=== PATIENT | male | born 1950 | race Caucasian/White ===

== ENCOUNTER 2019-09-05 00:16 | Inpatient (IN) | payer MEDICARE, SELFPAY ==
[2019-09-05] VITALS (53 sets, daily range): BP systolic 106–157; BP diastolic 54–101; PULSE 68–155; RESP 11–27; TEMP 36.3–36.8; O2SAT 91–100; BMI 35.8; BMI 25.7; BMI 25.8
--- NOTE | 2019-09-05 00:22 | ED.RN ---
NO OLD EKGS IN MUSE
--- NOTE | 2019-09-05 00:34 | RAD_ITS ---
HISTORY: PALPITATIONS EXAM: XR Chest 1 View: COMPARISON: None FINDINGS: # of images incl. paperwork: 1 Lungs are clear. Heart is not enlarged. No acute osseous pathology perceived. Pulmonary vascularity is distinct. No effusions. RAD/Chest 1 View (Portable) IMPRESSION: Normal. at 0105 Reported and signed by: Nile Mary MD Electronically Signed: Nile Mary MD at 1:04 EST Tel , Service support ,
--- NOTE | 2019-09-05 00:34 | EKG12_ITS ---
Test Reason : CP Blood Pressure : / mmHG Vent. Rate : 149 BPM Atrial Rate : 125 BPM P-R Int : 000 ms QRS Dur : 096 ms QT Int : 300 ms P-R-T Axes : 000 049 239 degrees QTc Int : 472 ms Atrial fibrillation with rapid ventricular response ST & T wave abnormality, consider inferolateral ischemia Abnormal ECG Confirmed by JUVENAL BAILEY, FARAZ ([id number]), purchasing expeditor JORJE CUNNINGHAM ([id number]) on 09/08/2019 11:45:58 AM Referred By: Maricarmen King Confirmed By:FARAZ SANFORD MD
--- NOTE | 2019-09-05 00:36 | ED.DCSUM_ITS ---
History of Present Illness Chief Complaint: Palpitations Narrative: Patient is a 69-year-old male who presents with palpitations. This woke him abruptly from sleep. He complains of a sensation of his heart racing or fluttering. No chest pain. No shortness of breath. No history of prior similar symptoms. No history of atrial fibrillation, any other dysrhythmia, coronary disease. He is treated for diabetes and hyperlipidemia. He denies any recent illness. Past Medical History - Allergies and Home Meds Allergies/Adverse Reactions: Allergies No Known Allergies Allergy (Verified 09/05/19 00:21) Primary Care Physician: Kesha Lopez [Primary Care Provider] - Past Medical History: - - Diabetes, hyperlipidemia, GERD Smoking Status: Never smoker Review of Systems All systems negative except as indicated General: Denies: Fever Eyes: Denies: Visual changes - bilaterally ENT: Denies: Bilateral ear pain Cardiovascular: Reports: Palpitations, Heart racing. Denies: Chest pain Respiratory: Denies: Dyspnea Gastrointestinal: Denies: Nausea, Vomiting Musculoskeletal: Denies: Myalgias, Arthralgias Skin: Denies: Rash Neurological: Denies: Headache Hematologic: Denies: Easy bruising Allergy: Denies: Uticaria Physical Exam Vital Signs/Narrative: Vital Signs Temp Pulse Resp BP Pulse Ox 09/05/19 00:17 97.4 F L 141 H 11 L 146/97 H 99 Inital Vital Signs reviewed: Yes General: Well nourished, Well developed Head: Normocephalic Eyes: EOMI ENT: Moist mucous membranes Neck: Supple Cardiovascular: - - Heart is irregularly irregular and tachycardic, no murmur Respiratory: No distress, CTA bilaterally Abdomen: Soft, Nontender Extremities: Nontender Skin: Normal color Neurological: Alert Psychological: Normal affect Diagnostic/Tx/Re-eval Impressions Chest X-Ray 09/05/19 00:34 IMPRESSION: Normal. at 0105 Reported and signed by: Nile Mary MD Electronically Signed: Nile Mary MD at 1:04 EST Tel , Service support , 09/05/19 00:34 Chest 1 View (Portable) [RAD] Stat Laboratory Results 09/05/19 09/05/19 09/05/19 00:25 00:25 00:25 WBC 6.1 RBC 5.37 Hgb 14.5 Hct 45.2 MCV 84.2 MCH 27.0 MCHC 32.1 RDW Std Deviation 43.4 RDW Coeff of Sagar 14.3 Plt Count 268 MPV 10.1 Immature Gran % (Auto) 0.300 Neut % (Auto) 51.1 Lymph % (Auto) 32.2 [place] % (Auto) 11.9 H Eos % (Auto) 3.3 Baso % (Auto) 1.2 H Absolute Neuts (auto) 3.1 Absolute Lymphs (auto) 1.95 Nucleated RBC % 0 PT 13.4 INR 1.0 Sodium 141 Potassium 3.6 Chloride 108 H Carbon Dioxide 27.0 Anion Gap 6 BUN 26 H Creatinine 1.13 Estim Creat Clear Calc 46.98 Est GFR (MDRD) Af Amer 82 Est GFR (MDRD) Non-Af 68 BUN/Creatinine Ratio 23.0 H Glucose 164 H Calcium 8.9 Troponin I < 0.015 TSH 3.79 H - Medical Decision Making EKG shows atrial fibrillation at a rate of 149. There are inferior and lateral T wave inversions with ST depression which is likely rate related. Patient was given a Cardizem bolus and started on an infusion. Laboratory studies and imaging as above essentially unremarkable. Patient's heart rate is improved on reevaluation and once starting Cardizem infusion is ranging 90s to 110. Repeat EKG shows A. fib at a rate of 113. He is still has inferior and lateral T wave inversions although ST segment depression is resolved. Patient still has no chest pain or shortness of breath. His chads 2 vascular score is 2 so he was given subcutaneous Lovenox. He was discussed with the hospitalist and admitted. ED Disposition - Plan for ED Patient: Disposition: Acute Care Hospital [facility] Diagnosis: Atrial fibrillation with RVR Referrals: Kesha Lopez [Primary Care Provider] -
[2019-09-05] MEDS: dilTIAZem 25 MG/5 ML Vial 20 MG IV BOLUS (00:45)
[2019-09-05 00:55] LABS: Absolute Lymphocyte Count 1.95 X10^3/uL (0.83-4.51); Absolute Neutrophil Count 3.1 X10^3/uL (2.0-7.7); Basophil# 0.07 X10^3/uL; Basophil% 1.2 % (0-1); Eosinophils% 3.3 % (0-5); Hematocrit 45.2 % (40-54); Hemoglobin 14.5 g/dL (13.0-16.5); Lymphocyte # 1.95 X10^3/ul (4.0); Lymphocyte % 32.2 % (19-41); Mean Corp Hgb Conc 32.1 g/dL (32-36); Mean Corpuscular Volume 84.2 fL (80-94); Mean Platelet Vol. 10.1 fl (6.2-12.0); Monocyte# 0.72 X10^3/uL; Monocyte% 11.9 % (0-10); NRBC Flagged by Analyzer 0 % (0-5); Neutrophil % 51.1 % (47-70); Platelet Count 268 K/mm3 (150-450); RBC Distribution Width CV 14.3 % (11.6-14.6); RBC Distribution Width SD 43.4 fl (35.1-43.9); Red Blood Count 5.37 M/mm3 (4.6-6.2); White Blood Count 6.1 K/mm3 (4.4-11.0)
[2019-09-05 00:59] LABS: Prothrombin Time (Protime)PT. 13.4 SECONDS (11.7-14.9)
[2019-09-05 01:13] LABS: Anion Gap 6 (5-15); BUN 26 mg/dL (7-18); Calcium,Total 8.9 mg/dL (8.5-10.1); Chloride 108 mmol/L (98-107); Creatinine, Serum 1.13 mg/dL (0.70-1.30); EST Glomerular Filtration Rate 68 mL/min (>60); Est Glom Filt Rate - Afr Amer 82 mL/min (>60); Estimated Creatinine Clearance 46.98 ml/min; Glucose 164 mg/dL (74-106); Potassium 3.6 mmol/L (3.5-5.1); Sodium Level 141 mmol/L (136-145); Thyroid Stim Hormone (TSH) 3.79 uIU/mL (0.358-3.74)
--- NOTE | 2019-09-05 01:28 | EKG12_ITS ---
Test Reason : REPEAT Blood Pressure : / mmHG Vent. Rate : 113 BPM Atrial Rate : 131 BPM P-R Int : 000 ms QRS Dur : 106 ms QT Int : 334 ms P-R-T Axes : 000 038 268 degrees QTc Int : 458 ms Atrial fibrillation with rapid ventricular response ST & T wave abnormality, consider inferolateral ischemia Abnormal ECG Confirmed by JUVENAL BAILEY, FARAZ ([id number]), film and video editor JORJE CUNNINGHAM ([id number]) on 09/08/2019 11:46:29 AM Referred By: Maricarmen King Confirmed By:FARAZ SANFORD MD
--- NOTE | 2019-09-05 01:50 | HP.PCM_ITS ---
Problem List (1) Diabetes Status: Chronic (2) Atrial fibrillation with RVR Status: Acute (3) HLD (hyperlipidemia) Status: Chronic History of Present Illness Date of Admission: 09/05/19 Chief Complaint: palpitations The patient is a 69 year old M with a significant history of diabetes mellitus; hyperlipidemia; GERD and vitamin D deficiency who presented to emergency de partment with palpitation that woke him up from the sleep. His symptoms started few hours before presentation. Also reports that his bilateral hands feel swollen. He denies any shortness of breath. At the emergency department his initial heart rate was in the 150s. He was given Cardizem bolus and was started on IV cardizem drip. Also he was given Lovenox. Past Medical History Past Medical History (Chronic Problems): Chronic Problems (Last Reviewed 09/05/19 @ 05:59 by Casey Mayorga MD) Diabetes (Chronic) HLD (hyperlipidemia) (Chronic) Medical History: Medical History (Last Reviewed 09/05/19 @ 05:59 by Casey Mayorga MD) Diabetes E11.9 Hyperlipidemia E78.5 Allergies No Known Allergies Allergy (Verified 09/05/19 00:21) Home Medications: Ambulatory Orders Medication Instructions Recorded Cholecalciferol (Vitamin D3) 1 tab PO QWEEK 09/05/19 [Vitamin D3] Glimepiride 1 tab PO DAILY 09/05/19 Metformin HCl 1 tab PO BID 09/05/19 Omeprazole 1 tab PO DAILY 09/05/19 Pravastatin Sodium 1 tab PO QHS 09/05/19 Surgical History: - - 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 Review of Systems Constitutional: Denies: Chills, Fever, Weight Change HEENT: Denies: Head Aches, Sinus Congestion, Sinus Drainage Cardiovascular: Reports: Palpitations, - - Patient feels like his bilateral hands are swollen.. Denies: Chest Pain Respiratory: Denies: Cough, Shortness of breath at rest, Sputum production Gastrointestinal: Denies: Abdominal Pain, Nausea, Vomiting Genitourinary: Denies: Dysuria Musculoskeletal: Denies: Joint Pain, Joint Tenderness Skin: Denies: Rash, Wounds Neurological: Denies: Numbness, Tingling, Focal weakness Psychiatric: Denies: Anxiety, Depression, Homicidal Ideations, Suicidal Ideations Hematologic/ Lymphatic: Denies: Easy Bruising, Easy Bleeding VTE Information - Inpt Only VTE Present on Admission: No VTE Mechan Device Prophylaxis: None VTE Pharm Prophylaxis ordered?: No Reason prophylaxis not ordered:: Treatment Not Indicated - Started on therapy dose of Lovenox for A. fib Patient Problems: Active and Suspected Problems (Last Reviewed 09/05/19 @ 05:59 by Casey Mayorga MD) Atrial fibrillation with RVR (Acute) - Physical Exam Vitals/I&O's: Vital Signs Temp Pulse Resp BP Pulse Ox 97.4 F L 129 H 17 136/101 H 98 09/05/19 00:17 09/05/19 01:31 09/05/19 01:31 09/05/19 01:31 09/05/19 01:31 Oxygen Delivery Method Room Air Weight: 88.904 kg Body Mass Index (BMI) 35.8 General: Alert, Oriented x3, Cooperative HEENT: Atraumatic, PERRLA, EOMI, Normocephalic Neck: Supple, No JVD, Negative Carotid Bruits Lungs: No rales, - - Coarse Cardiovascular: Normal S1, Normal S2, No murmurs, Irregular Rate, Tachycardic Abdomen: Bowel Sounds Present, Soft, Non Tender Extremities: No edema, Capillary Refill Less than 3 Seconds Skin: - - Gottron papules on knuckles Musculoskeletal: No Tenderness to Palpation of Joints or Extremities Neurological: Cranial nerves II-XII grossly intact Psych/Mental Status: Normal Affect, Appropriate Laboratory Results 09/05/19 00:25: WBC 6.1, RBC 5.37, Hgb 14.5, Hct 45.2, MCV 84.2, MCH 27.0, MCHC 32.1, RDW Std Deviation 43.4, RDW Coeff of Sagar 14.3, Plt Count 268, MPV 10.1, Immature Gran % (Auto) 0.300, Neut % (Auto) 51.1, Lymph % (Auto) 32.2, [place] % (Auto) 11.9 H, Eos % (Auto) 3.3, Baso % (Auto) 1.2 H, Absolute Neuts (auto) 3.1, Absolute Lymphs (auto) 1.95, Nucleated RBC % 0 09/05/19 00:25: PT 13.4, INR 1.0 09/05/19 00:25: Sodium 141, Potassium 3.6, Chloride 108 H, Carbon Dioxide 27.0, Anion Gap 6, BUN 26 H, Creatinine 1.13, Estim Creat Clear Calc 46.98, Est GFR (MDRD) Af Amer 82, Est GFR (MDRD) Non-Af 68, BUN/Creatinine Ratio 23.0 H, Glucose 164 H, Calcium 8.9, Troponin I < 0.015, TSH 3.79 H Current Medications Diltiazem HCl 125 mg/ Dextrose 125 mls @ 5 mls/hr IV .Q25H [facility]; Protocol Last Admin: 09/05/19 01:31 Dose: 5 mg/hr, 5 mls/hr Documented by: Assessment/Plan All Active Problems (Last Reviewed 09/05/19 @ 05:59 by Casey Mayorga MD) Atrial fibrillation with RVR (Acute) The patient is a 69 year old M with a significant history of diabetes mellitus; hyperlipidemia; GERD and vitamin D deficiency who presented to emergency department with palpitation that woke him up from the sleep; was found to be in A. fib with RVR A. fib with RVR Initial heart rate in the emergency department was 155. EKG showed A. fib with RVR with a ventricular rate of [address] depression that appeared mproved when his rates improved. [id number] score is 2 (age 65-74 :diabetes) Received Cardizem bolus at the emergency department. Was started on Cardizem drip; continued. Lovenox therapeutic dose x1 was given the emergency department. We will continue patient on Lovenox therapeutic dose twice daily. TSH was mildly elevated; check free T4. Potassium was 3.6; optimize by giving 40 mEq of p.o. potassium. Check magnesium. Trend BMP Echocardiogram ordered. Of note patient reported feeling of bilateral hand edema. Physical examination did not show edema bilateral hands. Check lipid levels Diabetes mellitus with hyperglycemia. On presentation his blood glucose was elevated. However it is within hospital goal. Hold home metformin. Continue home Amaryl. Accu-Chek QA CHS with correction scale insulin GERD PPI continued Vitamin D deficiency Vitamin D continued Hyperlipidemia Pravastatin continued DVT prophylaxis Not indicated since patient has been started on therapeutic dose of Lovenox for his A. fib. Code Visit Inpatient E&M: 75419 Init Hosp L3
[2019-09-05] MEDS: Enoxaparin 100 MG/ML Syringe 90 MG SC ×3 (02:12→21:23)
--- NOTE | 2019-09-05 02:38 | ECHOD_ITS ---
Reason For Study: AFIB/FLUTTER Procedure This was a 2D Doppler, Color Flow transthoracic echocardiogram. The study was technically difficult. Exam performed portable in patient room. Left Ventricle Normal LV size. Left ventricular systolic function is normal. The estimated ejection fraction is 55 %. Unable to assess diastolic dysfunction. No regional wall motion abnormalities noted. Right Ventricle Normal RV size. Normal systolic function. Atria The left atrium is mildly enlarged. Normal right atrium. No doppler evidence for ASD. Mitral Valve There is no mitral annular calcification. Normal mitral valve. Trivial mitral valve insufficiency. Tricuspid Valve Normal tricuspid valve. Trivial tricuspid valve insufficiency. Unable to estimate RV systolic pressure/pulmonary artery pressure due to technically difficult study. Aortic Valve Trisinus/trileaflet aortic valve. Normal aortic valve. Pulmonic Valve The pulmonic valve is not well visualized. Great Vessels Normal sized aortic root. Pericardium/Pleural No pericardial effusion. MMode/2D Measurements & Calculations LVIDd: 4.2 cm IVSd: 1.2 cm Ao root diam: 3.4 cm LVIDs: 3.0 cm LVPWd: 1.1 cm RVDd: 2.9 cm FS: 27.4 % LAV(MOD-bp): 72.4 ml LA A4 area: 21.5 cm2 RA A4 area: 14.6 cm2 LAV(MOD-bp) Indexed: 33.3 ml/m2 LAV(MOD-sp2): 67.1 ml LAV(MOD-sp4): 67.0 ml Time Measurements MV dec time: 0.17 sec Doppler Measurements & Calculations MV E max maximino: 82.6 cm/sec Ao V2 max: 137.0 cm/sec LV V1 max: 91.0 cm/sec Ao max P.5 mmHg LV V1 max P.3 mmHg PA V2 max: 96.1 cm/sec Interpretation Summary The study was technically difficult. Left ventricular systolic function is normal. The estimated ejection fraction is 55 %. The left atrium is mildly enlarged. Trivial mitral valve insufficiency. Trivial tricuspid valve insufficiency. Unable to estimate RV systolic pressure/pulmonary artery pressure due to technically difficult study. Unable to assess diastolic dysfunction. Ordering Physician: Casey Mayorga Referring Physician: Maricarmen King Performed By: Morena Whitt RDCS, RVT
[2019-09-05 02:57] LABS: Magnesium 1.8 mg/dL (1.6-2.6); T4 Free Direct 0.93 ng/dL (0.76-1.46)
[2019-09-05] MEDS: 0.9% Saline Lock 10 ML Syringe IV ×2 (04:05→21:22)
[2019-09-05 06:50] LABS: Bedside Glucose 173 mg/dL (70-110)
[2019-09-05] MEDS: Insulin Lispro 100 UNIT/ML INSULN.PEN SC ×4 (06:51→21:31)
[2019-09-05 07:38] LABS: Cholesterol 132 mg/dL (200); High Density Lipoprotein 39 mg/dL; Triglycerides 141 mg/dL; Very Low Density Lipoprotein 28 mg/dL (5-40)
[2019-09-05] MEDS: Glimepiride 1 MG Tablet PO (08:31)
[2019-09-05] MEDS: Pantoprazole Sodium 20 MG Tablet PO (08:31)
--- NOTE | 2019-09-05 11:10 | CASEMGMT ---
RN CM Assessment Presentation: Afib RVR, diabetes with hyperglycemia Intro role of CM and purpose of RN CM assessment to patient in room. Pt is [employer] [place] [employer] [place]. Demographics, PCP and Pharmacy verified. Pt states he lives independently in 3rd floor apartment. States he currently is not using any DME and is able to manage the 10+ stairs to get to his apartment. PCP: Kesha Roa- pt does not wish to establish with PCP, states he will continue with [facility] Specialists: Dr. Valverde, Podiatry; Dr. Troncoso, oncology; Radha Oglesby Preferred Pharmacy: [facility] Insurance: [employer] [facility] Prescription Benefit: yes LNOK: Sister, Ani Roper Living Arrangements: Pt states he is independent in all ADL's, no care needs identified. Transportation: Drives DME: has cane, does not use. Blood glucose monitoring equipment, pt states is in working order and he does check his BS @ home. HHC/SNF: none Patient DC goals: Home on dc. DC PLAN: Home Juanis CENTENO RN ACM
[2019-09-05 11:50] LABS: Bedside Glucose 232 mg/dL (70-110)
--- NOTE | 2019-09-05 12:56 | PN_ITS ---
<Sergey Ibarra - Last Filed: 09/05/19 12:56> Patient Problems: Active and Suspected Problems (Last Reviewed 09/05/19 @ 05:59 by Casey Mayorga MD) Atrial fibrillation with RVR (Acute) Reason for Visit: Palpitations Subjective: Patient presented to the ER for palpitations. He denies a history of atrial fibrillation, denies a history of heart disease. He reports that despite being retired he is still fairly active and does not have any shortness of breath or chest pain/tightness with exertion. Today no palpitations at all. Still in A. fib however rate much better controlled. No fevers or chills, no recent illness or infection, no nausea, vomiting, diarrhea. Vitals/I&O's: Vital Signs Temp Pulse Resp BP Pulse Ox 97.9 F 76 15 113/71 98 09/05/19 08:00 09/05/19 11:55 09/05/19 11:00 09/05/19 11:00 09/05/19 11:00 Oxygen Delivery Method Room Air Weight: 200 lb 9.93 oz Body Mass Index (BMI) 25.7 Intake and Output for Last 24 Hours 09/03/19 09/04/19 09/05/19 23:59 23:59 23:59 Intake Total 1035.50 / 1035.50 Output Total 325 / 325 Balance 710.50 / 710.50 General: Alert, Oriented x3, Cooperative HEENT: Atraumatic, PERRLA, EOMI, Normocephalic Neck: Supple, No JVD, Negative Carotid Bruits Lungs: Clear to auscultation, Normal air movement Cardiovascular: No murmurs, Irregular Rate Abdomen: Bowel Sounds Present, Soft, Non Tender Extremities: No edema, Capillary Refill Less than 3 Seconds Skin: No rashes, No breakdown Musculoskeletal: No Tenderness to Palpation of Joints or Extremities Neurological: Cranial nerves II-XII grossly intact Psych/Mental Status: Normal Affect, Appropriate, Alert and oriented to time, place, person, mood and affect Laboratory Results 09/05/19 00:24: Free T4 Cancelled 09/05/19 00:24: Magnesium 1.8, Free T4 0.93 09/05/19 00:25: WBC 6.1, RBC 5.37, Hgb 14.5, Hct 45.2, MCV 84.2, MCH 27.0, MCHC 32.1, RDW Std Deviation 43.4, RDW Coeff of Sagar 14.3, Plt Count 268, MPV 10.1, Immature Gran % (Auto) 0.300, Neut % (Auto) 51.1, Lymph % (Auto) 32.2, [place] % (Auto) 11.9 H, Eos % (Auto) 3.3, Baso % (Auto) 1.2 H, Absolute Neuts (auto) 3.1, Absolute Lymphs (auto) 1.95, Nucleated RBC % 0 09/05/19 00:25: PT 13.4, INR 1.0 09/05/19 00:25: Sodium 141, Potassium 3.6, Chloride 108 H, Carbon Dioxide 27.0, Anion Gap 6, BUN 26 H, Creatinine 1.13, Estim Creat Clear Calc 46.98, Est GFR (MDRD) Af Amer 82, Est GFR (MDRD) Non-Af 68, BUN/Creatinine Ratio 23.0 H, Glucose 164 H, Calcium 8.9, Troponin I < 0.015, TSH 3.79 H 09/05/19 03:20: Troponin I < 0.015 09/05/19 06:25: Triglycerides 141, Cholesterol 132, LDL Cholesterol 65, VLDL Cholesterol 28, HDL Cholesterol 39 L 09/05/19 06:25: Troponin I < 0.015 09/05/19 06:45: POC Glucose 173 H 09/05/19 11:11: POC Glucose 232 H Current Medications Acetaminophen (Tylenol) 650 mg PO Q6H PRN PRN PRN Reason: Pain Score 1-10/Temp > 100.7 F Enoxaparin Sodium (Lovenox) 90 mg 1 mg/kg (90 mg) SC Q12 [facility] Last Admin: 09/05/19 11:13 Dose: 90 mg Documented by: Ergocalciferol (Vitamin D) 50,000 unit PO QWEEK [facility] Glimepiride (Amaryl) 1 mg PO DAILYCM [facility] Last Admin: 09/05/19 08:31 Dose: 1 mg Documented by: Glucagon () 1 mg IM .X1 PRN PRN Reason: Hypoglycemia Diltiazem HCl 125 mg/ Dextrose 125 mls @ 5 mls/hr IV .Q25H [facility]; Protocol Last Titration: 09/05/19 11:00 Dose: 15 mg/hr, 15 mls/hr Documented by: Dextrose (Dextrose 10%-Water) 250 mls @ 999 mls/hr IV X1 PRN; Protocol PRN Reason: HYPOGLYCEMIA Sodium Chloride () 250 mls @ 15 mls/hr IV .[id number] PRN PRN Reason: Saline Flush Amiodarone HCl 360 mg/ (Dextrose) 200 mls @ 16.667 mls/hr CONT INF .Q12H [facility] Stop: 09/06/19 03:28 Last Admin: 09/05/19 11:06 Dose: 0.5 mg/min, 16.7 mls/hr Documented by: Insulin Human Lispro (Humalog Kwikpen (Bkc)) 0 unit SC ACHS [facility]; Protocol Last Admin: 09/05/19 11:12 Dose: 3 unit Documented by: Ondansetron HCl (Zofran) 4 mg IV Q8H PRN PRN PRN Reason: NAUSEA/VOMITING Pantoprazole Sodium (Protonix) 20 mg PO DAILY [facility] Last Admin: 09/05/19 08:31 Dose: 20 mg Documented by: Pravastatin Sodium (Pravachol) 10 mg PO QHS [facility] Sodium Chloride () 10 - 40 ml IV UD PRN PRN Reason: SALINE FLUSH Last Admin: 09/05/19 04:05 Dose: 10 ml Documented by: STROKE Vital Signs/Narrative: Vital Signs Pulse Resp BP Pulse Ox 09/05/19 11:55 76 09/05/19 11:00 74 15 113/71 98 09/05/19 10:00 78 13 126/82 H 97 09/05/19 09:00 79 17 123/82 H 100 Medical Necessity - Tobacco Use Smoking Status: Never smoker Tobacco Use: Non-smoker Assessment/Plan All Active Problems (Last Reviewed 09/05/19 @ 05:59 by Casey Mayorga MD) Atrial fibrillation with RVR (Acute) 1. A. fib with RVR-cardiology consulted. On amiodarone and Cardizem drip. Rate improved, still in A. fib. Was having palpitations, now resolved. Echocardiogram unremarkable. Troponin negative x3. TSH somewhat elevated however free T4 is normal. On therapeutic Lovenox 2. Type 2 diabetes-orals held-continue sliding scale insulin. 3. GERD-continue PPI 4. Hyperlipidemia-continue statin DVT prophylaxis: On therapeutic Lovenox. This patient was seen by Sergey Ibarra PA-C under the supervision of Doctor Flor. <Uriel Ray - Last Filed: 09/05/19 13:37> Vitals/I&O's: Vital Signs Temp Pulse Resp BP Pulse Ox 36.6 C 76 15 113/71 98 09/05/19 08:00 09/05/19 11:55 09/05/19 11:00 09/05/19 11:00 09/05/19 11:00 Oxygen Delivery Method Room Air Weight: 91 kg Body Mass Index (BMI) 25.7 Intake and Output for Last 24 Hours 09/03/19 09/04/19 09/05/19 23:59 23:59 23:59 Intake Total 1035.50 / 1035.50 Output Total 325 / 325 Balance 710.50 / 710.50 General: Alert, Cooperative HEENT: Atraumatic, Normocephalic Oral: Moist Mucosa, No Gingival or Mucosal Lesions/ Ulcerations Neck: No Nodes, Trachea Midline Lungs: Clear to auscultation, Normal air movement, No rhonchi, No wheeze, No rales Cardiovascular: Regular rate, Regular Rhythm, Normal S1, Normal S2 Abdomen: Bowel Sounds Present, Soft, Non Tender, Non-Distended Extremities: No edema, No Calf Tenderness Psych/Mental Status: Normal Affect, Appropriate Laboratory Results 09/05/19 00:24: Free T4 Cancelled 09/05/19 00:24: Magnesium 1.8, Free T4 0.93 09/05/19 00:25: WBC 6.1, RBC 5.37, Hgb 14.5, Hct 45.2, MCV 84.2, MCH 27.0, MCHC 32.1, RDW Std Deviation 43.4, RDW Coeff of Sagar 14.3, Plt Count 268, MPV 10.1, Immature Gran % (Auto) 0.300, Neut % (Auto) 51.1, Lymph % (Auto) 32.2, [place] % (Auto) 11.9 H, Eos % (Auto) 3.3, Baso % (Auto) 1.2 H, Absolute Neuts (auto) 3.1, Absolute Lymphs (auto) 1.95, Nucleated RBC % 0 09/05/19 00:25: PT 13.4, INR 1.0 09/05/19 00:25: Sodium 141, Potassium 3.6, Chloride 108 H, Carbon Dioxide 27.0, Anion Gap 6, BUN 26 H, Creatinine 1.13, Estim Creat Clear Calc 46.98, Est GFR (MDRD) Af Amer 82, Est GFR (MDRD) Non-Af 68, BUN/Creatinine Ratio 23.0 H, Glucose 164 H, Calcium 8.9, Troponin I < 0.015, TSH 3.79 H 09/05/19 03:20: Troponin I < 0.015 09/05/19 06:25: Triglycerides 141, Cholesterol 132, LDL Cholesterol 65, VLDL Cholesterol 28, HDL Cholesterol 39 L 09/05/19 06:25: Troponin I < 0.015 09/05/19 06:45: POC Glucose 173 H 09/05/19 11:11: POC Glucose 232 H Current Medications Acetaminophen (Tylenol) 650 mg PO Q6H PRN PRN PRN Reason: Pain Score 1-10/Temp > 100.7 F Enoxaparin Sodium (Lovenox) 90 mg 1 mg/kg (90 mg) SC Q12 [facility] Last Admin: 09/05/19 11:13 Dose: 90 mg Documented by: Ergocalciferol (Vitamin D) 50,000 unit PO QWEEK [facility] Glimepiride (Amaryl) 1 mg PO DAILYCM [facility] Last Admin: 09/05/19 08:31 Dose: 1 mg Documented by: Glucagon () 1 mg IM .X1 PRN PRN Reason: Hypoglycemia Diltiazem HCl 125 mg/ Dextrose 125 mls @ 5 mls/hr IV .Q25H [facility]; Protocol Last Titration: 09/05/19 11:00 Dose: 15 mg/hr, 15 mls/hr Documented by: Dextrose (Dextrose 10%-Water) 250 mls @ 999 mls/hr IV X1 PRN; Protocol PRN Reason: HYPOGLYCEMIA Sodium Chloride () 250 mls @ 15 mls/hr IV .[id number] PRN PRN Reason: Saline Flush Amiodarone HCl 360 mg/ (Dextrose) 200 mls @ 16.667 mls/hr CONT INF .Q12H [facility] Stop: 09/06/19 03:28 Last Admin: 09/05/19 11:06 Dose: 0.5 mg/min, 16.7 mls/hr Documented by: Insulin Human Lispro (Humalog Kwikpen (Bkc)) 0 unit SC ACHS [facility]; Protocol Last Admin: 09/05/19 11:12 Dose: 3 unit Documented by: Ondansetron HCl (Zofran) 4 mg IV Q8H PRN PRN PRN Reason: NAUSEA/VOMITING Pantoprazole Sodium (Protonix) 20 mg PO DAILY [facility] Last Admin: 09/05/19 08:31 Dose: 20 mg Documented by: Pravastatin Sodium (Pravachol) 10 mg PO QHS [facility] Sodium Chloride () 10 - 40 ml IV UD PRN PRN Reason: SALINE FLUSH Last Admin: 09/05/19 04:05 Dose: 10 ml Documented by: STROKE Vital Signs/Narrative: Vital Signs Pulse Resp BP Pulse Ox 09/05/19 11:55 76 09/05/19 11:00 74 15 113/71 98 09/05/19 10:00 78 13 126/82 H 97 Assessment/Plan Patient seen and examined independently. Data reviewed. I agree with the above note by the physician promotions assistant sales marketing. 1. Afib with RVR: * currently NSR * on amio and dilt gtt * weight-based enoxaparin * EF 55% * cardiology consult pending. Code Visit Inpatient E&M: 20708 Subs Hosp L2
--- NOTE | 2019-09-05 15:10 | EKG12_ITS ---
Test Reason : CONVERTED TO NSR Blood Pressure : / mmHG Vent. Rate : 069 BPM Atrial Rate : 069 BPM P-R Int : 168 ms QRS Dur : 098 ms QT Int : 404 ms P-R-T Axes : 050 024 090 degrees QTc Int : 432 ms Normal sinus rhythm Nonspecific T wave abnormality Abnormal ECG No previous ECGs available Confirmed by MARILIA BAILEY, HOA ([id number]), field map editor HARRISON PATRICK ([id number]) on 09/15/2019 1:03:03 PM Referred By: Maricarmen King Confirmed By:STEPHANIE CAPELLAN MD
[2019-09-05 16:35] LABS: Bedside Glucose 202 mg/dL (70-110)
--- NOTE | 2019-09-05 18:03 | PCM.CONS.C ---
Problem List (1) Atrial fibrillation with RVR Status: Acute (2) HLD (hyperlipidemia) Status: Chronic (3) Diabetes Status: Chronic Reason for Consult Date of Consultation: 09/05/19 History of Present Illness: The patient is a 69 year old white male who is referred for evaluation of atrial fibrillation superimposed on hyperlipidemia and diabetes mellitus. The patient states he awoke from sleep sensing palpitations and rapid heart rate. He does not recall having any associated chest discomfort, nausea, emesis, or diaphoresis. He denies any obvious shortness of breath or dyspnea. He felt his upper extremities were swollen. He presented to the [facility] emergency department. He was found to be in atrial fibrillation with rapid ventricular response. He was placed in the hospital for further evaluation and care. He has been treated with IV diltiazem and IV amiodarone. Over time he has been noted to have subsequent spontaneous conversion to sinus rhythm. At the present time he states he is feeling well. He denies symptoms of ongoing chest discomfort or difficulty breathing, orthopnea, PND, or worsening peripheral pitting edema. There has been no near syncope or syncope. He states he has not sensed any recurrent palpitations. His cardiac enzymes have been negative. His ECG demonstrated atrial fibrillation with rapid ventricular response with diffuse nonspecific ST and T wave abnormality. 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 Lives: Alone Smoking Status: Never smoker Tobacco Use: Non-smoker Alcohol: None Drugs: None Review of Systems - Review of Systems General: Denies: Fever, Night Sweats, Fatigue Cardiovascular: Reports: Palpitations. Denies: Chest Discomfort, Shortness of Breath, Orthopnea, PND, Peripheral Edema, Lightheadedness, Dizziness, Near Syncope, Syncope Respiratory: Denies: Cough, Sputum Production, Hemoptysis Gastrointestinal: Denies: Hematemesis, Hematochezia, Melena Genitourinary: Denies: Dysuria, Hematuria Skin: Denies: Rash Subjectve: This is a 69-year-old white male who appears to be resting reasonably comfortably at the moment in no acute distress. Objective: Vital Signs Temp Pulse Resp BP Pulse Ox 98.2 F 71 15 126/74 H 97 09/05/19 13:56 09/05/19 17:55 09/05/19 17:55 09/05/19 17:55 09/05/19 17:55 Oxygen Delivery Method Room Air Weight: 200 lb 9.93 oz Body Mass Index (BMI) 25.7 Intake and Output for Last 24 Hours 09/03/19 09/04/19 09/05/19 23:59 23:59 23:59 Intake Total 1211.62 / 1211.62 Output Total 325 / 325 Balance 886.62 / 886.62 General: Awake, Alert, Oriented x 3, Cooperative, No Acute Distress HEENT: Atraumatic, Normocephalic, PERRL, EOMI, Sclera Non Icteric Oral: Moist Mucosa Neck: Supple, Good ROM, No JVD Lungs: Clear to auscultation Cardiovascular: Regular Rhythm, Normal S1, Normal S2 Vascular: No Carotid Bruits Abdomen: Bowel Sounds Present, Soft, Non Tender Extremities: No edema Neurological: No Focal Motor or Sensory Deficit Psych/Mental Status: Appropriate 09/05/19 00:24: Magnesium 1.8 09/05/19 00:25: WBC 6.1, RBC 5.37, Hgb 14.5, Hct 45.2, MCV 84.2, MCH 27.0, MCHC 32.1, Plt Count 268, MPV 10.1, Immature Gran % (Auto) 0.300, Neut % (Auto) 51.1, Lymph % (Auto) 32.2, [place] % (Auto) 11.9 H, Eos % (Auto) 3.3, Baso % (Auto) 1.2 H, Absolute Neuts (auto) 3.1, Nucleated RBC % 0 09/05/19 00:25: PT 13.4, INR 1.0 09/05/19 00:25: Sodium 141, Potassium 3.6, Chloride 108 H, Carbon Dioxide 27.0, Anion Gap 6, BUN 26 H, Creatinine 1.13, Est GFR (MDRD) Af Amer 82, Est GFR (MDRD) Non-Af 68, BUN/Creatinine Ratio 23.0 H, Glucose 164 H, Calcium 8.9, Troponin I < 0.015 09/05/19 03:20: Troponin I < 0.015 09/05/19 06:25: Triglycerides 141, Cholesterol 132, LDL Cholesterol 65, VLDL Cholesterol 28, HDL Cholesterol 39 L 09/05/19 06:25: Troponin I < 0.015 Rhythm: Sinus rhythm EKG: As previously noted ECHO: Left ventricle: Normal LV systolic function: Estimated LVEF of 55% CXR: Per radiology: No acute cardiopulmonary disease process appreciated Assessment/Plan 1. Atrial fibrillation with rapid ventricular response At the present time the etiology is unclear. The patient will continue to be monitored. He will continue medical therapy with antiplatelet therapy/anticoagulant therapy as deemed appropriate along with rate control therapy and antiarrhythmic therapy. As part of his evaluation he will undergo evaluation with a pharmacologic stress nuclear imaging study to evaluate for any obvious evidence of myocardial ischemia that may be contributing to his findings that warrant further evaluation and care. 2. Hyperlipidemia He will continue risk factor modification and medical management. 3. Diabetes mellitus He will continue evaluation care per internal medicine. This note was generated using a voice recognition system and there may be incorrect words, spelling or punctuation that were not noted when reviewing the office note prior to saving.
[2019-09-05] MEDS: dilTIAZem CD 120 MG Capsule PO (18:36)
[2019-09-05] MEDS: Amiodarone 200 MG Tablet PO (21:22)
[2019-09-05] MEDS: Pravastatin 20 MG Tablet 10 MG PO (21:23)
[2019-09-05 22:20] LABS: Bedside Glucose 160 mg/dL (70-110)
[2019-09-06] VITALS (9 sets, daily range): BP systolic 112–137; BP diastolic 68–83; PULSE 68–86; RESP 11–16; TEMP 36.6–36.9; O2SAT 95–98
[2019-09-06] MEDS: 0.9% Saline Lock 10 ML Syringe IV (05:09)
--- NOTE | 2019-09-06 05:55 | EKG12_ITS ---
Test Reason : AM EKG Blood Pressure : / mmHG Vent. Rate : 073 BPM Atrial Rate : 073 BPM P-R Int : 180 ms QRS Dur : 104 ms QT Int : 404 ms P-R-T Axes : 041 019 025 degrees QTc Int : 445 ms Normal sinus rhythm Nonspecific T wave abnormality Abnormal ECG No previous ECGs available Confirmed by DEJAN BAILEY, BUZZ ([id number]), tape editor KD GUEVARA ([id number]) on 09/10/2019 11:42:03 AM Referred By: Maricarmen King Confirmed By:BUZZ WYLIE MD
[2019-09-06] MEDS: Amiodarone 200 MG Tablet PO ×2 (06:30→13:15)
[2019-09-06 06:45] LABS: Bedside Glucose 160 mg/dL (70-110)
[2019-09-06] MEDS: dilTIAZem CD 120 MG Capsule PO (09:39)
[2019-09-06] MEDS: Glimepiride 1 MG Tablet PO (09:39)
[2019-09-06] MEDS: Pantoprazole Sodium 20 MG Tablet PO (09:39)
--- NOTE | 2019-09-06 10:58 | STRESSREP_ITS ---
Stress Test Report Date: 09-06-19 Procedure: Pharmacologic stress nuclear imaging study Indications: Atrial fibrillation Consent: Per the patient Procedure: The patient underwent pharmacologic (Regadenoson) evaluation with a peak heart rate of 98 beats per minute (65 %predicted maximal heart rate) and a peak blood pressure of 158/62 mmHg. The baseline ECG demonstrated normal sinus rhythm; nonspecific T wave abnormality. The peak pharmacologic ECG demonstrated no obvious ECG changes. There were no cardiac dysrhythmias pretest, during pharmacologic infusion, or recovery. There was no complaint of chest discomfort during pharmacologic infusion or recovery. The examination was discontinued secondary to completion of protocol. Impression: 1. Pharmacologic (Regadenoson) evaluation 2. Peak pharmacologic ECG with no obvious ECG changes. 3. There were no cardiac dysrhythmias pretest, during pharmacologic infusion, or recovery. 4. Nuclear images pending Myocardial perfusion imaging study: Technique: The patient was injected with 11.8 millicuries of technetium 99m Cardiolite and subsequently rest SPECT Cardiolite nuclear imaging was obtained in the horizontal long, vertical long, and short axis views. The patient underwent pharmacologic (Regadenoson) evaluation with a peak heart rate of 98 beats per minute (65 % percent predicted maximal heart rate) and a peak blood pressure of 158/62 mmHg. The patient was injected with 35.0 millicuries of technetium 99m Cardiolite and subsequently stress SPECT Cardiolite nuclear imaging was obtained in the horizontal long, vertical long, and short axis views. A gated Cardiolite study at peak stress was obtained. Interpretation: Rest and stress SPECT Cardiolite nuclear imaging status post realignment, normalization, and attenuation correction demonstrate a small area of subtle diminished tracer uptake near the apical segments without significant change between rest and stress. There is end systolic thickening and brightening. The gated Cardiolite study demonstrates myocardial thickening and inward wall motion. The reported LVEF is 65 %. Impression: 1. Rest and stress SPECT Cardiolite nuclear imaging demonstrate myocardial perfusion changes appearing compatible with physiologic apical thinning with no myocardial perfusion changes considered diagnostic for associated stress-induced myocardial ischemia. 2. The gated Cardiolite study reports an LVEF of 65 %. This note was generated with [employer] software. It may contain incorrect words, spelling, and punctuation that were not noted in checking the note before signing.
[2019-09-06 11:00] LABS: Anion Gap 4 (5-15); BUN 23 mg/dL (7-18); BUN/Creat Ratio 20.7 RATIO (10-20); Calcium,Total 8.1 mg/dL (8.5-10.1); Chloride 104 mmol/L (98-107); Creatinine, Serum 1.11 mg/dL (0.70-1.30); EST Glomerular Filtration Rate 70 mL/min (>60); Est Glom Filt Rate - Afr Amer 84 mL/min (>60); Glucose 191 mg/dL (74-106); Potassium 3.7 mmol/L (3.5-5.1); Sodium Level 136 mmol/L (136-145)
[2019-09-06] MEDS: Insulin Lispro 100 UNIT/ML INSULN.PEN SC (11:01)
[2019-09-06 11:15] LABS: Bedside Glucose 178 mg/dL (70-110)
--- NOTE | 2019-09-06 12:21 | DCINST_ITS ---
- Discharge Diagnoses Current Active Problems: Current Active and Chronic Problems (Last Reviewed 09/05/19 @ 05:59 by Casey Mayorga MD) Atrial fibrillation with RVR (Acute) Diabetes (Chronic) HLD (hyperlipidemia) (Chronic) You will use the following diet at home:: Calorie/Carbohydrate Controlled (specify 1200, 1400, etc) - 1800 alanna / day, Cardiac Your food should be the consistency of: Regular Your liquids should be the consistency of: Regular/Thin Discharge Activity: Return to Normal Activity Allergies/Adverse Reactions: Allergies No Known Allergies Allergy (Verified 09/05/19 00:21) Medications to take at Discharge Cholecalciferol (Vitamin D3) [Vitamin D3] 1 tab PO QWEEK 09/05/19 Glimepiride 1 tab PO DAILY 09/05/19 Metformin HCl 1 tab PO BID 09/05/19 Omeprazole 1 tab PO DAILY 09/05/19 Pravastatin Sodium 1 tab PO QHS 09/05/19 Amiodarone HCl [Cordarone] 200 mg PO DAILY #106 tab 09/06/19 Apixaban [Eliquis] 5 mg PO BID #60 tab.ds.pk 09/06/19 Diltiazem CD [Cardizem CD] 120 mg PO DAILY #30 cap 09/06/19 The following prescriptions were given: Diltiazem CD [Cardizem CD] 120 mg PO DAILY #30 cap Transmission Status: Sent to [facility] Amiodarone HCl [Cordarone] 200 mg PO DAILY #106 tab Transmission Status: Sent to [facility] Apixaban [Eliquis] 5 mg PO BID #60 tab.ds.pk Transmission Status: Sent to [facility] Primary Care Physician: Kesha Lopez [Primary Care Provider] - Please follow up with your Primary Care Physician in: 1-2 weeks Test Results: Test results from this visit will be discussed in further detail at your follow- up appointment, if applicable. Please Follow Up With: Jay Estrada MD When: as directed Proposed Discharge Date: 09/06/19
--- NOTE | 2019-09-06 13:11 | CASEMGMT ---
Case Management Progress Note: 1250- Called patient pharmacy Sarah [facility]UM[facility] and s/w states Ti Tatumquis cost $3.80/month. Went to patient bedside and informed patient. Denies any issues, concerns or questions. Asking about how many refills-directed to discuss with primary nurse and pharmacist upon DC. Updated primary nurse Bethany. Juan Diego Billings RNCM
--- NOTE | 2019-09-06 13:12 | PCM.PN.CARD ---
Subjectve: The patient reports no ongoing palpitations or rapid rate sensations. He has had no other chest discomfort or difficulty breathing. Objective: Vital Signs Temp Pulse Resp BP Pulse Ox 97.9 F 71 16 126/81 H 96 09/06/19 11:00 09/06/19 11:00 09/06/19 11:00 09/06/19 11:00 09/06/19 11:15 Oxygen Delivery Method Room Air Weight: 200 lb 9.93 oz Body Mass Index (BMI) 25.7 Intake and Output for Last 24 Hours 09/04/19 09/05/19 09/06/19 23:59 23:59 23:59 Intake Total 2169.85 / 2185.44 340.00 / 340.00 Output Total 325 / 325 300 / 300 Balance 1844.85 / 1860.44 40.00 / 40.00 General: Awake, Alert, Oriented x 3, Cooperative, No Acute Distress HEENT: Atraumatic, Normocephalic, PERRL, EOMI, Sclera Non Icteric Oral: Moist Mucosa Neck: Supple, Good ROM, No JVD Lungs: Clear to auscultation Cardiovascular: Regular Rhythm, Normal S1, Normal S2 Abdomen: Bowel Sounds Present, Soft, Non Tender Extremities: No edema Neurological: No Focal Motor or Sensory Deficit Psych/Mental Status: Appropriate 09/06/19 09:58: Sodium 136, Potassium 3.7, Chloride 104, Carbon Dioxide 28.0, Anion Gap 4 L, BUN 23 H, Creatinine 1.11, Est GFR (MDRD) Af Amer 84, Est GFR (MDRD) Non-Af 70, BUN/Creatinine Ratio 20.7 H, Glucose 191 H, Calcium 8.1 L Rhythm: Sinus rhythm EKG: Sinus rhythm; nonspecific T wave Stress Test: Stress Test Report Date: 09-06-19 Procedure: Pharmacologic stress nuclear imaging study Indications: Atrial fibrillation Consent: Per the patient Procedure: The patient underwent pharmacologic (Regadenoson) evaluation with a peak heart rate of 98 beats per minute (65 %predicted maximal heart rate) and a peak blood pressure of 158/62 mmHg. The baseline ECG demonstrated normal sinus rhythm; nonspecific T wave abnormality. The peak pharmacologic ECG demonstrated no obvious ECG changes. There were no cardiac dysrhythmias pretest, during pharmacologic infusion, or recovery. There was no complaint of chest discomfort during pharmacologic infusion or recovery. The examination was discontinued secondary to completion of protocol. Impression: 1. Pharmacologic (Regadenoson) evaluation 2. Peak pharmacologic ECG with no obvious ECG changes. 3. There were no cardiac dysrhythmias pretest, during pharmacologic infusion, or recovery. 4. Nuclear images pending Myocardial perfusion imaging study: Technique: The patient was injected with 11.8 millicuries of technetium 99m Cardiolite and subsequently rest SPECT Cardiolite nuclear imaging was obtained in the horizontal long, vertical long, and short axis views. The patient underwent pharmacologic (Regadenoson) evaluation with a peak heart rate of 98 beats per minute (65 % percent predicted maximal heart rate) and a peak blood pressure of 158/62 mmHg. The patient was injected with 35.0 millicuries of technetium 99m Cardiolite and subsequently stress SPECT Cardiolite nuclear imaging was obtained in the horizontal long, vertical long, and short axis views. A gated Cardiolite study at peak stress was obtained. Interpretation: Rest and stress SPECT Cardiolite nuclear imaging status post realignment, normalization, and attenuation correction demonstrate a small area of subtle diminished tracer uptake near the apical segments without significant change between rest and stress. There is end systolic thickening and brightening. The gated Cardiolite study demonstrates myocardial thickening and inward wall motion. The reported LVEF is 65 %. Impression: 1. Rest and stress SPECT Cardiolite nuclear imaging demonstrate myocardial perfusion changes appearing compatible with physiologic apical thinning with no myocardial perfusion changes considered diagnostic for associated stress-induced myocardial ischemia. 2. The gated Cardiolite study reports an LVEF of 65 %. Medical Necessity - Tobacco Use Smoking Status: Never smoker Tobacco Use: Non-smoker Assessment/Plan 1. Atrial fibrillation with rapid ventricular response At the present time the etiology is unclear. His pharmacologic stress nuclear imaging study appears to be negative. At the present time the recommendation would be for continued medical management which will include rate control therapy with diltiazem, antiarrhythmic therapy with amiodarone, and anticoagulant therapy. The patient will also need continued outpatient cardiovascular follow-up. 2. Hyperlipidemia He will continue risk factor modification and medical management. 3. Diabetes mellitus He will continue evaluation care per internal medicine. Comment: The above was discussed and reviewed with the patient and Dr. Westbrook. This note was generated using a voice recognition system and there may be incorrect words, spelling or punctuation that were not noted when reviewing the office note prior to saving.
--- NOTE | 2019-09-06 13:54 | DS.PCM_ITS ---
<Sergey Ibarra - Last Filed: 09/06/19 13:54> Discharge Date and Diagnosis Date of Admission: 09/05/19 Date of Discharge: 09/06/19 - Primary Discharge Diagnosis New onset Afib with RVR T2DM GERD HLD - Secondary Discharge Diagnosis Chronic Problems (Last Reviewed 09/05/19 @ 05:59 by Casey Mayorga MD) Diabetes (Chronic) HLD (hyperlipidemia) (Chronic) Hospital Course and Treatment Imaging Results: 09/06/19 05:55 Nuclear Stress Test - Chemical [NM] AM (NON MEDS) Impression: 1. Rest and stress SPECT Cardiolite nuclear imaging demonstrate myocardial perfusion changes appearing compatible with physiologic apical thinning with no myocardial perfusion changes considered diagnostic for associated stress-induced myocardial ischemia. 2. The gated Cardiolite study reports an LVEF of 65 %. 2D Echo: Interpretation Summary The study was technically difficult. Left ventricular systolic function is normal. The estimated ejection fraction is 55 %. The left atrium is mildly enlarged. Trivial mitral valve insufficiency. Trivial tricuspid valve insufficiency. Unable to estimate RV systolic pressure/pulmonary artery pressure due to technically difficult study. Unable to assess diastolic dysfunction. RAD/Chest 1 View (Portable) IMPRESSION: Normal. [facility] None Procedures: 2-D Echocardiogram, Stress test Summary of Care Provided: Hospital Course: The patient is a 69 year old M with pmhx of Dmt2, HLD, GERD who presented to the ER with c/o palpitations. He was found to have Afib with RVR which he no prior hx of. He was treated with amiodarone and cardizem drips, and given therapeutic lovenox. His heart rate was successfully controlled with these and they were transitioned to PO. TSH was slightly elevated however T4 was normal. Trop was negative x3. 2D echo was obtained and was unremarkable as reported above. Cardiology was consulted and recommended a stress test. This was negative. The patient had good rate control, no further palpitations. He was transitioned to oral eliquis for anticoagulation. He was discharged home in stable condition. He will follow up with his PCP in 1-2 weeks and with cardiology as directed. This patient was seen by Sergey Ibarra PA-C under the supervision of Dr. Westbrook [] - Physical Exam Vitals/I&O's: Vital Signs Temp Pulse Resp BP Pulse Ox 97.9 F 71 16 126/81 H 96 09/06/19 11:00 09/06/19 11:00 09/06/19 11:00 09/06/19 11:00 09/06/19 11:15 Oxygen Delivery Method Room Air Weight: 200 lb 9.93 oz Body Mass Index (BMI) 25.7 Intake and Output for Last 24 Hours 09/04/19 09/05/19 09/06/19 23:59 23:59 23:59 Intake Total 2169.85 / 2185.44 340.00 / 340.00 Output Total 325 / 325 300 / 300 Balance 1844.85 / 1860.44 40.00 / 40.00 General: Alert, Oriented x3, Cooperative HEENT: Atraumatic, PERRLA, EOMI, Normocephalic Neck: Supple, No JVD, Negative Carotid Bruits Lungs: Clear to auscultation, Normal air movement Cardiovascular: Regular rate, No murmurs Abdomen: Bowel Sounds Present, Soft, Non Tender Extremities: No edema, Capillary Refill Less than 3 Seconds Skin: No rashes, No breakdown Musculoskeletal: No Tenderness to Palpation of Joints or Extremities Neurological: Cranial nerves II-XII grossly intact Psych/Mental Status: Normal Affect, Appropriate, Alert and oriented to time, place, person, mood and affect Laboratory Results 09/05/19 16:10: POC Glucose 202 H 09/05/19 21:30: POC Glucose 160 H 09/06/19 06:31: POC Glucose 160 H 09/06/19 09:58: Sodium 136, Potassium 3.7, Chloride 104, Carbon Dioxide 28.0, Anion Gap 4 L, BUN 23 H, Creatinine 1.11, Estim Creat Clear Calc 72.00, Est GFR (MDRD) Af Amer 84, Est GFR (MDRD) Non-Af 70, BUN/Creatinine Ratio 20.7 H, Glucose 191 H, Calcium 8.1 L 09/06/19 10:59: POC Glucose 178 H Discharge Diet: Low fat/ Low Cholesterol, 1800 Calorie Control Diet, 2000 mg Sodium Diet Discharge Activity: Return to Normal Activity Home Medications: Medications to take at Discharge Cholecalciferol (Vitamin D3) [Vitamin D3] 1 tab PO QWEEK 09/05/19 Glimepiride 1 tab PO DAILY 09/05/19 Metformin HCl 1 tab PO BID 09/05/19 Omeprazole 1 tab PO DAILY 09/05/19 Pravastatin Sodium 1 tab PO QHS 09/05/19 Amiodarone HCl [Cordarone] 200 mg PO DAILY #106 tab 09/06/19 Apixaban [Eliquis] 5 mg PO BID #60 tab.ds.pk 09/06/19 Diltiazem CD [Cardizem CD] 120 mg PO DAILY #30 cap 09/06/19 Following Prescrptions Were Given to Patient: Diltiazem CD [Cardizem CD] 120 mg PO DAILY #30 cap Transmission Status: Received by [facility] Amiodarone HCl [Cordarone] 200 mg PO DAILY #106 tab Transmission Status: Received by [facility] Apixaban [Eliquis] 5 mg PO BID #60 tab.ds.pk Transmission Status: Received by [facility] Primary Care Physician: Kesha Lopez [Primary Care Provider] - Please follow up with your Primary Care Physician in: 1-2 weeks Please Follow Up With: Jay Estrada MD When: as directed Disposition: Home Minutes spent on discharge:: 35 Patient Condition:: Stable Medical Necessity - Tobacco Use Smoking Status: Never smoker Tobacco Use: Non-smoker Meaningful Use Info Meaningful Use Diagnoses (Choose all that apply): None applicable <Sarah Westbrook - Last Filed: 09/06/19 15:17> Discharge Date and Diagnosis - Secondary Discharge Diagnosis Chronic Problems (Last Reviewed 09/05/19 @ 05:59 by Casey Mayorga MD) Diabetes (Chronic) HLD (hyperlipidemia) (Chronic) Hospital Course and Treatment Summary of Care Provided: Patient seen by Sergey Ibarra PA-C under my supervision The patient is a 69 year old M with a past medical history as listed was admitted through the ED with a complaint of palpitations. He was found to be in A. fib with RVR. He had no previous diagnosis of A. fib. He was put on amiodarone and Cardizem drip and started on therapeutic Lovenox. Heart rate control subsequently improved and converted to normal sinus rhythm and was switched to p.o. medication. TSH was only mildly elevated but T4 was within normal limits. Troponins x3 were negative and 2D echo showed EF of 55% with normal left ventricular size and systolic function with no regional wall motion abnormalities noted. Cardiology was consulted. He had a stress test on 09/06/2019 which was negative for any evidence of myocardial ischemia. Patient remained stable and was discharged home on p.o. Eliquis as well as p.o. amiodarone and p.o. Cardizem. He is follow-up with his primary care doctor and cardiology. Patient seen and examined prior to discharge. He had no complaints. Review of symptoms otherwise negative. Labs and vitals reviewed. Home medications reviewed and reconciled. O/E: Vital Signs Height 6 ft 2 in Weight: 200 lb 9.93 oz Weight in Pounds 200.6 lbs Pulse Ox 96 Temperature 97.9 F Pulse Rate 71 Respiratory Rate 16 Blood Pressure 126/81 Blood Pressure Position Semi-Fowlers General: Alert, Oriented x3, Cooperative HEENT: Atraumatic, PERRLA, EOMI, Normocephalic Neck: Supple, No JVD, Negative Carotid Bruits Lungs: Clear to auscultation, Normal air movement Cardiovascular: Regular rate and rhythm, No murmurs Abdomen: Bowel Sounds Present, Soft, Non Tender Extremities: No edema, Capillary Refill Less than 3 Seconds Skin: No rashes, No breakdown Musculoskeletal: No Tenderness to Palpation of Joints or Extremities Neurological: Cranial nerves II-XII grossly intact Psych/Mental Status: Normal Affect, Appropriate, Alert and oriented to time, place, person, mood and affect Plan as above. Rest as per Sergey Ibarra PA-C's notes which I have reviewed and endorsed. - Physical Exam Vitals/I&O's: Vital Signs Temp Pulse Resp BP Pulse Ox 97.9 F 71 16 126/81 H 96 09/06/19 11:00 09/06/19 11:00 09/06/19 11:00 09/06/19 11:00 09/06/19 11:15 Oxygen Delivery Method Room Air Weight: 200 lb 9.93 oz Body Mass Index (BMI) 25.7 Intake and Output for Last 24 Hours 09/04/19 09/05/19 09/06/19 23:59 23:59 23:59 Intake Total 2169.85 / 2185.44 340.00 / 340.00 Output Total 325 / 325 300 / 300 Balance 1844.85 / 1860.44 40.00 / 40.00 Laboratory Results 09/05/19 16:10: POC Glucose 202 H 09/05/19 21:30: POC Glucose 160 H 09/06/19 06:31: POC Glucose 160 H 09/06/19 09:58: Sodium 136, Potassium 3.7, Chloride 104, Carbon Dioxide 28.0, Anion Gap 4 L, BUN 23 H, Creatinine 1.11, Estim Creat Clear Calc 72.00, Est GFR (MDRD) Af Amer 84, Est GFR (MDRD) Non-Af 70, BUN/Creatinine Ratio 20.7 H, Glucose 191 H, Calcium 8.1 L 09/06/19 10:59: POC Glucose 178 H Code Visit Inpatient E&M: 27691 Disch Hosp
== END 2019-09-06 13:29 | disposition home or self-care (01) | DRG 310 ==
LOC: ED 01:56 → PCU 02:13
PROVIDERS: Admitting Provider Hospitalist; Emergency Provider Emergency Medicine; Referring Provider Nurse Practitioner Family; Visit Provider Student in an Organized Health Care Education/Training Program
DX: I48.91 Unspecified atrial fibrillation (principal); K21.9 Gastro-esophageal reflux disease without esophagitis; E78.5 Hyperlipidemia, unspecified; E55.9 Vitamin D deficiency, unspecified; Z79.84 Long term (current) use of oral hypoglycemic drugs; Z79.899 Other long term (current) drug therapy; E11.65 Type 2 diabetes mellitus with hyperglycemia; R94.6 Abnormal results of thyroid function studies
CPT/HCPCS: 36415; 71045; 78452; 80048; 80061; 82962; 83735; 84439; 84443; 84484; 85025; 85610; 93005; 93017; 93306; 97161; 97166; 99285; A9500; A4216; J2785

== ENCOUNTER → 2020-04-14 | Outpatient (CLI) | payer MEDICARE, MEDICAID, SELFPAY ==
[2019-09-26 10:08] VITALS: BMI 26.2
--- NOTE | 2020-04-14 14:54 | CT_ITS ---
STUDY: CT BRAIN WITH AND WITHOUT CONTRAST REASON FOR EXAM: Male, 70 years old. UNABLE TO TASTE FOR SEVERAL MONTHS RADIATION DOSAGE (If Supplied By Facility): CTDIvol = ( 44.99 ) mGy, DLP = ( 1614.72 ) mGycm TECHNIQUE: Transaxial CT imaging of the brain was performed pre and post contrast administration. The examination was performed with intravenous administration of IV 50mL Isovue-370. Individualized dose optimization techniques were used for this CT. COMPARISON: None. FINDINGS: Normal soft tissue structures. Normal calvarium. There is mild cerebral atrophy with widening of the extra-axial spaces and ventricular dilatation. Normal white matter tracts of the cerebral hemispheres. Normal basal ganglia and thalami. Normal brainstem. Normal cerebellum. There is no intracranial hemorrhage. There are no findings of an acute ischemic infarction. There are rounded opacities within the maxillary sinuses. CT/Brain/Head W/WO Contrast IMPRESSION: Chronic involutional changes of the brain. Rounded opacities within the maxillary sinuses, likely reflects mucous retention cysts and/or polyps. Electronically Signed: Natividad Borja MD at 15:26 EDT Tel , Service support ,
[2020-04-14 15:11] LABS: CREATININE FINGERSTICK 1.2 mg/dL (0.70-1.30); EGFR FINGERSTICK > 60.0000 mL/min (>60)
== END | disposition home or self-care (01) ==
LOC: CT 14:43
DX: R43.2 Parageusia (principal)
CPT/HCPCS: 70470; Q9967

== ENCOUNTER → 2020-09-11 07:01 | Outpatient (CLI) | payer MEDICARE, SELFPAY ==
[2020-04-15 13:30] VITALS: BMI 25.2
[2020-09-11 07:59] LABS: Absolute Lymphocyte Count 1.13 X10^3/uL (0.83-4.51); Absolute Neutrophil Count 2.3 X10^3/uL (2.0-7.7); Basophil# 0.06 X10^3/uL; Basophil% 1.4 % (0-1); Eosinophil# 0.09 X10^3/uL; Eosinophils% 2.2 % (0-5); Hematocrit 43.6 % (40-54); Hemoglobin 13.7 g/dL (13.0-16.5); Lymphocyte # 1.13 X10^3/ul (4.0); Lymphocyte % 27.2 % (19-41); Mean Corp Hgb Conc 31.4 g/dL (32-36); Mean Corpuscular Hgb 26.9 pg (27.0-32.0); Mean Corpuscular Volume 85.5 fL (80-94); Mean Platelet Vol. 10.3 fl (6.2-12.0); Monocyte# 0.56 X10^3/uL; Monocyte% 13.5 % (0-10); NRBC Flagged by Analyzer 0 % (0-5); Neutrophil # 2.31 X10^3/uL (2.7-7.7); Neutrophil % 55.5 % (47-70); Platelet Count 242 K/mm3 (150-450); RBC Distribution Width CV 14.5 % (11.6-14.6); RBC Distribution Width SD 45.2 fl (35.1-43.9); White Blood Count 4.2 K/mm3 (4.4-11.0)
[2020-09-11 08:04] LABS: ALB/GLOB Ratio 0.9 RATIO (0.9-2.4); AST(SGOT) 68 U/L (15-37); Alanine Aminotransfer ALT/SGPT 98 U/L (16-61); Albumin, Serum 3.6 g/dL (3.2-5.0); Alkaline Phosphatase 85 U/L (45-117); Anion Gap 4 (5-15); BUN 22 mg/dL (7-18); BUN/Creat Ratio 21.2 RATIO (10-20); Calcium,Total 8.8 mg/dL (8.5-10.1); Chloride 106 mmol/L (98-107); Cholesterol 148 mg/dL (200); Creatinine, Serum 1.04 mg/dL (0.70-1.30); EST Glomerular Filtration Rate 75 mL/min (>60); Est Glom Filt Rate - Afr Amer 90 mL/min (>60); Globulin 3.8 g/dL (2.2-4.2); Glucose 138 mg/dL (74-106); High Density Lipoprotein 52 mg/dL; Potassium 4.2 mmol/L (3.5-5.1); Protein, Total 7.4 g/dL (6.4-8.2); Sodium Level 138 mmol/L (136-145); Triglycerides 87 mg/dL; Very Low Density Lipoprotein 17 mg/dL (5-40)
[2020-09-11 09:09] LABS: Hemoglobin A1c 6.8 % (3.8-5.6)
== END ==
PROVIDERS: Referring Provider Family Medicine; Visit Provider Family Medicine
DX: E11.9 Type 2 diabetes mellitus without complications (principal); K22.70 Barrett's esophagus without dysplasia; I10 Essential (primary) hypertension; I48.20 Chronic atrial fibrillation, unspecified; E78.5 Hyperlipidemia, unspecified
CPT/HCPCS: 36415; 80053; 80061; 83036; 85025

== ENCOUNTER → 2020-12-08 08:30 | Outpatient (CLI) | payer MEDICARE, MEDICAID, SELFPAY ==
[2020-10-06 08:24] VITALS: BMI 25.9
[2020-12-08 11:45] LABS: AST(SGOT) 40 U/L (15-37); Alanine Aminotransfer ALT/SGPT 57 U/L (16-61); Albumin, Serum 3.6 g/dL (3.2-5.0); Alkaline Phosphatase 84 U/L (45-117); Anion Gap 7 (5-15); BUN 20 mg/dL (7-18); BUN/Creat Ratio 19.2 RATIO (10-20); Chloride 105 mmol/L (98-107); Cholesterol 144 mg/dL (200); Creatinine, Serum 1.04 mg/dL (0.70-1.30); EST Glomerular Filtration Rate 75 mL/min (>60); Est Glom Filt Rate - Afr Amer 90 mL/min (>60); Globulin 3.6 g/dL (2.2-4.2); Glucose 140 mg/dL (74-106); High Density Lipoprotein 51 mg/dL; Potassium 4.1 mmol/L (3.5-5.1); Protein, Total 7.2 g/dL (6.4-8.2); Sodium Level 139 mmol/L (136-145); Triglycerides 120 mg/dL; Very Low Density Lipoprotein 24 mg/dL (5-40)
[2020-12-08 11:57] LABS: Hemoglobin A1c 6.9 % (3.8-5.6)
== END ==
DX: I10 Essential (primary) hypertension (principal); E11.9 Type 2 diabetes mellitus without complications; E78.5 Hyperlipidemia, unspecified
CPT/HCPCS: 36415; 80053; 80061; 83036

== ENCOUNTER → 2020-12-13 | Outpatient (CLI) | payer MEDICARE, MEDICAID, SELFPAY ==
[2020-10-06 08:24] VITALS: BMI 25.9
== END | disposition home or self-care (01) ==
LOC: LABSPEC 11:45
PROVIDERS: Referring Provider Nurse Practitioner Adult Health; Visit Provider Nurse Practitioner Adult Health
DX: E11.9 Type 2 diabetes mellitus without complications (principal)
CPT/HCPCS: 87070; 87077; 87205

== ENCOUNTER → 2021-06-02 08:26 | Outpatient (CLI) | payer MEDICARE, MEDICAID, SELFPAY ==
[2021-06-02 09:40] LABS: Microalbumin,Random Urine 18.9 mg/L (NO RANGE EST.)
[2021-06-02 09:43] LABS: PSA,Total - Annual Screen 1.98 ng/mL (0.00-4.00)
== END ==
PROVIDERS: Referring Provider Nurse Practitioner Adult Health; Visit Provider Nurse Practitioner Adult Health
DX: E11.9 Type 2 diabetes mellitus without complications (principal); Z12.5 Encounter for screening for malignant neoplasm of prostate
CPT/HCPCS: 36415; 82043; 84153; G0103

== ENCOUNTER → 2021-06-17 09:21 | Outpatient (CLI) | payer MEDICARE, SELFPAY ==
--- NOTE | 2021-06-17 09:24 | RAD_ITS ---
STUDY: X-RAY - LUMBAR SPINE REASON FOR EXAM: Male, 71 years old. Lumbago with sciatica. TECHNIQUE: 2 view(s) of the lumbar spine were obtained. COMPARISON: None FINDINGS: Normal lumbar lordosis. There is no substantial scoliosis. There is a normal alignment of the vertebrae. Mild diffuse facet sclerosis. Normal vertebral bodies and endplates. Minimal intervertebral disc space narrowing at L1-2, L2-3 and L3-4 with small osteophytes most marked at L3-4. The soft tissue structures are unremarkable. RAD/Lumbar Spine 2 or 3 Views IMPRESSION: Mild lumbosacral spondylosis as described. No acute abnormality, evidence of erosive changes or fusion Electronically Signed: Roalndo Campo MD at 10:33 EDT , Service support ,
== END ==
PROVIDERS: Referring Provider Nurse Practitioner Adult Health; Visit Provider Nurse Practitioner Adult Health
DX: M54.40 Lumbago with sciatica, unspecified side (principal)
CPT/HCPCS: 72100

== ENCOUNTER 2022-03-05 09:51 | Emergency (ER) | payer MEDICARE, MEDICAID, SELFPAY ==
[2022-03-05 09:52] VITALS: BP 159/93; PULSE 94; RESP 17; TEMP 36.5; O2SAT 99; BMI 25.0
--- NOTE | 2022-03-05 10:00 | EX.ED.DYSGE1 ---
HPI <ERICK Barlow - Last Filed: 03/05/22 10:04> History of Present Illness Chief Complaint: Burn Narrative Narrative: 71-year-old male presents to the emergency department with burn to the left hand. Patient states he was using boiling water to make coffee this morning, he said he got careless and tripped falling water on his left hand. Patient states he put butter on it to ease to staying. Patient denies any other injury. Patient states there was some blistering. Denies any other injury. PFSH <ERICK Barlow - Last Filed: 03/05/22 10:04> [facility] Medical History (Updated 03/05/22 @ 10:04 by ERICK Barlow) Atrial fibrillation with RVR History of excision of malignant tumor HLD (hyperlipidemia) Hyperlipidemia Paroxysmal atrial fibrillation Type 2 diabetes mellitus without complication Home Medications metformin 1 tab PO BID 09/05/19 [History Last Taken 09/04/19 22:00] pravastatin 1 tab PO QHS 09/05/19 [History Last Taken 09/04/19] diltiazem HCl 120 mg capsule,extended release 24 hr 120 mg PO DAILY #90 cap 04/15/20 [Rx Last Taken Unknown] glipizide 2.5 mg tablet, extended release 24 hr 2.5 mg PO DAILY tab 10/06/20 [History Last Taken Unknown] omeprazole 10 mg capsule,delayed release 10 mg PO DAILY 01/05/21 [History Last Taken Unknown] apixaban 5 mg tablet 5 mg PO BID #60 tab 10/31/21 [Rx Last Taken Unknown] Allergy/AdvReac Type Severity Reaction Status Date / Time No Known Allergies Allergy Verified 03/05/22 09:51 Surgical History History of hip surgery Social History Smoking Status: Never smoker alcohol intake: never substance use type: does not use caffeine: Yes Type: coffee Number of servings: 2 ROS <ERICK Barlow - Last Filed: 03/05/22 10:04> ROS ED ROS Narrative Constitutional: Negative for fever, chills, weight loss, weakness Eyes: Negative for vision loss, vision change, double vision ENT: Negative for any sore throat, ear pain, congestion Cardiovascular: Negative for any chest pain, tightness, palpitations Respiratory: Negative for any cough, sputum production, hemoptysis, dyspnea, dyspnea on exertion, orthopnea Gastrointestinal: Negative for any abdominal pain, nausea, vomiting, diarrhea, constipation, blood in stool, blood in vomit : Negative for any urinary frequency, dysuria, retention, blood in urine Muscle skeletal: Negative for any muscle joint pain, stiffness, myalgias, arthralgias, neck pain, back pain Neurological: Negative for any headache, syncope, numbness or tingling, dizziness Skin: Negative for any rashes, lumps, itching, abrasions, lacerations. Positive for burn to the left hand Psychiatric: Negative for any depression, anxiety, stress, suicidal ideation, homicidal ideation Hematologic: Negative for any easy bruising, excessive bruising, easy bleeding Allergies: Negative for any eczema, hives, rash EXAM <ERICK Barlow - Last Filed: 03/05/22 10:04> Physical Exam Narrative Exam Narrative: Vital signs reviewed. Extremities: No peripheral edema, no signs of gross trauma or deformity. Active full range of motion of all extremities. Neuro: Cranial nerves II through XII intact, no focal neurological deficits. Skin: Clean dry and intact with no rash, purpura, petechiae, vesicles or pustules. Patient has a second-degree burn to the dorsal aspect of the left hand. This is around the medial side by the first digit. There seems to be some blistering that has happened. There is no increased redness. There is no soft tissue exposed. There is no signs or symptoms of infection Backs/flank: No CVA tenderness, no midline spinal tenderness, no deformity. Psych: Normal mood and affect. No SI, HI or acute psychosis. Const Vital Signs: 03/05/22 09:52 03/05/22 09:59 Temperature 97.7 F L Temperature Source Temporal Pulse Rate 94 Respiratory Rate 17 Respiratory Effort Normal Non-Labored Respiratory Depth Normal Respiratory Pattern Normal Blood Pressure 159/93 H Blood Pressure Mean 115 Pulse Ox 99 Oxygen Delivery Method Room Air Positive well nourished and well developed General Appearance ED: well developed <Dr. Antonella Luna DO - Last Filed: 03/05/22 10:08> Physical Exam Const Vital Signs: 03/05/22 09:52 03/05/22 09:59 Temperature 97.7 F L Temperature Source Temporal Pulse Rate 94 Respiratory Rate 17 Respiratory Effort Normal Non-Labored Respiratory Depth Normal Respiratory Pattern Normal Blood Pressure 159/93 H Blood Pressure Mean 115 Pulse Ox 99 Oxygen Delivery Method Room Air [facility] <Jay DegrootERICK campa - Last Filed: 03/05/22 10:04> [facility] Narrative Medical decision making narrative: Patient appears well, patient appears nontoxic, vital signs are stable. Patient presents to the emergency department with complaints of a burn to the left hand. Patient's burn is second-degree. Patient has no signs or symptoms of infection. This did happen 25 minutes prior to arrival. Patient will have this area clean, dressed with a bacitracin dressing. He is instructed to keep the area clean and dry. He will take Tylenol for any pain. Patient will follow-up, instructed to return for any worsening redness, fever chills nausea vomit <Dr. Antonella Luna DO - Last Filed: 03/05/22 10:08> [facility] Narrative Medical decision making narrative: I have personally performed a face to face assessment of the patient and have reviewed the SILVIA Note. I performed a substantive portion of the visit including all aspects of the following. My pickett findings include: History is [patient presents to the emergency department with a burn to his left hand that occurred today. Patient states that he was trying to make coffee and he spilled boiling water on his left hand. Patient is right-hand dominant. He is unsure of his last tetanus. Patient is a diabetic. Patient denies any other injuries.] Exam is [HEENT-PERRLA, EOMI. Cranial nerves II through XII grossly intact. TMs clear. Mucous membranes moist. No adenopathy. Cardiovascular-regular rate and rhythm without murmur or ectopy Lungs-clear to auscultation, chest wall stable without crepitus or subcu emphysema Abdomen-normoactive bowel sounds, soft, nontender, no rebound or rigidity, no peritoneal signs. Extremities-intact ?4, normal range of motion, normal pulses. Left hand-patient has first and second-degree burn to the dorsum of the left hand. Area measures approximately 5 cm x 3 cm across the dorsum of the first metacarpal and second metacarpal. Patient has normal range of motion. He is neurovascularly intact.] Medical Decison Making [patient will be given tetanus booster. He will have bacitracin ointment applied and a clean dressing. Patient advised to use ibuprofen or Tylenol for discomfort. Patient advised to return if increasing pain, redness, swelling, purulent drainage, or condition should worsen anyway. Patient to follow-up with primary care physician in 3 to 5 days for wound check. Patient seen in conjunction with physician radiology assistant. I independently evaluated the patient.] Other additions or changes: [None] Discharge Plan Triage Chief Complaint: Burn ED Midlevel Provider: Jay Morataya ED Provider: Antonella Luna Dx/Rx/DC Orders Clinical Impression: Burn, second degree Instructions: Burn Emergencies, ED BURN Wound Check [No Infection] Prescriptions: No Action diltiazem HCl 120 mg capsule,extended release 24hr 120 mg PO DAILY Qty: 90 RF: 3 glipizide 2.5 mg tablet extended release 24hr 2.5 mg PO DAILY RF: 0 omeprazole 10 mg capsule,delayed release(DR/EC) 10 mg PO DAILY RF: 0 pravastatin 10 MG tablet 1 tab PO QHS RF: 0 metformin 1,000 MG tablet 1 tab PO BID RF: 0 Eliquis 5 mg tablet 5 mg PO BID Qty: 60 RF: 11 Primary Care Provider: [facility] Kesha Garcia Referrals: [facility] Kesha Garcia [Primary Care Provider] - Activity Restrictions/Additional Instructions: Please keep the area clean and dry. You may use antibiotic ointment. Follow-up with your doctor. Return for any worsening redness or pain. Print Language: Hong Konger Disposition Disposition: Home, Self Care
[2022-03-05] MEDS: Diphth,Pertuss(Acell),Tet Vac 0.5 ML Vial IM (10:19)
== END 2022-03-05 10:22 | disposition home or self-care (01) ==
LOC: ED 10:11
PROVIDERS: Emergency Provider Emergency Medicine; Visit Provider Emergency Medicine
DX: T23.202A Burn of second degree of left hand, unspecified site, initial encounter (principal); X58.XXXA Exposure to other specified factors, initial encounter
CPT/HCPCS: 90715; 99282

== ENCOUNTER → 2022-04-19 | Outpatient (CLI) | payer MEDICARE, SELFPAY ==
[2022-04-19 09:06] LABS: Absolute Lymphocyte Count 1.56 X10^3/uL (0.83-4.51); Absolute Neutrophil Count 3.5 X10^3/uL (2.0-7.7); Basophil# 0.08 X10^3/uL; Basophil% 1.4 % (0-1); Eosinophil# 0.14 X10^3/uL; Eosinophils% 2.4 % (0-5); Hematocrit 40.6 % (40-54); Hemoglobin 13.1 g/dL (13.0-16.5); Lymphocyte # 1.56 X10^3/ul (0.83-4.51); Lymphocyte % 26.7 % (19-41); Mean Corp Hgb Conc 32.3 g/dL (32-36); Mean Corpuscular Hgb 26.6 pg (27.0-32.0); Mean Corpuscular Volume 82.5 fL (80-94); Mean Platelet Vol. 9.9 fl (6.2-12.0); Monocyte# 0.59 X10^3/uL; Monocyte% 10.1 % (0-10); NRBC Flagged by Analyzer 0 % (0-5); Neutrophil # 3.47 X10^3/uL (2.7-7.7); Neutrophil % 59.2 % (47-70); Platelet Count 230 K/mm3 (150-450); RBC Distribution Width CV 15.1 % (11.6-14.6); RBC Distribution Width SD 45.2 fl (35.1-43.9); Red Blood Count 4.92 M/mm3 (4.6-6.2); White Blood Count 5.9 K/mm3 (4.4-11.0)
[2022-04-19 09:49] LABS: ALB/GLOB Ratio 0.9 RATIO (0.9-2.4); AST(SGOT) 29 U/L (15-37); Alanine Aminotransfer ALT/SGPT 43 U/L (16-61); Albumin, Serum 3.4 g/dL (3.2-5.0); Alkaline Phosphatase 74 U/L (45-117); Anion Gap 4 (5-15); BUN 16 mg/dL (7-18); BUN/Creat Ratio 15.8 RATIO (10-20); Calcium,Total 8.9 mg/dL (8.5-10.1); Chloride 105 mmol/L (98-107); Cholesterol 140 mg/dL (200); Creatinine, Serum 1.01 mg/dL (0.70-1.30); EST Glomerular Filtration Rate 77 mL/min (>60); Est Glom Filt Rate - Afr Amer 93 mL/min (>60); Globulin 3.6 g/dL (2.2-4.2); Glucose 137 mg/dL (74-106); High Density Lipoprotein 44 mg/dL; Potassium 4.2 mmol/L (3.5-5.1); Sodium Level 139 mmol/L (136-145); Triglycerides 148 mg/dL; Very Low Density Lipoprotein 30 mg/dL (5-40)
== END | disposition home or self-care (01) ==
LOC: LAB 08:23
PROVIDERS: Referring Provider Nurse Practitioner Adult Health; Visit Provider Nurse Practitioner Adult Health
DX: E11.9 Type 2 diabetes mellitus without complications (principal)
CPT/HCPCS: 36415; 80053; 80061; 84443; 85025

== ENCOUNTER → 2022-10-31 | Outpatient (CLI) | payer MEDICARE, SELFPAY ==
[2022-10-31 09:23] LABS: Hematocrit 41.9 % (40-54); Hemoglobin 13.3 g/dL (13.0-16.5); Mean Corp Hgb Conc 31.7 g/dL (32-36); Mean Corpuscular Hgb 26.2 pg (27.0-32.0); Mean Corpuscular Volume 82.5 fL (80-94); Mean Platelet Vol. 9.6 fl (6.2-12.0); Platelet Count 275 K/mm3 (150-450); RBC Distribution Width CV 15.1 % (11.6-14.6); RBC Distribution Width SD 45.5 fl (35.1-43.9); Red Blood Count 5.08 M/mm3 (4.6-6.2); White Blood Count 5.1 K/mm3 (4.4-11.0)
[2022-10-31 09:50] LABS: Hemoglobin A1c 7.6 % (3.8-5.6)
[2022-10-31 10:21] LABS: AST(SGOT) 29 U/L (15-37); Alanine Aminotransfer ALT/SGPT 44 U/L (16-61); Albumin, Serum 3.8 g/dL (3.2-5.0); Alkaline Phosphatase 81 U/L (45-117); Anion Gap 6 (5-15); BUN 23 mg/dL (7-18); BUN/Creat Ratio 22.5 RATIO (10-20); Calcium,Total 9.1 mg/dL (8.5-10.1); Chloride 107 mmol/L (98-107); Creatinine, Serum 1.02 mg/dL (0.70-1.30); EST Glomerular Filtration Rate 76 mL/min (>60); Est Glom Filt Rate - Afr Amer 92 mL/min (>60); Globulin 3.7 g/dL (2.2-4.2); Glucose 138 mg/dL (74-106); Potassium 4.1 mmol/L (3.5-5.1); Protein, Total 7.5 g/dL (6.4-8.2); Sodium Level 140 mmol/L (136-145)
[2022-10-31 13:30] LABS: Microalbumin,Random Urine 21.5 mg/L (NO RANGE EST.); Microalbumin:Creatinine Ratio 9.4 mg/g CRE (<30 mg/g CRE)
== END | disposition home or self-care (01) ==
LOC: LAB 09:03
DX: I10 Essential (primary) hypertension (principal); E11.9 Type 2 diabetes mellitus without complications
CPT/HCPCS: 36415; 80053; 82043; 82570; 83036; 85027

== ENCOUNTER 2023-04-24 10:43 | Day surgery (SDC) | payer MEDICARE, MEDICAID, SELFPAY ==
--- NOTE | 2023-04-24 | IMM_PTH ---
PATIENT: TAHMINA DURBIN LOC: EN U#:[id number] AGE/SX: 73/M ROOM: RE04/24/[address]: Dr. Jcarlos Yeh DO : 1950 BED: DIS: 04/24/2023 SPEC #: [id number] RECD: 04/26/23 14:39 STATUS: AV RELeticia #: [id number] FLIP: 04/24/23 00:[address]: Jcarlos Yeh DEPT: IMMUNOHISTOCHEMISTRY RECD BY: Beba Bajwa ENTERED: 04/26/23 14:40 SP TYPE: IMMUNO OTHR DR: Kesha [facility] Tissues: A - Esophagus, NOS Procedures: P53 (initial) KI-67 (add) MOC-31 (add) PHYSICIAN & INSTITUTION [place] [id number] SPECIMEN INFORMATION: Tissue Source: A - Distal esophagus Clinical Info: GERD, Clark's esophagus Specimen Number: [id number] CPT code: 24507, 79629 x2 METHODOLOGY: Deparaffinized sections of prefer/formalin-fixed tissue or PAP/DQ stained slides are incubated with monoclonal/polyclonal antibodies/oligonucleotide probes. Localization is made via biotin free immunoperoxidase method. Appropriate controls are performed and reacted as expected. Results on target cell population are indicated in the following table: RESULTS: ANTIBODY / CLONE RESULT Block A P53 (DO-7) negative, wild type pattern Ki-67 (30-9) positive, low MOC-31 (4561) positive These tests were developed and their performance characteristics determined by [facility]. They may not have been cleared or approved by the U.S. Food and Drug Administration. The FDA has determined that such clearance or approval is not necessary. The above immunohistochemical/dualISH markers are ordered and reviewed by the Pathologist. INTERPRETATION: A. Distal esophagus, biopsy: No evidence of dysplasia. AM:roshni 04/27/2023
[2023-04-24 11:20] VITALS: BP 131/73; PULSE 78; RESP 18; TEMP 36.2; O2SAT 100; BMI 24.6
[2023-04-24] MEDS: Lactated Ringers 1,000 ML 15 ML IV (11:25)
--- NOTE | 2023-04-24 12:00 | EGD_PTH ---
PATIENT: TAHMINA DURBIN LOC: EN U#:[id number] AGE/SX: 73/M ROOM: RE04/24/[address]: Dr. Jcarlos Yeh DO : 1950 BED: DIS: 04/24/2023 SPEC #: [id number] RECD: 04/24/23 16:32 STATUS: AV RUDOLPH #: [id number] FLIP: 04/24/23 12:[address]: Jcarlos Yeh DEPT: SURGICAL PATHOLOGY RECD BY: Margarita Forrest ENTERED: 04/25/23 09:33 SP TYPE: EGD BIOPSY OT DR: Kesha [facility] Tissues: A - Esophagus, NOS B - Esophagus, NOS Procedures: Special Stain Group II Surgery Specimen Level IV Alcian Blue/PAS (control) HEADER OPERATION: EGD (MAC), biopsy PRE-OP DIAGNOSIS: GERD, Clark's esophagus TISSUE SUBMITTED: A - Distal esophagus biopsy, B - Distal esophagus nodule biopsy MICROSCOPIC DIAGNOSIS A. Distal esophagus, biopsy: Gastroesophageal junctional mucosa with chronic inflammation. 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 No evidence of dysplasia. See comment. B. Distal esophagus, nodule, biopsy: Polypoid fragment of benign gastric mucosa with mild chronic inflammation. No evidence of goblet cell metaplasia. AM:roshni 04/26/2023 COMMENT A. Alcian blue/PAS stain with matched control supports the above diagnosis. Immunohistochemistry ([id number]) for P53 and Ki-67 will be performed and results will be reported separately. B. Alcian blue/PAS stain with matched control supports the above diagnosis. MICROSCOPIC DESCRIPTION Slides are reviewed. GROSS DESCRIPTION A - Received in fixative is one container labeled with the patient's name and designated distal esophagus. The specimen consists of multiple irregular fragments of light hinton soft tissue that in aggregate measure 1.0 x 0.6 x 0.1 cm. The specimen is totally submitted in one cassette. B - Received in fixative is one container labeled with the patient's name and designated distal esophagus. The specimen consists of one irregular fragment of light hinton soft tissue that measures 0.5 x 0.3 x 0.1 cm. The specimen is totally submitted in one cassette. / AM:roshni 04/25/2023 TC:3 CPT: 32273 x2, 92174 x2
[2023-04-24 12:23] LABS: Bedside Glucose 121 mg/dL (74-106)
--- NOTE | 2023-04-24 12:40 | HP.PCM_ITS ---
History and Physical Date of Admission: 04/24/23 TAHMINA DURBIN, is a 72 M who presents to the office today to establish with local GI for GERD, Clark's esophagus. Previously followed at [facility]. Most recent EGD was by Dr Lantigua in 08/2021, +Clark's, neg dysplasia. He takes omeprazole which controls his heartburn. Denies dysphagia. No nausea, vomiting, early satiety. No abd pain. Bowels are typically normal, occas runny stool, can avoid that by avoiding dairy, would like rx for lactase. No melena or hematochezia. Weight is stable. Colonoscopy 11/2014 at [facility], negative ROS Const Constitutional: No fatigue, fever(s), headache(s), weight change, sleep problems, abnormal sleep pattern or change in appetite ENT ENT: No headache(s), difficulty swallowing, hoarseness or sore throat Resp Respiratory: No cough, hemoptysis or shortness of breath Cardio Cardiology: No chest pain at rest or generalized swelling Gastro GI: Positive for diarrhea; No abdominal pain, belching, bloating, change in bowel habits, change in stool character, coffee ground emesis, constipation, cramping, heartburn, difficulty swallowing, feeling full early, excessive flatus, incontinent of stools, Vomit ing blood/hematemesis, Blood in stool, loose stools, Black,tarry stools, nausea/dyspepsia, pain with swallowing or vomiting Musc Musculoskeletal: No joint pain, back pain, joint swelling, numbness or tingling Skin Skin: No itchy eyes or rash Neuro Neurology: No behavioral changes, confusion, headache(s), numbness or tingling Psych Psychiatric: No abnormal sleep pattern, No anxiety, No behavioral changes, No change in appetite, No confusion and No depression Endo Endocrine: No cold intolerance, fatigue, heat intolerance, increased thirst/drinking or weight change Aller/Imm Allergy/Immunologic: No food intolerance or itchy eyes [place]/Lymp Hematologic/Lymphatic: Positive for easy bruising; No easy bleeding or enlarged lymph nodes Exam Const General: cooperative and comfortable Nutritional Appearance: average body habitus Orientation: alert, awake and oriented x3 Eyes Sclera: sclerae normal Resp Effort & Inspection: normal respiratory effort GI Inspection: normal to inspection Quality Reporting Tobacco Screening ([facility] 138) Smoking Status: Never smoker Assessment and Plan Assessment and Plan (1) GERD (gastroesophageal reflux disease): Status: Chronic Plan: 72 yr old male with GERD and Clark's esophagus. Continue omeprazole. Schedule EGD to reeval Clark's. Rx for lactase in case his insurance will cover it. Due for screening colonoscopy in 11/2024. (2) Barretts esophagus: Status: Chronic Plan: as above Medications: New lactase take with dairy 9,000 units PO QAC PRN 60 tabs 2RF lactose intolerance I have examined the patient and the H&P has been reviewed. There are no clinical changes since date of exam.
[2023-04-24 12:56] VITALS: BP 131/73; BP 136/77; PULSE 84; RESP 16; TEMP 37.7; O2SAT 97
--- NOTE | 2023-04-24 12:59 | OP.CCLET_ITS ---
04/24/2023 Kesha Roa [facility] Re : Upper GI endoscopy procedure for Lius Maddox [facility] This procedure was performed on Monday, April 24, 2023. 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 Biopsied. - Medium-sized hiatal hernia. - Normal duodenal bulb. Recommendations : - Discharge patient to home. - Resume previous diet. - Continue present medications. - Await pathology results. - Repeat upper endoscopy in 1 year for surveillance. My findings are described in the full procedure note, which is enclosed. If I can be of further assistance, please feel free to contact me at . Sincerely, Jcarlos Yeh, 04/24/2023 12:58:33 PM This report has been signed electronically.
--- NOTE | 2023-04-24 12:59 | OP.EGD_ITS ---
Patient Name: Luis Yates Procedure Date: 04/24/2023 12:38 PM Date of : 1950 Age: 73 Procedure: Upper GI endoscopy Indications: Follow-up of Clark's esophagus Providers: Jcarlos Yeh DO Medicines: Monitored Anesthesia Care Patient Profile: This is a 73 year old male. Refer to note in patient chart for documentation of history and physical. Patient has symptoms of chronic heartburn. Complications: No immediate complications. Procedure: Pre-Anesthesia Assessment: - Prior to the procedure, a History and Physical was performed, and patient medications and allergies were reviewed. The patient is competent. The risks and benefits of the procedure and the sedation options and risks were discussed with the patient. All questions were answered and informed consent was obtained. Patient identification and proposed procedure were verified by the physician in the pre-procedure area. Mental Status Examination: alert and oriented. Airway Examination: normal oropharyngeal airway and neck mobility. Respiratory Examination: clear to auscultation. CV Examination: normal. Prophylactic Antibiotics: The patient does not require prophylactic antibiotics. Prior Anticoagulants: The patient has taken Eliquis (apixaban), last dose was 1 day prior to procedure. ASA Grade Assessment: III - A patient with severe systemic disease. After reviewing the risks and benefits, the patient was deemed in satisfactory condition to undergo the procedure. The anesthesia plan was to use monitored anesthesia care (MAC). Immediately prior to administration of medications, the patient was re-assessed for adequacy to receive sedatives. The heart rate, respiratory rate, oxygen saturations, blood pressure, adequacy of pulmonary ventilation, and response to care were monitored throughout the procedure. The physical status of the patient was re-assessed after the procedure. After obtaining informed consent, the endoscope was passed under direct vision. Throughout the procedure, the patient's blood pressure, pulse, and oxygen saturations were monitored continuously. The Endoscope was introduced through the mouth, and advanced to the second part of duodenum. The upper GI endoscopy was accomplished with ease. The patient tolerated the procedure well. Scope In: 12:47:52 PM Scope Out: 12:51:08 PM Total Procedure Duration Time 0 hours 3 minutes 16 seconds Findings: The esophagus and gastroesophageal junction were examined with white light and narrow band imaging (NBI) from a forward view and retroflexed position. There were esophageal mucosal changes secondary to established long-segment Clark's disease. These changes involved the mucosa at the upper extent of the gastric folds (36 cm from the incisors) extending to the Z-line (42 cm from the incisors). [place]-colored mucosa was present. The maximum longitudinal extent of these esophageal mucosal changes was 7 cm in length. Mucosa was biopsied with a cold forceps for histology in a targeted manner at intervals of 1 cm in the middle third of the esophagus and in the lower third of the esophagus. A total of 2 specimen bottles were sent to pathology. Verification of patient identification for the specimen was done. Estimated blood loss was minimal. A medium-sized hiatal hernia was present. No other significant abnormalities were identified in a careful examination of the stomach. The duodenal bulb was normal. Impression: - Esophageal mucosal changes secondary to established long-segment Clark's disease. Biopsied. - Medium-sized hiatal hernia. - Normal duodenal bulb. Recommendation: - Discharge patient to home. - Resume previous diet. - Continue present medications. - Await pathology results. - Repeat upper endoscopy in 1 year for surveillance. Procedure Code(s): --- Professional --- 94041, Esophagogastroduodenoscopy, flexible, transoral; with biopsy, single or multiple CPT copyright 2017 [employer]. All rights reserved. The codes documented in this report are preliminary and upon sheet mill supervisor review may be revised to meet current compliance requirements. Jcarlos Yeh DO 04/24/2023 12:58:33 PM This report has been signed electronically. Number of Addenda: 0 Note Initiated On: 04/24/2023 12:38 PM
[2023-04-24 13:00] VITALS: BP 131/73; BP 134/71; PULSE 79; RESP 18; O2SAT 97
[2023-04-24 13:05] VITALS: BP 128/73; BP 131/73; PULSE 75; RESP 18; O2SAT 98
[2023-04-24 13:10] VITALS: BP 126/74; BP 131/73; PULSE 76; RESP 18; TEMP 37.4; O2SAT 95
[2023-04-24 13:26] VITALS: BP 131/73
== END 2023-04-24 13:45 | disposition home or self-care (01) ==
LOC: EN 10:51 → AC 10:52
PROVIDERS: Visit Provider Internal Medicine Gastroenterology
PROC: 0DJ08ZZ Inspection of Upper Intestinal Tract, Via Natural or Artificial Opening Endoscopic (ICD-10-PCS; CPT 43235; principal; 2023-04-24 11:55)
DX: K44.9 Diaphragmatic hernia without obstruction or gangrene (principal); I48.0 Paroxysmal atrial fibrillation; E11.9 Type 2 diabetes mellitus without complications; K22.70 Barrett's esophagus without dysplasia; K21.9 Gastro-esophageal reflux disease without esophagitis; E78.5 Hyperlipidemia, unspecified; Z79.899 Other long term (current) drug therapy
CPT/HCPCS: 43239; 81002; 82962; 88305; 88313; 88341; 88342; J7120; J2405

== ENCOUNTER → 2023-06-05 | Outpatient (CLI) | payer MEDICARE, MEDICAID, SELFPAY ==
[2023-06-05 08:52] LABS: Hematocrit 41.3 % (40-54); Mean Corp Hgb Conc 31.5 g/dL (32-36); Mean Corpuscular Hgb 26.2 pg (27.0-32.0); Mean Corpuscular Volume 83.1 fL (80-94); Mean Platelet Vol. 10.5 fl (6.2-12.0); Platelet Count 286 K/mm3 (150-450); RBC Distribution Width CV 15.2 % (11.6-14.6); RBC Distribution Width SD 46.2 fl (35.1-43.9); Red Blood Count 4.97 M/mm3 (4.6-6.2); White Blood Count 5.5 K/mm3 (4.4-11.0)
[2023-06-05 09:22] LABS: ALB/GLOB Ratio 0.9 RATIO (0.9-2.4); AST(SGOT) 22 U/L (15-37); Alanine Aminotransfer ALT/SGPT 34 U/L (16-61); Albumin, Serum 3.6 g/dL (3.2-5.0); Alkaline Phosphatase 78 U/L (45-117); Anion Gap 4 (5-15); BUN 25 mg/dL (7-18); BUN/Creat Ratio 24.3 RATIO (10-20); Calcium,Total 8.8 mg/dL (8.5-10.1); Chloride 106 mmol/L (98-107); Cholesterol 123 mg/dL (200); Creatinine, Serum 1.03 mg/dL (0.70-1.30); EST Glomerular Filtration Rate 75 mL/min (>60); Est Glom Filt Rate - Afr Amer 91 mL/min (>60); Globulin 3.8 g/dL (2.2-4.2); Glucose 141 mg/dL (74-106); High Density Lipoprotein 44 mg/dL; Potassium 4.2 mmol/L (3.5-5.1); Protein, Total 7.4 g/dL (6.4-8.2); Sodium Level 137 mmol/L (136-145); Triglycerides 101 mg/dL; Very Low Density Lipoprotein 20 mg/dL (5-40)
[2023-06-05 09:38] LABS: Hemoglobin A1c 6.8 % (3.8-5.6)
[2023-06-05 11:47] LABS: Microalbumin,Random Urine 14.8 mg/L (NO RANGE EST.)
== END | disposition home or self-care (01) ==
DX: E11.9 Type 2 diabetes mellitus without complications (principal); E78.5 Hyperlipidemia, unspecified
CPT/HCPCS: 36415; 80053; 80061; 82043; 83036; 85027

== ENCOUNTER 2023-08-18 04:16 | Emergency (ER) | payer MEDICARE, SELFPAY ==
[2023-08-18 04:17] VITALS: BP 138/89; PULSE 77; RESP 15; TEMP 35.8; O2SAT 100; BMI 25.0
--- NOTE | 2023-08-18 04:40 | CT_ITS ---
EXAM: CT ABDOMEN AND PELVIS WITHOUT IV CONTRAST - CT Abdomen And Pelvis W/O Contrast Injection HISTORY: flank pain LT FLANK AND LLQ PAIN THIS AM TECHNIQUE: Routine protocol CT abdomen and pelvis. IV Contrast: None.. Oral contrast: None. RADIATION DOSAGE (If Supplied By Facility): CTDIvol = ( 10.20 ) mGy, DLP = ( 555.28 ) mGycm Individualized dose optimization techniques were used for this CT. COMPARISON: None. LIMITATIONS: None. FINDINGS: LOWER CHEST: Included lung bases are clear. LIVER: Grossly unremarkable. GALLBLADDER AND BILIARY TREE: Gallstones in the gallbladder. PANCREAS: Grossly unremarkable. SPLEEN: Grossly unremarkable. ADRENAL GLANDS: Grossly unremarkable. KIDNEYS AND URETERS: There is a 3 mm calculus in the upper to mid third left ureter. The proximal left ureter is dilated with moderate left hydronephrosis and perinephric stranding. No other calculi demonstrated. No hydronephrosis on the right. PERITONEUM: No free air. No free fluid. BOWEL: Diverticula scattered throughout the colon. No bowel obstruction. APPENDIX: Visualized and unremarkable. No evidence of acute appendicitis. VESSELS: Abdominal aorta is normal caliber. REPRODUCTIVE ORGANS: Grossly unremarkable URINARY BLADDER: Grossly unremarkable. ABDOMINAL WALL: Small bilateral inguinal hernias containing only fat, no bowel. BONES: No acute abnormalities. Surgical hardware in the left femur. CT/Abdomen/Pelvis without Cont IMPRESSION: Proximal left ureteral calculus with moderate left hydroureteronephrosis. Colonic diverticulosis without evidence of acute diverticulitis. Cholelithiasis. Electronically Signed: Shelbie Booth MD at 6:43 EST ,
[2023-08-18 04:54] LABS: Absolute Neutrophil Count 6.8 X10^3/uL (2.0-7.7); Basophil# 0.07 X10^3/uL; Basophil% 0.8 % (0-1); Eosinophil# 0.07 X10^3/uL; Eosinophils% 0.8 % (0-5); Hematocrit 39.9 % (40-54); Hemoglobin 12.4 g/dL (13.0-16.5); Lymphocyte % 11.6 % (19-41); Mean Corp Hgb Conc 31.1 g/dL (32-36); Mean Corpuscular Hgb 25.7 pg (27.0-32.0); Mean Corpuscular Volume 82.8 fL (80-94); Mean Platelet Vol. 10.1 fl (6.2-12.0); Monocyte# 0.65 X10^3/uL; Monocyte% 7.5 % (0-10); NRBC Flagged by Analyzer 0 % (0-5); Platelet Count 272 K/mm3 (150-450); RBC Distribution Width SD 45.9 fl (35.1-43.9); Red Blood Count 4.82 M/mm3 (4.6-6.2); White Blood Count 8.6 K/mm3 (4.4-11.0)
[2023-08-18] MEDS: Ondansetron 4 MG/2 ML Vial IV (05:03)
[2023-08-18] MEDS: Morphine 4 MG/ML Syringe IV (05:04)
[2023-08-18] MEDS: 0.9% Normal Saline (1000mL) 1,000 ML 999 ML IV (05:05)
[2023-08-18 05:08] LABS: Anion Gap 7 (5-15); BUN 23 mg/dL (7-18); BUN/Creat Ratio 19.2 RATIO (10-20); Calcium,Total 8.6 mg/dL (8.5-10.1); Chloride 104 mmol/L (98-107); EST Glomerular Filtration Rate 63 mL/min (>60); Est Glom Filt Rate - Afr Amer 76 mL/min (>60); Estimated Creatinine Clearance 62.79 ml/min; Glucose 206 mg/dL (74-106); Potassium 3.9 mmol/L (3.5-5.1); Sodium Level 139 mmol/L (136-145)
[2023-08-18 05:12] LABS: Mucous, Urine 0 SEEN /hpf (<or=2+); Squamous Epithelial Cells - UA 0 SEEN /hpf (0-5); White Blood Cells 0 SEEN /hpf (0-5)
[2023-08-18 05:13] LABS: Glucose, Dipstick 1000 mg/dl (Normal); Ketone-Dipstick 5 mg/dl (Negative); Leukocyte Esterase-Dipstick 25 /ul (Negative); Nitrite-Dipstick Negative (Negative); Occult Blood-Urine 250 /ul (Negative); Protein-Dipstick 30 mg/dl (Negative); Specific Gravity, Urine 1.025 (1.002-1.030); Urine Bilirubin Dipstick Negative (Negative); Urine Urobilinogen Normal (Normal)
[2023-08-18 05:14] LABS: Color, Urine Yellow (Yellow); Urine Clarity Clear (Clear)
[2023-08-18 05:22] LABS: Bacteria 1+ /hpf (None Seen); Red Blood Cells-Urine 10-25 SEEN /hpf (0-5)
[2023-08-18 06:16] VITALS: BP 127/76; PULSE 73; RESP 15; O2SAT 98
--- NOTE | 2023-08-18 06:57 | EX.ED.DYSGE1 ---
HPI History of Present Illness Chief Complaint: Abd Pain Informant: patient Narrative Narrative: Patient is a 73-year-old male with past medical history of type 2 diabetes paroxysmal atrial fibrillation currently on Eliquis as well as hypertension hyperlipidemia and Clark's esophagus. Patient reports he went to bed normally last night and then awoke roughly 1 to 2 hours prior to arrival with sharp left-sided abdominal pain. He states he is nauseated from the pain but denies any vomiting. He denies any recent trauma or excessive activity. He denies any dysuria or hematuria. He states he took [id number] medication with no symptom improvement and secondary to this presents to the hospital for evaluation [facility] Medical History (Updated 08/18/23 @ 07:[address] Karri Hough, DO) Atrial fibrillation with RVR Barretts esophagus Cancer Diabetes Dysphagia Easy bruising Gastric reflux History of atrial fibrillation History of CHF (congestive heart failure) History of echocardiogram History of excision of malignant tumor History of stress test HLD (hyperlipidemia) HTN (hypertension) Hyperlipidemia Non-smoker Paroxysmal atrial fibrillation Type 2 diabetes mellitus without complication Wears glasses Wears hearing aid Home Medications metformin 1,000 mg tablet 1 tab PO BID dm 09/05/19 [History Last Taken 09/04/19 22:00] pravastatin 10 mg tablet 1 tab PO QHS cholesterol 09/05/19 [History Last Taken 09/04/19] glipizide 10 mg tablet 10 mg PO DAILY 08/24/22 [History Last Taken Unknown] lisinopril 5 mg tablet 5 mg PO DAILY 08/24/22 [History Last Taken 04/23/23] apixaban 5 mg tablet (Eliquis) 5 mg PO BID #60 tabs 11/02/22 [Rx Last Taken 04/20/23] diltiazem HCl 120 mg capsule,extended release 24 hr 120 mg PO DAILY #90 caps 11/02/22 [Rx Last Taken 04/23/23] omeprazole 20 mg tablet,delayed release 20 mg PO QAM #90 tabs 01/04/23 [Rx Last Taken 04/24/23] cephalexin 500 mg capsule 500 mg PO TID 7 days #21 caps 08/18/23 [Rx Last Taken Unknown] ondansetron 4 mg disintegrating tablet 4 mg PO TID PRN nausea and vomiting #21 tabs 08/18/23 [Rx Last Taken Unknown] oxycodone-acetaminophen 5 mg-325 mg tablet (Percocet) 1 tab PO Q6H PRN pain 5 days #20 tabs 08/18/23 [Rx Last Taken Unknown] tamsulosin 0.4 mg capsule (Flomax) 0.4 mg PO DAILY 14 days #14 caps 08/18/23 [Rx Last Taken Unknown] Allergy/AdvReac Type Severity Reaction Status Date / Time No Known Allergies Allergy Verified 08/18/23 04:24 Family History Father CAD (coronary artery disease) Myocardial infarction Mother Emphysema lung Myocardial infarction CAD (coronary artery disease) Surgical History History of hip surgery History of tonsillectomy Social History Smoking Status: Never smoker alcohol intake: never substance use type: does not use caffeine: Yes Type: coffee Number of servings: 2 ROS ROS ED Constitutional Constitutional ED: Denies chills or fever(s) ENT ENT ED: Denies sore throat Cardiovascular Cardiovascular: Denies chest pain Respiratory/Chest Respiratory/Chest: Denies cough or dyspnea Gastrointestinal Gastrointestinal: Reports abdominal pain and nausea; Denies diarrhea or vomiting Genitourinary Genitourinary ED: Denies dysuria, hematuria or urinary frequency Musculoskeletal Musculoskeletal: Reports back pain; Denies myalgias Integumentary Denies rash Neurologic Neurologic: Denies headache(s) Hematologic/Lymphatic Hematologic/Lymphatic: Reports easy bleeding and easy bruising EXAM Physical Exam Const Vital Signs: 08/18/23 04:17 08/18/23 04:16 08/18/23 06:16 Temperature 96.5 F L Temperature Source Temporal Oral Pulse Rate 77 73 Respiratory Rate 15 15 Blood Pressure 138/89 H 127/76 H Blood Pressure Mean 105 93 Pulse Ox 100 98 Oxygen Delivery Method Room Air Room Air 08/18/23 07:12 Temperature Temperature Source Pulse Rate 74 Respiratory Rate 18 Blood Pressure 130/83 H Blood Pressure Mean 98 Pulse Ox 99 Oxygen Delivery Method Positive well nourished and well developed General Appearance ED: well developed HEENT HEENT Narrative: Normocephalic atraumatic Eyes PERRL and EOMs intact bilaterally General Eye ED: Negative for scleral icterus Neck supple Resp normal respiratory effort and clear to auscultation bilaterally Cardio regular rate and regular rhythm Rate: other Other Details: Heart is regular rate and rhythm without murmurs rubs or gallops Radial and carotid pulses are equal and symmetric GI non-distended GI Narrative: Abdomen is soft and nondistended with normal active bowel sounds. Patient has pain with palpation in the left upper quadrant without voluntary guarding or rigidity No pulsatile mass or fluid wave Auscultation: normoactive bowel sounds Palpation: soft Back/Spine Back/Spine Narrative: Positive left CVA pain noted Extremity normal to inspection Neuro oriented x3, CN's II-XII intact bilaterally and no sensory deficits noted Sensorium / Orientation: alert Motor Exam: strength 5/5 throughout Psych mental status grossly normal Skin no rashes or lesions noted Skin Narrative: No overlying soft tissue changes to suggest trauma or infection General Skin Exam: Negative for jaundice MDM MDM MDM Narrative Medical decision making narrative: Patient present to the ER hypertensive otherwise with stable vitals. He reported sudden onset sharp left-sided pain and therefore differential diagnosis is for kidney stone versus splenic injury versus colitis versus diverticulitis versus UTI/pyelonephritis. Patient blood work was obtained which revealed no clinically significant finding. Noncontrast CT did show a 3 mm stone in the proximal left ureter consistent with his sudden onset pain and location of pain. However at this time he does not have findings concerning for acute kidney injury or urosepsis. There is a small amount of bacteria in the urine without white blood cells and therefore I feel this is most likely normal jose or contamination but as he already has obstruction on CT scan the urine will be sent for culture. He was given IV morphine and IV hydration and reported resolution of pain. Therefore at this time he does not need placed in the hospital and can follow-up on an outpatient basis with urology. Based on the urine showing questionable infection but CT scan showing obstruction with hydronephrosis I will place him on a short round of antibiotics History & Record Review Discussion w/independent historian: Patient Lab Data Attestation: I reviewed the patient's lab results. Labs: Laboratory Results - last 24 hr 08/18/23 08/18/23 04:25 05:05 WBC 8.6 RBC 4.82 Hgb 12.4 L Hct 39.9 L MCV 82.8 MCH 25.7 L MCHC 31.1 L RDW Std Deviation 45.9 H RDW Coeff of [place] 15.0 H Plt Count 272 MPV 10.1 Immature Gran % (Auto) 0.300 Neut % (Auto) 79.0 H Lymph % (Auto) 11.6 L Brooks % (Auto) 7.5 Eos % (Auto) 0.8 Baso % (Auto) 0.8 Absolute Neuts (auto) 6.8 Absolute Lymphs (auto) 1.00 Nucleated RBC % 0 Sodium 139 Potassium 3.9 Chloride 104 Carbon Dioxide 28.0 Anion Gap 7 BUN 23 H Creatinine 1.20 Estim Creat Clear Calc 62.79 Est GFR (MDRD) Af Amer 76 Est GFR (MDRD) Non-Af 63 BUN/Creatinine Ratio 19.2 Glucose 206 H Calcium 8.6 Urine Color Yellow Urine Clarity Clear Urine pH 6.0 Ur Specific [place] 1.025 Urine Protein 30 H Urine Glucose (UA) 1000 H Urine Ketones 5 H Urine Occult Blood 250 H Urine Nitrite Negative Urine Bilirubin Negative Urine Urobilinogen Normal Ur Leukocyte Esterase 25 H Urine RBC 10-25 SEEN Urine WBC 0 SEEN Ur Squamous Epith Cells 0 SEEN Urine Bacteria 1+ Urine Mucus 0 SEEN Radiography Diagnostic Testing: Clinical Impression(s) from Imaging Studies Abdomen/Pelvis CT 08/18/23 04:40 IMPRESSION: Proximal left ureteral calculus with moderate left hydroureteronephrosis. Colonic diverticulosis without evidence of acute diverticulitis. Cholelithiasis. 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, Paroxysmal atrial fibrillation Instructions: ED Kidney Stone w/ Colic Prescriptions: New oxycodone-acetaminophen [Percocet] 5-325 mg tablet 1 tab PO Q6H PRN (Reason: pain) 5 Days Qty: 20 0RF ondansetron 4 mg tablet,disintegrating 4 mg PO TID PRN (Reason: nausea and vomiting) Qty: 21 0RF tamsulosin [Flomax] 0.4 mg capsule 0.4 mg PO DAILY 14 Days Qty: 14 0RF cephalexin 500 mg capsule 500 mg PO TID 7 Days Qty: 21 0RF No Action lisinopril 5 mg tablet 5 mg PO DAILY glipizide 10 mg tablet 10 mg PO DAILY pravastatin 10 MG tablet 1 tab PO QHS Patient Comments: TAKE 1 TABLET EVERY DAY AT BEDTIME metformin 1,000 MG tablet 1 tab PO BID Patient Comments: Take one tablet twice a day. Eliquis 5 mg tablet 5 mg PO BID Qty: 60 11RF diltiazem HCl 120 mg capsule,extended release 24hr 120 mg PO DAILY Qty: 90 3RF omeprazole 20 mg tablet,delayed release (DR/EC) 20 mg PO QAM Qty: 90 3RF Primary Care Provider: [facility],Kesha Roa Referrals: Vasu Hernandez MD [Med Staff - Active Staff] - [facility],Kesha Roa [Primary Care Provider] - Activity Restrictions/Additional Instructions: Your workup today showed a kidney stone in the left ureter take your medication as directed to help control pain and pass this. If you develop a fever over 100.4 or your pain is not controlled with the prescribed medication please return for repeat evaluation. Otherwise stay well-hydrated and follow-up with urology for repeat evaluation Disposition Disposition: Home, Self Care Discharge Date/Time: 08/18/23 07:21
[2023-08-18 07:12] VITALS: BP 130/83; PULSE 74; RESP 18; O2SAT 99
== END 2023-08-18 07:21 | disposition home or self-care (01) ==
PROVIDERS: Emergency Provider Emergency Medicine; Visit Provider Emergency Medicine
DX: N13.2 Hydronephrosis with renal and ureteral calculous obstruction (principal); I50.9 Heart failure, unspecified; I11.0 Hypertensive heart disease with heart failure; I48.0 Paroxysmal atrial fibrillation; E11.9 Type 2 diabetes mellitus without complications; N23 Unspecified renal colic; Z79.01 Long term (current) use of anticoagulants; E78.5 Hyperlipidemia, unspecified
CPT/HCPCS: 74176; 80048; 81001; 85025; 96361; 96374; 96375; 99283; J7030; A4216; J2405

== ENCOUNTER 2023-08-18 23:40 | Observation (INO) | payer MEDICARE, MEDICAID, SELFPAY ==
[2023-08-18 23:42] VITALS: BP 133/76; PULSE 91; RESP 17; TEMP 36.6; O2SAT 99; BMI 25.5
--- NOTE | 2023-08-19 00:01 | EDS_ITS ---
HPI HPI - GI History of Present Illness Chief Complaint: Flank Pain Informant: patient and EMS Narrative Narrative: Patient started having left flank pain suddenly this morning, was seen here in the emergency department diagnosed with a kidney stone and sent home with pain medication. States he was taking a pain medication but it is not controlling his pain and his pain is out of control. Has been vomiting. Pain is in the left side, no radiation or migration. He denies any new symptoms compared with the last time he was here and denies any hematuria he is anticoagulated on apixaban for history of atrial fibrillation. No history of kidney stones or surgeries to remove them in the past. [facility] Medical History Atrial fibrillation with RVR Barretts esophagus Cancer Diabetes Dysphagia Easy bruising Gastric reflux History of atrial fibrillation History of CHF (congestive heart failure) History of echocardiogram History of excision of malignant tumor History of stress test HLD (hyperlipidemia) HTN (hypertension) Hyperlipidemia Non-smoker Paroxysmal atrial fibrillation Type 2 diabetes mellitus without complication Wears glasses Wears hearing aid Home Medications metformin 1,000 mg tablet 1 tab PO BID dm 09/05/19 [History Last Taken 09/04/19 22:00] pravastatin 10 mg tablet 1 tab PO QHS cholesterol 09/05/19 [History Last Taken 09/04/19] glipizide 10 mg tablet 10 mg PO DAILY 08/24/22 [History Last Taken Unknown] lisinopril 5 mg tablet 5 mg PO DAILY 08/24/22 [History Last Taken 04/23/23] apixaban 5 mg tablet (Eliquis) 5 mg PO BID #60 tabs 11/02/22 [Rx Last Taken 04/20/23] diltiazem HCl 120 mg capsule,extended release 24 hr 120 mg PO DAILY #90 caps 11/02/22 [Rx Last Taken 04/23/23] omeprazole 20 mg tablet,delayed release 20 mg PO QAM #90 tabs 01/04/23 [Rx Last Taken 04/24/23] cephalexin 500 mg capsule 500 mg PO TID 7 days #21 caps 08/18/23 [Rx Last Taken Unknown] ondansetron 4 mg disintegrating tablet 4 mg PO TID PRN nausea and vomiting #21 tabs 08/18/23 [Rx Last Taken Unknown] oxycodone-acetaminophen 5 mg-325 mg tablet (Percocet) 1 tab PO Q6H PRN pain 5 days #20 tabs 08/18/23 [Rx Last Taken Unknown] tamsulosin 0.4 mg capsule (Flomax) 0.4 mg PO DAILY 14 days #14 caps 08/18/23 [Rx Last Taken Unknown] Allergy/AdvReac Type Severity Reaction Status Date / Time No Known Allergies Allergy Verified 08/18/23 23:41 Family History Father CAD (coronary artery disease) Myocardial infarction Mother Emphysema lung Myocardial infarction CAD (coronary artery disease) Surgical History History of hip surgery History of tonsillectomy Social History Smoking Status: Never smoker alcohol intake: never substance use type: does not use caffeine: Yes Type: coffee Number of servings: 2 ROS ROS ED Constitutional Constitutional ED: Denies chills or fever(s) Eyes Eyes: Denies change in vision or diplopia ENT ENT ED: Denies rhinorrhea or sore throat Cardiovascular Cardiovascular: Denies chest pain or palpitations Respiratory/Chest Respiratory/Chest: Denies cough or dyspnea Gastrointestinal Gastrointestinal: Reports abdominal pain, nausea and vomiting; Denies diarrhea Genitourinary Genitourinary ED: Reports flank pain; Denies dysuria or hematuria Musculoskeletal Musculoskeletal: Reports back pain; Denies neck pain Integumentary Denies abscess or rash Neurologic Neurologic: Denies headache(s), paresthesias or weakness Psychiatric Psychiatric: Denies anxiety or suicidal thoughts EXAM Physical Exam Const Vital Signs: 08/18/23 23:42 Temperature 97.9 F Temperature Source Temporal Pulse Rate 91 Respiratory Rate 17 Blood Pressure 133/76 H Blood Pressure Mean 95 Pulse Ox 99 Oxygen Delivery Method Room Air Positive well nourished and well developed General Appearance ED: well developed and NAD HEENT Reports moist mucous membranes normocephalic and atraumatic Eyes PERRL and EOMs intact bilaterally Neck full ROM and supple Resp normal respiratory effort and clear to auscultation bilaterally Cardio regular rate, regular rhythm and no murmurs GI non-distended GI Narrative: Mild tenderness throughout left side of abdomen no guarding or rebound Auscultation: normoactive bowel sounds Palpation: soft Back/Spine General Back: CVA tenderness left and other FROM Extremity normal to inspection General Extremety ED: Negative for edema, pulses abnormal or tenderness General Extremity: Negative for edema or pulses abnormal Neuro oriented x3, CN's II-XII intact bilaterally and no sensory deficits noted Sensorium / Orientation: awake and alert Motor Exam: strength 5/5 throughout Skin no rashes or lesions noted and no wounds MDM MDM MDM Narrative Medical decision making narrative: Patient was given morphine and prophylactic Zofran but still in a lot of pain and uncomfortable going home. I reviewed his prior ED visit and labs and urinalysis, no signs of infection or sepsis, and his vital signs are normal/stable now. His pain is the main issue. He was taking oxycodone at home that was not taking care of his pain. It is Sunday morning and we do not have urology this weekend, but will on Sunday. Discussed with hospitalist History & Record Review Additional record(s) reviewed:: Prior ED visit and Prior labs Management Discussion w/another healthcare provider: Hospitalist Discharge Plan Triage Chief Complaint: Flank Pain ED Provider: Jose J Hernandez Dx/Rx/DC Orders Clinical Impression: Intractable pain, Kidney stone on left side Prescriptions: No Action lisinopril 5 mg tablet 5 mg PO DAILY glipizide 10 mg tablet 10 mg PO DAILY pravastatin 10 MG tablet 1 tab PO QHS Patient Comments: TAKE 1 TABLET EVERY DAY AT BEDTIME metformin 1,000 MG tablet 1 tab PO BID Patient Comments: Take one tablet twice a day. oxycodone-acetaminophen [Percocet] 5-325 mg tablet 1 tab PO Q6H PRN (Reason: pain) 5 Days Qty: 20 0RF ondansetron 4 mg tablet,disintegrating 4 mg PO TID PRN (Reason: nausea and vomiting) Qty: 21 0RF tamsulosin [Flomax] 0.4 mg capsule 0.4 mg PO DAILY 14 Days Qty: 14 0RF cephalexin 500 mg capsule 500 mg PO TID 7 Days Qty: 21 0RF Eliquis 5 mg tablet 5 mg PO BID Qty: 60 11RF diltiazem HCl 120 mg capsule,extended release 24hr 120 mg PO DAILY Qty: 90 3RF omeprazole 20 mg tablet,delayed release (DR/EC) 20 mg PO QAM Qty: 90 3RF Primary Care Provider: [facility] Kesha Garcia Referrals: [facility],Kesha Roa [Primary Care Provider] - Disposition Disposition: Acute Care Hospital [facility]
[2023-08-19] MEDS: Ondansetron 4 MG/2 ML Vial IV (00:09)
[2023-08-19] MEDS: Morphine 4 MG/ML Syringe IV (00:10)
--- NOTE | 2023-08-19 01:08 | PCM.HP.STD ---
HPI - General General Date of Admission: 08/19/23 Date of Service: 08/19/23 Chief Complaint: Intractable Left Flank Pain. HPI Narrative TAHMINA DURBIN, is a 73 M who presents [facility] Medical History Atrial fibrillation with RVR Barretts esophagus Cancer Diabetes Dysphagia Easy bruising Gastric reflux History of atrial fibrillation History of CHF (congestive heart failure) History of echocardiogram History of excision of malignant tumor History of stress test HLD (hyperlipidemia) HTN (hypertension) Hyperlipidemia Non-smoker Paroxysmal atrial fibrillation Type 2 diabetes mellitus without complication Wears glasses Wears hearing aid Home Medications metformin 1,000 mg tablet 1 tab PO BID dm 09/05/19 [History Last Taken 09/04/19 22:00] pravastatin 10 mg tablet 1 tab PO QHS cholesterol 09/05/19 [History Last Taken 09/04/19] glipizide 10 mg tablet 10 mg PO DAILY 08/24/22 [History Last Taken Unknown] lisinopril 5 mg tablet 5 mg PO DAILY 08/24/22 [History Last Taken 04/23/23] apixaban 5 mg tablet (Eliquis) 5 mg PO BID #60 tabs 11/02/22 [Rx Last Taken 04/20/23] diltiazem HCl 120 mg capsule,extended release 24 hr 120 mg PO DAILY #90 caps 11/02/22 [Rx Last Taken 04/23/23] omeprazole 20 mg tablet,delayed release 20 mg PO QAM #90 tabs 01/04/23 [Rx Last Taken 04/24/23] cephalexin 500 mg capsule 500 mg PO TID 7 days #21 caps 08/18/23 [Rx Last Taken Unknown] ondansetron 4 mg disintegrating tablet 4 mg PO TID PRN nausea and vomiting #21 tabs 08/18/23 [Rx Last Taken Unknown] oxycodone-acetaminophen 5 mg-325 mg tablet (Percocet) 1 tab PO Q6H PRN pain 5 days #20 tabs 08/18/23 [Rx Last Taken Unknown] tamsulosin 0.4 mg capsule (Flomax) 0.4 mg PO DAILY 14 days #14 caps 08/18/23 [Rx Last Taken Unknown] Allergy/AdvReac Type Severity Reaction Status Date / Time No Known Allergies Allergy Verified 08/18/23 23:41 Family History Father CAD (coronary artery disease) Myocardial infarction Mother Emphysema lung Myocardial infarction CAD (coronary artery disease) Surgical History History of hip surgery History of tonsillectomy Social History Smoking Status: Never smoker alcohol intake: never substance use type: does not use caffeine: Yes Type: coffee Number of servings: 2 Vital Signs Vital Signs Vital Signs: 08/18/23 23:42 Temperature 97.9 F Temperature Source Temporal Pulse Rate 91 Respiratory Rate 17 Blood Pressure 133/76 H Blood Pressure Mean 95 Pulse Ox 99 Oxygen Delivery Method Room Air Weight Weight: 198 lb 12.8 oz Body Mass Index (BMI) 25.5
[2023-08-19] MEDS: Morphine 2 MG/ML Syringe IV ×4 (01:12→17:08)
--- NOTE | 2023-08-19 01:17 | HP.PCM.HOS_ITS ---
[facility] - General General Date of Admission: 08/19/23 Date of Service: 08/19/23 Chief Complaint: Intractable Left Flank Pain. HPI Narrative TAHMINA DURBIN, is a 73 M with a past medical history of essential hypertension, hyperlipidemia, diabetes mellitus type 2; of unknown control, paroxysmal atrial fibrillation; on diltiazem and apixaban, GERD; with history of Clark's esophagus, history of CHF and osteoarthritis; status post Left hip replacement who presents to [facility] ER complaining of intractable left flank pain. Mr. Durbin reports his symptoms began early in the morning of 08/18/2023 with the abrupt onset of severe left flank pain. He also admits to severe nausea and vomiting with pain staying in his left flank and not radiating. He denies associated fever, chills, diarrhea or constipation. He denies a history of renal calculi prior to today. He then came to the ER later in the day on 08/18/2023 and was sent home after he was found to have a 3 mm left kidney stone. Unfortunately, his symptoms have continued and spite of appropriate treatment in the ER is now seeking admission for intractable pain with nausea and vomiting secondary to left renal calculus and he was then admitted to the general medical floor under observation status for ongoing care for a stay that is expected to be less than 48 hours. [facility] Medical History Atrial fibrillation with RVR Barretts esophagus Cancer Diabetes Dysphagia Easy bruising Gastric reflux History of atrial fibrillation History of CHF (congestive heart failure) History of echocardiogram History of excision of malignant tumor History of stress test HLD (hyperlipidemia) HTN (hypertension) Hyperlipidemia Non-smoker Paroxysmal atrial fibrillation Type 2 diabetes mellitus without complication Wears glasses Wears hearing aid Home Medications metformin 1,000 mg tablet 1 tab PO BID dm 09/05/19 [History Last Taken 09/04/19 22:00] pravastatin 10 mg tablet 1 tab PO QHS cholesterol 09/05/19 [History Last Taken 09/04/19] glipizide 10 mg tablet 10 mg PO DAILY 08/24/22 [History Last Taken Unknown] lisinopril 5 mg tablet 5 mg PO DAILY 08/24/22 [History Last Taken 04/23/23] apixaban 5 mg tablet (Eliquis) 5 mg PO BID #60 tabs 11/02/22 [Rx Last Taken 04/20/23] diltiazem HCl 120 mg capsule,extended release 24 hr 120 mg PO DAILY #90 caps 11/02/22 [Rx Last Taken 04/23/23] omeprazole 20 mg tablet,delayed release 20 mg PO QAM #90 tabs 01/04/23 [Rx Last Taken 04/24/23] ondansetron 4 mg disintegrating tablet 4 mg PO TID PRN nausea and vomiting #21 tabs 08/18/23 [Rx Last Taken Unknown] oxycodone-acetaminophen 5 mg-325 mg tablet (Percocet) 1 tab PO Q6H PRN pain 5 days #20 tabs 08/18/23 [Rx Last Taken Unknown] tamsulosin 0.4 mg capsule (Flomax) 0.4 mg PO DAILY 14 days #14 caps 08/18/23 [Rx Last Taken Unknown] Allergy/AdvReac Type Severity Reaction Status Date / Time No Known Allergies Allergy Verified 08/18/23 23:41 Family History Father CAD (coronary artery disease) Myocardial infarction Mother Emphysema lung Myocardial infarction CAD (coronary artery disease) Surgical History History of hip surgery History of tonsillectomy Social History Smoking Status: Never smoker alcohol intake: never substance use type: does not use caffeine: Yes Type: coffee Number of servings: 2 ROS ROS Narrative Review of systems: Constitutional: Patient denies fever or chills. Eyes: Patient denies changes in vision. ENT: Patient denies runny nose or sore throat. Cardiovascular: Patient denies chest pain or palpitations. Respiratory: Patient denies shortness of breath or cough. Gastrointestinal: Patient admits to left flank pain and abdominal pain with nausea and vomiting but he denies diarrhea. Genitourinary: Patient admits to left flank pain but denies dysuria, hematuria or urinary frequency. Musculoskeletal: Patient admits to back pain but denies neck pain. Integumentary: Patient denies abscess or rash. Neurologic: Patient denies headache or focal neurologic deficits. Psychiatric: Patient denies anxiety or suicidal thoughts. Hematologic: Patient denies easy bleeding or easy bruisability. Allergic: Patient denies urticaria. 14 point review of systems otherwise negative except for positives noted above. Vital Signs Vital Signs Vital Signs: 08/18/23 23:42 Temperature 97.9 F Temperature Source Temporal Pulse Rate 91 Respiratory Rate 17 Blood Pressure 133/76 H Blood Pressure Mean 95 Pulse Ox 99 Oxygen Delivery Method Room Air Weight Weight: 198 lb 12.8 oz Body Mass Index (BMI) 25.5 Physical Exam Const alert, oriented x3 and average body habitus Constitutional Narrative: Patient is in moderate distress. General Appearance: cooperative HEENT normocephalic, head/scalp atraumatic, hearing grossly normal bilaterally, moist oral mucous membranes and oropharynx normal Eyes PERRL, EOMs intact bilaterally and conjunctivae normal Neck no lymphadenopathy, supple and no JVD Resp normal respiratory effort, no retractions, no use of accessory muscles and clear to auscultation bilaterally Cardio Cardio Narrative: Irregularly irregular GI normal to inspection, nondistended, normoactive bowel sounds and soft to palpation GI Narrative: Left costovertebral angle tenderness to palpation. Extremity normal to inspection, full ROM and no clubbing, cyanosis or edema Skin Skin Narrative: Patient has no evidence of rash at this time. Neuro oriented x3, CN's II-XII intact bilaterally, moves all extremities and no focal motor deficits Sensorium / Orientation: awake, alert, oriented to person, oriented to place and oriented to time Speech: speech normal Motor Exam: strength 5/5 throughout Psych Mood & Affect: anxious Results Medical Records Data Attestation: I reviewed the patient's medical records Lab / Micro Data Attestation: I reviewed the patient's lab results. Lab results narrative: [facility] Imaging Services [address] [place] [address] Abdomen/Pelvis without Cont MR#: [id number] Acct: [id number] Name: TAHMINA DURBIN Rep #: [id number] : 1950 M 73 From: Shelbie Booth MD PCP: [facility] Status: REG ER Study: Abdomen/Pelvis without Cont Date of Exam: 08/18/23 Exam# [id number] Ordering Dr: Karri Hough DO EXAM: CT ABDOMEN AND PELVIS WITHOUT IV CONTRAST - CT Abdomen And Pelvis W/O Contrast Injection HISTORY: flank pain LT FLANK AND LLQ PAIN THIS AM TECHNIQUE: Routine protocol CT abdomen and pelvis. IV Contrast: None.. Oral contrast: None. RADIATION DOSAGE (If Supplied By Facility): CTDIvol = ( 10.20 ) mGy, DLP = ( 555.28 ) mGycm Individualized dose optimization techniques were used for this CT. COMPARISON: None. LIMITATIONS: None. FINDINGS: LOWER CHEST: Included lung bases are clear. LIVER: Grossly unremarkable. GALLBLADDER AND BILIARY TREE: Gallstones in the gallbladder. PANCREAS: Grossly unremarkable. SPLEEN: Grossly unremarkable. ADRENAL GLANDS: Grossly unremarkable. KIDNEYS AND URETERS: There is a 3 mm calculus in the upper to mid third left ureter. The proximal left ureter is dilated with moderate left hydronephrosis and perinephric stranding. No other calculi demonstrated. No hydronephrosis on the right. PERITONEUM: No free air. No free fluid. BOWEL: Diverticula scattered throughout the colon. No bowel obstruction. APPENDIX: Visualized and unremarkable. No evidence of acute appendicitis. VESSELS: Abdominal aorta is normal caliber. REPRODUCTIVE ORGANS: Grossly unremarkable URINARY BLADDER: Grossly unremarkable. ABDOMINAL WALL: Small bilateral inguinal hernias containing only fat, no bowel. BONES: No acute abnormalities. Surgical hardware in the left femur. CT/Abdomen/Pelvis without Cont IMPRESSION: Proximal left ureteral calculus with moderate left hydroureteronephrosis. Colonic diverticulosis without evidence of acute diverticulitis. Cholelithiasis. Electronically Signed: Shelbie Booth MD at 6:43 EST , CC: aKrri Hough DO; [facility] ~ Electronic Maintenance Supervisor Signed 08/19/23 01:58 08/19/23 01:58 Assessment & Plan Assessment/Plan (1) Intractable pain: (2) Kidney stone on left side: (3) Renal colic: (4) Intractable nausea and vomiting: (5) Current use of watermelon inspector anticoagulation: PLAN: Plan 1. Intractable left flank pain due to 3 mm kidney stone that is poorly tolerated in spite of small size - Admit to general medical floor under observation status. Give Tylenol for mild to moderate level 1-5 out of 10 pain or fever. Give morphine sulfate IV as needed for severe level 6-10 out of 10 pain. Volume resuscitate with IV fluids. Check UA C&S to evaluate for central underlying infection and start empiric Rocephin. Finally, we will consult nephrology to see this patient on rounds in the a.m. with help appreciated in advance. 2. Acute kidney injury with elevated serum creatinine of 1.63 mg/dL present on admission (up from his baseline of 1.2 mg/dL during his last ER evaluation) with CT evidence of hydronephrosis due to #1 - Continue supportive care and volume resuscitate and then recheck BMP in the a.m. to ensure improvement. 3. Intractable nausea and vomiting attributable to #1 & #2 - Give Zofran IV as needed to control GI upset. Also placed on aspiration precautions until this issue resolves. 4. Paroxysmal atrial fibrillation; on diltiazem and apixaban - Hold apixaban in case patient requires procedure to stent the Left ureter and/or pulverize stone. Continue diltiazem as previous. 5. Essential hypertension - Give hydralazine as needed for systolic blood pressure greater than 160 mmHg. 6. Hyperlipidemia - Hold statin until patient can tolerate oral intake. Check lipid profile this admission. 7. Diabetes mellitus type 2; of unknown control - Keep n.p.o. for now and check fingerstick blood sugars every 6 hours plus sliding scale insulin. Check hemoglobin A1c to assess quality of diabetic control. 8. DVT prophylaxis - Start SCD's and give one full-dose of Lovenox at this time in case urologic procedure becomes necessary. Total time: Approximately 45 minutes. Charges/Coding Visit Charges OBSV E&M: 11702 Observ/hosp same date L1
[2023-08-19 01:25] VITALS: BP 147/72; PULSE 90; RESP 17; O2SAT 93
[2023-08-19 01:49] VITALS: BMI 25.0
[2023-08-19 02:06] LABS: Absolute Lymphocyte Count 0.64 X10^3/uL (0.83-4.51); Absolute Neutrophil Count 8.7 X10^3/uL (2.0-7.7); Basophil# 0.05 X10^3/uL; Basophil% 0.5 % (0-1); Eosinophil# 0.02 X10^3/uL; Eosinophils% 0.2 % (0-5); Hematocrit 35.6 % (40-54); Hemoglobin 11.3 g/dL (13.0-16.5); Lymphocyte # 0.64 X10^3/ul (0.83-4.51); Lymphocyte % 6.2 % (19-41); Mean Corp Hgb Conc 31.7 g/dL (32-36); Mean Corpuscular Hgb 25.9 pg (27.0-32.0); Mean Corpuscular Volume 81.7 fL (80-94); Mean Platelet Vol. 9.8 fl (6.2-12.0); Monocyte# 0.78 X10^3/uL; Monocyte% 7.6 % (0-10); NRBC Flagged by Analyzer 0 % (0-5); Neutrophil # 8.73 X10^3/uL (2.7-7.7); Neutrophil % 85.1 % (47-70); Platelet Count 216 K/mm3 (150-450); RBC Distribution Width CV 15.2 % (11.6-14.6); RBC Distribution Width SD 45.8 fl (35.1-43.9); Red Blood Count 4.36 M/mm3 (4.6-6.2); White Blood Count 10.3 K/mm3 (4.4-11.0)
[2023-08-19 02:09] VITALS: BP 148/76; PULSE 92; RESP 18; TEMP 36.1; O2SAT 96
[2023-08-19 02:25] LABS: ALB/GLOB Ratio 0.9 RATIO (0.9-2.4); AST(SGOT) 13 U/L (15-37); Alanine Aminotransfer ALT/SGPT 25 U/L (16-61); Albumin, Serum 3.2 g/dL (3.2-5.0); Alkaline Phosphatase 66 U/L (45-117); Anion Gap 5 (5-15); BUN 23 mg/dL (7-18); Calcium,Total 8.3 mg/dL (8.5-10.1); Chloride 106 mmol/L (98-107); Creatinine, Serum 1.64 mg/dL (0.70-1.30); EST Glomerular Filtration Rate 44 mL/min (>60); Est Glom Filt Rate - Afr Amer 53 mL/min (>60); Estimated Creatinine Clearance 45.95 ml/min; Globulin 3.5 g/dL (2.2-4.2); Glucose 252 mg/dL (74-106); Magnesium 1.7 mg/dL (1.6-2.6); Potassium 4.3 mmol/L (3.5-5.1); Protein, Total 6.7 g/dL (6.4-8.2); Sodium Level 137 mmol/L (136-145); Troponin-I HS 6 pg/mL (3.0-78.0)
[2023-08-19 02:27] LABS: Hemoglobin A1c 7.2 % (3.8-5.6)
[2023-08-19] MEDS: 0.9% Normal Saline (1000mL) 1,000 ML 125 ML IV ×3 (02:37→17:09)
[2023-08-19] MEDS: Ceftriaxone 1 GM/50 ML BAG IV ×2 (02:43→21:19)
[2023-08-19] MEDS: Enoxaparin 100 MG/ML Syringe 90 MG SC (02:44)
[2023-08-19 03:36] LABS: Bacteria 0 SEEN /hpf (None Seen); Mucous, Urine 0 SEEN /hpf (<or=2+); Squamous Epithelial Cells - UA 0 SEEN /hpf (0-5); White Blood Cells 0 SEEN /hpf (0-5)
[2023-08-19 03:40] LABS: Color, Urine Yellow (Yellow); Glucose, Dipstick 1000 mg/dl (Normal); Ketone-Dipstick 15 mg/dl (Negative); Leukocyte Esterase-Dipstick Negative /ul (Negative); Nitrite-Dipstick Negative (Negative); Occult Blood-Urine 10 /ul (Negative); Protein-Dipstick Negative (Negative); Specific Gravity, Urine 1.015 (1.002-1.030); Urine Bilirubin Dipstick Negative (Negative); Urine Clarity Clear (Clear); Urine Urobilinogen Normal (Normal)
[2023-08-19 03:46] LABS: Red Blood Cells-Urine 0-5 SEEN /hpf (0-5)
[2023-08-19 06:00] VITALS: BMI 25.0
[2023-08-19 06:46] LABS: Absolute Lymphocyte Count 0.51 X10^3/uL (0.83-4.51); Absolute Neutrophil Count 8.4 X10^3/uL (2.0-7.7); Basophil# 0.03 X10^3/uL; Basophil% 0.3 % (0-1); Hematocrit 36.2 % (40-54); Hemoglobin 11.2 g/dL (13.0-16.5); Lymphocyte # 0.51 X10^3/ul (0.83-4.51); Lymphocyte % 5.3 % (19-41); Mean Corp Hgb Conc 30.9 g/dL (32-36); Mean Corpuscular Hgb 25.7 pg (27.0-32.0); Mean Corpuscular Volume 83.2 fL (80-94); Mean Platelet Vol. 10.7 fl (6.2-12.0); Monocyte# 0.67 X10^3/uL; Monocyte% 6.9 % (0-10); NRBC Flagged by Analyzer 0 % (0-5); Neutrophil # 8.42 X10^3/uL (2.7-7.7); Neutrophil % 87.2 % (47-70); POSITIVE DIFFERENTIAL YES; Platelet Count 235 K/mm3 (150-450); RBC Distribution Width CV 15.2 % (11.6-14.6); RBC Distribution Width SD 46.5 fl (35.1-43.9); Red Blood Count 4.35 M/mm3 (4.6-6.2); White Blood Count 9.7 K/mm3 (4.4-11.0)
[2023-08-19 06:55] LABS: Differential Indicated SCAN CRITERIA MET
[2023-08-19 07:23] LABS: ALB/GLOB Ratio 0.9 RATIO (0.9-2.4); AST(SGOT) 15 U/L (15-37); Alanine Aminotransfer ALT/SGPT 24 U/L (16-61); Albumin, Serum 3.2 g/dL (3.2-5.0); Alkaline Phosphatase 67 U/L (45-117); Anion Gap 8 (5-15); BUN 23 mg/dL (7-18); BUN/Creat Ratio 14.3 RATIO (10-20); Calcium,Total 8.2 mg/dL (8.5-10.1); Chloride 104 mmol/L (98-107); Creatinine, Serum 1.61 mg/dL (0.70-1.30); EST Glomerular Filtration Rate 45 mL/min (>60); Est Glom Filt Rate - Afr Amer 54 mL/min (>60); Globulin 3.4 g/dL (2.2-4.2); Glucose 232 mg/dL (74-106); Phosphorus 3.1 mg/dL (2.5-4.9); Potassium 4.4 mmol/L (3.5-5.1); Protein, Total 6.6 g/dL (6.4-8.2); Sodium Level 137 mmol/L (136-145); Thyroid Stim Hormone (TSH) 0.85 uIU/mL (0.358-3.74)
[2023-08-19] MEDS: Insulin Lispro 100 UNIT/ML INSULN.PEN SC ×3 (08:04→17:11)
[2023-08-19 08:12] VITALS: BP 133/77; PULSE 92; RESP 16; TEMP 37; O2SAT 95
[2023-08-19 08:38] LABS: Bedside Glucose 204 mg/dL (74-106)
[2023-08-19 09:19] LABS: Differential Comment SCANNED
[2023-08-19] MEDS: Pantoprazole Sodium 20 MG Tablet PO (09:24)
[2023-08-19] MEDS: Tamsulosin HCl 0.4 MG Capsule PO (09:25)
[2023-08-19] MEDS: dilTIAZem CD 120 MG Capsule PO (09:25)
--- NOTE | 2023-08-19 10:34 | PCM.HOSP.N ---
Hospitalist Note Patient admitted with intractable left flank 2 to 3 mm kidney stone for pain control Patient has tenderness over left renal angle, left flank and around umbilical region. ELBA: Elevated serum creatinine 1.63, slight better 1.61, present on admission. Baseline 1.2 mg/dL during last ER visit. Moderate left Hydroureteronephrosis. Continue IV fluid. UA shows RBC 10-25 cells, WBC 0 bacteriuria 1+. Urine culture ordered. Patient empirically on IV ceftriaxone. Mild nausea and vomiting has improved. Reported gallstones in the gallbladder but no acute Cholecystitis features Paroxysmal A-fib on diltiazem and apixaban,Apixaban on hold patient might require procedure Ureteric stent CT abdomen and pelvis without IV contrast Proximal left ureteral calculus with moderate left hydroureteronephrosis. Colonic diverticulosis without evidence of acute diverticulitis. Cholelithiasis. Visit Charges Inpatient E&M: 90980 Disch Hosp >30min
[2023-08-19 10:50] VITALS: O2SAT 98
[2023-08-19 12:38] LABS: Bedside Glucose 188 mg/dL (74-106)
[2023-08-19 14:57] VITALS: BP 137/69; PULSE 94; RESP 18; TEMP 37.5; O2SAT 99
[2023-08-19 21:00] VITALS: BP 133/70; PULSE 90; RESP 16; TEMP 37.2; O2SAT 96
[2023-08-19 21:31] LABS: Bedside Glucose 181 mg/dL (74-106)
[2023-08-20] MEDS: 0.9% Normal Saline (1000mL) 1,000 ML 125 ML IV ×2 (00:48→09:16)
[2023-08-20] MEDS: Acetaminophen 325 MG Tablet 650 MG PO (02:14)
[2023-08-20] MEDS: Morphine 2 MG/ML Syringe IV (02:14)
[2023-08-20 02:24] VITALS: BP 124/71; PULSE 96; RESP 18; TEMP 37.8; O2SAT 94
[2023-08-20 05:45] LABS: Bedside Glucose 175 mg/dL (74-106)
[2023-08-20 06:00] VITALS: BMI 25.0
[2023-08-20 07:15] VITALS: O2SAT 95
[2023-08-20 09:00] VITALS: BP 146/77; PULSE 109; RESP 18; TEMP 37.3; O2SAT 91
[2023-08-20 09:04] VITALS: BP 146/77; PULSE 109; RESP 18; TEMP 37.3; O2SAT 91
[2023-08-20] MEDS: dilTIAZem CD 120 MG Capsule PO (09:17)
[2023-08-20] MEDS: Tamsulosin HCl 0.4 MG Capsule PO (09:17)
[2023-08-20] MEDS: Pantoprazole Sodium 20 MG Tablet PO (09:17)
--- NOTE | 2023-08-20 09:25 | CASEMGMT ---
[facility] Dual [facility] if [facility] is recommended is as follows:. [facility], [place], [facility], [facility], [facility], [facility] ([facility]), , [facility], [facility], and . Martina Kay, Discharge Planning Asst.
[2023-08-20 11:31] VITALS: BP 149/78; PULSE 114; RESP 18; TEMP 37.3; O2SAT 92
[2023-08-20] MEDS: Insulin Lispro 100 UNIT/ML INSULN.PEN SC (11:34)
[2023-08-20 11:39] LABS: Bedside Glucose 172 mg/dL (74-106)
--- NOTE | 2023-08-20 11:42 | PCM.DC.SUM ---
Providers Date of Admission: 08/19/23 Date of Discharge: 08/20/23 Primary Care Physician: [facility] Reason For Visit: INTRACTABLE LEFT FLANK PAIN D/T RENAL CALCULUS Diagnosis Discharge Diagnosis (1) Intractable pain: Status: Acute Code(s): R52 - Pain, unspecified (2) Kidney stone on left side: Status: Acute Code(s): N20.0 - Calculus of kidney (3) Renal colic: Status: Acute Code(s): N23 - Unspecified renal colic (4) Intractable nausea and vomiting: Status: Acute Code(s): R11.2 - Nausea with vomiting, unspecified (5) Current use of custodial anticoagulation: Status: Acute Code(s): Z79.01 - FDC (current) use of anticoagulants Plan Final diagnosis: #1 left ureteral stone with ureteral colic #2 left hydronephrosis secondary to #1 #3 type 2 diabetes #4 paroxysmal atrial fibrillation #5 hyperlipidemia Medications at Discharge Home Medications metformin 1,000 mg tablet 1 tab PO BID dm 09/05/19 pravastatin 10 mg tablet 1 tab PO QHS cholesterol 09/05/19 glipizide 10 mg tablet 10 mg PO DAILY 08/24/22 lisinopril 5 mg tablet 5 mg PO DAILY 08/24/22 apixaban 5 mg tablet (Eliquis) 5 mg PO BID #60 tabs 11/02/22 diltiazem HCl 120 mg capsule,extended release 24 hr 120 mg PO DAILY #90 caps 11/02/22 omeprazole 20 mg tablet,delayed release 20 mg PO QAM #90 tabs 01/04/23 ondansetron 4 mg disintegrating tablet 4 mg PO TID PRN nausea and vomiting #21 tabs 08/18/23 oxycodone-acetaminophen 5 mg-325 mg tablet (Percocet) 1 tab PO Q6H PRN pain 5 days #20 tabs 08/18/23 tamsulosin 0.4 mg capsule (Flomax) 0.4 mg PO DAILY 14 days #14 caps 08/18/23 Hospital Course Operations None Procedures None Summary of Care Provided Minutes Spent on Discharge: 31 Hospital Course: This 73-year-old white male was seen in the emergency room at [facility] with complaints of left flank pain with nausea and vomiting. He had been seen the day before in the emergency room with complaints of left flank pain and was found to have ureteral stone, he was discharged home on pain medications but he returned due to nausea and vomiting and persistent left flank pain. Repeat labs revealed no change in the patient's creatinine from the day before, imaging studies were not repeated-his previous CT of his abdomen and pelvis showed a proximal left ureteral calculus with moderate left hydronephrosis. Patient was admitted to [place] [address], placed on IV antibiotics and IV fluids, and given IV analgesics. Unfortunately there was not urological coverage at the hospital available and the patient had to be transferred to a tertiary facility for further care-[facility] in [facility] agreed to take the patient and he was transferred there on 08/20/2023. Patient was seen and examined on 08/20/2023: On examination he appeared in good health and spirits. Patient did have hearing loss but was able to communicate with this examiner and he was able to understand my speech. Vital signs as documented. Skin warm and dry and without overt rashes. Neck without JVD, neck was supple, trachea midline, thyroid was normal. Lungs clear bilaterally, normal air movement was noted. Heart exam notable for regular rhythm, normal sounds and absence of murmurs, rubs or gallops. Abdomen unremarkable and without evidence of organomegaly, masses, or abdominal aortic enlargement. Bowel sounds are present, abdomen is not distended. Extremities nonedematous, no cyanosis was noted, no clubbing was noted. Neuro: Cranial nerves II through XII are grossly intact, no focal motor deficits were noted, sensation to light touch and pinprick intact, motor exam 5/5 throughout. Psych: Patient is alert and oriented x3, he does not appear anxious or depressed, he does not appear agitated. Patient was discharged to [facility] on 08/20/2023 in stable condition Weight / BMI Weight Weight: 88.5 kg Body Mass Index (BMI) 25.0 ABG / Lab / Microbiology Data 08/19/23 05:10 08/19/23 05:10 Laboratory: Laboratory Results - last 24 hr 08/19/23 12:20: POC Glucose 188 H 08/19/23 17:11: POC Glucose 181 H 08/20/23 05:21: POC Glucose 175 H 08/20/23 11:21: POC Glucose 172 H Meaningful Use Info Meaningful Use Diagnoses (Choose all that apply): None applicable Discharge Plan Admission Admit Date/Time: 08/19/23 01:36 Attending Provider: Jey Vazquez [facility] Providers: Tico Dempsey; Jeremiah Hutchison Discharge Orders/Prescriptions Prescriptions: No Action lisinopril 5 mg tablet 5 mg PO DAILY glipizide 10 mg tablet 10 mg PO DAILY pravastatin 10 MG tablet 1 tab PO QHS Patient Comments: TAKE 1 TABLET EVERY DAY AT BEDTIME metformin 1,000 MG tablet 1 tab PO BID Patient Comments: Take one tablet twice a day. oxycodone-acetaminophen [Percocet] 5-325 mg tablet 1 tab PO Q6H PRN (Reason: pain) 5 Days Qty: 20 0RF ondansetron 4 mg tablet,disintegrating 4 mg PO TID PRN (Reason: nausea and vomiting) Qty: 21 0RF tamsulosin [Flomax] 0.4 mg capsule 0.4 mg PO DAILY 14 Days Qty: 14 0RF Eliquis 5 mg tablet 5 mg PO BID Qty: 60 11RF diltiazem HCl 120 mg capsule,extended release 24hr 120 mg PO DAILY Qty: 90 3RF omeprazole 20 mg tablet,delayed release (DR/EC) 20 mg PO QAM Qty: 90 3RF [facility] - Disposition Discharge Orders: Discharge Patient (Routine); Ordered 08/20/23 Ordered By: Dr. Jey Vazquez Charges/Coding Visit Charges Inpatient E&M: 17293 Disch Hosp >30min
--- NOTE | 2023-08-20 11:58 | CASEMGMT ---
Met with patient and his sister to complete NARAYANAN form. NARAYANAN form explained to patient who voiced understanding and signed form. Original form placed in pt?s chart and copy provided to?patient. Martina Kay, Discharge Planning Asst
--- NOTE | 2023-08-20 14:54 | NURSING ---
Bed assignment for Haritha, 2M291 Bed 1, report # [phone]
[2023-08-20 15:00] VITALS: BP 149/80; PULSE 112; RESP 18; TEMP 37.9; O2SAT 92
--- NOTE | 2023-08-20 16:02 | PCA ---
transportation arranged for [id number]
--- NOTE | 2023-08-20 16:40 | NURSING ---
Patient left with [facility] with insurance card and glass and clothing items sister brought in.
== END 2023-08-20 16:35 | disposition short-term general hospital (02) ==
LOC: ED 08-19 01:13 → MS3 08-19 01:43
PROVIDERS: Internal Medicine; Admitting Provider Internal Medicine; Emergency Provider Emergency Medicine; Visit Provider Internal Medicine
DX: N13.2 Hydronephrosis with renal and ureteral calculous obstruction (principal); I50.9 Heart failure, unspecified; I11.0 Hypertensive heart disease with heart failure; I48.0 Paroxysmal atrial fibrillation; E11.9 Type 2 diabetes mellitus without complications; H91.90 Unspecified hearing loss, unspecified ear; Z79.84 Long term (current) use of oral hypoglycemic drugs; Z79.01 Long term (current) use of anticoagulants; E78.5 Hyperlipidemia, unspecified; Z79.899 Other long term (current) drug therapy
CPT/HCPCS: 36415; 80053; 81001; 82962; 83036; 83735; 84100; 84443; 84484; 85025; 87086; 94668; 96361; 96365; 96366; 96372; 96375; 96376; 99221; 99252; 99283; J7030; A4216; G0378; G0463; J2405

== ENCOUNTER 2023-09-10 15:45 | Emergency (ER) | payer MEDICARE, MEDICAID, SELFPAY ==
[2023-09-10 15:46] VITALS: BP 149/91; PULSE 101; RESP 16; TEMP 36.8; O2SAT 98; BMI 24.1
--- NOTE | 2023-09-10 16:10 | EX.ED.DYSGE1 ---
HPI History of Present Illness Chief Complaint: Complaint Detail of Chief Complaint: Colored urine with dysuria Informant: patient Onset/Context/Timing Onset: Today Quality: Dark brown-colored urine Location: Current Severity: Moderate Maximum Severity: Moderate Worsened by: Patient has stent in place and on apixaban Relieved by: Nothing Associated Symptoms Associated Symptoms: No constitutional symptoms. Narrative Narrative: Patient is a 73-year-old male who is very hard of hearing. He is a poor informant. He does not know when he had his surgery. Accessed [employer] and it was determined that patient underwent surgery August 22. He had a stent placed on the left. Preoperative diagnosis was left hydronephrosis. Postoperative diagnosis was same and felt to be secondary to retroperitoneal bleed. Patient was admitted July at [facility]. He was found to have a left renal calculi and hematuria. Patient is on anticoagulant for chronic atrial fibrillation. Patient states he was told to hold the anticoagulant for 7 days after surgery. He is presently taking the apixaban. He denies fever, chills or night sweats. He denies orthostatic symptoms. He denies cardiac symptoms. He denies dyspnea or dyspnea on exertion. He does report mild suprapubic pain with deep palpation. He does endorse history of benign prostatic hypertrophy. Past history is remarkable for hypertension, atrial fibrillation on long-term anticoagulant and type 2 diabetes. He also has history of hypercholesterolemia based on medication list. Prior similar symptoms: Yes Recent Illness/Hospitalization: Yes [facility] Medical History Atrial fibrillation with RVR Barretts esophagus Cancer Diabetes Dysphagia Easy bruising Gastric reflux History of atrial fibrillation History of CHF (congestive heart failure) History of echocardiogram History of excision of malignant tumor History of stress test HLD (hyperlipidemia) HTN (hypertension) Hyperlipidemia Non-smoker Paroxysmal atrial fibrillation Type 2 diabetes mellitus without complication Wears glasses Wears hearing aid Home Medications metformin 1,000 mg tablet 1 tab PO BID dm 09/05/19 [History Last Taken 09/04/19 22:00] pravastatin 10 mg tablet 1 tab PO QHS cholesterol 09/05/19 [History Last Taken 09/04/19] glipizide 10 mg tablet 10 mg PO DAILY 08/24/22 [History Last Taken Unknown] lisinopril 5 mg tablet 5 mg PO DAILY 08/24/22 [History Last Taken 04/23/23] apixaban 5 mg tablet (Eliquis) 5 mg PO BID #60 tabs 11/02/22 [Rx Last Taken 04/20/23] diltiazem HCl 120 mg capsule,extended release 24 hr 120 mg PO DAILY #90 caps 11/02/22 [Rx Last Taken 04/23/23] omeprazole 20 mg tablet,delayed release 20 mg PO QAM #90 tabs 01/04/23 [Rx Last Taken 04/24/23] ondansetron 4 mg disintegrating tablet 4 mg PO TID PRN nausea and vomiting #21 tabs 08/18/23 [Rx Last Taken Unknown] oxycodone-acetaminophen 5 mg-325 mg tablet (Percocet) 1 tab PO Q6H PRN pain 5 days #20 tabs 08/18/23 [Rx Last Taken Unknown] tamsulosin 0.4 mg capsule (Flomax) 0.4 mg PO DAILY 14 days #14 caps 08/18/23 [Rx Last Taken Unknown] sulfamethoxazole 800 mg-trimethoprim 160 mg tablet 1 tab PO BID #14 TABLETS 09/10/23 [Rx Last Taken Unknown] Allergy/AdvReac Type Severity Reaction Status Date / Time No Known Allergies Allergy Verified 09/10/23 15:46 Family History Father CAD (coronary artery disease) Myocardial infarction Mother Emphysema lung Myocardial infarction CAD (coronary artery disease) Surgical History History of hip surgery History of tonsillectomy Social History Smoking Status: Never smoker alcohol intake: never substance use type: does not use caffeine: Yes Type: coffee Number of servings: 2 ROS ROS ED Constitutional Constitutional ED: Denies chills, fever(s), subjective, sweats or weight loss Eyes Eyes: Denies blurry vision, change in vision or diplopia Cardiovascular Cardiovascular: Denies chest pain or palpitations Respiratory/Chest Respiratory/Chest: Denies cough, dyspnea or dyspnea on exertion Gastrointestinal Gastrointestinal: Denies abdominal pain, nausea or vomiting Genitourinary Genitourinary ED: Reports dysuria and hematuria; Denies urinary frequency Musculoskeletal Musculoskeletal: Denies arthralgias, back pain or myalgias Integumentary Denies rash Neurologic Neurologic: Denies paresthesias or weakness Hematologic/Lymphatic Hematologic/Lymphatic: Reports systems reviewed and no addt'l complaints, except as documented and anemia; Denies easy bleeding or easy bruising EXAM Physical Exam Const Vital Signs: 09/10/23 15:46 Temperature 98.2 F Temperature Source Temporal Pulse Rate 101 H Respiratory Rate 16 Blood Pressure 149/91 H Blood Pressure Mean 110 Pulse Ox 98 Oxygen Delivery Method Room Air Positive well nourished and well developed General Appearance ED: well developed, NAD and pallor HEENT Reports moist mucous membranes HEENT Narrative: Head is atraumatic and normocephalic. Ears are normal. Patient is hard of hearing. Posterior pharynx is normal. Eyes PERRL and EOMs intact bilaterally General Eye ED: Negative for pale conjunctiva or scleral icterus Neck no lymphadenopathy, supple and no JVD Chest Wall inspection of chest normal Resp normal respiratory effort and clear to auscultation bilaterally Cardio regular rate and no murmurs Rhythm: abnormal rhythm irregularly irregular GI normal to inspection, nondistended, normoactive bowel sounds, non-distended and no masses; Negative for non-tender or hepatosplenomegaly Auscultation: hypoactive bowel sounds Palpation: soft and tender suprapubic; Negative for splenomegaly or mass Back/Spine no CVA tenderness Extremity normal to inspection Neuro oriented x3, CN's II-XII intact bilaterally and no sensory deficits noted Sensorium / Orientation: alert Motor Exam: strength 5/5 throughout Psych mental status grossly normal Skin no rashes or lesions noted and skin turgor normal General Skin Exam: pallor; Negative for elasticity normal or jaundice MDM MDM MDM Narrative Medical decision making narrative: Inpatient records from hospitalization end of July at [facility] were reviewed as well as discharge summary by Dr. Jey Mullen. Records from outside facility reviewed. Patient has chronic nonspecific anemia. Since patient is complaining of urologic symptoms will obtain UA to assess for infection. The bleeding may be due to the fact that he has a stent and is on apixaban. He is not hemodynamically unstable. CBC was obtained to assess H&H since he does have history anemia and does appear pale as well as white count differential. BMP was obtained to assess renal function. Renal function per prior labs were unremarkable. History & Record Review Additional record(s) reviewed:: Prior inpatient record, Prior outpatient record and Prior ED visit Lab Data Attestation: I reviewed the patient's lab results. Lab results narrative: CBC reveals mild anemia. Based sick metabolic panel reveals a glucose of 164 with a normal CO2 and anion gap. BUN is slightly elevated 20. BUN/creatinine ratio is 18:1. UA macro reveals protein, glucose, ketones and occult blood. Also positive for nitrites and leukoesterase. Microscopic reveals hematuria, 0-5 WBCs and 1+ bacteria. Will send culture. Will treat since patient has symptoms. Labs: Laboratory Results - last 24 hr 09/10/23 09/10/23 16:10 16:33 WBC 6.0 RBC 4.85 Hgb 12.4 L Hct 40.8 MCV 84.1 MCH 25.6 L MCHC 30.4 L RDW Std Deviation 44.7 H RDW Coeff of Sagar 14.7 H Plt Count 466 H MPV 9.5 Immature Gran % (Auto) 0.300 Neut % (Auto) 56.2 Lymph % (Auto) 31.2 Gray % (Auto) 8.8 Eos % (Auto) 1.8 Baso % (Auto) 1.7 H Absolute Neuts (auto) 3.4 Absolute Lymphs (auto) 1.88 Nucleated RBC % 0 Sodium 138 Potassium 3.9 Chloride 106 Carbon Dioxide 27.0 Anion Gap 5 BUN 20 H Creatinine 1.07 Estim Creat Clear Calc 70.42 Est GFR (MDRD) Af Amer 87 Est GFR (MDRD) Non-Af 72 BUN/Creatinine Ratio 18.7 Glucose 164 H Calcium 9.3 Urine Color Dori Urine Clarity Turbid Urine pH 6.5 Ur Specific Wise 1.025 Urine Protein 100 H Urine Glucose (UA) 100 H Urine Ketones 5 H Urine Occult Blood 250 H Urine Nitrite Positive H Urine Bilirubin 1 H Urine Urobilinogen 1 H Ur Leukocyte Esterase 100 H Urine RBC > 100 SEEN Urine WBC 0-5 SEEN Ur Squamous Epith Cells 0-5 SEEN Urine Bacteria 1+ Urine Mucus 0 SEEN Treatment and Re-Evaluation :: She was sent. Patient was started on Bactrim since she is symptomatic. Creatinine is normal compared to prior. Will have patient hold apixaban for the next 3 days. Discharge Plan Triage Chief Complaint: Complaint ED Provider: Candelaria,Marc Dx/Rx/DC Orders Clinical Impression: Acute hemorrhagic cystitis, Type 2 diabetes mellitus without complication, Kidney stone on left side, correction current use of amiodarone, Anticoagulant long-term use Instructions: ED Bladder Infection, Male (Adult) Prescriptions: New sulfamethoxazole-trimethoprim [sulfamethoxazole-trimethoprim] 800-160 mg tablet 1 tab PO BID Qty: 14 0RF No Action lisinopril 5 mg tablet 5 mg PO DAILY glipizide 10 mg tablet 10 mg PO DAILY pravastatin 10 MG tablet 1 tab PO QHS Patient Comments: TAKE 1 TABLET EVERY DAY AT BEDTIME metformin 1,000 MG tablet 1 tab PO BID Patient Comments: Take one tablet twice a day. oxycodone-acetaminophen [Percocet] 5-325 mg tablet 1 tab PO Q6H PRN (Reason: pain) 5 Days Qty: 20 0RF ondansetron 4 mg tablet,disintegrating 4 mg PO TID PRN (Reason: nausea and vomiting) Qty: 21 0RF tamsulosin [Flomax] 0.4 mg capsule 0.4 mg PO DAILY 14 Days Qty: 14 0RF Eliquis 5 mg tablet 5 mg PO BID Qty: 60 11RF diltiazem HCl 120 mg capsule,extended release 24hr 120 mg PO DAILY Qty: 90 3RF omeprazole 20 mg tablet,delayed release (DR/EC) 20 mg PO QAM Qty: 90 3RF Primary Care Provider: [facility] Garcia [facility] - 3-5 Days Activity Restrictions/Additional Instructions: Hold your next 6 doses of Eliquis, apixaban, Take antibiotic until gone If you pass large clots or unable to urinate return to the emergency department Keep appointment with urologist Disposition Disposition: Home, Self Care
[2023-09-10 16:29] LABS: Absolute Lymphocyte Count 1.88 X10^3/uL (0.83-4.51); Absolute Neutrophil Count 3.4 X10^3/uL (2.0-7.7); Basophil% 1.7 % (0-1); Eosinophil# 0.11 X10^3/uL; Eosinophils% 1.8 % (0-5); Hematocrit 40.8 % (40-54); Hemoglobin 12.4 g/dL (13.0-16.5); Lymphocyte # 1.88 X10^3/ul (0.83-4.51); Lymphocyte % 31.2 % (19-41); Mean Corp Hgb Conc 30.4 g/dL (32-36); Mean Corpuscular Hgb 25.6 pg (27.0-32.0); Mean Corpuscular Volume 84.1 fL (80-94); Mean Platelet Vol. 9.5 fl (6.2-12.0); Monocyte# 0.53 X10^3/uL; Monocyte% 8.8 % (0-10); NRBC Flagged by Analyzer 0 % (0-5); Neutrophil # 3.38 X10^3/uL (2.7-7.7); Neutrophil % 56.2 % (47-70); Platelet Count 466 K/mm3 (150-450); RBC Distribution Width CV 14.7 % (11.6-14.6); RBC Distribution Width SD 44.7 fl (35.1-43.9); Red Blood Count 4.85 M/mm3 (4.6-6.2)
[2023-09-10 16:43] LABS: Anion Gap 5 (5-15); BUN 20 mg/dL (7-18); BUN/Creat Ratio 18.7 RATIO (10-20); Calcium,Total 9.3 mg/dL (8.5-10.1); Chloride 106 mmol/L (98-107); Creatinine, Serum 1.07 mg/dL (0.70-1.30); EST Glomerular Filtration Rate 72 mL/min (>60); Est Glom Filt Rate - Afr Amer 87 mL/min (>60); Estimated Creatinine Clearance 70.42 ml/min; Glucose 164 mg/dL (74-106); Potassium 3.9 mmol/L (3.5-5.1); Sodium Level 138 mmol/L (136-145)
[2023-09-10 17:04] LABS: Mucous, Urine 0 SEEN /hpf (<or=2+)
[2023-09-10 17:07] LABS: Color, Urine Amber (Yellow); Glucose, Dipstick 100 mg/dl (Normal); Ketone-Dipstick 5 mg/dl (Negative); Leukocyte Esterase-Dipstick 100 /ul (Negative); Nitrite-Dipstick Positive (Negative); Occult Blood-Urine 250 /ul (Negative); Protein-Dipstick 100 mg/dl (Negative); Specific Gravity, Urine 1.025 (1.002-1.030); Urine Clarity Turbid (Clear); Urine Urobilinogen 1 mg/dl (Normal); Urine pH 6.5 (5.0 - 8.0)
[2023-09-10 17:31] LABS: Urine Bilirubin Dipstick 1 mg/dL (Negative)
[2023-09-10 17:33] LABS: Red Blood Cells-Urine > 100 SEEN /hpf (0-5); White Blood Cells 0-5 SEEN /hpf (0-5)
[2023-09-10 17:34] LABS: Bacteria 1+ /hpf (None Seen); Squamous Epithelial Cells - UA 0-5 SEEN /hpf (0-5)
[2023-09-10] MEDS: Smz/Tmp Ds Tablet 1 TABLET PO (18:13)
[2023-09-10 18:15] VITALS: RESP 16
== END 2023-09-10 18:16 | disposition home or self-care (01) ==
PROVIDERS: Emergency Provider Emergency Medicine; Visit Provider Emergency Medicine
DX: N30.91 Cystitis, unspecified with hematuria (principal); I50.9 Heart failure, unspecified; I13.0 Hypertensive heart and chronic kidney disease with heart failure and stage 1 through stage 4 chronic kidney disease, or unspecified chronic kidney disease; E11.22 Type 2 diabetes mellitus with diabetic chronic kidney disease; I48.20 Chronic atrial fibrillation, unspecified; E78.00 Pure hypercholesterolemia, unspecified; Z79.01 Long term (current) use of anticoagulants; N13.2 Hydronephrosis with renal and ureteral calculous obstruction; N18.9 Chronic kidney disease, unspecified; Z79.899 Other long term (current) drug therapy; Z79.84 Long term (current) use of oral hypoglycemic drugs; K21.9 Gastro-esophageal reflux disease without esophagitis
CPT/HCPCS: 80048; 81001; 85025; 87086; 87088; 99282; A4216

== ENCOUNTER 2023-11-26 16:35 | Emergency (ER) | payer MEDICARE, MEDICAID, SELFPAY ==
[2023-11-26 16:35] VITALS: BP 147/98; PULSE 104; RESP 18; TEMP 35.9; O2SAT 98; BMI 25.1
--- NOTE | 2023-11-26 18:31 | EX.ED.GUMALE ---
HPI History of Present Illness Chief Complaint: Complaint Informant: patient and spouse/S.O. Narrative Narrative: Blood in Alicia catheter after restarting his Eliquis this morning. Had a urological procedure [address] Batista at [facility]. He states had a large prostate. This was found when he was diagnosed with kidney stone in July with ureteral stent. He is on Eliquis for paroxysmal atrial fibrillation. Last dose was this morning. Denies abdominal pain. Denies retention. Alicia catheter is draining. Patient reports has appointment with his urologist tomorrow at 8 AM. Prior similar symptoms: No PFSH PFSH Medical History Atrial fibrillation with RVR Barretts esophagus Cancer Diabetes Dysphagia Easy bruising Gastric reflux History of atrial fibrillation History of CHF (congestive heart failure) History of echocardiogram History of excision of malignant tumor History of stress test HTN (hypertension) Hyperlipidemia Non-smoker Paroxysmal atrial fibrillation Type 2 diabetes mellitus without complication Wears glasses Wears hearing aid Home Medications metformin 1,000 mg tablet 1 tab PO BID dm 09/05/19 [History Last Taken 09/04/19 22:00] pravastatin 10 mg tablet 1 tab PO QHS cholesterol 09/05/19 [History Last Taken 09/04/19] glipizide 10 mg tablet 10 mg PO DAILY 08/24/22 [History Last Taken Unknown] lisinopril 5 mg tablet 5 mg PO DAILY 08/24/22 [History Last Taken 04/23/23] diltiazem HCl 120 mg capsule,extended release 24 hr 120 mg PO DAILY #90 caps 11/02/22 [Rx Last Taken 04/23/23] omeprazole 20 mg tablet,delayed release 20 mg PO QAM #90 tabs 01/04/23 [Rx Last Taken 04/24/23] apixaban 5 mg tablet (Eliquis) 5 mg PO BID #60 tabs 11/26/23 [Rx Last Taken Unknown] Allergy/AdvReac Type Severity Reaction Status Date / Time No Known Allergies Allergy Verified 11/15/23 09:30 Family History Father CAD (coronary artery disease) Myocardial infarction Mother Emphysema lung Myocardial infarction CAD (coronary artery disease) Surgical History History of hip surgery History of tonsillectomy Social History Smoking Status: Never smoker alcohol intake: never substance use type: does not use caffeine: Yes Type: coffee Number of servings: 2 ROS ROS ED Constitutional Constitutional ED: Denies chills, fever(s) or sweats Eyes Eyes: Denies change in vision ENT ENT ED: Denies dysphagia or sore throat Cardiovascular Cardiovascular: Denies chest pain, leg edema, palpitations or racing heartbeat Respiratory/Chest Respiratory/Chest: Denies cough, dyspnea or dyspnea on exertion Gastrointestinal Gastrointestinal: Denies abdominal pain, diarrhea, nausea or vomiting Genitourinary Genitourinary ED: Reports hematuria; Denies dysuria or urinary frequency Musculoskeletal Musculoskeletal: Denies back pain, extremity pain or neck pain Integumentary Denies rash or wounds Neurologic Neurologic: Denies headache(s), paresthesias or weakness EXAM Physical Exam Const Vital Signs: 11/26/23 16:35 11/26/23 19:59 Temperature 96.6 F L 96.9 F L Temperature Source Temporal Pulse Rate 104 H 86 Respiratory Rate 18 18 Blood Pressure 147/98 H 136/90 H Blood Pressure Mean 114 105 Pulse Ox 98 98 Oxygen Delivery Method Room Air Positive well nourished and well developed General Appearance ED: well developed and NAD HEENT Reports moist mucous membranes normocephalic and atraumatic Eyes PERRL, EOMs intact bilaterally and conjunctivae normal General Eye ED: Yes normal appearance of both eyes Neck no lymphadenopathy and supple General: Negative for tenderness Chest Wall Chest: Negative for tenderness Resp normal respiratory effort and normal air movement Effort and Inspection: symmetric chest movement; Negative for respiratory distress Cardio regular rate, regular rhythm and no murmurs Peripheral Pulses: pulses 2+ throughout GI normal to inspection, nondistended, normoactive bowel sounds and non-tender Palpation: Negative for guarding or rebound tenderness present Narrative: Alicai catheter to leg bag. 300 cc of urine dark in color in leg bag. No clots. Back/Spine no CVA tenderness and no thoracic nor lumbar tenderness Extremity normal to inspection General Extremety ED: Negative for edema or tenderness General Extremity: Negative for edema Neuro oriented x3 and no sensory deficits noted Sensorium / Orientation: awake and alert Skin no rashes or lesions noted and no wounds MDM MDM MDM Narrative Medical decision making narrative: Interventions / MDM: Differential diagnosis: Postop bleeding, hematuria Diagnosis considered but do not suspect: No clinical obstruction My EKG interpretation: N/A Imaging independently reviewed and interpreted by myself: N/A External documents reviewed: N/A Test considered but not ordered:N/A ED course: Patient hematuria after restarting his Eliquis. Heart is sinus rhythm. Does not appear obstructed. Will check basic labs urine with a urine culture. Will have nursing flush the Alicia. Alicia flushed with problems. Hemoglobin stable at 11.9. Creatinine 0.96. Patient will hold his Eliquis as he is having hematuria. He understands risk for strokes, he is currently in a regular rhythm. He has an appointment with his urologist Dr. Batista tomorrow a.m. He will keep this appointment. Re-evaluation: stable Disposition discussed with patient/family/significant other: Patient and significant other Case discussed with consulting clinician: N/A This note was generated with [employer] dictation software. It may contain incorrect words, spelling, and punctuation that were not noted in checking the note before signing. Lab Data Attestation: I reviewed the patient's lab results. Labs: Laboratory Results - last 24 hr 11/26/23 11/26/23 18:40 18:42 WBC 7.2 RBC 4.62 Hgb 11.9 L Hct 37.1 L MCV 80.3 MCH 25.8 L MCHC 32.1 RDW Std Deviation 43.0 RDW Coeff of Sagar 14.7 H Plt Count 259 MPV 9.4 Immature Gran % (Auto) 0.300 Neut % (Auto) 62.3 Lymph % (Auto) 25.1 [place] % (Auto) 10.5 H Eos % (Auto) 1.0 Baso % (Auto) 0.8 Absolute Neuts (auto) 4.5 Absolute Lymphs (auto) 1.80 Nucleated RBC % 0 Sodium 136 Potassium 3.9 Chloride 104 Carbon Dioxide 28.0 Anion Gap 4 L BUN 18 Creatinine 0.96 Estim Creat Clear Calc 78.49 Est GFR (MDRD) Af Amer 98 Est GFR (MDRD) Non-Af 81 BUN/Creatinine Ratio 18.8 Glucose 129 H Calcium 9.2 Urine Color Brown Urine Clarity Cloudy Urine pH 6.5 Ur Specific Mcgraws 1.025 Urine Protein 500 H Urine Glucose (UA) 250 H Urine Ketones 15 H Urine Occult Blood 250 H Urine Nitrite Negative Urine Bilirubin Negative Urine Urobilinogen Normal Ur Leukocyte Esterase 100 H Urine RBC > 100 SEEN Urine WBC 5-10 SEEN Ur Squamous Epith Cells 0 SEEN Urine Bacteria 0 SEEN Urine Mucus 0 SEEN Discharge Plan Triage Chief Complaint: Complaint ED Provider: Rodrick Dorado Dx/Rx/DC Orders Clinical Impression: Hematuria, Post-op bleeding Instructions: ED Hematuria Prescriptions: No Action lisinopril 5 mg tablet 5 mg PO DAILY glipizide 10 mg tablet 10 mg PO DAILY pravastatin 10 MG tablet 1 tab PO QHS Patient Comments: TAKE 1 TABLET EVERY DAY AT BEDTIME metformin 1,000 MG tablet 1 tab PO BID Patient Comments: Take one tablet twice a day. diltiazem HCl 120 mg capsule,extended release 24hr 120 mg PO DAILY Qty: 90 3RF omeprazole 20 mg tablet,delayed release (DR/EC) 20 mg PO QAM Qty: 90 3RF Eliquis 5 mg tablet 5 mg PO BID Qty: 60 11RF Primary Care [facility] - Activity Restrictions/Additional Instructions: Hemoglobin 11.9. Creatinine 0.96. Urine culture pending. Hold your Eliquis for right now. You are in a regular rhythm on exam. You are at risk for stroke while being off blood thinner. Keep your follow-up with Dr. Batista tomorrow for discussion when to restart the medication. Disposition Disposition: Home, Self Care Discharge Date/Time: 11/26/23 20:00
[2023-11-26 18:48] LABS: Absolute Neutrophil Count 4.5 X10^3/uL (2.0-7.7); Basophil# 0.06 X10^3/uL; Basophil% 0.8 % (0-1); Eosinophil# 0.07 X10^3/uL; Hematocrit 37.1 % (40-54); Hemoglobin 11.9 g/dL (13.0-16.5); Lymphocyte % 25.1 % (19-41); Mean Corp Hgb Conc 32.1 g/dL (32-36); Mean Corpuscular Hgb 25.8 pg (27.0-32.0); Mean Corpuscular Volume 80.3 fL (80-94); Mean Platelet Vol. 9.4 fl (6.2-12.0); Monocyte# 0.75 X10^3/uL; Monocyte% 10.5 % (0-10); NRBC Flagged by Analyzer 0 % (0-5); Neutrophil # 4.46 X10^3/uL (2.7-7.7); Neutrophil % 62.3 % (47-70); Platelet Count 259 K/mm3 (150-450); RBC Distribution Width CV 14.7 % (11.6-14.6); Red Blood Count 4.62 M/mm3 (4.6-6.2); White Blood Count 7.2 K/mm3 (4.4-11.0)
[2023-11-26 18:49] LABS: Bacteria 0 SEEN /hpf (None Seen); Color, Urine Brown (Yellow); Glucose, Dipstick 250 mg/dl (Normal); Ketone-Dipstick 15 mg/dl (Negative); Leukocyte Esterase-Dipstick 100 /ul (Negative); Mucous, Urine 0 SEEN /hpf (<or=2+); Nitrite-Dipstick Negative (Negative); Occult Blood-Urine 250 /ul (Negative); Protein-Dipstick 500 mg/dl (Negative); Specific Gravity, Urine 1.025 (1.002-1.030); Squamous Epithelial Cells - UA 0 SEEN /hpf (0-5); Urine Bilirubin Dipstick Negative (Negative); Urine Clarity Cloudy (Clear); Urine Urobilinogen Normal (Normal); Urine pH 6.5 (5.0 - 8.0)
[2023-11-26 19:02] LABS: Anion Gap 4 (5-15); BUN 18 mg/dL (7-18); BUN/Creat Ratio 18.8 RATIO (10-20); Calcium,Total 9.2 mg/dL (8.5-10.1); Chloride 104 mmol/L (98-107); Creatinine, Serum 0.96 mg/dL (0.70-1.30); EST Glomerular Filtration Rate 81 mL/min (>60); Est Glom Filt Rate - Afr Amer 98 mL/min (>60); Estimated Creatinine Clearance 78.49 ml/min; Glucose 129 mg/dL (74-106); Potassium 3.9 mmol/L (3.5-5.1); Sodium Level 136 mmol/L (136-145)
[2023-11-26 19:16] LABS: Red Blood Cells-Urine > 100 SEEN /hpf (0-5)
[2023-11-26 19:19] LABS: White Blood Cells 5-10 SEEN /hpf (0-5)
[2023-11-26 19:59] VITALS: BP 136/90; PULSE 86; RESP 18; TEMP 36.1; O2SAT 98
--- OUTSIDE RECORDS SUMMARY | 2023-11-26 20:22 | XMS RPT_ITS | CCD ---
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 Name Role Phone Maricarmen Savage Primary Care Provider Martina Blair CNP Unavailable JEIMY ABRAHAM Admitting Unavailable OSMIN MEDLEY Referring Unavaila ble JANETTE, MARICARMEN [facility] Unavailable YARITZA OLSON Attending Unavailable TABETMARTHA Consulting Unavailabl e TABETMARTHA Attending Unavailabl e SWITARIQT, MARICARMEN [facility] Unavailable TABMARTHA ALLISON Attending Unavailabl e SWIHART, MARICARMEN [facility] Unavailable MARICARMEN SAVAGE Primary Care Unavailable TABMARTHA ALLISON Referring Unavailabl e JANETTE, MARICARMEN [facility] Unavailable TESTEMMANUEL SUAREZ Referring Unavailable EMMANUEL DAWSON Attending Unavailable JANETTE, MARICARMEN [facility] Unavailable Maricarmen Savage Primary Care Provider [phone] Martina Blair CNP Unavailable [phone] Medications Completed/Discontinued Medications Medication Drug Class(es) Dates Sig (Normalized) Sig (Original) acetaminophen 325 mg / oxyCODONE hydrochloride 5 mg oral tablet (3 sources) Opioid Agonist Start: 08-18-2023 take 1 tablet by mouth every eight hours as needed oxyCODONE-acetami nophen (PERCOCET) 5-325 mg tablet Take 1 tablet by mouth every 8 hours as needed for pain. 0 08/18/2023 Active Problems Active Problems Problem Classification Problem Date Documented Date Episodic/Chronic Acquired foot deformities (2 sources) Tailor's bunion of left foot; Translations: [Bunionette of left foot] Episodic Cancer; other and unspecified primary (5 sources) History of soft tissue sarcoma; Translations: [Personal history of malignant neoplasm of soft tissue] 09-19-2021 Episodic Cardiac dysrhythmias (3 sources) Cardiac arrhythmia; Translations: [Cardiac arrhythmia, unspecified] Onset: 08-22-2023 08-22-2023 Chronic Diabetes mellitus with complications (3 sources) Type 2 diabetes mellitus; Translations: [Type 2 diabetes mellitus with other diabetic neurological complication] Onset: 09-27-2023 Chronic Diabetes mellitus without complication (8 sources) Diabetes mellitus; Translations: [Type 2 diabetes mellitus without complications] Onset: 08-22-2023 01-14-2014 Chronic Disorders of lipid metabolism (5 sources) Hyperlipidemia; Translations: [Hyperlipidemia, unspecified] 01-14-2014 Chronic Diverticulosis and diverticulitis (5 sources) Diverticular disease; Translations: [Diverticulosis of intestine, part unspecified, without perforation or abscess without bleeding] Onset: 12-21-2014 12-21-2014 Chronic Esophageal disorders (15 sources) Gastroesophageal reflux disease; Translations: [Gastro-esophageal reflux disease without esophagitis] Onset: 11-16-2014 11-16-2014 Chronic Genitourinary symptoms and ill-defined conditions (9 sources) Dysuria; Translations: [Poor urinary stream] Onset: 08-20-2023 10-11-2023 Episodic Hyperplasia of prostate (4 sources) Benign prostatic hyperplasia with lower urinary tract symptoms; Translations: [Weak urinary stream due to benign prostatic hypertrophy] Onset: 10-11-2023 10-11-2023 Chronic Mycoses (2 sources) Onychomycosis; Translations: [Tinea unguium] Episodic Other connective tissue disease (2 sources) Pain of toe of right foot; Translations: [Pain in right toe(s)] Episodic Other connective tissue disease (2 sources) Pain of toe of left foot; Translations: [Pain in left toe(s)] Episodic Other diseases of kidney and ureters (1 source) Unspecified hydronephrosis; Translations: [Hydronephrosis, unspecified hydronephrosis type] Onset: 10-11-2023 Episodic Other diseases of kidney and ureters (2 sources) Hydronephrosis; Translations: [Unspecified hydronephrosis] Onset: 10-11-2023 10-11-2023 Episodic Other screening for suspected conditions (not mental disorders or infectious disease) (10 sources) Patient encounter status; Translations: [Encounter for screening for malignant neoplasm of colon] Onset: 11-16-2014 11-16-2014 Episodic Other skin disorders (1 source) Ingrowing nail of toe of right foot; Translations: [Ingrowing nail] Episodic Past or Other Problems Problem Classification Problem Date Documented Date Episodic/Chronic Other and unspecified benign neoplasm (5 sources) Gastric polyp; Translations: [Polyp of stomach and duodenum] Onset: 12-21-2014 12-21-2014 Episodic Other hematologic conditions (3 sources) Disorder of hematopoietic structure; Translations: [Disease of blood and blood-forming organs, unspecified] Onset: 08-22-2023 08-22-2023 Episodic Other lower respiratory disease (5 sources) Cough; Translations: [Cough] Onset: 12-21-2014 12-21-2014 Episodic Results Test Name Value Interpretation Reference Range Facil ity Vital Signs Date Time Vital Sign Value Performing Clinician Faci lity 11-23-2023 10:15-0500 Diastolic blood pressure 79 mm[Hg] Martha Cintron MD Work Phone: [facility] 11-23-2023 10:15-0500 Heart rate 88 /min Martha Cintron MD Work Phone: [facility] 11-23-2023 10:15-0500 Respiratory rate 18 /min Martha Cintron MD Work Phone: [facility] 11-23-2023 10:15-0500 SaO2% (BldA) [Mass fraction] 98 % Martha Cintron MD Work Phone: [facility] 11-23-2023 10:15-0500 Systolic blood pressure 145 mm[Hg] Martha Cintron MD Work Phone: [facility] 11-23-2023 09:20-0500 Body height 185.4 cm Martha Cintron MD Work Phone: [facility] 11-23-2023 09:20-0500 Body weight 87.09 kg Martha Cintron MD Work Phone: [facility] Encounters Encounter Date Encounter Type Care Provider Facility Start: 11-23-2023 End: 11-23-2023 Patient encounter procedure Martha Cintron MD Work Phone: Urology Procedures Date Procedure Procedure Detail Performing Clinician Start: 11-23-2023 Urnls dip stick/tabl et rgnt auto w/o microscopy Martha Cintron MD Work Phone: Start: 01-27-2015 Adult depression scr eening assessment Emmanuel Dawson Work Phone: Start: 12-11-2014 Colonoscopy Emmanuel Gamboa Work Phone: Plan of Treatment Date Care Activity Detail Author Start: 03-05-2032 Urine microalbumin profile DTa P,Tdap,Td Vaccine (2 - Td or Tdap) [facility] Start: 12-11-2024 Colonoscopy COLONOSCOPY [facility] Start: 12-11-2024 COLORECTAL CANCER SCREENING COLORECTAL CANCER SCREENING [facility] Start: 12-11-2024 Screening for malign ant neoplasm of colon [facility] Start: 05-24-2024 3 comp foot exam completed DIABETIC FOOT EXAM [facility] Start: 05-24-2024 Diabetic foot examination Diabetic F oot Exam [facility] Start: 09-24-2023 Advance Directive Discussion Advance Directive Discussion [facility] Start: 09-24-2023 Depression Assessment Depression Ass essment [facility] Start: 05-25-2023 Covid-19 Vaccine ( season) Covid-19 Vaccine ( season) [facility] Start: 05-25-2023 Influenza vaccination C [facility] Start: 11-24-2022 COVID-19 VACCINE (4 - Moderna series) COVID-19 VACCINE (4 - Moderna series) [facility] Start: 09-24-2022 ADVANCE DIRECTIVE DISCUSSION ADVANCE DIRECTIVE DISCUSSION [facility] Start: 09-24-2022 DEPRESSION ASSESSMENT DEPRESSION ASS ESSMENT [facility] Start: 05-25-2022 Influenza vaccination INFLUENZA (Sea son Ended) [facility] Start: 09-24-2021 ADVANCE DIRECTIVE DISCUSSION ADVANCE DIRECTIVE DISCUSSION [facility] Start: 06-01-2021 COVID-19 VACCINE (3 - Booster for Moderna series) COVID-19 VACCINE (3 - Booster for Moderna series) [facility] Start: 11-08-2019 3 comp foot exam completed DIABETIC FOOT EXAM [facility] Start: 01-28-2016 Adult depression scr eening assessment DEPRESSION SCREENING [facility] Start: 2014 PNEUMOVAX AGE 65 AND OVER WITH 5YR LOOKBACK (#1) PNEUMOVAX AGE 65 AND OVER WITH 5YR LOOKBACK (#1) [facility] Start: 07-03-2013 Hemoglobin A1c measurement HbA1C [facility] Start: 07-03-2013 Hemoglobin A1c/Hemoglobin.total in Blood HBA1C [facility] Start: 05-21-2013 Hepatitis B surface antibody level LDL CHOLESTEROL [facility] Start: 2009 RSV Vaccine (1 - 1-d ose 60+ series) RSV Vaccine (1 - 1-dose 60+ series) [facility] Start: 1999 SHINGRIX VACCINE (1 of 2) SHINGRIX V ACCINE (1 of 2) [facility] Start: 1994 COLOGUARD (FIT-DNA) COLOGUARD (FIT-D NA) [facility] Start: [address] COLONOGRAPHY [facility] Start: 1994 FECAL OCCULT BLOOD FECAL OCCULT BLOO D [facility] Start: 1994 Screening for malign ant neoplasm of colon [facility] Start: 1994 SIGMOIDOSCOPY SIGMOIDOSCOPY [facility] Start: 1968 Urine microalbumin profile DTAP,TDAP ,TD (1 - Tdap) [facility] Start: 1967 ANNUAL PCP TEAM BEVERAGE HOST ANN DISEASE VISIT ANNUAL PCP TEAM CHRONIC DISEASE VISIT [facility] Start: 1967 HEPATITIS C SCREENING HEPATITIS C [facility] Start: 1967 Hepatitis C screening Hepatitis C [facility] Start: 1959 Glaucoma screening Dilated Retinal E xam [facility] Start: 1959 Hepatitis B screening URINE AL BUMIN:CREATININE RATIO [facility] Start: 1959 Hepatitis C antibody , confirmatory test DILATED RETINAL EXAM [facility] Start: 1955 Pneumococcal Vaccine : 65+ (1 - PCV) Pneumococcal Vaccine: 65+ (1 - PCV) [facility] Start: 1955 Pneumococcal Vaccine : 65+ (1 of 2 - PCV) Pneumococcal Vaccine: 65+ (1 of 2 - PCV) [facility] Start: 1955 PNEUMOCOCCAL: 65+ (1 - PCV) PNEUMOCOCCAL: 65+ (1 - PCV) [facility] Immunizations Immunization Date Immunization Notes Care Provider Gayle garnicaabi 07-27-2022 influenza virus vacc ine, unspecified formulation Martha Cintron MD Work Phone: [facility] 07-19-2012 influenza virus vacc ine, unspecified formulation Emmanuel Nicolle Work Phone: [facility] Payers Date Payer Category Payer Medicare [facility] MEDICARE [facility] DUAL COMPLETE HMO POS SNP [id number] 2023-Present [phone] [address] [place] [address] Medicare [id number] 2023 Unknown [id number] 2019 Medicaid [facility] MEDICAID [employer] [facility] MEDICAID [id number] 2019-Present [phone] [address] [place] [address] Medicaid [id number] 2019 Medicaid [facility] MEDICAID [employer] ARE [facility] MEDICAID [id number] 2019-Present [phone] [address] [place] [address] Medicaid [id number] 2019 Medicaid [id number] Social History Date Type Detail Facility Start: 11-23-2012 End: 04-10-2023 Tobacco smoking status NHIS Never smoked tobacco [facility] Start: 11-23-2012 End: 04-10-2023 Tobacco use and exposure Smokeless tobacco non-user [facility] Start: 01-24-2022 End: 11-23-2023 Alcohol intake Current non-drinker of alcohol (finding) [facility] Start: 10-05-2014 End: 07-18-2023 Tobacco Comment Parents smoked in childhood home. [facility] Start: 1950 Sex Assigned At Not on file [facility] Start: 01-14-2022 End: 01-24-2022 Exposure to SARS-CoV-2 (event) Not sure [facility] Start: 05-24-2023 End: 11-23-2023 History of Social function [facility] Start: 05-24-2023 End: 11-23-2023 Tobacco use panel [facility] National Score (1-10 0), lower number is lower risk 68 [facility] Medical Equipment Procedure Code Equipment Code Equipment Origin al Text Equipment Identifier Dates Mesh Srg Surgipr o 6x6in Rachel - [id number] Start: 01-06-2013 Clinical Notes 11-10-2021 to 11-23-2023 Martha Cintron MD - 11/23/2023 1:03 PM Catrina aDvila RN - 11/23/2023 10:27 AM Eloina Walters O[facility] - 11/23/2023 9:21 AM EST Note Date & Type Note Facility 11-23-2023 Procedure note Prostate nerve block and the Rezum procedure Luis Yates is a 73 year old male who presents with enlarged prostate and urinary retention for 6 Rezum procedure and prostate nerve block. PRE-OP/PRE-PROCEDURE DIAGNOSIS: Enlarged prostate and incomplete bladder emptying POST-OP/POST-PROCEDURE DIAGNOSIS: Same SURGERY/PROCEDURE(S): Prostate nerve block and Rezum procedure Pt ID verified with patient: Yes Procedure verified with patient: Yes Procedure confirmed with physician and computer support analyst: Yes UNIVERSAL PROTOCOL / SAFETY CHECKLIST Procedure to be Performed: Prostate nerve block and Rezum procedure Sign In: A Moment of CARE was completed. Personnel directly involved with the procedure wore the appropriate PPE (Personal Protective Equipment). Patient/Surrogate Stated/Verified: PATIENT VERIFIED(optional for EMERGENT procedures): Patient name, Date of , Relevant allergies, and The intended procedure Time Out Communication: Intended patient and procedure match the source documents. Consent documented and matches the intended procedure. Sign Out: SIGN OUT (optional for EMERGENT procedures): No specimen collected. Martha Cintron MD A urinalysis was performed revealing no evidence of infection. The benefits, risks, alternatives of the procedure and personnel were discussed with the patient. The verbal consent was obtained and the patient agrees to proceed. Transrectal ultrasound was done Ultrasound probe was placed in the rectum and the prostate volume was 27 mL with a width of 44 mm height of 38 mm and length of 30 mm Prostate nerve block was done at the base of the prostate injecting 10 cc on each side at the corner between the base of the prostate and the seminal vesicles Patient then went put in lithotomy position and prepped and draped and cystoscopy was done using the Rezum scope 5 areas were treated 1 at 6:00 near the bladder neck and 2 on each side of the lateral lobes of the prostate Then after finishing the procedure and #16 Panamanian coud catheter inserted per urethra and left indwelling patient tolerated procedure well Martha Cintron MD Electronically Signed: Martha Cintron MD November 23, 2023 1:03 PM This note was partially created using voice recognition software and is inherently subject to errors including those of syntax and sound-alike substitutions which may escape proofreading. In such instances, original meaning may be extrapolated by contextual derivation. documented in this encounter [facility] 11-23-2023 Nurse Note Patient feeling whoozy vitals taken and patient remained seated. Dr cintron notified and nurse manager quality systems Zamzam. Patient placed in wheelchair and taken to spouse in waiting room until feeling better. Catrina Sheth, RN Geothermal System Installer offered:Patient accepts, visit chaperoned by HERB Lopez documented in this encounter [facility] 11-21-2023 Miscellaneous Notes Formattin g of this note might be different from the original. LVM to call the office back. HERB Whitaker Pt called with questions regarding medication for Rezum. His paper work says to start medication 3 days prior, but on the prescription it states to start the evening of procedure. Please advise. HERB Whitaker documented in this encounter [facility] 10-11-2023 Note HNO ID: [id number] Author: MARTHA CINTRON MD Service: ? Author Type: Physician Type: Procedures Filed: 10/12/2023 08:14 Note Text: Procedure performed: Bilateral renal ultrasound Bladder ultrasound Indication for procedure: Presence of left hydronephrosis secondary to retroperitoneal bleed, status post left stent insertion and removal Description of procedure: Left kidney was scanned the kidney size was 10.5 x 4..5 centimeter No evidence of tumor stones or hydronephrosis Renal cortex is well-preserved No evidence of renal cyst Attention and focus over the right kidney Right kidney was measuring 10.9 x 6.5 cm No evidence of tumor stones or hydronephrosis No evidence of renal cyst Renal cortex is well-preserved Bladder also was scanned presence of postvoid residual urine of 98 mL With a length of 62 mm height 60 mm and width 62 mm -Impression: Resolved left hydronephrosis and presence of obstructive uropathy with enlarged prostate which is causing lower tract symptoms Flomax was discussed with the patient in the prefers to undergo a Rezum procedure which was explained to him as well [facility] 10-11-2023 Note HNO ID: [id number] Author: MARTHA CINTRON MD Service: ? Author Type: Physician Type: Progress Notes Filed: 10/12/2023 08:14 Note Text: [facility] ESTABLISHED PATIENT OFFICE VISIT HISTORY OF PRESENT ILLNESS Luis Yates is a 73 year old male who is here for follow up of left hydronephrosis secondary to retroperitoneal bleed Status post left stent removal Patient has been complaining of lower urinary tract symptoms including nocturia x 2 with weak urinary stream and has to strain to void Denies gross hematuria Renal ultrasound done today was negative for hydronephrosis Rectal exam revealed the presence of a prostate of 30 to 35 g smooth nonnodular . Review of Systems The remainder of the ROS was reviewed and is negative. LAB Creatinine Date Value Ref Range Status 08/23/2023 0.83 0.50 - 1.40 mg/dL Final Comment: Patients receiving either N-Acetylcysteine (NAC) or Metamizole prior to venipuncture, may have falsely depressed results. GLUCOSE UA (POCT) (mg/dL) Date Value 10/11/2023 250 (A) BILIRUBIN UA (POCT) (no units) Date Value 10/11/2023 Negative KETONE UA (POCT) (mg/dL) Date Value 10/11/2023 Negative SPECIFIC GRAVITY UA (POCT) (no units) Date Value 10/11/2023 1.020 HEMOGLOBIN/BLOOD UA (POCT) (no units) Date Value 10/11/2023 Negative PH UA (POCT) (no units) Date Value 10/11/2023 6.0 PROTEIN UA (POCT) (mg/dL) Date Value 10/11/2023 Negative UROBILINOGEN UA (POCT) (E.U./dL) Date Value 10/11/2023 0.2 NITRITE UA (POCT) (no units) Date Value 10/11/2023 Negative LEUKOCYTES UA (POCT) (no units) Date Value 10/11/2023 Negative COLOR UA (POCT) (no units) Date Value 10/11/2023 Yellow CLARITY UA (POCT) (no units) Date Value 10/11/2023 Clear ] MEDICATIONS lisinopril (ZESTRIL) 5 mg tabletTake 5 mg by mouth once daily.Disp: Rfl: ondansetron orally disintegrating (ZOFRAN ODT) 4 mg disintegrating tabletTake 4 mg by mouth every 8 hours as needed for nausea/vomiting.Disp: Rfl: tamsulosin (FLOMAX) 0.4 mgTake 0.4 mg by mouth once daily.Disp: Rfl: oxyCODONE-acetaminophen (PERCOCET) 5-325 mg tabletTake 1 tablet by mouth every 8 hours as needed for pain.Disp: Rfl: omeprazole (PRILOSEC) 20 mg capsuleTake 1 capsule by mouth once daily.Disp: 30 capsuleRfl: 11 glipiZIDE (GLUCOTROL) 10 mg tabletTake 10 mg by mouth once daily.Disp: Rfl: dilTIAZem CD (CARDIZEM CD, CARTIA XT) 120 mg 24 hr capsuleTake 120 mg by mouth once daily. Take 1/2 tablet by mouth once daily.Disp: Rfl: metFORMIN (GLUCOPHAGE) 1,000 mg tabletTake 1,000 mg by mouth twice daily.Disp: Rfl: pravastatin (PRAVACHOL) 10 mg tabletTake 10 mg by mouth once daily.Disp: Rfl: 0 HISTORIES PAST MEDICAL HISTORY Diagnosis Date Atrial fibrillation (HCC) Eliquis- Sees [place] Clark's esophagus DM (diabetes mellitus) (HCC) GERD with esophagitis Hard of hearing Hx of sarcoma of soft tissue Hyperlipidemia Renal disease 08/22/2023 Snoring PAST SURGICAL HISTORY Procedure Laterality Date CHEST WALL RESECTION OF TUMOR AND/OR RIBS 12/2012 cancer COLONOSCOPY 12/11/2014 R Cebul - negative ESOPHAGOGASTRODUODENOSCOPY TRANSORAL DIAGNOSTIC 07/09/2017 repeat 2 years ESOPHAGOGASTRODUODENOSCOPY TRANSORAL DIAGNOSTIC 07/21/2019 EGD ESOPHAGOGASTRODUODENOSCOPY TRANSORAL DIAGNOSTIC 09/13/2021 EYE SURGERY HX FRACTURE SURGERY HAND/FINGER SURGERY UNLISTED R 5th finger PAST SURGICAL HISTORY OF 1991 repair of broken left hip PAST SURGICAL HISTORY OF 1968 left eye surgery SKIN BIOPSY HX TONSILLECTOMY HX FAMILY HISTORY Problem Relation Age of Onset Alcohol/Drug Father Coronary Artery Disease Father CO Emphysema Mother Coronary Artery Disease Mother CO SOCIAL HISTORY Social History Tobacco Use Smoking status: Never Smokeless tobacco: Never Tobacco comments: Parents smoked in childhood home. Vaping Use Vaping Use: Never used Substance Use Topics Alcohol use: No Drug use: No Temp 36.4 ?C (97.6 ?F) Ht 187 cm (6' 1.62 ) Wt 87.1 kg (192 lb) BMI 24.91 kg/m? Physical Exam Alert cooperative in no acute distress Normocephalic Breathing unlabored Rectal exam revealed a prostate of 35 g smooth nonnodular nontender Anal tone is normal ASSESSMENT AND PLAN: No problem-specific Assessment AND Plan notes found for this encounter. ASSESSMENT/PLAN: 1. Dysuria [R30.0] - ICD9: 788.1, ICD10: R30.0 (primary diagnosis) - PSA/PROSTSPECAG SCRN 2. Screening for prostate cancer - ICD9: V76.44, ICD10: Z12.5 - PSA/PROSTSPECAG SCRN 3. Hydronephrosis, unspecified hydronephrosis type - ICD9: 591, ICD10: N13.30 Cleared 4. Benign prostatic hyperplasia with weak urinary stream - ICD9: 600.01, 788.62, ICD10: N40.1, R39.12 Patient elected to undergo Rezum procedure, Flomax was offered but he declined it - HYDROCODONE 5 MG-ACETAMINOPHEN 325 MG TABLET - DIAZEPAM 5 MG TABLET 5. Feeling of incomplete blad (more content not included)... [facility] 09-27-2023 Note HNO ID: [id number] Author: MARTHA CINTRON MD Service: ? Author Type: Physician Type: Procedures Filed: 09/27/2023 13:21 Note Text: CYSTOSCOPY/stent removal PROCEDURE NOTE: Cysto/stent remove-[id number] Dx;z46.6 Luis Yates is a 73 year old male who presents with a stent. for cystoscopy and stent removal Pt ID verified with patient: yes Procedure verified with patient: yes Procedure confirmed with physician and computer support analyst: yes Special equipment-cystoscope and grasping forceps UNIVERSAL PROTOCOL / SAFETY CHECKLIST Procedure to be Performed: Cystoscopy and stent removal Sign In: A Moment of CARE was completed. Personnel directly involved with the procedure wore the appropriate PPE (Personal Protective Equipment). Patient/Surrogate Stated/Verified: PATIENT VERIFIED(optional for EMERGENT procedures): Patient name, Date of , Relevant allergies, and The intended procedure Time Out Communication: Intended patient and procedure match the source documents. Consent documented and matches the intended procedure. Sign Out: SIGN OUT (optional for EMERGENT procedures): No specimen collected. Martha Cintron MD A urinalysis was obtained prior cystoscopy and was negative for infection The benefits, risks, alternatives of the cystoscopy procedure and personnel were discussed with the patient. The verbal consent was obtained and the patient agrees to proceed. Procedure: The patient was placed on the procedure table in the supine position and prepped and draped in the usual sterile fashion. 2% Lidocaine Jelly was placed per urethra as an anesthetic in the standard fashion. Once adequate local anesthesia was achieved, the tip of the flexible cystoscope was carefully placed into the urethra under direct visual guidance. ---URETHRA: The scope was negotiated through the pendulous urethra to the level of the bulbar urethra with no evidence of stricture. ---PROSTATE: prostatic urethra which showed evidence of a patent prostatic urethra. --- BLADDER: The posterior, superior and lateral stoddard and dome of the bladder were all well visualized and the scope was retroflexed upon itself. --The findings were consistent with no evidence of bladder mucosal pathology. The stent was removed from the left side At the conclusion of the procedure, the flexible cystoscope was removed atraumatically. The patient tolerated the procedure without complications. Patient was given standard post-procedure instructions, and was directed to complete the course of oral antibiotics and increase oral fluid intake as directed. ASSESSMENT/PLAN: 1. Screening for genitourinary condition - ICD9: V81.6, ICD10: Z13.89 - LIDOCAINE 2 % MUCOSAL JELLY IN APPLICATOR 2 Martha Cintron MD See progress note for plans Martha Cintron MD [facility] 09-03-2023 Miscellaneous Notes Formattin g of this note might be different from the original. Patient has been called and scheduled for 09/27/23 Patient stopped in Clinic asking why he has not been called back. I did let him know that staff would call him back to discuss plan of care. Verbalizes understanding. Cristy Mason LPN Is this too early to schedule patient Patient called in and wanted to schedule follow up from surgery. Does this need to be in the office or surgery for stent removal? documented in this encounter [facility] 08-22-2023 Note HNO ID: [id number] Author: Reva Stokes RN Service: Nursing Author Type: Registered Nurse Type: Nursing Progress Note Filed: 08/22/2023 7:05 PM Note Text: Pt return from or on ed alarm [facility] 08-22-2023 Note HNO ID: [id number] Author: Breana Mcclain MD Service: Anesthesiology Author Type: Anesthesiologist Type: Anesthesia Procedure Notes Filed: 08/22/2023 7:20 PM Note Text: ANESTHESIOLOGY PROCEDURE NOTE Airway General Information Procedure Start Time/Medication Administration: 08/22/2023 5:06 PM Patient location during procedure: OR Timeout Performed Pre-procedure: timeout performed Consent Obtained: Yes Patient identity confirmed: arm band Staffing Anesthesiologist: Breana Mcclain MD WHEEL MILL OPERATOR: Neli Smith APRN.WHEEL MILL OPERATOR Performed by: JUAN CARLOS Indications and Patient Condition Indications for airway management: anesthesia Preoxygenated: yes anesthesia circuit Method: sleep Difficult Mask: No Final Airway Details Final airway type: supraglottic airway Number of attempts at approach: 1 Final Supraglottic Airway: Size 5 Seal Adequate: yes Airway not difficult Comments Smooth induction easy mask ventilation easy LMA placement, no issues with anesthesia induction and airway procedure. SIGNATURE: Neli Smith APRN.WHEEL MILL OPERATOR PATIENT NAME: Luis Yates DATE: August 22, 2023 TIME: 5:19 PM CSN: [id number] [facility] 08-22-2023 Note HNO ID: [id number] Author: Reva Stokes RN Service: Nursing Author Type: Registered Nurse Type: Nursing Progress Note Filed: 08/22/2023 4:04 PM Note Text: Bs 77 pacu notified [facility] 08-22-2023 Note HNO ID: [id number] Author: Reva Stokes RN Service: Nursing Author Type: Registered Nurse Type: Nursing Progress Note Filed: 08/22/2023 3:58 PM Note Text: To or [facility] 08-22-2023 Note HNO ID: [id number] Author: Yaritza Goff DO Service: Hospital Medicine Author Type: Physician Type: Progress Notes Filed: 08/22/2023 3:15 PM Note Text: PROGRESS NOTE SERVICE DATE: 08/22/2023 SERVICE TIME: 3:05 PM PRIMARY SERVICE: Internal Medicine CHIEF COMPLAINT: Left-sided flank pain, nausea (resolved) INTERVAL HPI: Patient seen and examined, discussed with house staff and RN. No significant overnight issues. BP 135/68 Pulse 91 Temp (Src) 98.1 (Oral) Resp 18 Ht 6' 2 (1.88m) Wt 197 lb 6.4 oz (89.5kg) SpO2 97% BMI 25.33 kg/(m2). O2 Therapy: Room Air PHYSICAL EXAM: General: alert and oriented x3, resting comfortably Neck: supple, no hepatojugular reflux or jugular venous distention, no carotid bruits Lungs: clear to auscultation bilaterally, no wheezing, rales, or rhonchi Cardiac: regular rate and rhythm, normal S1 and S2, no murmurs, gallops, or rubs Abdomen: soft, nontender, nondistended, bowel sounds present Urogenital: mild tenderness to palpation over left flank Extremities: no edema, cyanosis, or clubbing Skin: no rashes or breakdown Lymphatic: no cervical or supraclavicular lymphadenopathy Neurologic: cranial nerves II-XII are grossly intact Psychiatry: normal affect, no hallucinations, no suicidal ideation Current Facility-Administered Medications Medication Dose Route Frequency NaCl 0.9% iv infusion 50 mL/hr INTRAVENOUS CONTINUOUS ondansetron 4 mg tab(s) (ZOFRAN) 4 mg ORAL q 6 H PRN Or ondansetron (PF) 4 mg injection (ZOFRAN) 4 mg INTRAVENOUS q 6 H PRN acetaminophen 650 mg tab(s) (TYLENOL) 650 mg ORAL q 6 H PRN oxyCODONE-acetaminophen 5-325 mg 1 tablet (PERCOCET) 1 tablet ORAL q 4 H PRN NaCl 0.9% iv flush bag 20 mL INTRAVENOUS PRN dextrose 40 % 15 g 15 g ORAL PRN Or glucagon 1 mg injection 1 mg INTRAMUSCULAR PRN Or dextrose 10% iv bolus 12.5 g INTRAVENOUS PRN insulin lispro injection (rapid acting) (ADMElog) SUBCUTANEOUS w MEALS metFORMIN 1,000 mg tab(s) (GLUCOPHAGE) 1,000 mg ORAL BID glipiZIDE 10 mg tab(s) (GLUCOTROL) 10 mg ORAL DAILY pravastatin 10 mg tab(s) (PRAVACHOL) 10 mg ORAL DAILY lisinopril 5 mg tab(s) (ZESTRIL) 5 mg ORAL DAILY tamsulosin 0.4 mg cap(s) (FLOMAX) 0.4 mg ORAL AT BEDTIME dilTIAZem CD 120 mg cap(s) (CARDIZEM CD, CARTIA XT) 120 mg ORAL DAILY pantoprazole DR 20 mg tab(s) (PROTONIX) 20 mg ORAL DAILY DATA: WBC (k/uL) Date Value 08/22/2023 8.54 RBC (m/uL) Date Value 08/22/2023 3.97 (L) Hemoglobin (g/dL) Date Value 08/22/2023 10.2 (L) Hematocrit (%) Date Value 08/22/2023 31.8 (L) MCV (fL) Date Value 08/22/2023 80.1 MCH (pg) Date Value 08/22/2023 25.7 (L) MCHC (g/dL) Date Value 08/22/2023 32.1 RDW-CV (%) Date Value 08/22/2023 15.3 (H) Platelet Count (k/uL) Date Value 08/22/2023 210 MPV (fL) Date Value 08/22/2023 9.8 Glucose (mg/dL) Date Value 08/22/2023 165 (H) BUN (mg/dL) Date Value 08/22/2023 35 (H) Creatinine (mg/dL) Date Value 08/22/2023 0.93 Sodium (mmol/L) Date Value 08/22/2023 138 Potassium (mmol/L) Date Value 08/22/2023 3.9 Chloride (mmol/L) Date Value 08/22/2023 106 CO2 (mmol/L) Date Value 08/22/2023 25 Protein, Total (g/dL) Date Value 08/22/2023 5.4 (L) Albumin (g/dL) Date Value 08/22/2023 2.4 (L) Calcium, Total (mg/dL) Date Value 08/22/2023 8.0 (L) Alkaline Phosphatase (U/L) Date Value 08/22/2023 82 Bilirubin, Total (mg/dL) Date Value 08/22/2023 0.9 AST (U/L) Date Value 08/22/2023 21 ALT (U/L) Date Value 08/22/2023 21 ASSESSMENT AND PLAN: 1. Left-sided ureteral stone 2. Left-sided retroperitoneal hemorrhage 3. Obstructive uropathy 4. Acute kidney injury, resolved 5. Type II diabetes mellitus 6. Atrial fibrillation 7. Hypertension 8. Hyperlipidemia 9. GERD - patient appears comfortable - today, he has no complaints - imaging obtained at the [facility] showed evidence of an obstructing ureteral stone on the left side - I spoke with Dr. Cintron earlier today, in light of the patient's improved symptoms and resolved ELBA he told me to obtain a repeat CT scan to look for passage of stone - repeat CT no longer showed evidence of an obstructing stone, but findings did show evidence of a moderate-sized retroperitoneal hemorrhage on the left, hemorrhage was causing obstruction of the left ureter with [id number] left-sided hydronephrosis - in light of those findings plan is for the patient to be taken to the operating room later today for stent placement - continue PO Percocet 1 tablet every 4 hours PRN for pain relief - continue IV fluids via normal saline at 75 cc/hour SIGNATURE: Yaritza Goff DO PATIENT NAME: Luis Yates DATE: August 22, 2023 TIME: 3:05 PM [facility] 08-22-2023 Note HNO ID: [id number] Author: Inez Arreola RN Service: Care Management Author Type: Registered Nurse Type: Care Mgt Progress Note Filed: 08/22/2023 2:45 PM Note Text: CARE MANAGEMENT PROGRESS NOTE SERVICE DATE: 08/22/2023 SERVICE TIME: 1442 LOS: 2 days Chart reviewed. Admitted with obstructive uropathy. CT done and shows moderate left retroperitoneal hemorrhage and secondary obstruction of left ureter with mild to moderate hydronephrosis. Urology following. Pt from home alone, normally independent with ADLs, drives and has a glucometer at home. D/C plan is home. No needs noted at this time. SIGNATURE: Inez Arreola RN PATIENT NAME: Luis Yates DATE: August 22, 2023 TIME: 2:42 PM PAGER/CONTACT #: [phone] [facility] documented as of this encounter (statuses as of 09/03/2023) [facility]11-29-2023 History of Past illness Narrative* Problem Noted Date Diagnosed Date Resolved Date Renal disease 08/22/2023 08/23/2023 Overview: ELBA Obstructive uropathy 08/20/2023 023 documented as of this encounter (statuses as of 11/21/2023) [facility]11-29-2023 History of Past illness Narrative* Problem Noted Date Diagnosed Date Resolved Date Renal disease 08/22/2023 08/23/2023 Overview: ELBA Obstructive uropathy 08/20/2023 023 documented as of this encounter (statuses as of 11/23/2023) [facility]11-28-2023 NoteHNO ID: [id number] Author: Yaritza Goff DO Service: Hospital Medicine Author Type: Physician Type: Progress Notes Filed: 08/21/2023 7:03 PM Note Text: PROGRESS NOTE SERVICE DATE: 08/21/2023 SERVICE TIME: 6:52 PM PRIMARY SERVICE: Internal Medicine CHIEF COMPLAINT: Left-sided flank pain, nausea (improving) INTERVAL HPI: Patient seen and examined, discussed with house staff and RN. No significant overnight issues. BP 133/70 Pulse 85 Temp (Src) 98.8 (Oral) Resp 17 Ht 6' 2 (1.88m) Wt 194 lb 8 oz (88.2kg) SpO2 94% BMI 24.96 kg/(m2). O2 Therapy: Room Air PHYSICAL EXAM: General: alert and oriented x3, resting comfortably Neck: supple, no hepatojugular reflux or jugular venous distention, no carotid bruits Lungs: clear to auscultation bilaterally, no wheezing, rales, or rhonchi Cardiac: regular rate and rhythm, normal S1 and S2, no murmurs, gallops, or rubs Abdomen: soft, nontender, nondistended, bowel sounds present Urogenital: tender to palpation over left flank Extremities: no edema, cyanosis, or clubbing Skin: no rashes or breakdown Lymphatic: no cervical or supraclavicular lymphadenopathy Neurologic: cranial nerves II-XII are grossly intact Psychiatry: normal affect, no hallucinations, no suicidal ideation Current Facility-Administered Medications Medication Dose Route Frequency NaCl 0.9% iv infusion 50 mL/hr INTRAVENOUS CONTINUOUS ondansetron 4 mg tab(s) (ZOFRAN) 4 mg ORAL q 6 H PRN Or ondansetron (PF) 4 mg injection (ZOFRAN) 4 mg INTRAVENOUS q 6 H PRN acetaminophen 650 mg tab(s) (TYLENOL) 650 mg ORAL q 6 H PRN oxyCODONE-acetaminophen 5-325 mg 1 tablet (PERCOCET) 1 tablet ORAL q 4 H PRN NaCl 0.9% iv flush bag 20 mL INTRAVENOUS PRN dextrose 40 % 15 g 15 g ORAL PRN Or glucagon 1 mg injection 1 mg INTRAMUSCULAR PRN Or dextrose 10% iv bolus 12.5 g INTRAVENOUS PRN insulin lispro injection (rapid acting) (ADMElog) SUBCUTANEOUS w MEALS metFORMIN 1,000 mg tab(s) (GLUCOPHAGE) 1,000 mg ORAL BID glipiZIDE 10 mg tab(s) (GLUCOTROL) 10 mg ORAL DAILY pravastatin 10 mg tab(s) (PRAVACHOL) 10 mg ORAL DAILY lisinopril 5 mg tab(s) (ZESTRIL) 5 mg ORAL DAILY tamsulosin 0.4 mg cap(s) (FLOMAX) 0.4 mg ORAL AT BEDTIME dilTIAZem CD 120 mg cap(s) (CARDIZEM CD, CARTIA XT) 120 mg ORAL DAILY pantoprazole DR 20 mg tab(s) (PROTONIX) 20 mg ORAL DAILY DATA: WBC (k/uL) Date Value 08/21/2023 10.73 RBC (m/uL) Date Value 08/21/2023 4.29 Hemoglobin (g/dL) Date Value 08/21/2023 11.3 (L) Hematocrit (%) Date Value 08/21/2023 34.7 (L) MCV (fL) Date Value 08/21/2023 80.9 MCH (pg) Date Value 08/21/2023 26.3 MCHC (g/dL) Date Value 08/21/2023 32.6 RDW-CV (%) Date Value 08/21/2023 15.4 (H) Platelet Count (k/uL) Date Value 08/21/2023 238 MPV (fL) Date Value 08/21/2023 10.1 Glucose (mg/dL) Date Value 08/21/2023 192 (H) BUN (mg/dL) Date Value 08/21/2023 32 (H) Creatinine (mg/dL) Date Value 08/21/2023 1.40 Sodium (mmol/L) Date Value 08/21/2023 137 Potassium (mmol/L) Date Value 08/21/2023 3.9 Chloride (mmol/L) Date Value 08/21/2023 105 CO2 (mmol/L) Date Value 08/21/2023 23 Protein, Total (g/dL) Date Value 04/13/2020 6.9 Albumin (g/dL) Date Value 04/13/2020 4.1 Calcium, Total (mg/dL) Date Value 08/21/2023 8.3 (L) Alkaline Phosphatase (U/L) Date Value 04/13/2020 81 Bilirubin, Total (mg/dL) Date Value 04/13/2020 0.6 AST (U/L) Date Value 04/13/2020 79 (H) ALT (U/L) Date Value 04/13/2020 93 (H) ASSESSMENT AND PLAN: 1. Left-sided ureteral stone 2. Obstructive uropathy 3. Acute kidney injury 4. Type II diabetes mellitus 5. Atrial fibrillation 6. Hypertension 7. Hyperlipidemia 8. GERD - patient appears comfortable - he still endorses some left-sided flank discomfort but overall much improved compared to yesterday, he is no longer nauseated - imaging obtained at the [facility] showed evidence of an obstructing ureteral stone on the left side - urology is on consult, at the time of this dictation they have not yet seen the patient - continue PO Percocet 1 tablet every 4 hours PRN for pain relief - continue IV fluids via normal saline at 75 cc/hour - will make the patient NPO at midnight in the event intervention (i.e. cystoscopy and/or stent placement) is performed tomorrow SIGNATURE: Yaritza Goff DO PATIENT NAME: Luis Yates DATE: August 21, 2023 [facility]: 6[facility] Note[facility]NO ID: [id number] Author: Radha Zhu RN Service: Nursing Author Type: Registered Nurse Type: Progress Notes Filed: 08/22/2023 7:59 AM Note Text: Dr. Cintron, Urology consult recalled at this time.[facility]11-28-2023 NoteHNO ID: [id number] Author: Inez Arreola RN Service: Care Management Author Type: Registered Nurse Type: Care Mgt Initial Assessment Filed: 08/21/2023 1:15 PM Note Text: CARE MANAGEMENT: ASSESSMENT AND DISCHARGE PLAN SERVICE DATE: August 21, 2023 SERVICE TIME: 1030 PCP: Maricarmen Savage CNP Primary Contact: Extended Emergency Contact Information Primary Emergency Contact: Ani Carrasco Mobile Relation: Sister Admission Status: Inpatient Insurance Provider: [facility] DUAL COMPLETE HMO POS SNP Discharge Planning requested by: Per Department Practice Potential Transition Plans Home Advance Directives Current Advance Directive: None District Court Justice Attempted to Assist with AD Completion: Yes Action: Patient Unwilling Current Living Arrangements and Support Lives with: Alone Type of Residence: Private Residence (Apartment or Condo) Does the patient have to climb stairs at home?: Yes;stairs outside the home Support: Family members How do you manage to accomplish the following: Independent: Ambulation;Bathe/Shower;Dress;Meals/Meal Prep;Going to the bathroom;Medication Management;Transportation to appointments/community Current Services/Equipment Current Post-Acute Service(s): DME Current DME Type: Glucometer device and supplies Discharge Planning Patient Goal(s): General wellness, Be able to go home, Less pain [place] of Choice Explained: [place] of Choice Given: No Reason Not Given: No placements necessary Are you interested in bedside delivery of your medications? No Discharge Planning Participant(s): Patient Patient/Family Comments: Caregiver Assessment: Caregiver is ready, willing and able to meet the patient's needs as recommended by the inter-professional team: No Caregiver needed Transport at Discharge: Transportation Arrangements: Car Needs Prior to Discharge: Needs Prior to Discharge: None Post-Acute Discharge Plan: Chart reviewed. Spoke with pt at bedside. Admitted with obstructive uropathy. Urology consulted. Pt from home alone, independent in ADLs, drives and has a glucometer at home. Pt is current with PCP, Dr. Savage. D/C plan is home. Denies any needs at this time. SIGNATURE: Inez Arreola RN PATIENT NAME: Luis Yates DATE: August 21, 2023 TIME: 1:14 PM CONTACT #: [id number] NoteHNO ID: [id number] Author: Emmanuel Dawson Service: ? Author Type: Physician Type: Progress Notes Filed: 05/24/2023 9:10 AM Note Text: Subjective: This 73 year old male presents to clinic for diabetic foot check. Patient has the following complaints: deformed toenail with pain, right great toe. Patient admits to being diabetic for 20 years now. Patient +B/T/N in feet at this time. Patient -pain in legs when walking. No other pedal complaints at this time. No change in medications or medical history since last visit. PAIN EVALUATION No data found in the last 1 encounters. Hemoglobin A1C (%) Date Value 01/01/2013 6.7 05/21/2012 6.8 HBA1C, Sarah (%) Date Value 02/02/2012 6.9 06/16/2011 7.3 03/17/2011 6.7 10/18/2010 6.9 07/19/2010 7.0 PCP: Maricarmen Savage CNP PAST MEDICAL HISTORY Diagnosis Date Atrial fibrillation (HCC) Eliquis- Sees [place] Clark's esophagus DM (diabetes mellitus) (HCC) GERD with esophagitis Hard of hearing Hx of sarcoma of soft tissue Hyperlipidemia Snoring Current Outpatient Medications Medication Sig omeprazole (PRILOSEC) 20 mg capsule Take 1 capsule by mouth once daily. glipiZIDE (GLUCOTROL XL) 2.5 mg 24 hr tablet Take 2.5 mg by mouth once daily. diltiazem (CARDIZEM) 120 mg tablet Take 1/2 tablet by mouth once daily. apixaban (ELIQUIS) 5 mg tab(s) Take by mouth twice daily. metFORMIN (GLUCOPHAGE) 1,000 mg tablet Take 1,000 mg by mouth twice daily. pravastatin (PRAVACHOL) 10 mg tablet Take 10 mg by mouth once daily. amiodarone (PACERONE) 200 mg tablet Take by mouth once daily. (Patient not taking: Reported on 05/24/2023) lactase (LACTAID) 3,000 unit tablet Take one with breakfast and evening meal. (Patient not taking: Reported on 05/24/2023) cholecalciferol, Vitamin D3, (VITAMIN D3) 50,000 unit cap capsule Take 50,000 Units by mouth once each week. (Patient not taking: Reported on 05/24/2023) No current facility-administered medications for this visit. 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 COLONOSCOPY 12/11/2014 R Cebul - negative ESOPHAGOGASTRODUODENOSCOPY TRANSORAL DIAGNOSTIC 07/09/2017 repeat 2 years ESOPHAGOGASTRODUODENOSCOPY TRANSORAL DIAGNOSTIC 07/21/2019 EGD ESOPHAGOGASTRODUODENOSCOPY TRANSORAL DIAGNOSTIC 09/13/2021 EYE SURGERY HX FRACTURE SURGERY HAND/FINGER SURGERY UNLISTED R 5th finger PAST SURGICAL HISTORY OF 1991 repair of broken left hip PAST SURGICAL HISTORY OF 1968 left eye surgery SKIN BIOPSY HX TONSILLECTOMY HX FAMILY HISTORY Problem Relation Age of Onset Alcohol/Drug Father Coronary Artery Disease Father CO Emphysema Mother Coronary Artery Disease Mother CO Social History Tobacco Use Smoking status: Never Smokeless tobacco: Never Tobacco comments: Parents smoked in childhood home. Vaping Use Vaping Use: Never used Substance Use Topics Alcohol use: No Drug use: No REVIEW OF SYSTEMS GENERAL: Negative for Malaise, significant weight loss, fever RESPIRATORY: Negative for cough, wheezing and shortness of breath CARDIOVASCULAR: Negative for chest pain, leg swelling and palpitations GI: Negative for abdominal discomfort, blood in stools or black stools and change in bowel habits : Negative for dysuria, frequency and incontinence MUSCULOSKELETAL: Negative for joint pain or swelling, back pain, and muscle pain. SKIN: Negative for lesions, rash, and itching. HEMATOLOGY/LYMPHOLOGY Negative for prolonged bleeding, bruising easily, and swollen nodes. ENDOCRINE: Negative for cold or heat intolerance, polyuria, polydipsia and goiter. NEURO: negative The remainder of the review of systems is noncontributory. Objective: Patient presents to clinic ambulating in diabetic shoes Constitutional: Pt is a well developed 73 year old male who is alert, oriented, cooperative and in no apparent distress. Eyes: Following during examination. No redness or drainage. Respiratory: RR normal and nonlabored. Even breathing. No evidence of distress. Psychology: Patient is engaged during conversation. Normal affect and mood. Does not appear depressed or anxious. Vasc: DP and PT pulses are palpable bilateral. CFT is less than 5 seconds bilateral. Skin temperature is warm to warm proximal to distal bilateral. There is no edema or varicosities noted. Hair growth present. Neuro: Protective sensation is intact to the foot and toes when tested with the 5.07 SWM bilateral. Vibratory sensation is decreased at the hallux bilateral. + Significant neurological defecits. Derm: Inspection and palpation performed. Nails 1-5 right and 2-5 left are painful, discolored-yellow, thick, crumbly, dystrophic and with subungal debris. Skin is of normal turgor and texture. Hyperkeratosis noted to not present. NO ulcerations, scars, verruca or other lesions noted. Ortho (more content not included)...[facility]08-31-2023 NoteHNO ID: [id number] Author: Cecille Saini RN Service: ? Author Type: Registered Nurse Type: Progress Notes Filed: 05/24/2023 9:10 AM Note Text: Patient presents with: Left Foot - Established Patient, Follow Up, Diabetic Foot Care Right Foot - Established Patient, Follow Up, Diabetic Foot Care Patient presents for diabetic foot check. States that his right big toenail is thick and discolored. States that last time he was seen over a year ago possible removal of the nail was discussed.[facility] 05-24-2023 Instructions* Patient Instructions* Emmanuel Dawson - 05/24/2023 8:53 AM EDT Diabetes Foot Care Instructions When you have diabetes, proper foot care is very important. Poor foot care may lead to amputation of a foot or leg. As a person with diabetes, you are more vulnerable to foot problems, because diabetes can damage your nerves and reduce blood flow to your feet. Here are some diabetes foot care tips to follow: Wash and Dry Your Feet Daily Use mild soaps Use warm water Pat your skin dry; do not rub. Thoroughly dry your feet. After washing, use lotion on your feet to prevent cracking. Do not put lotion between your toes. Examine Your Feet Each Day Check the tops and bottoms of your feet. Have someone else look at your feet if you cannot see them. Check for dry, cracked skin. Look for blisters, cuts, scratches, or other sores. Check for redness, increased warmth, or tenderness when touching any area of your feet. Check for ingrown toenails, corns, and calluses. If you get a blister or sore from your shoes, do not pop it. Apply a bandage and wear a differentpair of shoes. Take Care of Your Toenails Cut toenails after bathing, when they are soft. Cut toenails straight across and smooth with a nail file. Avoid cutting into the corners of toes. Do not cut cuticles. If you have neuropathy (or decreased sensation in your feet) a stone product fabricator should always cut your toenails. Be Careful When Exercising Walk and exercise in comfortable shoes. Do not exercise when you have open sores on your feet. Protect Your Feet With Shoes and Socks Never go barefoot. Always protect your feet by wearing shoes or hard-soled slippers or footwear. Avoid shoes with high heels and pointed toes. Avoid shoes that expose your toes or heels (such as open-toed shoes or sandals). These types of shoes increase your risk for injury and potential infections. Try on new footwear with the type of socks you usually wear. Do not wear new shoes for more than an hour at a time. Change your socks daily. Look and feel inside your shoes before putting them on to make sure there are no foreign objects orrough areas. Avoid tight socks. Wear natural-fiber socks (cotton, wool, or a cotton-wool blend). Wear special shoes if your health care provider recommends them. Wear shoes/boots that will protect your feet from various weather conditions (cold, moisture, etc.). Make sure your shoes fit properly. If you have neuropathy (nerve damage), you may not notice that your shoes are too tight. Perform the footwear test described below. Footwear Test Use this simple test to see if your shoes fit correctly: Stand on a piece of paper. (Make sure you are standing and not sitting, because your foot changes shape when you stand.) Trace the outline of your foot. Trace the outline of your shoe. Compare the tracings: Is the shoe too narrow? Is your foot crammed into the shoe? The shoe should be at least 1/2 inch longer than your longest toe and as wide as your foot. Proper Shoe Choices The following types of shoes are best for people with diabetes Closed toes and heels Leather uppers without a seam inside At least 1/2 inch extra space at the end of your longest toe Inside of shoe should be soft with no rough areas Outer sole should be made of stiff material Shoes should be at least as wide as your feet Tips for Foot Care in Diabetes Don't wait to treat a minor foot problem if you have diabetes. Follow your health care provider's guidelines and first aid guidelines. Report foot injuries and infections to your health care provider immediately. Check water temperature with your elbow, not your foot. Do not use a heating pad on your feet. Do not cross your legs. Do not self-treat your corns, calluses, or other foot problems. Go to your health care provider or stone product fabricator to treat these conditions. [facility] History of Present illness Narrative* Emmanuel Dawson - 05/24/2023 8:45 AM EDT Subjective: This 73 year old male presents to clinic for diabetic foot check. Patient has the following complaints: deformed toenail with pain, right great toe. Patient admits to being diabetic for 20 years now. Patient +B/T/N in feet at this time. Patient -pain in legs when walking. No other pedalcomplaints at this time. No change in medications or medical history since last visit. PAIN EVALUATION No data found in the last 1 encounters. Hemoglobin A1C (%) Date Value 01/01/2013 6.7 05/21/2012 6.8 HBA1C, Sarah (%) Date Value 02/02/2012 6.9 06/16/2011 7.3 03/17/2011 6.7 10/18/2010 6.9 07/19/2010 7.0 PCP: Maricarmen Savage CNP PAST MEDICAL HISTORY Diagnosis Date Atrial fibrillation (HCC) Eliquis- Sees [place] Clark's esophagus DM (diabetes mellitus) (HCC) GERD with esophagitis Hard of hearing Hx of sarcoma of soft tissue Hyperlipidemia Snoring Current Outpatient Medications Medication Sig omeprazole (PRILOSEC) 20 mg capsule Take 1 capsule by mouth once daily. glipiZIDE (GLUCOTROL XL) 2.5 mg 24 hr tablet Take 2.5 mg by mouth once daily. diltiazem (CARDIZEM) 120 mg tablet Take 1/2 tablet by mouth once daily. apixaban (ELIQUIS) 5 mg tab(s) Take by mouth twice daily. metFORMIN (GLUCOPHAGE) 1,000 mg tablet Take 1,000 mg by mouth twice daily. pravastatin (PRAVACHOL) 10 mg tablet Take 10 mg by mouth once daily. amiodarone (PACERONE) 200 mg tablet Take by mouth once daily. (Patient not taking: Reported on 05/24/2023) lactase (LACTAID) 3,000 unit tablet Take one with breakfast and evening meal. (Patient not taking: Reported on 05/24/2023) cholecalciferol, Vitamin D3, (VITAMIN D3) 50,000 unit cap capsule Take 50,000 Units by mouth once each week. (Patient not taking: Reported on 05/24/2023) No current facility-administered medications for this visit. 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 COLONOSCOPY 12/11/2014 R Cebul - negative ESOPHAGOGASTRODUODENOSCOPY TRANSORAL DIAGNOSTIC 07/09/2017 repeat 2 years ESOPHAGOGASTRODUODENOSCOPY TRANSORAL DIAGNOSTIC 07/21/2019 EGD ESOPHAGOGASTRODUODENOSCOPY TRANSORAL DIAGNOSTIC 09/13/2021 EYE SURGERY HX FRACTURE SURGERY HAND/FINGER SURGERY UNLISTED R 5th finger PAST SURGICAL HISTORY OF 1991 repair of broken left hip PAST SURGICAL HISTORY OF 1968 left eye surgery SKIN BIOPSY HX TONSILLECTOMY HX FAMILY HISTORY Problem Relation Age of Onset Alcohol/Drug Father Coronary Artery Disease Father CO Emphysema Mother Coronary Artery Disease Mother CO Social History Tobacco Use Smoking status: Never Smokeless tobacco: Never Tobacco comments: Parents smoked in childhood home. Vaping Use Vaping Use: Never used Substance Use Topics Alcohol use: No Drug use: No REVIEW OF SYSTEMS GENERAL: Negative for Malaise, significant weight loss, fever RESPIRATORY: Negative for cough, wheezing and shortness of breath CARDIOVASCULAR: Negative for chest pain, leg swelling and palpitations GI: Negative for abdominal discomfort, blood in stools or black stools and change in bowel habits : Negative for dysuria, frequency and incontinence MUSCULOSKELETAL: Negative for joint pain or swelling, back pain, and muscle pain. SKIN: Negative for lesions, rash, and itching. HEMATOLOGY/LYMPHOLOGY Negative for prolonged bleeding, bruising easily, and swollen nodes. ENDOCRINE: Negative for cold or heat intolerance, polyuria, polydipsia and goiter. NEURO: negative The remainder of the review of systems is noncontributory. Objective: Patient presents to clinic ambulating in diabetic shoes Constitutional: Pt is a well developed 73 year old male who is alert, oriented, cooperative and in no apparent distress. Eyes: Following during examination. No redness or drainage. Respiratory: RR normal and nonlabored. Even breathing. No evidence of distress. Psychology: Patient is engaged during conversation. Normal affect and mood. Does not appear depressed or anxious. Vasc: DP and PT pulses are palpable bilateral. CFT is less than 5 seconds bilateral. Skin temperature is warm to warm proximal to distal bilateral. There is no edema or varicosities noted. Hair growth present. Neuro: Protective sensation is intact to the foot and toes when tested with the 5.07 SWM bilateral.Vibratory sensation is decreased at the hallux bilateral. + Significant neurological defecits. Derm: Inspection and palpation performed. Nails 1-5 right and 2-5 left are painful, discolored-yellow, thick, crumbly, dystrophic and with subungal debris. Skin is of normal turgor and texture. Hyperkeratosis noted to not present. NO ulcerations, scars, verruca or other lesions noted. Ortho: Ankle joint DF is full with the knee extended and full with knee flexed. No pain or crepitusnoted. STJ, MTJ ROM are full and free of pain or crepitus. Muscle strength is 5/5 for dorsiflexors,plantarflexors, inverters, everters. Digital deformities include tailors bunion right. Assessment: (B35.1) Onychomycosis (primary encounter diagnosis) (M79.674) Pain in toe of right foot (M79.675) Pain in toe of left foot (E11.49) Well controlled type 2 diabetes mellitus with neurological manifestations ([facility]) (M21.622) Tailor's bunion of left foot Plan: 1. Patient was seen and evaluated. 2. Patient was instructed on the continued importance of diabetic foot care along with proper diet and keeping their blood sugar under control to prevent complications. Instructions given both oral and written. 3. Patient toenails 1-5 right and 2-5 left debrided in length and thickness. Discussed possible matrixectomy of right hallux. He may consider 4. Diabetic shoes ordered. Being diabetic with a deformity (tailors bunion), a well supportied, wider extra depth shoe will be of benefit. Emmanuel Dawson DPM * Cecille Saini RN - 05/24/2023 8:38 AM EDT Patient presents with: Left Foot - Established Patient, Follow Up, Diabetic Foot Care Right Foot - Established Patient, Follow Up, Diabetic Foot Care Patient presents for diabetic foot check. States that his right big toenail is thick and discolored. States that last time he was seen over a year ago possible removal of the nail was discussed. [facility] NoteHNO ID: [id number] Author: Isidoro Espino APRN.DAIRY SPECIALIST Service: ? Author Type: Nurse Practitioner Type: Progress Notes Filed: 04/10/2023 5:54 PM Note Text: Subjective HPI Nontoxic-appearing male presents urgent care chief complaint right back pain and shoulder pain. Duration of symptoms on and off for the past year and 1/2 to 1-year. [place] pain was little worse last night. Did take Tylenol. This did help. Denies any known injury. Pain is worse with sleeping improves throughout the day. Pain is reproducible. No incontinence or loss of bowel or bladder habit. No night sweats or fever. Denies any fever body aches chills productive cough chest pain shortness of breath pleuritic pain hemoptysis nausea vomiting abdominal pain change in bowel or bladder habits. Past medical history prescription medication use and allergies reviewed. .Patient presents with: right back and arm pain: X 1 year-thinks he slept wrong PAST MEDICAL HISTORY Diagnosis Date Atrial fibrillation (HCC) Eliquis- Sees [place] Clark's esophagus DM (diabetes mellitus) (HCC) GERD with esophagitis Hard of hearing Hx of sarcoma of soft tissue Hyperlipidemia Snoring PAST SURGICAL HISTORY Procedure Laterality Date CHEST WALL RESECTION OF TUMOR AND/OR RIBS 12/2012 cancer COLONOSCOPY 12/11/2014 R Cebul - negative ESOPHAGOGASTRODUODENOSCOPY TRANSORAL DIAGNOSTIC 07/09/2017 repeat 2 years ESOPHAGOGASTRODUODENOSCOPY TRANSORAL DIAGNOSTIC 07/21/2019 EGD ESOPHAGOGASTRODUODENOSCOPY TRANSORAL DIAGNOSTIC 09/13/2021 EYE SURGERY HX FRACTURE SURGERY HAND/FINGER SURGERY UNLISTED R 5th finger PAST SURGICAL HISTORY OF 1991 repair of broken left hip PAST SURGICAL HISTORY OF 1968 left eye surgery SKIN BIOPSY HX TONSILLECTOMY HX ALLERGIES Patient has no known allergies. MEDICATIONS omeprazole (PRILOSEC) 20 mg capsule Take 1 capsule by mouth once daily. glipiZIDE (GLUCOTROL XL) 2.5 mg 24 hr tablet Take 2.5 mg by mouth once daily. diltiazem (CARDIZEM) 120 mg tablet Take 1/2 tablet by mouth once daily. apixaban (ELIQUIS) 5 mg tab(s) Take by mouth twice daily. metFORMIN (GLUCOPHAGE) 1,000 mg tablet Take 1,000 mg by mouth twice daily. pravastatin (PRAVACHOL) 10 mg tablet Take 10 mg by mouth once daily. amiodarone (PACERONE) 200 mg tablet Take by mouth once daily. (Patient not taking: Reported on 10/18/2021 ) lactase (LACTAID) 3,000 unit tablet Take one with breakfast and evening meal. (Patient not taking: Reported on 10/18/2021 ) cholecalciferol, Vitamin D3, (VITAMIN D3) 50,000 unit cap capsule Take 50,000 Units by mouth once each week. (Patient not taking: Reported on 10/18/2021 ) FAMILY HISTORY Problem Relation Age of Onset Alcohol/Drug Father Coronary Artery Disease Father CO Emphysema Mother Coronary Artery Disease Mother CO Social History Tobacco Use Smoking status: Never Smokeless tobacco: Never Tobacco comments: Parents smoked in childhood home. Vaping Use Vaping Use: Never used Substance Use Topics Alcohol use: No Drug use: No BP 128/76 Pulse 87 Temp 37 ?C (98.6 ?F) (Tympanic) Resp 16 Wt 87.4 kg (192 lb 9.6 oz) SpO2 95% BMI 24.98 kg/m? Review of Systems Constitutional: Negative for chills, fever and malaise/fatigue. HENT: Negative for congestion, ear discharge, ear pain, sinus pain and sore throat. Eyes: Negative for blurred vision, pain, discharge and redness. Respiratory: Negative for cough, hemoptysis, sputum production, shortness of breath, wheezing and stridor. Cardiovascular: Negative for chest pain. Gastrointestinal: Negative for abdominal pain, diarrhea, nausea and vomiting. Musculoskeletal: Positive for back pain. Negative for myalgias and neck pain. Skin: Negative for itching and rash. Neurological: Negative for dizziness and headaches. Objective Physical Exam Constitutional: General: He is not in acute distress. Appearance: He is not toxic-appearing. HENT: Head: Normocephalic. Nose: Nose normal. Eyes: Pupils: Pupils are equal, round, and reactive to light. Cardiovascular: Rate and Rhythm: Normal rate. Pulmonary: Effort: Pulmonary effort is normal. No respiratory distress. Musculoskeletal: Right shoulder: No swelling or bony tenderness. Normal range of motion. Normal strength. Normal pulse. Right upper arm: Normal. Cervical back: Normal and normal range of motion. Thoracic back: Normal. Lumbar back: Normal. Skin: General: Skin is warm and dry. Neurological: General: No focal deficit present. Mental Status: He is alert. ASSESSMENT/PLAN: 1. Chronic right-sided low back pain without sciatica - ICD9: 724.2, 338.29, ICD10: M54.50, G89.29 Diagnosed with chronic lower back pain. Patient does have a follow-up with physical therapist tomorrow. Keep appointment as scheduled. Red flags for prompt reevaluation discussed. Patient was educated on supportive therapies. Patient will follo (more content not included)...[facility]05-03-2022 Instructions* Patient Instructions* Emmanuel Dawson - 01/24/2022 8:33 AM EDT Diabetes Foot Care Instructions When you have diabetes, proper foot care is very important. Poor foot care may lead to amputation of a foot or leg. As a person with diabetes, you are more vulnerable to foot problems, because diabetes can damage your nerves and reduce blood flow to your feet. Here are some diabetes foot care tips to follow: Wash and Dry Your Feet Daily Use mild soaps Use warm water Pat your skin dry; do not rub. Thoroughly dry your feet. After washing, use lotion on your feet to prevent cracking. Do not put lotion between your toes. Examine Your Feet Each Day Check the tops and bottoms of your feet. Have someone else look at your feet if you cannot see them. Check for dry, cracked skin. Look for blisters, cuts, scratches, or other sores. Check for redness, increased warmth, or tenderness when touching any area of your feet. Check for ingrown toenails, corns, and calluses. If you get a blister or sore from your shoes, do not pop it. Apply a bandage and wear a differentpair of shoes. Take Care of Your Toenails Cut toenails after bathing, when they are soft. Cut toenails straight across and smooth with a nail file. Avoid cutting into the corners of toes. Do not cut cuticles. If you have neuropathy (or decreased sensation in your feet) a stone product fabricator should always cut your toenails. Be Careful When Exercising Walk and exercise in comfortable shoes. Do not exercise when you have open sores on your feet. Protect Your Feet With Shoes and Socks Never go barefoot. Always protect your feet by wearing shoes or hard-soled slippers or footwear. Avoid shoes with high heels and pointed toes. Avoid shoes that expose your toes or heels (such as open-toed shoes or sandals). These types of shoes increase your risk for injury and potential infections. Try on new footwear with the type of socks you usually wear. Do not wear new shoes for more than an hour at a time. Change your socks daily. Look and feel inside your shoes before putting them on to make sure there are no foreign objects orrough areas. Avoid tight socks. Wear natural-fiber socks (cotton, wool, or a cotton-wool blend). Wear special shoes if your health care provider recommends them. Wear shoes/boots that will protect your feet from various weather conditions (cold, moisture, etc.). Make sure your shoes fit properly. If you have neuropathy (nerve damage), you may not notice that your shoes are too tight. Perform the footwear test described below. Footwear Test Use this simple test to see if your shoes fit correctly: Stand on a piece of paper. (Make sure you are standing and not sitting, because your foot changes shape when you stand.) Trace the outline of your foot. Trace the outline of your shoe. Compare the tracings: Is the shoe too narrow? Is your foot crammed into the shoe? The shoe should be at least 1/2 inch longer than your longest toe and as wide as your foot. Proper Shoe Choices The following types of shoes are best for people with diabetes Closed toes and heels Leather uppers without a seam inside At least 1/2 inch extra space at the end of your longest toe Inside of shoe should be soft with no rough areas Outer sole should be made of stiff material Shoes should be at least as wide as your feet Tips for Foot Care in Diabetes Don't wait to treat a minor foot problem if you have diabetes. Follow your health care provider's guidelines and first aid guidelines. Report foot injuries and infections to your health care provider immediately. Check water temperature with your elbow, not your foot. Do not use a heating pad on your feet. Do not cross your legs. Do not self-treat your corns, calluses, or other foot problems. Go to your health care provider or stone product fabricator to treat these conditions. [facility] History of Present illness Narrative* Emmanuel Dawson - 01/24/2022 8:17 AM EDT Last saw Maricarmen Savage: not reported Subjective: Patient presents to clinic c/o painful toenails. They state that the nails are especially painful with shoe gear and pressure. Patient states that nails right hallux are painful. Patient would like to discuss removing the toenail. Patient admits to being diabetic. He states his sugars are in the upper 130s. No other pedal complaints at this time. Patient states no change in medications or medical history since last visit. Objective: Patient presents to clinic ambulating in diabetic shoes Vasc: DP and PT pulses are palpable bilateral. CFT is less than 5 seconds bilateral. Skin temperature is warm to cool proximal to distal bilateral. There is no edema or varicosities noted. Neuro: Protective sensation is intact to the foot and toes when tested with the 5.07 SWM bilateral.Vibratory sensation is decreased at the hallux IPJ bilateral. The hallux is downgoing bilateral. Derm: Nails 1-5 right and 2-5 left are painful, discolored-yellow, thick, crumbly, dystrophic and with subungal debris. Severe thickening is noted to right hallux and left 2nd toneail. Skin is of normal turgor, texture and hair growth is present bilateral. There are no hyperkeratosis, ulcerations, scars, verruca or other lesions noted. Ortho: Muscle strength is 5/5 for all pedal groups tested. Ankle joint DF is full with the knee extended with no pain or crepitus noted. 1st MPJ ROM is full bilateral. Tailors bunion is present to left foot Assessment: Onychomycosis with pain Diabetes Plan: Patient was seen and evaluated. Nails 1-5 right and 2-5 left were debrided in length and thickness. I discussed removal of right hallux and left 2nd toneail but he elected to monitor. Patient was instructed on the continued importance of diabetic foot care along with proper diet andkeeping their blood sugar under control to prevent complications. Diabetic shoes ordered Patient is to RTC in 3-4 months. Emmanuel Dawson DPM * Mitzi Palm RN - 01/24/2022 8:04 AM EDT AMB ROOMING INTAKE FLOWSHEET DATA Risk Screening Do you have concerns about personal safety or safety in the home?: No Patient presents with: Right Great Toe - Established Patient, Nail Fungus Patient wants to discuss having toenail removed. [facility]22 NoteHNO ID: [id number] Author: Ute Major CCC-3D SPECIALIST Service: ? Author Type: Speech Language Pathologist Type: Progress Notes Filed: 11/10/2021 1:47 PM Note Text: Start of Care Date: 11/10/21 Onset Date: 09/24/21 Patient Identified by Name and Date of : Yes [facility] MODIFIED BARIUM SWALLOW PLAN OF CARE: Impression: Evidence of: Oropharyngeal dysphagia An elevated risk for aspiration: Yes- Intermittent scant aspiration is noted with thin liquids Swallow Efficiency: Impaired - due to pharyngeal residue following the swallow RECOMMENDATION: Diet Recommendations: Regular Consistency;Thin Liquids IDDSI Level 0 -as tolerated by the patient through self-monitoring Swallowing Precautions Recommendations: -Controlled Volume with each drink presentation; -Throat clear, reswallow; -Double swallows; -Effortful swallow; -Small Bite/Sip;Self-monitoring Results and Recommendations Discussed With: Patient FCM Swallowing Level: 5 Assessment per VARSHA Functional Communication Measure and treatment recommendations: Swallowing Level: LEVEL 5: Swallowing is safe with minimal diet restriction and/or occasionally requires minimal cueing to use compensatory strategies. The individual may occasionally self-cue. All nutrition and hydration needs are met by mouth at mealtime. SUBJECTIVE: Luis Yates is a 71 year old male seen today for a Modified Barium Swallow (MBS) Study. dysphagia -pt is reporting that he has 'acid reflux'; Pills sticking in the throat Patient Goals: determine current swallowing skills Prior Functional Level: Within Functional Limits Prior Swallowing Function/Diet Textures: Regular Consistency;Thin Liquids IDDSI Level 0 OBJECTIVE: MEASURES WITH LEVEL OF FUNCTION: Swallow Position Of Patient During Assessment: Standing Consistencies Presented: Thin Liquids IDDSI Level 0;Pureed IDDSI Level 4;Soft and Bite-Sized IDDSI Level 6;Solid Response to Consistencies Presented: able to follow verbal directives for the completion of today's fluoroscopic assessment; increased vocal intensity and intermittent speech reading was necessary to support success due to WIYOT Compensatory Strategies Utilized During Assessment: Double swallows;Effortful swallow Instrumental Swallow Assessment Type: Modified Barium Swallow Study Modified Barium Swallow Views: Lateral position MBS Consistencies Tested: Thin Barium Liquids;Pureed with Barium Paste;Soft and Bite-Sized with Barium Paste;Solid with Barium Paste Oral Phase: Lip Closure: No labial escape/anterior loss of bolus Tongue Control During Bolus Hold: Cohesive bolus between tongue to palatal seal Bolus Preparation/Mastication: Slow prolonged mastication with complete re-collection necessary Bolus Transport/Lingual Motion: Brisk tongue motion for A-P movement of the bolus Oral Residue: Residue collection on oral structure Initiation Of Pharyngeal Swallow: Bolus head at vallecular pit Pharyngeal Phase: Soft Palate Elevation: No bolus between soft palate/pharyngeal wall Laryngeal Elevation: Complete superior movement of thyroid cartilage with contact of arytenoids to epiglottic petiole Anterior Hyoid Excursion: Partial anterior movement Epiglottic Movement: Partial inversion Laryngeal Vestibular Closure/Height of the Swallow: Incomplete - narrow column of air/contrast in laryngeal vestibule Pharyngeal Stripping Wave: Complete Pharyngoesophageal Segment Opening: Partial distension/partial duration with partial obstruction of flow of bolus Tongue Base Retraction: Wide column of contrast or air between tongue base and pharyngeal wall Pharyngeal Residue: Collection of residue within or on the pharyngeal structures;Residue within the valleculae following the swallow;Residue within the pyriform sinuses following the swallow Esophageal Clearance In An Upright Position: Complete clearance Penetration: During the swallow Penetration With: Thin Liquids IDDSI Level 0 Aspiration: During the swallow Aspiration With: Thin Liquids IDDSI Level 0 Penetration-Aspiration Scale for MBSS Level 6-Material enters the airway, passes below the vocal folds, and is ejected into the larynx or out of the airway : Thin Liquids IDDSI Level 0 Education: Education Learning Preferences: Explanation;Demonstration Barriers: Hearing Deficit Learning/Educational Needs: MBSs results Education Provided: Yes, see treatment interventions for education provided Education Provided To: Patient Education Mode/Type: Explanation/Discussion;Video;Teach Back Response to Education/Teach Back: States/Identifies TREATMENT: Performed Modified Barium Swallowing Study (89454). -Education regarding findings from today's Modified Barium Swallowing study (fluoroscopic study) and suggested initial strategies to support increased success with PO Intake were provided to the patient through v (more content not included)...[id number] NoteHNO ID: [id number] Author: SAUL Giron Service: Radiology Author Type: Technologist Type: Progress Notes Filed: 11/10/2021 1:39 PM Note Text: Radiology Service Progress Note PATIENT NAME: Luis Yates DATE OF SERVICE: November 10, 2021 TIME: 1:38 PM PATIENT IDENTITY VERIFICATION COMPLETED USING TWO (2) IDENTIFIERS: Name and Date of confirmed by patient verbally. FALL SCREENING: Has the patient had 2 falls in the last year or 1 fall with injury or currently using an Ambulatory Assistive Device (Walker, Cane, Wheelchair, Crutches, etc.)? No PATIENT GENDER DATA: Male PATIENT RELEVANT IMPLANT DATA REVIEWED: Not Applicable RADIOLOGY DEPARTMENT: General X-ray: Exam(s) Completed: Chest X-Ray GI/ Procedure(s): Modified barium swallow with barium contrast PERIPHERAL IV DATA: Not applicable SIGNED BY: SAUL Giron November 10, 2021 1:38 [facility]* Diagnosis Onychomycosis- Primary Dermatophytosis of nail Pain in toe of right foot Pain in limb Pain in toe of left foot Pain in limb Well controlled type 2 diabetes mellitus with neurological manifestations (HCC) Type II or unspecified type diabetes mellitus with neurological manifestations, not stated as uncontrolled Ingrowing toenail of right foot Ingrowing nail Tailor's bunion of left foot [facility] Diagnosis Onychomycosis- Primary Dermatophytosis of nail Pain in toe of right foot Pain in limb Pain in toe of left foot Pain in limb Well controlled type 2 diabetes mellitus with neurological manifestations (HCC) Type II or unspecified type diabetes mellitus with neurological manifestations, not stated as uncontrolled Tailor's bunion of left foot [facility] Diagnosis Benign prostatic hyperplasia with weak urinary stream- Primary [facility] Family History No Family History Records FoundNo Family History Records FoundNo Family History Records FoundNo Family History Records Found Advance Directives Documents on File Type Date Recorded Patient Application Development Liaison Expl anation Advance Directive(s) 09/13/2021 11:06 AM Advance Directive(s) 07/21/2019 8:05 AM Advance Directive(s) 07/09/2017 7:05 AM Latest Code Status on File Code Status Date Activated Date Inactivated Comments Full Code 08/20/2023 6:33 PM 08/23/2023 8:58 PM Question Answer Comments Full Code Order Discussed With: Patient Latest Code Status on File Code Status Date Activated Date Inactivated Comments Full Code 08/20/2023 6:33 PM 08/23/2023 8:58 PM Question Answer Comments Full Code Order Discussed With: Patient Additional Source Comments (unrecognized sect ion and content) No Status Records FoundNo Status Records FoundNo Status Records FoundNo Status Records Found INFORMATION SOURCE (unrecogn ized section and content) DATE CREATED AUTHOR AUTHOR'S ORGANIZ ATION 11/11/2021 DATE CREATED AUTHOR AUTHOR'S ORGANIZ ATION 10/12/2023 [facility] DATE CREATED AUTHOR AUTHOR'S ORGANIZ ATION 10/13/2023 [facility] Source Comments (unrecognize d section and content) In the event this informatio n is protected by the Federal Confidentiality of Alcohol and Drug Abuse Patient Records regulations: The Federal rules restrict any use of the information to criminally investigate or prosecute any alcohol or drug abuse patient.[facility] the event this information is protected by the Federal Confidentiality of Alcohol and Drug Abuse Patient Records regulations: The Federal rules restrict any use of the information to criminally investigate or prosecute any alcohol or drug abuse patient.[facility] the event this information is protected by the Federal Confidentiality of Alcohol and Drug Abuse Patient Records regulations: The Federal rules restrict any use of the information to criminally investigate or prosecute any alcohol or drug abuse patient.[facility] the event this information is protected by the Federal Confidentiality of Alcohol and Drug Abuse Patient Records regulations: The Federal rules restrict any use of the information to criminally investigate or prosecute any alcohol or drug abuse patient.[facility] the event this information is protected by the Federal Confidentiality of Alcohol and Drug Abuse Patient Records regulations: The Federal rules restrict any use of the information to criminally investigate or prosecute any alcohol or drug abuse patient.[facility] Reason for Visit (unrecogniz ed section and content) Reason Comments Established Patient Follow Up Diabetic Foot Care Reason Comments post op appointment Reason Comments Patient Question Reason Comments Rezum Pt states he stopped blood thinner Eliquis 1 week ago. Pt started taking antibiotic this morning. 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 Start Date End Date Maricarmen Savage [address] [place] [address] PCP - General Family Medicine 05/02/18 Martina Blair DAIRY SPECIALIST [address] [place] [address] Referring Internal Medicine 01/19/22 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 Start Date End Date Maricarmen Savage [address] [place] [address] PCP - General Family Medicine 05/02/18 Martina Blair CNP [address] [place] [address] Referring Internal Medicine 01/19/22 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 This clinical summary was aggregated from multiple sources. Caution should be exercised in using it in the provision of clinical care. This summary normalizes information from multiple sources, and as a consequence, information in this document may materially change the coding, format and clinical context of patient data. In addition, data may be omitted in some cases. CLINICAL DECISIONS SHOULD BE BASED ON THE PRIMARY CLINICAL RECORDS. [employer] provides no warranty or guarantee of the accuracy or completeness of information in this document.
== END 2023-11-26 20:00 | disposition home or self-care (01) ==
PROVIDERS: Emergency Provider Emergency Medicine; Visit Provider Emergency Medicine
DX: N99.820 Postprocedural hemorrhage of a genitourinary system organ or structure following a genitourinary system procedure (principal); I50.9 Heart failure, unspecified; I48.0 Paroxysmal atrial fibrillation; E11.9 Type 2 diabetes mellitus without complications; R31.9 Hematuria, unspecified; N50.9 Disorder of male genital organs, unspecified; Z79.01 Long term (current) use of anticoagulants; K21.9 Gastro-esophageal reflux disease without esophagitis; E78.5 Hyperlipidemia, unspecified; Z79.899 Other long term (current) drug therapy; Z98.890 Other specified postprocedural states
CPT/HCPCS: 80048; 81001; 85025; 87086; 99283; A4216

== ENCOUNTER 2023-12-21 18:13 | Emergency (ER) | payer MEDICARE, MEDICAID, SELFPAY ==
[2023-12-21 18:14] VITALS: BP 133/91; PULSE 88; RESP 18; TEMP 36.4; O2SAT 97; BMI 25.2
[2023-12-21 18:16] VITALS: BP 133/91; PULSE 88; RESP 16; TEMP 36.4; O2SAT 99
--- NOTE | 2023-12-21 18:39 | EDS_ITS ---
HPI History of Present Illness Chief Complaint: Complaint Informant: patient Narrative Narrative: 73-year-old male presenting to the emergency room with a chief complaint of difficulty urinating. Patient states that on Sunday evening after getting back home from playing cards he had some blood clots in his urine. The next time he went he had only a small amount of blood has not experienced any blood since. He states however he did is having to strain to urinate and the stream seems very weak. 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 He did not however contact his urologist to discuss his symptoms and because his symptoms continue today and is now after hours he came to the emergency department. He denies any fevers. He states he sees urology at [facility] in [facility]-Dr. Batista. The patient states that at the beginning of the month, 22 November, he underwent a procedure for an enlarged prostate where he states that he probe was used to work on the prostate through his rectum. He states that he had a catheter until 26 November when it was removed. [facility] Medical History Atrial fibrillation with RVR Barretts esophagus Cancer Diabetes Dysphagia Easy bruising Gastric reflux History of atrial fibrillation History of CHF (congestive heart failure) History of echocardiogram History of excision of malignant tumor History of stress test HTN (hypertension) Hyperlipidemia Non-smoker Paroxysmal atrial fibrillation Type 2 diabetes mellitus without complication Wears glasses Wears hearing aid Home Medications metformin 1,000 mg tablet 1 tab PO BID dm 09/05/19 [History Last Taken 09/04/19 22:00] pravastatin 10 mg tablet 1 tab PO QHS cholesterol 09/05/19 [History Last Taken 09/04/19] glipizide 10 mg tablet 10 mg PO DAILY 08/24/22 [History Last Taken Unknown] lisinopril 5 mg tablet 5 mg PO DAILY 08/24/22 [History Last Taken 04/23/23] diltiazem HCl 120 mg capsule,extended release 24 hr 120 mg PO DAILY #90 caps 11/02/22 [Rx Last Taken 04/23/23] apixaban 5 mg tablet (Eliquis) 5 mg PO BID #60 tabs 11/26/23 [Rx Last Taken Unknown] dulaglutide 0.75 mg/0.5 mL subcutaneous pen injector (Trulicity) 0.75 mg subcut QWEEK 12/21/23 [History Last Taken Unknown] glipizide 5 mg tablet 5 mg PO DAILY 12/21/23 [History Last Taken Unknown] lisinopril 10 mg tablet 10 mg PO DAILY 12/21/23 [History Last Taken Unknown] omeprazole 20 mg capsule,delayed release 20 mg PO DAILY 12/21/23 [History Last Taken Unknown] sulfamethoxazole 800 mg-trimethoprim 160 mg tablet 1 tab PO BID #14 TABLETS 12/21/23 [Rx Last Taken Unknown] Allergy/AdvReac Type Severity Reaction Status Date / Time No Known Allergies Allergy Verified 12/21/23 18:25 Family History Father CAD (coronary artery disease) Myocardial infarction Mother Emphysema lung Myocardial infarction CAD (coronary artery disease) Surgical History History of hip surgery History of tonsillectomy Social History Smoking Status: Never smoker alcohol intake: never substance use type: does not use caffeine: Yes Type: coffee Number of servings: 2 ROS ROS ED Constitutional Constitutional ED: Denies chills or weight loss Eyes Eyes: Denies change in vision or diplopia ENT ENT ED: Denies ear pain, rhinorrhea or sore throat Cardiovascular Cardiovascular: Denies chest pain, orthopnea, palpitations or racing heartbeat Respiratory/Chest Respiratory/Chest: Denies cough, dyspnea or orthopnea Gastrointestinal Gastrointestinal: Denies abdominal pain, diarrhea, nausea or vomiting Genitourinary Genitourinary ED: Reports hematuria and other Details: Decreased ability to urinate ; Denies dysuria or urinary frequency Musculoskeletal Musculoskeletal: Denies arthralgias or myalgias Integumentary Denies abscess or rash Neurologic Neurologic: Denies headache(s) or weakness Psychiatric Psychiatric: Denies anxiety, depression, suicidal ideation or suicidal thoughts Endocrine Endocrinology: Denies polydipsia, polyphagia or polyuria Allergic/Immunologic Allergic/Immunologic ED: Denies mouth swelling, tongue swelling or urticaria EXAM Physical Exam Const Vital Signs: 12/21/23 18:14 12/21/23 18:16 Temperature 97.6 F L 97.6 F L Temperature Source Temporal Temporal Pulse Rate 88 88 Respiratory Rate 18 16 Blood Pressure 133/91 H 133/91 H Blood Pressure Mean 105 105 Pulse Ox 97 99 Oxygen Delivery Method Room Air Room Air Positive well nourished and well developed General Appearance ED: well developed HEENT Reports normocephalic, head/scalp atraumatic and moist mucous membranes Eyes PERRL and EOMs intact bilaterally Neck no lymphadenopathy, supple and no JVD Resp normal respiratory effort and clear to auscultation bilaterally Cardio no murmurs Rhythm: abnormal rhythm irregularly irregular GI normal to inspection, nondistended, normoactive bowel sounds and non-tender Palpation: soft Back/Spine no CVA tenderness and normal ROM Extremity normal to inspection General Extremety ED: Negative for edema General Extremity: Negative for edema Neuro oriented x3 and CN's II-XII intact bilaterally Sensorium / Orientation: alert Motor Exam: strength 5/5 throughout Psych mental status grossly normal Mood & Affect: Negative for depressed or tearful Skin no rashes or lesions noted and no wounds MDM MDM MDM Narrative Medical decision making narrative: Patient was able to give us a urine specimen. Greater than 100 white cells to count red cells 2+ bacteria this will be sent for culture. Patient is unsure of the antibiotic he was on at the beginning of the month. He has tolerated Bactrim well in the past I will place him on this until we see the culture. I do recommend continued oral hydration. He will need to be on the look out for urinary retention and hematuria fever nausea vomiting or worsening symptoms. Would recommend follow-up with urology. History & Record Review Discussion w/independent historian: Patient Additional record(s) reviewed:: Prior ED visit and Prior labs Lab Data Attestation: I reviewed the patient's lab results. Labs: Laboratory Results - last 24 hr 12/21/23 18:40 Urine Color Yellow Urine Clarity Cloudy Urine pH 5.0 Ur Specific Julian 1.025 Urine Protein 100 H Urine Glucose (UA) 50 H Urine Ketones 5 H Urine Occult Blood 250 H Urine Nitrite Negative Urine Bilirubin Negative Urine Urobilinogen Normal Ur Leukocyte Esterase 500 H Urine RBC 50-100 SEEN Urine WBC >100 SEEN Ur Squamous Epith Cells 0-5 SEEN Urine Bacteria 2+ Urine Mucus 0 SEEN Discharge Plan Triage Chief Complaint: Complaint ED Provider: Regulo Hall Dx/Rx/DC Orders Clinical Impression: Acute cystitis, Chronic anticoagulation, Paroxysmal atrial fibrillation Instructions: ED Bladder Infection, Male (Adult) Prescriptions: New sulfamethoxazole-trimethoprim [sulfamethoxazole-trimethoprim] 800-160 mg tablet 1 tab PO BID Qty: 14 0RF No Action lisinopril 5 mg tablet 5 mg PO DAILY glipizide 10 mg tablet 10 mg PO DAILY pravastatin 10 MG tablet 1 tab PO QHS Patient Comments: TAKE 1 TABLET EVERY DAY AT BEDTIME metformin 1,000 MG tablet 1 tab PO BID Patient Comments: Take one tablet twice a day. glipizide 5 mg tablet 5 mg PO DAILY Trulicity 0.75 mg/0.5 mL pen injector 0.75 mg subcut QWEEK lisinopril 10 mg tablet 10 mg PO DAILY omeprazole 20 mg capsule,delayed release(DR/EC) 20 mg PO DAILY diltiazem HCl 120 mg capsule,extended release 24hr 120 mg PO DAILY Qty: 90 3RF Eliquis 5 mg tablet 5 mg PO BID Qty: 60 11RF Primary Care Provider: [facility] Kesha Garcia Referrals: [facility] Kesha Garcia [Primary Care Provider] - Activity Restrictions/Additional Instructions: I would recommend contacting your urologist for follow-up. In the interim if you are unable to urinate or have concerns you will need to return to the emergency department. Disposition Disposition: Home, Self Care
[2023-12-21 18:53] LABS: Mucous, Urine 0 SEEN /hpf (<or=2+)
[2023-12-21 18:54] LABS: Color, Urine Yellow (Yellow); Glucose, Dipstick 50 mg/dl (Normal); Ketone-Dipstick 5 mg/dl (Negative); Leukocyte Esterase-Dipstick 500 /ul (Negative); Nitrite-Dipstick Negative (Negative); Occult Blood-Urine 250 /ul (Negative); Protein-Dipstick 100 mg/dl (Negative); Specific Gravity, Urine 1.025 (1.002-1.030); Urine Bilirubin Dipstick Negative (Negative); Urine Clarity Cloudy (Clear); Urine Urobilinogen Normal (Normal)
[2023-12-21 19:04] LABS: White Blood Cells >100 SEEN /hpf (0-5)
[2023-12-21 19:05] LABS: Red Blood Cells-Urine 50-100 SEEN /hpf (0-5); Squamous Epithelial Cells - UA 0-5 SEEN /hpf (0-5)
[2023-12-21 19:06] LABS: Bacteria 2+ /hpf (None Seen)
[2023-12-21 19:55] VITALS: BP 142/77; PULSE 81; RESP 16; TEMP 36.2; O2SAT 98
== END 2023-12-21 19:56 | disposition home or self-care (01) ==
PROVIDERS: Emergency Provider Emergency Medicine; Visit Provider Emergency Medicine
DX: N30.00 Acute cystitis without hematuria (principal); I50.9 Heart failure, unspecified; I11.0 Hypertensive heart disease with heart failure; I48.0 Paroxysmal atrial fibrillation; E11.9 Type 2 diabetes mellitus without complications; Z79.01 Long term (current) use of anticoagulants; Z98.890 Other specified postprocedural states; K21.9 Gastro-esophageal reflux disease without esophagitis; E78.5 Hyperlipidemia, unspecified; Z79.85 Long-term (current) use of injectable non-insulin antidiabetic drugs; Z79.84 Long term (current) use of oral hypoglycemic drugs; Z79.899 Other long term (current) drug therapy; R31.9 Hematuria, unspecified; R33.9 Retention of urine, unspecified
CPT/HCPCS: 81001; 99282

== ENCOUNTER 2024-02-16 07:09 | Emergency (ER) | payer MEDICARE, MEDICAID, SELFPAY ==
[2024-02-16 07:09] VITALS: BP 150/86; PULSE 87; RESP 16; TEMP 35.8; O2SAT 98; BMI 24.3
--- NOTE | 2024-02-16 07:20 | ED.VIS.GI ---
HPI HPI - GI History of Present Illness Chief Complaint: Diarrhea Informant: patient Nausea/Vomiting/Emesis GI Symptom: Negative for Nausea or Vomiting Diarrhea/Melena/Hematochezia GI Symptom: Positive for Diarrhea; Negative for Melena or Hematochezia Onset: Days Stool Quality: Positive for Loose Severity: Mild Associated Symptoms Associated Symptoms: Negative for Dysuria, Frequency, Hematuria or Urgency Narrative Narrative: 73-year-old male history of diabetes and A-fib on Eliquis. Complaining of loose stools since Sunday night. Denies any significant abdominal pain. No fever. No vomiting. States he does not feel dehydrated. Denies any black or bloody stools. No recent hospitalization nor surgery nor recent antibiotic use. Was unable to get into see his primary care physician. Prior similar symptoms: Yes Recent Illness/Hospitalization: No PFSH PFS Medical History Wears hearing aid Wears glasses Cancer Diabetes Easy bruising Gastric reflux Non-smoker History of echocardiogram History of stress test History of CHF (congestive heart failure) History of atrial fibrillation HTN (hypertension) Barretts esophagus Dysphagia Type 2 diabetes mellitus without complication History of excision of malignant tumor Paroxysmal atrial fibrillation Hyperlipidemia Atrial fibrillation with RVR Home Medications ?Medication ?Instructions ?Recorded ?Last Taken ?Type metformin 1,000 mg tablet 1 tab PO BID dm 09/05/19 09/04/19 22:00 History pravastatin 10 mg tablet 1 tab PO QHS cholesterol 09/05/19 09/04/19 History glipizide 10 mg tablet 10 mg PO DAILY 08/24/22 Unknown History lisinopril 5 mg tablet 5 mg PO DAILY 08/24/22 04/23/23 History apixaban 5 mg tablet (Eliquis) 5 mg PO BID #60 tabs 11/26/23 Unknown Rx dulaglutide 0.75 mg/0.5 mL 0.75 mg subcut QWEEK 12/21/23 Unknown History subcutaneous pen injector (Trulicity) glipizide 5 mg tablet 5 mg PO DAILY 12/21/23 Unknown History lisinopril 10 mg tablet 10 mg PO DAILY 12/21/23 Unknown History omeprazole 20 mg capsule,delayed 20 mg PO DAILY 12/21/23 Unknown History release diltiazem HCl 120 mg 120 mg PO DAILY #90 caps 01/15/24 Unknown Rx capsule,extended release 24 hr Allergy/AdvReac Type Severity Reaction Status Date / Time No Known Allergies Allergy Verified 02/16/24 07:11 Family History Father CAD (coronary artery disease) Myocardial infarction Mother Emphysema lung Myocardial infarction CAD (coronary artery disease) Surgical History History of tonsillectomy History of hip surgery Social History Smoking Status: Never smoker alcohol intake: never substance use type: does not use caffeine: Yes Type: coffee Number of servings: 2 ROS ROS ED ROS Narrative Loose stools. Review of Systems ROS Unobtainable: Denies due to encephalopathy Constitutional Constitutional ED: Denies chills or fever(s) ENT ENT ED: Denies ear pain Cardiovascular Cardiovascular: Denies chest pain Respiratory/Chest Respiratory/Chest: Denies cough or dyspnea Gastrointestinal Gastrointestinal: Reports diarrhea; Denies abdominal pain, constipation, melena, nausea or vomiting Genitourinary Genitourinary ED: Denies dysuria or hematuria Musculoskeletal Musculoskeletal: Denies arthralgias Integumentary Denies abscess Neurologic Neurologic: Denies headache(s) Psychiatric Psychiatric: Denies anxiety Endocrine Endocrinology: Denies polydipsia or polyphagia Hematologic/Lymphatic Hematologic/Lymphatic: Denies easy bleeding or easy bruising Allergic/Immunologic Allergic/Immunologic ED: Denies mouth swelling, tongue swelling or urticaria EXAM Physical Exam Narrative Exam Narrative: Well-appearing 73-year-old male. Vital signs are stable and afebrile. H EENT exam unremarkable. Mytrex membranes. Neck nontender no lymphadenopathy. Lungs clear to auscultation bilaterally. Heart regular rate about 85. Abdomen soft, nontender, nondistended, normal bowel sounds without peritoneal signs. No hernia or mass. No distention. Moving all 4 extremities. Nontender no edema. Normal strength. Back nontender. Neurologically is awake and alert with no focal motor deficits. Patient is a very benign exam. Does not look dehydrated. Const Vital Signs: 02/16/24 07:09 02/16/24 09:09 Temperature 96.5 F L Temperature Source Temporal Pulse Rate 87 77 Respiratory Rate 16 18 Blood Pressure 150/86 H 133/83 H Blood Pressure Mean 107 99 Pulse Ox 98 Oxygen Delivery Method Room Air Room Air Positive well nourished and well developed; Negative for obese, cachectic, contractures or unkempt General Appearance ED: well developed and NAD; Negative for unkempt, cachectic, contractures or pallor Nutritional Appearance: Negative for cachectic or obese HEENT Reports moist mucous membranes; Denies dry mucous membranes normocephalic and atraumatic; Negative for trauma or tenderness Mouth ED: No dry mucous membranes Mouth: No dry mucous membranes Eyes PERRL and EOMs intact bilaterally Neck no lymphadenopathy, supple and no JVD General: Negative for tenderness Lymph Lymphatic: Negative for other Resp normal respiratory effort and clear to auscultation bilaterally Effort and Inspection: Negative for respiratory distress Auscultation: Negative for rales, rhonchi or wheezes Cardio regular rate, S1 normal heart sound, S2 normal heart sound and no murmurs Rate: Negative for bradycardia or tachycardic GI non-tender, non-distended and no masses Inspection: Negative for abdominal distention Auscultation: normoactive bowel sounds Palpation: soft; Negative for tender, guarding or rebound tenderness present Back/Spine no CVA tenderness General Back: Negative for CVA tenderness Cervical Spine: Negative for cervical spine tenderness Thoracic Spine / Upper Back: Negative for thoracic spinal tenderness Lumbar Spine / Lower Back: Negative for lumbar spinal tenderness Coccyx: Negative for other Extremity full ROM General Extremety ED: Negative for edema, tenderness or other findings General Extremity: Negative for edema or other findings Neuro CN's II-XII intact bilaterally, moves all extremities and no sensory deficits noted Sensorium / Orientation: alert, oriented to person, oriented to place and oriented to time; Negative for orientation impaired, confused or lethargic Motor Exam: strength 5/5 throughout; Negative for general weakness or strength abnormal Psych mental status grossly normal and thought process normal Appearance: Negative for unkempt Attitude: No agitated Mood & Affect: Negative for depressed, anxious or tearful Skin no wounds General Skin Exam: Negative for jaundice or pallor Lesions: no lesions Rashes: no rashes Trauma: Negative for abrasion Nails: Negative for discolored MDM MDM MDM Narrative Medical decision making narrative: 73-year-old male with loose stools since Sunday night. Is been intermittent. He thought it was getting better and then he had it again today. Does not sound like C. difficile. He is not having copious diarrhea. He is having less than 5 episodes a day. He said no recent hospitalization nor is he been on antibiotics. He is not having any abdominal pain his abdominal exam is benign. Screening labs to be obtained. Will send C. difficile if he has a bowel movement but clinically I do not think this is C. difficile. I do not think he needs any imaging because he is completely nontender abdominal exam and is not complaining of any pain. Currently does not need any IV fluids. I do not suspect he will need admission unless there is a surprise on his labs. Repeat exam at 10:36 AM patient doing well. We went over his test results. He had no bowel movement here so we have not had a sample to send for culture. Patient be discharged home. Plenty of fluids. Imodium. Follow-up if not improving. Return if worse. Lab Data Attestation: I reviewed the patient's lab results. Lab results narrative: CBC shows a white count of 5.9. H&H 12.7 and 40 and at patient's baseline anemia. Platelets 282. Electrolytes show a gap of 8. BUN 25 creatinine 1.2 consistent with mild dehydration with diarrhea. Glucose 238. C. difficile was ordered the patient has not had a bowel movement since has been here. Clinically I do not think it is C. difficile. There is no stool currently sent to the lab. Labs: Laboratory Results - last 24 hr 02/16/24 07:40 WBC 5.9 RBC 4.97 Hgb 12.7 L Hct 40.9 MCV 82.3 MCH 25.6 L MCHC 31.1 L RDW Std Deviation 45.3 H RDW Coeff of [place] 15.2 H Plt Count 282 MPV 10.1 Immature Gran % (Auto) 0.200 Neut % (Auto) 65.2 Lymph % (Auto) 22.2 [place] % (Auto) 8.0 Eos % (Auto) 3.4 Baso % (Auto) 1.0 Absolute Neuts (auto) 3.8 Absolute Lymphs (auto) 1.31 Nucleated RBC % 0 Sodium 136 Potassium 4.1 Chloride 107 Carbon Dioxide 21.0 Anion Gap 8 BUN 25 H Creatinine 1.27 Estim Creat Clear Calc 59.33 Est GFR (MDRD) Af Amer 71 Est GFR (MDRD) Non-Af 59 L BUN/Creatinine Ratio 19.7 Glucose 238 H Calcium 9.2 Discharge Plan Triage Chief Complaint: Diarrhea ED Provider: Randolph Young Dx/Rx/DC Orders Clinical Impression: Diarrhea, Acute dehydration, History of atrial fibrillation, Chronic anticoagulation, History of diabetes mellitus Instructions: ED Dehydration (Adult), ED Diarrhea, Viral (Adult) Prescriptions: No Action lisinopril 5 mg tablet 5 mg PO DAILY glipizide 10 mg tablet 10 mg PO DAILY pravastatin 10 MG tablet 1 tab PO QHS Patient Comments: TAKE 1 TABLET EVERY DAY AT BEDTIME metformin 1,000 MG tablet 1 tab PO BID Patient Comments: Take one tablet twice a day. glipizide 5 mg tablet 5 mg PO DAILY Trulicity 0.75 mg/0.5 mL pen injector 0.75 mg subcut QWEEK lisinopril 10 mg tablet 10 mg PO DAILY omeprazole 20 mg capsule,delayed release(DR/EC) 20 mg PO DAILY Eliquis 5 mg tablet 5 mg PO BID Qty: 60 11RF diltiazem HCl 120 mg capsule,extended release 24hr 120 mg PO DAILY Qty: 90 3RF Primary Care Provider: [facility]esha [facility] Referrals: [place] [Primary Care Provider] - 3-5 Days if not improving Activity Restrictions/Additional Instructions: Plenty of fluids and rest you are mildly dehydrated. If you continue to have diarrhea you can use Imodium. Use 1 pill after every diarrhea bowel movement. Follow-up with your doctor if not improving or return Emergency Department if you are feeling worse. Print Language: Portuguese Disposition Disposition: Home, Self Care
[2024-02-16] MEDS: Loperamide 2 MG Capsule 4 MG PO (07:44)
[2024-02-16 07:59] LABS: Absolute Lymphocyte Count 1.31 X10^3/uL (0.83-4.51); Absolute Neutrophil Count 3.8 X10^3/uL (2.0-7.7); Basophil# 0.06 X10^3/uL; Eosinophils% 3.4 % (0-5); Hematocrit 40.9 % (40-54); Hemoglobin 12.7 g/dL (13.0-16.5); Lymphocyte # 1.31 X10^3/ul (0.83-4.51); Lymphocyte % 22.2 % (19-41); Mean Corp Hgb Conc 31.1 g/dL (32-36); Mean Corpuscular Hgb 25.6 pg (27.0-32.0); Mean Corpuscular Volume 82.3 fL (80-94); Mean Platelet Vol. 10.1 fl (6.2-12.0); Monocyte# 0.47 X10^3/uL; NRBC Flagged by Analyzer 0 % (0-5); Neutrophil # 3.84 X10^3/uL (2.7-7.7); Neutrophil % 65.2 % (47-70); Platelet Count 282 K/mm3 (150-450); RBC Distribution Width CV 15.2 % (11.6-14.6); RBC Distribution Width SD 45.3 fl (35.1-43.9); Red Blood Count 4.97 M/mm3 (4.6-6.2); White Blood Count 5.9 K/mm3 (4.4-11.0)
[2024-02-16 08:05] LABS: Anion Gap 8 (5-15); BUN 25 mg/dL (7-18); BUN/Creat Ratio 19.7 RATIO (10-20); Calcium,Total 9.2 mg/dL (8.5-10.1); Chloride 107 mmol/L (98-107); Creatinine, Serum 1.27 mg/dL (0.70-1.30); EST Glomerular Filtration Rate 59 mL/min (>60); Est Glom Filt Rate - Afr Amer 71 mL/min (>60); Estimated Creatinine Clearance 59.33 ml/min; Glucose 238 mg/dL (74-106); Potassium 4.1 mmol/L (3.5-5.1); Sodium Level 136 mmol/L (136-145)
[2024-02-16 09:09] VITALS: BP 133/83; PULSE 77; RESP 18
[2024-02-16 10:45] VITALS: BP 133/83; PULSE 72; RESP 18; TEMP 36.8; O2SAT 100
== END 2024-02-16 10:45 | disposition home or self-care (01) ==
PROVIDERS: Emergency Provider Emergency Medicine; Visit Provider Emergency Medicine
DX: R19.7 Diarrhea, unspecified (principal); I48.91 Unspecified atrial fibrillation; E11.9 Type 2 diabetes mellitus without complications; E86.0 Dehydration; Z79.01 Long term (current) use of anticoagulants
CPT/HCPCS: 80048; 85025; 99283; A4216

== ENCOUNTER → 2024-03-11 | Outpatient (CLI) | payer MEDICARE, MEDICAID, SELFPAY ==
[2024-03-11 12:21] LABS: Basophil# 0.06 X10^3/uL; Basophil% 1.3 % (0-1); Eosinophil# 0.13 X10^3/uL; Eosinophils% 2.7 % (0-5); Hematocrit 41.3 % (40-54); Hemoglobin 12.8 g/dL (13.0-16.5); Lymphocyte % 23.1 % (19-41); Mean Corpuscular Hgb 25.5 pg (27.0-32.0); Mean Corpuscular Volume 82.4 fL (80-94); Mean Platelet Vol. 10.6 fl (6.2-12.0); Monocyte# 0.46 X10^3/uL; Monocyte% 9.6 % (0-10); NRBC Flagged by Analyzer 0 % (0-5); Neutrophil # 3.02 X10^3/uL (2.7-7.7); Neutrophil % 63.3 % (47-70); Platelet Count 287 K/mm3 (150-450); RBC Distribution Width CV 15.4 % (11.6-14.6); RBC Distribution Width SD 46.5 fl (35.1-43.9); Red Blood Count 5.01 M/mm3 (4.6-6.2); White Blood Count 4.8 K/mm3 (4.4-11.0)
[2024-03-11 12:32] LABS: ALB/GLOB Ratio 0.9 RATIO (0.9-2.4); AST(SGOT) 20 U/L (15-37); Alanine Aminotransfer ALT/SGPT 25 U/L (16-61); Albumin, Serum 3.6 g/dL (3.2-5.0); Alkaline Phosphatase 73 U/L (45-117); Anion Gap 8 (5-15); BUN 15 mg/dL (7-18); BUN/Creat Ratio 13.3 RATIO (10-20); Calcium,Total 9.5 mg/dL (8.5-10.1); Chloride 105 mmol/L (98-107); Creatinine, Serum 1.13 mg/dL (0.70-1.30); EST Glomerular Filtration Rate 67 mL/min (>60); Est Glom Filt Rate - Afr Amer 81 mL/min (>60); Globulin 3.8 g/dL (2.2-4.2); Glucose 120 mg/dL (74-106); Potassium 4.1 mmol/L (3.5-5.1); Protein, Total 7.4 g/dL (6.4-8.2); Sodium Level 139 mmol/L (136-145)
[2024-03-11 12:42] LABS: Microalbumin,Random Urine 5.4 mg/L (NO RANGE EST.)
[2024-03-11 13:13] LABS: Hemoglobin A1c 6.3 % (3.8-5.6)
== END | disposition home or self-care (01) ==
LOC: LABSPEC 08:12
PROVIDERS: Visit Provider Nurse Practitioner Family
DX: E11.9 Type 2 diabetes mellitus without complications (principal)
CPT/HCPCS: 36415; 80053; 82043; 83036; 85025

== ENCOUNTER → 2024-04-10 | Outpatient (CLI) | payer MEDICARE, MEDICAID, SELFPAY ==
--- NOTE | 2024-04-10 09:19 | RAD_ITS ---
STUDY: X-RAY - ABDOMEN/PELVIS REASON FOR EXAM: Male, 74 years old. ABD PAIN TECHNIQUE: Single AP view of the abdomen / pelvis. COMPARISON: None. FINDINGS: Normal visualized lung bases. There is an unremarkable bowel gas pattern. Multiple calcific opacities overlying the right kidney consistent with right renal stones. No definite ureteral stone. Normal soft tissue structures. Left femoral neck compression screw. RAD/[employer] Decub and/or Erect IMPRESSION: Multiple right renal stones. Electronically Signed: Jamil Calzada MD at 17:06 EDT ,
== END | disposition home or self-care (01) ==
LOC: RAD 09:13
PROVIDERS: Referring Provider Family Medicine; Visit Provider Family Medicine
DX: R10.9 Unspecified abdominal pain (principal)
CPT/HCPCS: 74019

== ENCOUNTER 2024-04-29 05:29 | Day surgery (SDC) | payer MEDICARE, MEDICAID, SELFPAY ==
[2024-04-29] VITALS (7 sets, daily range): BP systolic 120–127; BP diastolic 69–76; PULSE 64–85; RESP 16; TEMP 36.2–36.6; O2SAT 97–100; BMI 23.6
--- NOTE | 2024-04-29 | IMM_PTH ---
PATIENT: TAHMINA DURBIN LOC: EN U#:[id number] AGE/SX: 74/M ROOM: RE04/29/[address]: Dr. Jcarlos Yeh DO : 1950 BED: DIS: 04/29/2024 SPEC #: [id number] RECD: 04/30/24 12:11 STATUS: AV RELeticia #: [id number] FLIP: 04/29/24 00:[address]: Jcarlos Yeh DEPT: IMMUNOHISTOCHEMISTRY RECD BY: Usman Luke ENTERED: 04/30/24 12:12 SP TYPE: IMMUNO OTHR DR: Dipika Wheeler, [facility], CUSTOMER DEVELOPMENT MANAGER-C Tissues: Esophagus, NOS Procedures: P53 (initial) KI-67 (add) PHYSICIAN & INSTITUTION [place] [id number] SPECIMEN INFORMATION: Tissue Source: Distal esophagus Clinical Info: GERD, Clark's esophagus Specimen Number: [id number] CPT code: 35595,28843 METHODOLOGY: Deparaffinized sections of prefer/formalin-fixed tissue or PAP/DQ stained slides are incubated with monoclonal/polyclonal antibodies/oligonucleotide probes. Localization is made via biotin free immunoperoxidase method. Appropriate controls are performed and reacted as expected. Results on target cell population are indicated in the following table: RESULTS: ANTIBODY / CLONE RESULT P53 (DO-7) negative (null pattern) Ki-67 (30-9) positive, low These tests were developed and their performance characteristics determined by [facility]. They may not have been cleared or approved by the U.S. Food and Drug Administration. The FDA has determined that such clearance or approval is not necessary. The above immunohistochemical/dualISH markers are ordered and reviewed by the Pathologist. INTERPRETATION: Distal esophagus, biopsy: Negative for dysplasia. GHISLAINE/ 05/01/2024
[2024-04-29] MEDS: Lactated Ringers 1,000 ML 15 ML IV (06:05)
--- NOTE | 2024-04-29 06:30 | EGD_PTH ---
PATIENT: TAHMINA DURBIN LOC: [place] U#:[id number] AGE/SX: 74/M ROOM: RE04/29/[address]: Dr. Jcarlos Yeh DO : 1950 BED: DIS: 04/29/2024 SPEC #: [id number] RECD: 04/29/24 09:23 STATUS: AV RUDOLPH #: [id number] FLIP: 04/29/24 06:[address]: Jcarlos Yeh DEPT: SURGICAL PATHOLOGY RECD BY: Willem Rich ENTERED: 04/29/24 10:59 SP TYPE: EGD BIOPSY OTHR DR: Dipika Wheeler, [facility], MODELING INSTRUCTOR-C Tissues: Esophagus, NOS Procedures: Special Stain Group I Surgery Specimen Level IV Alcian Blue/PAS (control) HEADER OPERATION: EGD with biopsy PRE-OP DIAGNOSIS: GERD, art's esophagus TISSUE SUBMITTED: Distal esophagus MICROSCOPIC DIAGNOSIS Distal esophagus, biopsy: Fragments of gastroesophageal mucosa with focal intestinal metaplasia (goblet cell metaplasia), consistent with Art's esophagus. Chronic inflammation. Negative for dysplasia. See comment. GHISLAINEEduardo 04/30/2024 COMMENT Immunohistochemistry ([id number]) for P53 and Ki-67 will be performed and results will be reported separately. Alcian blue/PAS stain with matched control is used in the evaluation of the specimen. MICROSCOPIC DESCRIPTION Slides are reviewed. GROSS DESCRIPTION Received in fixative is one container labeled with the patient's name and designated Distal esophagus. The specimen consists of multiple irregular fragments of light hinton soft tissue that in aggregate measure 2.0 x 0.5 x 0.1 cm. The specimen is totally submitted in one cassette. 04/29/2024 TC:5 CPT:71694,24196
--- NOTE | 2024-04-29 06:39 | PCM.PRE.AN2 ---
ASA Classification* ASA Classification ASA Classification: 3 Assessment & Plan Anesthesia* Anesthesia Assessment Anesthesia Assessment: Discussed sedation and/or anesthesia options, risks, benefits, and alternatives with patient/parents/legal guardian/POA. Questions invited. The patient/parents/legal guardian/POA seems to understand and agrees to proceed with anesthesia plan. Reviewed the physical assessment, medical history, allergy history and patient home medications list prior to surgery/procedure/anesthetic and documented any changes. Performed airway and anesthesia risk assessments. Anesthesia Type Anesthesia Type: MAC History Source History Obtained from:: Patient and Chart Anesthesia Focused Assessment* Temperature: 97.2 F Pulse Rate: 64 Blood Pressure: 127/71 Respiratory Rate: 16 Pulse Ox: 100 Oxygen Delivery Method: Room Air Airway Assessment Mouth opens: >3 cm Mallampati Score: II Focused Labs Anesthesia Preop lab: CBC WBC 4.8 K/mm3 (4.4-11.0) 03/11/24 08:13 RBC 5.01 M/mm3 (4.6-6.2) 03/11/24 08:13 Hgb 12.8 g/dL (13.0-16.5) L 03/11/24 08:13 Hct 41.3 % (40-54) 03/11/24 08:13 Plt Count 287 K/mm3 (150-450) 03/11/24 08:13 CHEMISTRY Potassium 4.1 mmol/L (3.5-5.1) 03/11/24 08:13 Sodium 139 mmol/L (136-145) 03/11/24 08:13 Magnesium 1.7 mg/dL (1.6-2.6) 08/19/23 01:58 Phosphorus 3.1 mg/dL (2.5-4.9) 08/19/23 05:10 BUN 15 mg/dL (7-18) 03/11/24 08:13 Creatinine 1.13 mg/dL (0.70-1.30) 03/11/24 08:13 Glucose 120 mg/dL (74-106) H 03/11/24 08:13 POC Glucose 172 mg/dL (74-106) H 08/20/23 11:21 TSH 0.85 uIU/mL (0.358-3.74) 08/19/23 05:10 COAG PT 13.4 SECONDS (11.7-14.9) 09/05/19 00:25 Pre-Assessment Diagnosis/Proposed Procedure Planned Operative Procedure(s): EGD Anesthesia History 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 When Was Last Pacemaker Check QUESTION #4 FULL TEXT: You/Your Family Experience fever (hyperthermia) with Anesthesia Last Oral Intake Last Oral intake: Last Oral Intake NPO since 00:00 04/29/24 06:06 Meds taken in AM with sips of No 04/29/24 06:06 water? 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 Female No 04/24/24 11:50 HX of Motion Sickness No 04/24/24 11:50 HX of N/V After Surgery No 04/24/24 11:50 Non-Smoker Yes 04/24/24 11:50 Duration of Surgery greater No 04/24/24 11:50 than 60 minutes Number of Risk Factors 1 04/24/24 11:50 PONV Score Low Risk 04/24/24 11:50 Height & Weight Height & Weight: Anesthesia: Height & Weight Height 6 ft 2 in 04/29/24 06:06 Weight: 83.3 kg 04/29/24 06:06 Body Mass Index (BMI) 23.6 04/29/24 06:06 Respiratory Assessment Respiratory Assessment - professor of art history: Respiratory Tract Infection Hx - professor of art history Hx Respiratory Tract Infection No 04/24/24 11:50 STOP Sleep Apnea STOP Sleep Apnea - professor of art history: STOP Sleep Apnea - professor of art history Hx Hypertension Yes: CONTROLLED WITH MEDS 04/24/24 11:50 Hx Sleep Apnea No 04/24/24 11:50 CPAP BIPAP Do you snore loudly (louder No 04/24/24 11:50 than talking or can be heard Do you often feel tired/ No 04/24/24 11:50 fatigued/ sleepy during daytime? Has anyone observed you stop No 04/24/24 11:50 breathing during sleep? STOP Results Negative 04/24/24 11:50 QUESTION #5 FULL TEXT : Do you snore loudly (louder than talking or can be heard through closed doors)? 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 Specify any problems Hx of Preganancy in last 3 N/A 04/24/24 11:50 Months Nurse Filling Out Transfusion [email or web address] 04/24/24 11:50 & Questions: Date: 04/24/24 04/24/24 11:50 Time: 11:54 04/24/24 11:50 Patient unable to answer at this time (ie. 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: /Reproductive Hx- professor of art history Hx Now Gestational Age (in weeks): EDC: Hx Hx Para Hx Section SAB No 04/24/24 11:50 Active Medications Active Medications: Current Medications Generic Name Dose Route Start Last Admin Trade Name Freq PRN Reason Stop Dose Admin Lactated Ringer's 1,000 mls @ 15 mls/hr 04/29/24 05:45 04/29/24 06:05 IV 15 mls/hr .Q48H MONICA Administration PFSH Medical History Hard of hearing Cardiology follow-up encounter Wears glasses Cancer Diabetes Easy bruising Gastric reflux Non-smoker History of echocardiogram History of stress test History of CHF (congestive heart failure) History of atrial fibrillation HTN (hypertension) Barretts esophagus Dysphagia Type 2 diabetes mellitus without complication History of excision of malignant tumor Paroxysmal atrial fibrillation Hyperlipidemia Atrial fibrillation with RVR Home Medications ?Medication ?Instructions ?Recorded ?Last Taken ?Type metformin 1,000 mg tablet 1 tab PO BID dm 09/05/19 04/28/24 History pravastatin 10 mg tablet 1 tab PO QHS cholesterol 09/05/19 04/28/24 History apixaban 5 mg tablet (Eliquis) 5 mg PO BID #60 tabs 11/26/23 04/25/24 Rx dulaglutide 0.75 mg/0.5 mL 0.75 mg subcut QWEEK 12/21/23 04/21/24 History subcutaneous pen injector (Trulicity) glipizide 5 mg tablet 5 mg PO DAILY 12/21/23 04/28/24 History lisinopril 10 mg tablet 10 mg PO QHS 12/21/23 04/28/24 History omeprazole 20 mg capsule,delayed 20 mg PO DAILY #90 caps 04/07/24 04/28/24 Rx release diltiazem HCl 120 mg 120 mg PO QHS 04/24/24 04/28/24 History capsule,extended release 24 hr Allergy/AdvReac Type Severity Reaction Status Date / Time No Known Allergies Allergy Verified 04/24/24 11:44 Family History Father CAD (coronary artery disease) Myocardial infarction Mother Emphysema lung Myocardial infarction CAD (coronary artery disease) Surgical History History of tonsillectomy History of hip surgery Social History Smoking Status: Never smoker alcohol intake: never substance use type: does not use caffeine: Yes Type: coffee Number of servings: 2 Review of Systems (Anesthesia) ROS Narrative System reviewed and no additional complaints, except as documented.
--- NOTE | 2024-04-29 06:40 | PCM.HP.BLA ---
History and Physical Date of Admission: 04/29/24 73 M who presents to the office today for *BGI established 12.15.22 with history of GERD, Clark?s esophagus +. Most recently seen by Dr. Lantigua through [facility] with EGD . BM pattern typically normal but can have loose stools that he feels are dairy triggered. Start/continue omeprazole. ? EGD 04.24.23 long-segment Clark?s esophagus; esophageal polypoid; medium hiatal hernia. OV 08.02.23 reports he is doing well without reflux difficulty with use of omeprazole. BM vary between normal and loose stools; previously told he was lactose intolerant and is not following a lactose free diet, previously used lactaid which he found helpful and feels he should probably restart this as he has milk products every day. ROS Const Constitutional: No fatigue, fever(s), headache(s), weight change, sleep problems, abnormal sleep pattern or change in appetite ENT ENT: No headache(s), difficulty swallowing, hoarseness or sore throat Resp Respiratory: No cough, hemoptysis or shortness of breath Cardio Cardiology: No chest pain at rest or generalized swelling Gastro GI: Positive for diarrhea; No abdominal pain, belching, bloating, change in bowel habits, change in stool character, coffee ground emesis, constipation, cramping, heartburn, difficulty swallowing, feeling full early, excessive flatus, incontinent of stools, Vomiting blood/hematemesis, Blood in stool, loose stools, Black,tarry stools, nausea/dyspepsia, pain with swallowing or vomiting Musc Musculoskeletal: No joint pain, back pain, joint swelling, numbness or tingling Skin Skin: No itchy eyes or rash Neuro Neurology: No behavioral changes, confusion, headache(s), numbness or tingling Psych Psychiatric: No abnormal sleep pattern, No anxiety, No behavioral changes, No change in appetite, No confusion and No depression Endo Endocrine: No cold intolerance, fatigue, heat intolerance, increased thirst/drinking or weight change Aller/Imm Allergy/Immunologic: No food intolerance or itchy eyes Roosevelt/Lymp Hematologic/Lymphatic: Positive for easy bruising; No easy bleeding or enlarged lymph nodes Exam Const General: cooperative and comfortable Nutritional Appearance: average body habitus Orientation: alert, awake and oriented x3 Eyes Sclera: sclerae normal Resp Effort & Inspection: normal respiratory effort GI Inspection: normal to inspection Quality Reporting Tobacco Screening ([facility] 138) Smoking Status: Never smoker Assessment and Plan Assessment and Plan (1) GERD (gastroesophageal reflux disease): Status: Chronic Qualifiers: Esophagitis presence: without esophagitis Qualified Code(s): K21.9 - Gastro-esophageal reflux disease without esophagitis Plan: 72 yr old male with GERD and Clark's esophagus. Continue omeprazole. Schedule EGD to reeval Clark's. Rx for lactase in case his insurance will cover it. Due for screening colonoscopy in 11/2024. (2) Barretts esophagus: Status: Chronic Qualifiers: Clark's esophagus type: without dysplasia Qualified Code(s): K22.70 - Clark's esophagus without dysplasia I have examined the patient and the H&P has been reviewed. There are no clinical changes since date of exam.
--- NOTE | 2024-04-29 06:41 | PCM.PRE.AN2 ---
ASA Classification* ASA Classification ASA Classification: 3 Assessment & Plan Anesthesia* Anesthesia Assessment Anesthesia Assessment: Discussed sedation and/or anesthesia options, risks, benefits, and alternatives with patient/parents/legal guardian/POA. Questions invited. The patient/parents/legal guardian/POA seems to understand and agrees to proceed with anesthesia plan. Reviewed the physical assessment, medical history, allergy history and patient home medications list prior to surgery/procedure/anesthetic and documented any changes. Performed airway and anesthesia risk assessments. Anesthesia Type Anesthesia Type: MAC History Source History Obtained from:: Patient and Chart Anesthesia Focused Assessment* Temperature: 97.2 F Pulse Rate: 64 Blood Pressure: 127/71 Respiratory Rate: 16 Pulse Ox: 100 Airway Assessment Mouth opens: >3 cm Mallampati Score: II Focused Labs Anesthesia Preop lab: CBC WBC 4.8 K/mm3 (4.4-11.0) 03/11/24 08:13 RBC 5.01 M/mm3 (4.6-6.2) 03/11/24 08:13 Hgb 12.8 g/dL (13.0-16.5) L 03/11/24 08:13 Hct 41.3 % (40-54) 03/11/24 08:13 Plt Count 287 K/mm3 (150-450) 03/11/24 08:13 CHEMISTRY Potassium 4.1 mmol/L (3.5-5.1) 03/11/24 08:13 Sodium 139 mmol/L (136-145) 03/11/24 08:13 Magnesium 1.7 mg/dL (1.6-2.6) 08/19/23 01:58 Phosphorus 3.1 mg/dL (2.5-4.9) 08/19/23 05:10 BUN 15 mg/dL (7-18) 03/11/24 08:13 Creatinine 1.13 mg/dL (0.70-1.30) 03/11/24 08:13 Glucose 120 mg/dL (74-106) H 03/11/24 08:13 POC Glucose 172 mg/dL (74-106) H 08/20/23 11:21 TSH 0.85 uIU/mL (0.358-3.74) 08/19/23 05:10 COAG PT 13.4 SECONDS (11.7-14.9) 09/05/19 00:25 Pre-Assessment Diagnosis/Proposed Procedure Planned Operative Procedure(s): EGD Anesthesia History Anesthesia History - track layer: Anesthesia History - track layer Hx Hospitalization No 04/24/24 11:50 Any Problems With Anesthesia No 04/24/24 11:50 Cholinesterase deficiency No 04/24/24 11:50 You/Your Family Experience No 04/24/24 11:50 fever (hyperthermia) with Relationship Recent Exposure to Contagious No 04/24/23 11:20 Disease Does patient have nerve No 04/24/24 11:50 stimulator Patient instructed to have device shut off --Does patient have Pacemaker No 04/29/24 06:06 or ICD? When Was Last Pacemaker Check QUESTION #4 FULL TEXT: You/Your Family Experience fever (hyperthermia) with Anesthesia Last Oral Intake Last Oral intake: Last Oral Intake NPO since 00:00 04/29/24 06:06 Meds taken in AM with sips of No 04/29/24 06:06 water? Meds patient instructed to take am of surgery PONV PONV - track layer: PONV - track layer Female No 04/24/24 11:50 HX of Motion Sickness No 04/24/24 11:50 HX of N/V After Surgery No 04/24/24 11:50 Non-Smoker Yes 04/24/24 11:50 Duration of Surgery greater No 04/24/24 11:50 than 60 minutes Number of Risk Factors 1 04/24/24 11:50 PONV Score Low Risk 04/24/24 11:50 Height & Weight Height & Weight: Anesthesia: Height & Weight Height 6 ft 2 in 04/29/24 06:06 Weight: 83.3 kg 04/29/24 06:06 Body Mass Index (BMI) 23.6 04/29/24 06:06 Respiratory Assessment Respiratory Assessment - track layer: Respiratory Tract Infection Hx - track layer Hx Respiratory Tract Infection No 04/24/24 11:50 STOP Sleep Apnea STOP Sleep Apnea - track layer: STOP Sleep Apnea - track layer Hx Hypertension Yes: CONTROLLED WITH MEDS 04/24/24 11:50 Hx Sleep Apnea No 04/24/24 11:50 CPAP BIPAP Do you snore loudly (louder No 04/24/24 11:50 than talking or can be heard Do you often feel tired/ No 04/24/24 11:50 fatigued/ sleepy during daytime? Has anyone observed you stop No 04/24/24 11:50 breathing during sleep? STOP Results Negative 04/24/24 11:50 QUESTION #5 FULL TEXT : Do you snore loudly (louder than talking or can be heard through closed doors)? 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 Specify any problems Hx of Preganancy in last 3 N/A 04/24/24 11:50 Months Nurse Filling Out Transfusion [email or web address] 04/24/24 11:50 & Questions: Date: 04/24/24 04/24/24 11:50 Time: 11:54 04/24/24 11:50 Patient unable to answer at this time (ie. confused, unrespo /Reproduction History /Reproductive History - track layer: /Reproductive Hx- track layer Hx Now Gestational Age (in weeks): EDC: Hx Hx Para Hx Section SAB No 04/24/24 11:50 Active Medications Active Medications: Current Medications Generic Name Dose Route Start Last Admin Trade Name Freq PRN Reason Stop Dose Admin Lactated Ringer's 1,000 mls @ 15 mls/hr 04/29/24 05:45 04/29/24 06:05 IV 15 mls/hr .Q48H MONICA Administration PFSH Medical History Hard of hearing Cardiology follow-up encounter Wears glasses Cancer Diabetes Easy bruising Gastric reflux Non-smoker History of echocardiogram History of stress test History of CHF (congestive heart failure) History of atrial fibrillation HTN (hypertension) Barretts esophagus Dysphagia Type 2 diabetes mellitus without complication History of excision of malignant tumor Paroxysmal atrial fibrillation Hyperlipidemia Atrial fibrillation with RVR Home Medications ?Medication ?Instructions ?Recorded ?Last Taken ?Type metformin 1,000 mg tablet 1 tab PO BID dm 09/05/19 04/28/24 History pravastatin 10 mg tablet 1 tab PO QHS cholesterol 09/05/19 04/28/24 History apixaban 5 mg tablet (Eliquis) 5 mg PO BID #60 tabs 11/26/23 04/25/24 Rx dulaglutide 0.75 mg/0.5 mL 0.75 mg subcut QWEEK 12/21/23 04/21/24 History subcutaneous pen injector (Trulicity) glipizide 5 mg tablet 5 mg PO DAILY 12/21/23 04/28/24 History lisinopril 10 mg tablet 10 mg PO QHS 12/21/23 04/28/24 History omeprazole 20 mg capsule,delayed 20 mg PO DAILY #90 caps 04/07/24 04/28/24 Rx release diltiazem HCl 120 mg 120 mg PO QHS 04/24/24 04/28/24 History capsule,extended release 24 hr Allergy/AdvReac Type Severity Reaction Status Date / Time No Known Allergies Allergy Verified 04/24/24 11:44 Family History Father CAD (coronary artery disease) Myocardial infarction Mother Emphysema lung Myocardial infarction CAD (coronary artery disease) Surgical History History of tonsillectomy History of hip surgery Social History Smoking Status: Never smoker alcohol intake: never substance use type: does not use caffeine: Yes Type: coffee Number of servings: 2 Review of Systems (Anesthesia) ROS Narrative System reviewed and no additional complaints, except as documented.
--- NOTE | 2024-04-29 07:01 | OP.EGD_ITS ---
Patient Name: Luis Yates Procedure Date: 04/29/2024 6:14 AM Date of : 1950 Age: 74 Procedure: Upper GI endoscopy Indications: Clark's esophagus Providers: Jcarlos Yeh DO Medicines: Monitored Anesthesia Care Patient Profile: This is a 74 year old male. Refer to note in patient chart for documentation of history and physical. Patient has symptoms of chronic heartburn. His most recent EGD for Clark's biopsy was within the past three years. Complications: No immediate complications. Procedure: Pre-Anesthesia Assessment: - Prior to the procedure, a History and Physical was performed, and patient medications and allergies were reviewed. The patient is competent. The risks and benefits of the procedure and the sedation options and risks were discussed with the patient. All questions were answered and informed consent was obtained. Patient identification and proposed procedure were verified by the physician in the pre-procedure area. Mental Status Examination: alert and oriented. Airway Examination: normal oropharyngeal airway and neck mobility. Respiratory Examination: clear to auscultation. CV Examination: normal. Prophylactic Antibiotics: The patient does not require prophylactic antibiotics. Prior Anticoagulants: The patient has taken no anticoagulant or antiplatelet agents. ASA Grade Assessment: II - A patient with mild systemic disease. After reviewing the risks and benefits, the patient was deemed in satisfactory condition to undergo the procedure. The anesthesia plan was to use monitored anesthesia care (MAC). Immediately prior to administration of medications, the patient was re-assessed for adequacy to receive sedatives. The heart rate, respiratory rate, oxygen saturations, blood pressure, adequacy of pulmonary ventilation, and response to care were monitored throughout the procedure. The physical status of the patient was re-assessed after the procedure. After obtaining informed consent, the endoscope was passed under direct vision. Throughout the procedure, the patient's blood pressure, pulse, and oxygen saturations were monitored continuously. The gastroscope was introduced through the mouth, and advanced to the second part of duodenum. The upper GI endoscopy was accomplished without difficulty. The patient tolerated the procedure well. Scope In: 6:48:38 AM Scope Out: 6:53:18 AM Total Procedure Duration Time 0 hours 4 minutes 40 seconds Findings: There were esophageal mucosal changes secondary to established long-segment Clark's disease present in the middle third of the esophagus and in the lower third of the esophagus. The maximum longitudinal extent of these mucosal changes was 7 cm in length. Mucosa was biopsied with a cold forceps for histology in a targeted manner at intervals of 1 cm in the middle third of the esophagus and in the lower third of the esophagus. One specimen bottle was sent to pathology. Verification of patient identification for the specimen was done. Estimated blood loss was minimal. A hiatal hernia was present. No other significant abnormalities were identified in a careful examination of the stomach. No gross lesions were noted in the first portion of the duodenum. Impression: - Esophageal mucosal changes secondary to established long-segment Clark's disease. Biopsied. - Hiatal hernia. - No gross lesions in the first portion of the duodenum. Recommendation: - Discharge patient to home. - Resume previous diet. - Continue present medications. - Await pathology results. - Repeat upper endoscopy in 1 year for surveillance. Procedure Code(s): --- Professional --- 55215, Esophagogastroduodenoscopy, flexible, transoral; with biopsy, single or multiple CPT copyright 2021 [employer]. All rights reserved. The codes documented in this report are preliminary and upon solar sales advisor review may be revised to meet current compliance requirements. Jcarlos Yeh DO 04/29/2024 7:00:09 AM This report has been signed electronically. Number of Addenda: 0 Note Initiated On: 04/29/2024 6:14 AM
--- NOTE | 2024-04-29 07:04 | PCM.POST.ANE ---
Anesthesia: Postop Eval I Current Vital Signs Temperature: 97.9 F Pulse Rate: 85 Blood Pressure: 124/71 Respiratory Rate: 16 Pulse Ox: 98 Oxygen Delivery Method: Room Air Assessment Airway patent: Yes Spontaneous unlabored respirations: Yes Mental status: Asleep nausea: No Vomiting: No Anesthesia Complication: No Fluid Hydration Crystalloid volume administer (ml): 400 Total IV fluid infused: 400 Progress Note Anesthesia document: Postop Eval 1 completed: Yes
--- NOTE | 2024-04-29 07:51 | PCM.POSTANE2 ---
Anesthesia Postop Eval I Sum Postop Eval Completion status Anesthesia document: Postop Eval 1 completed: Yes Anesthesia Postop Eval I Summary Anesthesia Postop Eval I Summary: Anesthesia Postop Eval I: Assessment Summary Airway patent Yes 04/29/24 07:05 [email or web address] Spontaneous unlabored Yes 04/29/24 07:05 [email or web address] respirations Mental status Asleep 04/29/24 07:05 [email or web address] nausea No 04/29/24 07:05 [email or web address] Vomiting No 04/29/24 07:05 [email or web address] Anesthesia Postop Eval I: Fluid Summary Crystalloid volume administer 400 04/29/24 07:05 [email or web address] (ml) Colloids volume administered ( ml) Blood Product volume administered (ml) Total IV fluid infused 400 04/29/24 07:05 [email or web address] Anesthesia Postop Eval I: Summary Notes Anesthesia Complication No 04/29/24 07:05 [email or web address] Anesthesia Complication Comment: Post-operative progress note Anesthesia: Postop Eval II Evaluation Mental status: Awake Pain Level: 0 nausea: No Vomiting: No
[2024-04-29 07:58] LABS: Bedside Glucose 125 mg/dL (74-106)
== END 2024-04-29 07:51 | disposition home or self-care (01) ==
LOC: EN 05:31 → AC 05:34
PROVIDERS: PCP Nurse Practitioner Family; Referring Provider Nurse Practitioner Family; Visit Provider Internal Medicine Gastroenterology
PROC: 0DJ08ZZ Inspection of Upper Intestinal Tract, Via Natural or Artificial Opening Endoscopic (ICD-10-PCS; CPT 43235; principal; 2024-04-29 06:25)
DX: K22.70 Barrett's esophagus without dysplasia (principal); I48.0 Paroxysmal atrial fibrillation; E11.9 Type 2 diabetes mellitus without complications; K44.9 Diaphragmatic hernia without obstruction or gangrene; K21.00 Gastro-esophageal reflux disease with esophagitis, without bleeding; I10 Essential (primary) hypertension; E78.5 Hyperlipidemia, unspecified; H91.90 Unspecified hearing loss, unspecified ear; Z79.899 Other long term (current) drug therapy; Z79.84 Long term (current) use of oral hypoglycemic drugs; Z79.01 Long term (current) use of anticoagulants
CPT/HCPCS: 43239; 82962; 88305; 88312; 88341; 88342; J7120; J2405

== ENCOUNTER → 2024-05-15 | Outpatient (CLI) | payer MEDICARE, MEDICAID, SELFPAY ==
--- NOTE | 2024-05-15 09:15 | US_ITS ---
STUDY: ABDOMINAL ULTRASOUND - RIGHT UPPER QUADRANT REASON FOR VISIT: Male, 74 years old GALL STONES TECHNIQUE: Ultrasound evaluation of the right upper quadrant was performed with real-time and static scruggs-scale imaging. TECHNICAL QUALITY: Adequate. COMPARISON: None. FINDINGS: Liver: The liver measures 16.9 cm. There is increased echogenicity consistent with fatty infiltration. The bile ducts are within normal limits. There is hepatic color flow. The direction of portal flow is hepatopetal. There is no demonstrated mass lesion. Gallbladder: Normal distended gallbladder. The gallbladder wall measures 2 mm. There is a negative sonographic Ayala''s sign. There is no pericholecystic fluid. There are multiple echogenic structures within the gallbladder, consistent with multiple gallstones. Common Bile Duct (C.B.D.): The common bile duct measures 5 mm. Pancreas: Normal size of the head, body and tail of the pancreas. There is normal echogenicity of the pancreas. There is no demonstrated pancreatic mass or cyst. Right Kidney: Normal size of the right kidney. The right kidney measures 11.9 cm. Normal renal cortex. The right cortex measures 1.8 cm. There is no demonstrated renal mass or cyst. There is no right hydronephrosis. US/Abdomen Limited IMPRESSION: Cholelithiasis. Fatty infiltration liver. Electronically Signed: Jamil Calzada MD at 14:13 EDT ,
== END | disposition home or self-care (01) ==
LOC: US 09:11
PROVIDERS: PCP Nurse Practitioner Family; Referring Provider Nurse Practitioner Family; Visit Provider Nurse Practitioner Family
DX: K80.20 Calculus of gallbladder without cholecystitis without obstruction (principal)
CPT/HCPCS: 76705

== ENCOUNTER → 2024-06-20 | Outpatient (CLI) | payer MEDICARE, MEDICAID, SELFPAY ==
[2024-06-20 08:28] LABS: Absolute Lymphocyte Count 1.28 X10^3/uL (0.83-4.51); Absolute Neutrophil Count 3.7 X10^3/uL (2.0-7.7); Basophil# 0.07 X10^3/uL; Basophil% 1.2 % (0-1); Eosinophil# 0.11 X10^3/uL; Eosinophils% 1.9 % (0-5); Hematocrit 38.9 % (40-54); Hemoglobin 12.2 g/dL (13.0-16.5); Lymphocyte # 1.28 X10^3/ul (0.83-4.51); Mean Corp Hgb Conc 31.4 g/dL (32-36); Mean Corpuscular Hgb 26.1 pg (27.0-32.0); Mean Corpuscular Volume 83.1 fL (80-94); Mean Platelet Vol. 10.1 fl (6.2-12.0); Monocyte# 0.63 X10^3/uL; Monocyte% 10.8 % (0-10); NRBC Flagged by Analyzer 0 % (0-5); Neutrophil # 3.73 X10^3/uL (2.7-7.7); Neutrophil % 63.9 % (47-70); Platelet Count 264 K/mm3 (150-450); RBC Distribution Width CV 14.6 % (11.6-14.6); RBC Distribution Width SD 44.7 fl (35.1-43.9); Red Blood Count 4.68 M/mm3 (4.6-6.2); White Blood Count 5.8 K/mm3 (4.4-11.0)
[2024-06-20 09:05] LABS: AST(SGOT) 16 U/L (15-37); Alanine Aminotransfer ALT/SGPT 23 U/L (16-61); Albumin, Serum 3.4 g/dL (3.2-5.0); Alkaline Phosphatase 69 U/L (45-117); Anion Gap 5 (5-15); BUN 21 mg/dL (7-18); BUN/Creat Ratio 16.8 RATIO (10-20); Calcium,Total 9.2 mg/dL (8.5-10.1); Chloride 104 mmol/L (98-107); Creatinine, Serum 1.25 mg/dL (0.70-1.30); EST Glomerular Filtration Rate 60 mL/min (>60); Est Glom Filt Rate - Afr Amer 72 mL/min (>60); Globulin 3.5 g/dL (2.2-4.2); Glucose 114 mg/dL (74-106); Potassium 4.2 mmol/L (3.5-5.1); Protein, Total 6.9 g/dL (6.4-8.2); Sodium Level 136 mmol/L (136-145)
[2024-06-20 11:21] LABS: Color, Urine Yellow (Yellow); Glucose, Dipstick 50 mg/dl (Normal); Ketone-Dipstick Negative (Negative); Leukocyte Esterase-Dipstick 25 /ul (Negative); Nitrite-Dipstick Negative (Negative); Occult Blood-Urine Negative /ul (Negative); Protein-Dipstick 15 mg/dl (Negative); Urine Bilirubin Dipstick Negative (Negative); Urine Clarity Clear (Clear); Urine Urobilinogen Normal (Normal)
== END | disposition home or self-care (01) ==
PROVIDERS: PCP Nurse Practitioner Family; Referring Provider Nurse Practitioner Family; Visit Provider Nurse Practitioner Family
DX: K80.20 Calculus of gallbladder without cholecystitis without obstruction (principal)
CPT/HCPCS: 36415; 80053; 81002; 85025

== ENCOUNTER 2024-06-25 10:30 | Emergency (ER) | payer MEDICARE, MEDICAID, SELFPAY ==
[2024-06-25 10:31] VITALS: BP 145/78; PULSE 81; RESP 16; TEMP 36.6; O2SAT 100; BMI 23.5
--- NOTE | 2024-06-25 10:55 | ED.VIS.GI ---
HPI HPI - GI History of Present Illness Chief Complaint: Abd Pain Informant: patient Narrative Narrative: Patient is a 74 year old male with history of obstructive kidney stone as well as cholelithiasis (is scheduled for cholecystectomy on 07/[address] Villegas) as well as atrial fibrillation (on Eliquis). He is presenting for sudden onset of right flank pain. Denies any radiation. States it started about an hour and a half ago. Did take Tylenol for the pain. He notes the pain suddenly has gotten better. He has never had pain like this before. Denies any recent urinary symptoms. Did have some nausea but attributed to the pain. Notes that he woke up and had breakfast of cereal, toast and coffee around 6 AM. The pain and started around 9 or 930. He states that he ate supreme pizza for dinner last night. No other complaints or concerns reported at this time. [facility] Medical History Chondrosarcoma of rib Hard of hearing Cardiology follow-up encounter Wears glasses Cancer Diabetes Easy bruising Gastric reflux Non-smoker History of echocardiogram History of stress test History of CHF (congestive heart failure) History of atrial fibrillation HTN (hypertension) Barretts esophagus Dysphagia Type 2 diabetes mellitus without complication History of excision of malignant tumor Paroxysmal atrial fibrillation Hyperlipidemia Atrial fibrillation with RVR Home Medications ?Medication ?Instructions ?Recorded ?Last Taken ?Type metformin 1,000 mg tablet 1 tab PO BID dm 09/05/19 04/28/24 History pravastatin 10 mg tablet 1 tab PO QHS cholesterol 09/05/19 04/28/24 History apixaban 5 mg tablet (Eliquis) 5 mg PO BID #60 tabs 11/26/23 04/25/24 Rx dulaglutide 0.75 mg/0.5 mL 0.75 mg subcut QWEEK 12/21/23 04/21/24 [facility] glipizide 5 mg tablet 5 mg PO DAILY 12/21/23 04/28/24 History lisinopril 10 mg tablet 10 mg PO QHS 12/21/23 04/28/24 History omeprazole 20 mg capsule,delayed 20 mg PO DAILY #90 caps 04/07/24 04/28/24 Rx release diltiazem HCl 120 mg 120 mg PO QHS 04/24/24 04/28/24 History capsule,extended release 24 hr ondansetron 4 mg disintegrating 4 mg PO Q8H PRN PRN Nausea #10 tabs 06/25/24 Unknown Rx tablet oxycodone 5 mg tablet 5 mg PO Q8H PRN pain 3 days #12 06/25/24 Unknown Rx tabs tamsulosin 0.4 mg capsule (Flomax) 0.4 mg PO DAILY #7 caps 06/25/24 Unknown Rx Allergy/AdvReac Type Severity Reaction Status Date / Time No Known Allergies Allergy Verified 06/25/24 10:31 Family History Father CAD (coronary artery disease) Myocardial infarction Mother Emphysema lung Myocardial infarction CAD (coronary artery disease) Brother Heart disease Myocardial infarction Surgical History Status post surgery History of tonsillectomy History of hip surgery Social History Smoking Status: Never smoker alcohol intake: never substance use type: does not use caffeine: Yes Type: coffee Number of servings: 2 ROS ROS ED Constitutional Constitutional ED: Denies chills or fever(s) Cardiovascular Cardiovascular: Denies chest pain Respiratory/Chest Respiratory/Chest: Denies cough Gastrointestinal Gastrointestinal: Reports abdominal pain and nausea; Denies constipation, diarrhea or vomiting Genitourinary Genitourinary ED: Denies dysuria or hematuria Musculoskeletal Musculoskeletal: Reports back pain; Denies myalgias Integumentary Denies rash Neurologic Neurologic: Denies weakness Psychiatric Psychiatric: Denies anxiety Hematologic/Lymphatic Hematologic/Lymphatic: Reports easy bleeding, easy bruising and other Details: On Eliquis EXAM Physical Exam Const Vital Signs: 06/25/24 10:31 06/25/24 12:30 06/25/24 13:53 Temperature 97.8 F 97.9 F Temperature Source Oral Pulse Rate 81 71 73 Respiratory Rate 16 18 18 Blood Pressure 145/78 H 120/71 117/67 Blood Pressure Mean 100 87 83 Pulse Ox 100 92 93 Oxygen Delivery Method Room Air Room Air Positive well nourished and well developed General Appearance ED: well developed and NAD; Negative for pallor HEENT Reports moist mucous membranes Neck supple Resp normal respiratory effort and clear to auscultation bilaterally Cardio regular rate and regular rhythm GI non-tender and non-distended GI Narrative: Negative Ayala sign Palpation: soft; Negative for tender, guarding or rigid Back/Spine no CVA tenderness Back/Spine Narrative: Mild tenderness palpation of the right flank but not specifically in the CVA region Extremity full ROM General Extremety ED: Negative for edema General Extremity: Negative for edema Neuro Sensorium / Orientation: alert Motor Exam: Negative for general weakness Psych mental status grossly normal and thought process normal Skin General Skin Exam: Negative for jaundice or pallor MDM MDM MDM Narrative Medical decision making narrative: Patient is evaluated for sudden onset of this right flank pain. The pain is currently subsiding. He appears nontoxic no acute distress. As his pain subsided will defer any pain medication at this time. Differential includes biliary colic, cholecystitis, renal colic, hydronephrosis, urinary tract infection. Will obtain lab work as well as urinalysis and then determine best modality of imaging to start with (ultrasound versus CT). Lab work largely normal including normal lipase and liver enzymes. Will obtain CT flank study. Urinalysis does not really look like infection or kidney stone. CT does show bilateral perinephric stranding right greater than left with mild right hydronephrosis and right hydroureter due to a punctate calculus in the midportion of the right ureter as well as a recently passed tiny calculus which lies at the base of the bladder on the right side. He also has multiple gallstones which is known. Given that his kidney function is near his baseline, his pain has resolved and notes like he is passing the stone I feel the patient can successfully be discharged home. He does not have signs of infection so I do not think he requires IV antibiotics or admission from a urologic standpoint. Will have the patient follow-up with urology. Patient is established with a urologist in [place] and will follow-up there. Patient is given return precautions. Given that there is a small speck of stone that still needs to be passed is given a prescription for Flomax as well as pain control with Percocet. Patient and verbalized agreement understand this time. Patient discharged home in stable and improved condition. Patient has no further pain while in the emergency room. Lab Data Attestation: I reviewed the patient's lab results. Labs: Laboratory Results - last 24 hr 10/02/24 10/02/24 10:50 11:20 WBC 10.2 RBC 4.67 Hgb 12.1 L Hct 38.7 L MCV 82.9 MCH 25.9 L MCHC 31.3 L RDW Std Deviation 43.8 RDW Coeff of [place] 14.6 Plt Count 253 MPV 10.1 Immature Gran % (Auto) 0.400 Neut % (Auto) 85.5 H Lymph % (Auto) 6.6 L [place] % (Auto) 6.6 Eos % (Auto) 0.3 Baso % (Auto) 0.6 Absolute Neuts (auto) 8.7 H Absolute Lymphs (auto) 0.67 L Nucleated RBC % 0 Sodium 135 L Potassium 4.0 Chloride 104 Carbon Dioxide 25.0 Anion Gap 6 BUN 20 H Creatinine 1.38 H Estim Creat Clear Calc 53.77 Est GFR (MDRD) Af Amer 65 Est GFR (MDRD) Non-Af 53 L BUN/Creatinine Ratio 14.5 Glucose 193 H Calcium 9.3 Total Bilirubin 0.70 Direct Bilirubin 0.20 AST 20 ALT 26 Alkaline Phosphatase 74 Total Protein 7.2 Albumin 3.4 Globulin 3.8 Lipase 44 Urine Color Yellow Urine Clarity Clear Urine pH 5.0 Ur Specific [place] 1.030 Urine Protein 15 H Urine Glucose (UA) 250 H Urine Ketones 5 H Urine Occult Blood 10 H Urine Nitrite Negative Urine Bilirubin Negative Urine Urobilinogen Normal Ur Leukocyte Esterase 25 H Urine RBC 0-5 SEEN Urine WBC 0-5 SEEN Ur Squamous Epith Cells 0-5 SEEN Urine Bacteria 0 SEEN Urine Mucus 1+ Radiography Diagnostic Testing: Clinical Impression(s) from Imaging Studies Abdomen/Pelvis CT 06/25/24 11:30 IMPRESSION: Bilateral perinephric stranding right greater than left with mild right hydronephrosis and right hydroureter due to a punctate calculus in the midportion of the right ureter as well as a recently passed tiny calculus which lies at the base of the bladder on the right side. Multiple gallstones. Sigmoid diverticulosis. Electronically Signed: Richmond Vazquez MD at 12:39 EDT , Discharge Plan Triage Chief Complaint: Abd Pain ED Provider: Ligia Otto Dx/Rx/DC Orders Clinical Impression: Acute abdominal pain in right flank, Calculus of right kidney Instructions: ED Kidney Stone, Passed Prescriptions: New tamsulosin [Flomax] 0.4 mg capsule 0.4 mg PO DAILY Qty: 7 0RF oxycodone 5 mg tablet 5 mg PO Q8H PRN (Reason: pain) 3 Days Qty: 12 0RF ondansetron 4 mg tablet,disintegrating 4 mg PO Q8H PRN PRN (Reason: Nausea) Qty: 10 0RF No Action pravastatin 10 MG tablet 1 tab PO QHS Patient Comments: TAKE 1 TABLET EVERY DAY AT BEDTIME metformin 1,000 MG tablet 1 tab PO BID Patient Comments: Take one tablet twice a day. glipizide 5 mg tablet 5 mg PO DAILY Trulicity 0.75 mg/0.5 mL pen injector 0.75 mg subcut QWEEK lisinopril 10 mg tablet 10 mg PO QHS diltiazem HCl 120 mg capsule,extended release 24hr 120 mg PO QHS Eliquis 5 mg tablet 5 mg PO BID Qty: 60 11RF Patient Comments: 04/26/24 HOLD FOR EGD omeprazole 20 mg capsule,delayed release(DR/EC) 20 mg PO DAILY Qty: 90 0RF Primary Care Provider: Dipika Wheeler Referrals: Dipika Wheeler, [employer] [Primary Care Provider] - Activity Restrictions/Additional Instructions: It looks like you are passing a kidney stone on the right side which cause your pain today. There is still a very small fragment of the stone on the right-hand side as well as a stone entirely passed into your bladder. Please follow-up with your urologist in [place] as we discussed. Drink plenty of fluids. Return here progression worsening your symptoms. You have been prescribed further pain medicine to help with your symptoms, nausea medicine and a medication (Flomax/tamsulosin) to help the kidney stone pass. Print Language: Martiniquais Disposition Disposition: Home, Self Care Discharge Date/Time: 06/25/24 14:02
[2024-06-25 11:05] LABS: Absolute Lymphocyte Count 0.67 X10^3/uL (0.83-4.51); Absolute Neutrophil Count 8.7 X10^3/uL (2.0-7.7); Basophil# 0.06 X10^3/uL; Basophil% 0.6 % (0-1); Eosinophil# 0.03 X10^3/uL; Eosinophils% 0.3 % (0-5); Hematocrit 38.7 % (40-54); Hemoglobin 12.1 g/dL (13.0-16.5); Lymphocyte # 0.67 X10^3/ul (0.83-4.51); Lymphocyte % 6.6 % (19-41); Mean Corp Hgb Conc 31.3 g/dL (32-36); Mean Corpuscular Hgb 25.9 pg (27.0-32.0); Mean Corpuscular Volume 82.9 fL (80-94); Mean Platelet Vol. 10.1 fl (6.2-12.0); Monocyte# 0.67 X10^3/uL; Monocyte% 6.6 % (0-10); NRBC Flagged by Analyzer 0 % (0-5); Neutrophil % 85.5 % (47-70); Platelet Count 253 K/mm3 (150-450); RBC Distribution Width CV 14.6 % (11.6-14.6); RBC Distribution Width SD 43.8 fl (35.1-43.9); Red Blood Count 4.67 M/mm3 (4.6-6.2); White Blood Count 10.2 K/mm3 (4.4-11.0)
[2024-06-25 11:25] LABS: AST(SGOT) 20 U/L (15-37); Alanine Aminotransfer ALT/SGPT 26 U/L (16-61); Albumin, Serum 3.4 g/dL (3.2-5.0); Alkaline Phosphatase 74 U/L (45-117); Anion Gap 6 (5-15); BUN 20 mg/dL (7-18); BUN/Creat Ratio 14.5 RATIO (10-20); Calcium,Total 9.3 mg/dL (8.5-10.1); Chloride 104 mmol/L (98-107); Creatinine, Serum 1.38 mg/dL (0.70-1.30); EST Glomerular Filtration Rate 53 mL/min (>60); Est Glom Filt Rate - Afr Amer 65 mL/min (>60); Estimated Creatinine Clearance 53.77 ml/min; Globulin 3.8 g/dL (2.2-4.2); Glucose 193 mg/dL (74-106); Lipase 44 U/L (13-75); Protein, Total 7.2 g/dL (6.4-8.2); Sodium Level 135 mmol/L (136-145)
[2024-06-25 11:27] LABS: Bacteria 0 SEEN /hpf (None Seen)
--- NOTE | 2024-06-25 11:30 | CT_ITS ---
STUDY: CT ABDOMEN AND PELVIS WITHOUT CONTRAST REASON FOR EXAM: Male, 74 years old. Right flank pain RADIATION DOSAGE (If Supplied By Facility): CTDIvol = ( 8.28 ) mGy, DLP = ( 438.39 ) mGycm TECHNIQUE: Transaxial images were obtained from the dome of the diaphragm to the symphysis pubis without oral contrast, and without intravenous contrast. Sagittal and coronal images were reconstructed. Individualized dose optimization techniques were used for this CT. COMPARISON: Comparison is made with prior study dated August 18, 2023. FINDINGS: Minimal bronchiectasis and scarring along the posterior medial segment of the left lower lobe. Coronary artery calcification. Normal liver. There are multiple gallstones. Normal spleen. Normal pancreas. Normal bilateral adrenal glands. There is evidence of right perinephric stranding. Mild degree of right hydronephrosis and right hydroureter due to a punctate calcification in the right mid ureter as well as a recently passed calculus which lies at the right side of the bladder. Nonspecific left perinephric stranding. There is a small hiatal hernia. Normal small intestine. There are multiple colonic diverticula consistent with diverticulosis. The appendix is visualized and appears normal. There is scattered atherosclerotic calcification of the abdominal aorta, without a demonstrated aneurysm. Normal inferior vena cava. Normal retroperitoneum. Normal urinary bladder. Small bilateral inguinal hernias containing fat left greater than right. There are mild degenerative changes of the visualized lumbar spine. CT/Abdomen/Pelvis without Cont IMPRESSION: Bilateral perinephric stranding right greater than left with mild right hydronephrosis and right hydroureter due to a punctate calculus in the midportion of the right ureter as well as a recently passed tiny calculus which lies at the base of the bladder on the right side. Multiple gallstones. Sigmoid diverticulosis. Electronically Signed: Richmond Vazquez MD at 12:39 EDT ,
[2024-06-25 11:41] LABS: Color, Urine Yellow (Yellow); Glucose, Dipstick 250 mg/dl (Normal); Ketone-Dipstick 5 mg/dl (Negative); Leukocyte Esterase-Dipstick 25 /ul (Negative); Nitrite-Dipstick Negative (Negative); Occult Blood-Urine 10 /ul (Negative); Protein-Dipstick 15 mg/dl (Negative); Urine Bilirubin Dipstick Negative (Negative); Urine Clarity Clear (Clear); Urine Urobilinogen Normal (Normal)
[2024-06-25 11:55] LABS: Mucous, Urine 1+ /hpf (<or=2+); Red Blood Cells-Urine 0-5 SEEN /hpf (0-5); Squamous Epithelial Cells - UA 0-5 SEEN /hpf (0-5); White Blood Cells 0-5 SEEN /hpf (0-5)
[2024-06-25 12:30] VITALS: BP 120/71; PULSE 71; RESP 18; O2SAT 92
[2024-06-25 13:53] VITALS: BP 117/67; PULSE 73; RESP 18; TEMP 36.6; O2SAT 93
== END 2024-06-25 14:02 | disposition home or self-care (01) ==
PROVIDERS: Emergency Provider Emergency Medicine; PCP Nurse Practitioner Family; Visit Provider Emergency Medicine
DX: R10.9 Unspecified abdominal pain (principal); I50.9 Heart failure, unspecified; I11.0 Hypertensive heart disease with heart failure; I48.91 Unspecified atrial fibrillation; E11.9 Type 2 diabetes mellitus without complications; N13.2 Hydronephrosis with renal and ureteral calculous obstruction; E78.5 Hyperlipidemia, unspecified; N13.4 Hydroureter; Z87.442 Personal history of urinary calculi; Z90.49 Acquired absence of other specified parts of digestive tract; Z79.01 Long term (current) use of anticoagulants; K21.9 Gastro-esophageal reflux disease without esophagitis
CPT/HCPCS: 74176; 80048; 80076; 81001; 83690; 85025; 99283; A4216

== ENCOUNTER 2024-07-17 05:51 | Day surgery (SDC) | payer MEDICARE, MEDICAID, SELFPAY ==
[2024-07-17] VITALS (12 sets, daily range): BP systolic 119–141; BP diastolic 64–79; PULSE 67–97; RESP 16; TEMP 36.2–36.3; O2SAT 93–99; BMI 23.5
--- OUTSIDE RECORDS SUMMARY | 2024-07-17 05:54 | XMS RPT_ITS | CCD ---
Author Organization [facility] Care Team Providers Care Bean Dumper Name Role Phone Nadir Savage Primary Care Provider [phone] [place] Martina BURRIS Unavailable [phone] JEIMY ZIMMER Admitting Unavailable OSMIN MEDLEY Referring Unavaila ble SWITARIQT, NADIR L Primary Care Unavailable YARITZA WALTON Attending Unavailable TABET, DEBRA MICHAUD Consulting Unavailabl e TABET, DEBRA MICHAUD Attending Unavailabl e SWIHART, NADIR L Primary Care Unavailable TABET, DEBRA MICHAUD Attending Unavailabl e SWIHART, NADIR L Primary Care Unavailable TABET, DEBRA MICHAUD Attending Unavailabl e TABET, DEBRA MICHAUD Referring Unavailabl e SWIHART, NADIR L Primary Care Unavailable SWITARIQT, NADIR L Primary Care Unavailable SWIHART, NADIR L Primary Care Unavailable TABET, DEBRA MICHAUD Attending Unavailabl e SWIHART, NADIR L Primary Care Unavailable TABET, DEBRA MICHAUD Attending Unavailabl e SWIHART, NADIR L Primary Care Unavailable TABET, DEBRA MICHAUD Attending Unavailabl e SWIHART, NADIR L Primary Care Unavailable TABET, DEBRA MICHAUD Referring Unavailabl e SWIHART, NADIR L Primary Care Unavailable TABET, DEBRA MICHAUD Referring Unavailabl e SWIHART, NADIR L Primary Care Unavailable Swihart, Nadir L Primary Care Provider [phone] Blair CNP, Martina K Unavailable [phone] LESTER, DEBRA MICHAUD Attending Unavailabl e SWIHART, NADIR L Primary Care Unavailable SWIHART, NADIR L Primary Care Unavailable TESTRAEMMANUEL ROMAN Referring Unavailable TESTERICK, EMMANUEL Attending Unavailable SWITARIQT, NADIR L Primary Care Unavailable TABET, DEBRA MICHAUD Referring Unavailabl e Medications Current Medications Medication Drug Class(es) Dates Sig (Normalized) Sig (Original) acetaminophen 325 mg / oxyCODONE hydrochloride 5 mg oral tablet (12 sources) Opioid Agonist Start: 08-18-2023 take 1 tablet by mouth every eight hours as needed oxyCODONE-acetami nophen (PERCOCET) 5-325 mg tablet Take 1 tablet by mouth every 8 hours as needed for pain. 08/18/2023 Active Comment on above: Take 1 tablet by semaj every 8 hours as needed for pain. apixaban 5 mg oral tablet (6 sources) Factor Xa Inhibitor Start: 04-03-2024 take 1 tablet by mouth every twelve hours ELIQUIS 5 mg tab(s) Take 1 tablet by mouth every 12 hours. 04/03/2024 Active apixaban (ELIQUI S) 5 mg tab(s) Take by mouth twice daily. 0 Active Comment on above: Take by mouth twice daily. cefdinir 300 mg oral capsule (11 sources) Cephalosporin Antibacterial Start: 4 take 1 capsule by mouth twice daily cefdinir (OMNICEF) 300 mg capsule Take 1 capsule by mouth two times a day. First dose evening of the procedure 14 capsule 10/11/2023 Active Comment on above: Take 1 capsule by mo [facility] two times a day. First dose evening of the procedure 24 hr dilTIAZem hydrochloride 120 mg extended release oral capsule (14 sources) Calcium Channel Tanvir take 0.5 tablet by mouth once daily dilTIAZem CD (CARDIZEM CD, CARTIA XT) 120 mg 24 hr capsule Take 120 mg by mouth once daily. Take 1/2 tablet by mouth once daily. Active take 0.5 tablet by mouth once da misti diltiazem (CARDIZEM) 120 mg tablet Take 1/2 tablet by mouth once daily. 0 Active Comment on above: Take 1/2 tablet by m outh once daily. Take 120 mg by mouth once daily. Take 1/2 tablet by mouth once daily. 0.5 ml dulaglutide 3 mg/ml auto-injector (4 sources) GLP-1 Receptor Agonist Start: 4 TRULICITY 1.5 mg/0.5 mL pen injector INJECT THE CONTENTS OF 1 PEN UNDER THE SKIN ONCE WEEKLY 04/20/2024 Active glipiZIDE 10 mg oral tablet (14 sources) Sulfonylurea Start: 0 take 1 tablet by mouth once daily glipiZIDE (GLUCOTROL) 10 mg tablet Take 10 mg by mouth once daily. 07/15/2020 Active Start: 07-15-2020 take 1 tablet by semaj once daily glipiZIDE (GLUCOTROL XL) 2.5 mg 24 hr tablet Take 2.5 mg by mouth once daily. 0 07/15/2020 Active Comment on above: Take 2.5 mg by mouth once daily. Take 10 mg by mouth once daily. lisinopril 5 mg oral tablet (12 sources) Angiotensin Converting Enzyme Inhibitor take 1 tablet by mouth once daily lisinopril (ZESTRIL) 5 mg tablet Take 5 mg by mouth once daily. Active Comment on above: Take 5 mg by mouth o nce daily. metFORMIN hydrochloride 1000 mg oral tablet (14 sources) Biguanide take 1 tablet by mouth twice daily metFORMIN (GLUCOPHAGE) 1,000 mg tablet Take 1,000 mg by mouth twice daily. Active Comment on above: Take 1,000 mg by semaj twice daily. 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 30 capsule 11 07/22/2021 Active Comment on above: Take 1 capsule by mo [facility] once daily. ondansetron 4 mg disintegrating oral tablet (12 sources) Serotonin-3 Receptor Antagonist Start: 08-18-20 take 1 tablet by mouth every eight hours as needed ondansetron orally disintegrating (ZOFRAN ODT) 4 mg disintegrating tablet Take 4 mg by mouth every 8 hours as needed for nausea/vomiting. 08/18/2023 Active Comment on above: Take 4 mg by mouth e very 8 hours as needed for nausea/vomiting. pravastatin sodium 10 mg oral tablet (14 sources) HMG-CoA Reductase Inhibitor take 1 tablet by mouth once daily pravastatin (PRAVACHOL) 10 mg tablet Take 10 mg by mouth once daily. Active Comment on above: Take 10 mg by mouth once daily. tamsulosin hydrochloride 0.4 mg oral capsule (18 sources) alpha-Adrenergic Tanvir Start: 08-18-20 End: 09-29-20 24 take 1 capsule by mouth once daily tamsulosin (FLOMAX) 0.4 mg Take 1 capsule by mouth once daily. 90 capsule 1 12/25/2023 06/22/2024 Active Comment on above: Take 0.4 mg by mouth once daily. Take 1 capsule by [facility] once daily. Completed/Discontinued Medications Medication Drug Class(es) Dates Sig (Normalized) Sig (Original) amiodarone hydrochloride 200 mg oral tablet (2 sources) Antiarrhythmic amiodarone (PACERONE) 200 mg tablet Take by mouth once daily. 0 Active Comment on above: Take by mouth once d aily. cholecalciferol 1.25 mg oral capsule (2 sources) Vitamin D Start: 04-27-2018 take 1 capsule by mouth every week cholecalciferol , Vitamin D3, (VITAMIN D3) 50,000 unit cap capsule Take 50,000 Units by mouth once each week. 0 04/27/2018 Active Comment on above: Take 50,000 Units by mouth once each week. lactase 3000 unt oral tablet (2 sources) Start: 09-03-2018 lactase (LACTAID) 3,000 unit tablet Take one with breakfast and evening meal. 60 tablet 5 09/03/2018 Active Comment on above: Take one with breakf ast and evening meal. Lidocaine (2 sources) Antiarrhythmic, Amide Local Anesthetic Start: 11-23-2023 End: 11-23-2023 lidocaine urojet 2 % 11 mL topical gel (GLYDO) Start: 11-23-2023 End: 11-23-2023 lidocaine 10 mg/mL (1 %) 200 mg injection (XYLOCAINE) Problems Active Problems Problem Classification Problem Date Documented Date Episodic/Chronic Acquired foot deformities (1 source) Hallux valgus (acquired), left foot; Translations: [Hallux valgus (acquired)] 05-27-2024 Chronic Acquired foot deformities (1 source) Hallux valgus (acquired), right foot; Translations: [Hallux valgus (acquired)] 05-27-2024 Chronic Acquired foot deformities (3 sources) Tailor's bunion of left foot; Translations: [Bunionette of left foot] Episodic Biliary tract disease (3 sources) Biliary calculus; Translations: [Other cholelithiasis without obstruction] Onset: 05-02-2024 05-02-2024 Episodic Calculus of urinary tract (7 sources) Kidney stone; Translations: [Calculus of kidney] Onset: 04-22-2024 04-22-2024 Episodic Cancer; other and unspecified primary (14 sources) History of soft tissue sarcoma; Translations: [Personal history of malignant neoplasm of soft tissue] 09-19-2021 Episodic Cardiac dysrhythmias (12 sources) Cardiac arrhythmia; Translations: [Cardiac arrhythmia, unspecified] Onset: 08-22-2023 08-22-2023 Chronic Diabetes mellitus with complications (4 sources) Type 2 diabetes mellitus; Translations: [Type 2 diabetes mellitus with other diabetic neurological complication] Onset: 09-27-2023 Chronic Diabetes mellitus without complication (20 sources) Diabetes mellitus; Translations: [Type 2 diabetes mellitus without complications] Onset: 08-22-2023 01-14-2014 Chronic Disorders of lipid metabolism (14 sources) Hyperlipidemia; Translations: [Hyperlipidemia, unspecified] 01-14-2014 Chronic Diverticulosis and diverticulitis (14 sources) Diverticular disease; Translations: [Diverticulosis of intestine, part unspecified, without perforation or abscess without bleeding] Onset: 12-21-2014 12-21-2014 Chronic Esophageal disorders (20 sources) Gastroesophageal reflux disease; Translations: [Gastro-esophageal reflux disease without esophagitis] Onset: 11-16-2014 11-16-2014 Chronic Hyperplasia of prostate (20 sources) Weak urinary stream due to benign prostatic hypertrophy; Translations: [Benign prostatic hyperplasia with lower urinary tract symptoms] Onset: 10-11-2023 10-11-2023 Chronic Mycoses (3 sources) Onychomycosis; Translations: [Tinea unguium] Episodic Other connective tissue disease (3 sources) Pain of toe of right foot; Translations: [Pain in right toe(s)] Episodic Other connective tissue disease (3 sources) Pain of toe of left foot; Translations: [Pain in left toe(s)] Episodic Other skin disorders (1 source) Ingrowing nail of toe of right foot; Translations: [Ingrowing nail] Episodic Residual codes; unclassified (4 sources) Past history of procedure; Translations: [Personal history of other medical treatment] Onset: 04-22-2024 04-22-2024 Episodic Residual codes; unclassified (1 source) Personal history of other medical treatment; Translations: [History of KUB] Onset: 04-22-2024 Episodic Past or Other Problems Problem Classification Problem Date Documented Date Episodic/Chronic Genitourinary symptoms and ill-defined conditions (20 sources) Dysuria; Translations: [Dysuria] Onset: 08-20-2023 Resolved: 08-23-2023 10-11-2023 Episodic Other and unspecified benign neoplasm (14 sources) Gastric polyp; Translations: [Polyp of stomach and duodenum] Onset: 12-21-2014 12-21-2014 Episodic Other diseases of kidney and ureters (12 sources) Hydronephrosis; Translations: [Unspecified hydronephrosis] Onset: 10-11-2023 10-11-2023 Episodic Other diseases of kidney and ureters (5 sources) Kidney disease; Translations: [Disorder of kidney and ureter, unspecified] Onset: 08-22-2023 Resolved: 08-23-2023 08-23-2023 Episodic Other diseases of kidney and ureters (1 source) Other obstructive and reflux uropathy; Translations: [BPH with obstruction/lower urinary tract symptoms] Onset: 01-15-2024 Episodic Other diseases of kidney and ureters (1 source) Unspecified hydronephrosis; Translations: [Hydronephrosis, unspecified hydronephrosis type] Onset: 10-11-2023 Episodic Other hematologic conditions (12 sources) Disorder of hematopoietic structure; Translations: [Disease of blood and blood-forming organs, unspecified] Onset: 08-22-2023 08-22-2023 Episodic Other lower respiratory disease (14 sources) Cough; Translations: [Cough] Onset: 12-21-2014 12-21-2014 Episodic Other screening for suspected conditions (not mental disorders or infectious disease) (20 sources) Patient encounter status; Translations: [Encounter for screening for malignant neoplasm of colon] Onset: 11-16-2014 11-16-2014 Episodic Results Test Name Value Interpretation Reference Range [facility]PODIWS ) GIFTYLUIS JONES ([id number]) 1950 M Date Time Provider Department 05/27/24 10:00 AM EMMANUEL VALVERDE During your visit today, we recorded the following information about you: Cecille Saini, RN 05/27/2024 1:02 PM Signed Patient presents with: Left Foot - Established Patient, Follow Up, Diabetic Foot Check Right Foot - Established Patient, Follow Up, Diabetic Foot Check Patient presents for 1 year follow up diabetic foot exam. Also states that he needs his nails trimmed due to some being too thick. Would like a new order for diabetic shoes. PHILLIPAdelina 05/24/23 Emmanuel Valverde 05/27/2024 1:02 PM Signed Last saw pcp: not in chart Subjective: This 74 year old male presents to clinic for diabetic foot check. Patient has the following complaints: dystrophic/painful toenails. Patient admits to being diabetic for multiple years now. Patient +B/T/N in feet at this time. Patient -pain in legs when walking. No other pedal complaints at this time. No change in medications or medical history since last visit. PAIN EVALUATION No data found in the last 1 encounters. 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 lisinopril (ZESTRIL) 5 mg tablet Take 5 mg by mouth once daily. omeprazole (PRILOSEC) 20 mg capsule Take 1 capsule by mouth once daily. glipiZIDE (GLUCOTROL) 10 mg tablet Take 10 mg by mouth once daily. dilTIAZem CD (CARDIZEM CD, CARTIA XT) 120 mg 24 hr capsule Take 120 mg by mouth once daily. Take 1/2 tablet by mouth once daily. metFORMIN (GLUCOPHAGE) 1,000 mg tablet Take 1,000 mg by mouth twice daily. pravastatin (PRAVACHOL) 10 mg tablet Take 10 mg by mouth once daily. tamsulosin (FLOMAX) 0.4 mg Take 1 capsule by mouth once daily. (Patient not taking: Reported on 05/27/2024) cefdinir (OMNICEF) 300 mg capsule Take 1 capsule by mouth two times a day. First dose evening of the procedure (Patient not taking: Reported on 05/02/2024) ondansetron orally disintegrating (ZOFRAN ODT) 4 mg disintegrating tablet Take 4 mg by mouth every 8 hours as needed for nausea/vomiting. (Patient not taking: Reported on 05/27/2024) tamsulosin (FLOMAX) 0.4 mg Take 0.4 mg by mouth once daily. (Patient not taking: Reported on 05/27/2024) oxyCODONE-acetaminophen (PERCOCET) 5-325 mg tablet Take 1 tablet by mouth every 8 hours as needed for pain. (Patient not taking: Reported on 05/27/2024) No current facility-administered medications for this visit. ALLERGIES No Known Allergies PAST SURGICAL HISTORY 12/2012: CHEST WALL RESECTION OF TUMOR AND/OR RIBS Comment: cancer 12/11/2014: COLONOSCOPY Comment: Sofia Cebul - negative 07/09/2017: ESOPHAGOGASTRODUODENOSCOPY TRANSORAL DIAGNOSTIC Comment: repeat 2 years 07/21/2019: ESOPHAGOGASTRODUODENOSCOPY TRANSORAL DIAGNOSTIC Comment: EGD 09/13/2021: ESOPHAGOGASTRODUODENOSCOPY TRANSORAL DIAGNOSTIC No date: EYE SURGERY HX No date: FRACTURE SURGERY No date: HAND/FINGER SURGERY UNLISTED Comment: R 5th finger 1991: PAST SURGICAL HISTORY OF Comment: repair of broken left hip 1968: PAST SURGICAL HISTORY OF Comment: left eye surgery No date: SKIN BIOPSY HX No date: TONSILLECTOMY HX FAMILY HISTORY Problem Relation Age of Onset Alcohol/Drug Father Coronary Artery Disease Father OR Emphysema Mother Coronary Artery Disease Mother OR Social History Tobacco Use Smoking status: Never Smokeless tobacco: Never Tobacco comments: Parents smoked in childhood home. Vaping Use Vaping status: Never Used Substance Use Topics Alcohol use: No Drug [...] bruising easily, and swollen nodes. ENDOCRINE: Negative (more content not included)... Normal [facility] CNOVon 05-02-2024 CNOV Office Visit (UROLAG ) LUIS DURBIN ([id number]) 1950 M Date Time Provider Department 05/02/24 2:00 PM DEBRA CINTRON UROLAG During your visit today, we recorded the following information about you: Pulse 70/minute Debra Cintron MD 05/02/2024 12:07 PM Signed [facility] ESTABLISHED PATIENT OFFICE VISIT HISTORY OF PRESENT ILLNESS Luis Durbin is a 74 year old male who is here for follow up of kidney stone disease Patient also history of elevated PSA following Rezum procedure repeat PSA 3 days ago was normal at 1.1 So most likely his PSA was elevated due to previous prostate procedure KUB obtained also few days ago was negative for kidney stone disease but there was also some gallstones and that was explained to patient Patient would need to be referred to a general surgeon and he said he will find a surgeon on his own in [place] Denies any lower urinary tract symptoms following Rezum therapy . Review of Systems The remainder of the ROS was reviewed and is negative. LAB Creatinine Date Value Ref Range Status 08/23/2023 0.83 0.50 - 1.40 mg/dL Final Comment: Patients receiving either N-Acetylcysteine (NAC) or Metamizole prior to venipuncture, may have falsely depressed results. GLUCOSE UA (POCT) (mg/dL) Date Value 05/02/2024 Negative BILIRUBIN UA (POCT) (no units) Date Value 05/02/2024 Small (A) KETONE UA (POCT) (mg/dL) Date Value 05/02/2024 Trace SPECIFIC GRAVITY UA (POCT) (no units) Date Value 05/02/2024 >=1.030 HEMOGLOBIN/BLOOD UA (POCT) (no units) Date Value 05/02/2024 Negative PH UA (POCT) (no units) Date Value 05/02/2024 5.5 PROTEIN UA (POCT) (mg/dL) Date Value 05/02/2024 Negative UROBILINOGEN UA (POCT) (E.U./dL) Date Value 05/02/2024 0.2 NITRITE UA (POCT) (no units) Date Value 05/02/2024 Negative LEUKOCYTES UA (POCT) (no units) Date Value 05/02/2024 Negative COLOR UA (POCT) (no units) Date Value 05/02/2024 Yellow CLARITY UA (POCT) (no units) Date Value 05/02/2024 Clear ] MEDICATIONS TRULICITY 1.5 mg/0.5 mL pen injector INJECT THE CONTENTS OF 1 PEN UNDER THE SKIN ONCE WEEKLY ELIQUIS 5 mg tab(s) Take 1 tablet by mouth every 12 hours. tamsulosin (FLOMAX) 0.4 mg Take 1 capsule by mouth once daily. lisinopril (ZESTRIL) 5 mg tablet Take 5 mg by mouth once daily. ondansetron orally disintegrating (ZOFRAN ODT) 4 mg disintegrating tablet Take 4 mg by mouth every 8 hours as needed for nausea/vomiting. tamsulosin (FLOMAX) 0.4 mg Take 0.4 mg by mouth once daily. oxyCODONE-acetaminophen (PERCOCET) 5-325 mg tablet Take 1 tablet by mouth every 8 hours as needed for pain. omeprazole (PRILOSEC) 20 mg capsule Take 1 capsule by mouth once daily. glipiZIDE (GLUCOTROL) 10 mg tablet Take 10 mg by mouth once daily. dilTIAZem CD (CARDIZEM CD, CARTIA XT) 120 mg 24 hr capsule Take 120 mg by mouth once daily. Take 1/2 tablet by mouth once daily. metFORMIN (GLUCOPHAGE) 1,000 mg tablet Take 1,000 mg by mouth twice daily. pravastatin (PRAVACHOL) 10 mg tablet Take 10 mg by mouth once daily. cefdinir (OMNICEF) 300 mg capsule Take 1 capsule by mouth two times a day. 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 No date: Hyperlipidemia 08/22/2023: Renal disease No date: Snoring PAST SURGICAL HISTORY 12/2012: CHEST WALL RESECTION OF TUMOR AND/OR RIBS Comment: cancer 12/11/2014: COLONOSCOPY Comment: Sofia Cebul - negative 07/09/2017: ESOPHAGOGASTRODUODENOSCOPY TRANSORAL DIAGNOSTIC Comment: repeat 2 years 07/21/2019: ESOPHAGOGASTRODUODENOSCOPY TRANSORAL DIAGNOSTIC Comment: EGD 09/13/2021: ESOPHAGOGASTRODUODENOSCOPY TRANSORAL DIAGNOSTIC No date: EYE SURGERY HX No date: FRACTURE SURGERY No date: HAND/FINGER SURGERY UNLISTED Comment: R 5th finger 1991: PAST SURGICAL HISTORY OF Comment: repair of broken left hip 1968: PAST SURGICAL HISTORY OF Comment: left eye surgery No date: SKIN BIOPSY HX No date: TONSILLECTOMY HX FAMILY HISTORY Problem Relation Age of Onset Alcohol/Drug Father Coronary Artery Disease Father OR Emphysema Mother Coronary Artery Disease Mother OR SOCIAL HISTORY Social History Tobacco Use Smoking status: Never Smokeless tobacco: Never Tobacco comments: Parents smoked in childhood home. Vaping Use Vaping Use: Never used Substance Use Topics Alcohol use: No Drug use: No Pulse 70 SpO2 98% Physical Exam Constitutional: Appearance: Normal appearance. HENT: Head: Normocephalic. Nose: Nose normal. Pulmonary: Effort: Pulmonary e (more content not included)... Normal [facility] UA DIP, URINE (POC)on 2023 BILIRUBIN UA (POCT) Small Abnormal Negative [facility] CLARITY UA (POCT) Clear [facility] COLOR [facility]A (POCT) Yellow [facility] GLUCOSE UA (POCT) Negative Negative mg/dL [facility] Hemoglobin Ql (U) Negative Negative [facility] Interpretation and review of laboratory results Abnormal [facility] KETONE UA (POCT) Trace Negative mg/dL [facility] LEUKOCYTES UA (POCT) Negative Negative [facility] NITRITE UA (POCT) Negative Negative [facility] PH UA (POCT) 5.5 4.5 - 8.0 [facility] Protein Ql (U) Negative Negative mg/dL [facility] SPECIFIC GRAVITY UA (POCT) >=1.030 1.005 - 1.030 [facility] UROBILINOGEN UA (POCT) 0.2 Normal E.U./dL [facility] Location:[facility], [facility] [address] [place] [address], [address] [place] [address] POINT OF CARE [facility] BLADDER SCANon 04-22-2024 PVR 1 ml [facility] CNOVon 04-22-2024 CNOV Office Visit (URMASS ) LUIS DURBIN ([id number]) 1950 M Date Time Provider Department 04/22/24 1:00 PM DEBRA CINTRON During your visit today, we recorded the following information about you: Debra Cintron MD 04/22/2024 1:35 PM Signed [facility] ESTABLISHED PATIENT OFFICE VISIT HISTORY OF PRESENT ILLNESS Luis Durbin is a 74 year old male who is here for follow up of enlarged prostate and lower urinary tract symptoms Patient is status post Rezum therapy and he is doing well with urinary stream and postvoid residual urine is 0 Denies any hematuria Patient has some investigation performed last week for abdominal pain and was told he had kidney stones ,KUB ordered History of high PSA, PSA reordered this could be secondary to previous infection due to enlarged prostate . Review of Systems The remainder of the ROS was reviewed and is negative. LAB Creatinine Date Value Ref Range Status 08/23/2023 0.83 0.50 - 1.40 mg/dL Final Comment: Patients receiving either N-Acetylcysteine (NAC) or Metamizole prior to venipuncture, may have falsely depressed results. GLUCOSE UA (POCT) (mg/dL) Date Value 04/22/2024 Negative BILIRUBIN UA (POCT) (no units) Date Value 04/22/2024 Negative KETONE UA (POCT) (mg/dL) Date Value 04/22/2024 Negative SPECIFIC GRAVITY UA (POCT) (no units) Date Value 04/22/2024 >=1.030 HEMOGLOBIN/BLOOD UA (POCT) (no units) Date Value 04/22/2024 Negative PH UA (POCT) (no units) Date Value 04/22/2024 5.5 PROTEIN UA (POCT) (mg/dL) Date Value 04/22/2024 Negative UROBILINOGEN UA (POCT) (E.U./dL) Date Value 04/22/2024 0.2 NITRITE UA (POCT) (no units) Date Value 04/22/2024 Negative LEUKOCYTES UA (POCT) (no units) Date Value 04/22/2024 Negative COLOR UA (POCT) (no units) Date Value 04/22/2024 Yellow CLARITY UA (POCT) (no units) Date Value 04/22/2024 Clear ] MEDICATIONS TRULICITY 1.5 mg/0.5 mL pen injector INJECT THE CONTENTS OF 1 PEN UNDER THE SKIN ONCE WEEKLY ELIQUIS 5 mg tab(s) Take 1 tablet by mouth every 12 hours. cefdinir (OMNICEF) 300 mg capsule Take 1 capsule by mouth two times a day. First dose evening of the procedure lisinopril (ZESTRIL) 5 mg tablet Take 5 mg by mouth once daily. omeprazole (PRILOSEC) 20 mg capsule Take 1 capsule by mouth once daily. glipiZIDE (GLUCOTROL) 10 mg tablet Take 10 mg by mouth once daily. dilTIAZem CD (CARDIZEM CD, CARTIA XT) 120 mg 24 hr capsule Take 120 mg by mouth once daily. Take 1/2 tablet by mouth once daily. metFORMIN (GLUCOPHAGE) 1,000 mg tablet Take 1,000 mg by mouth twice daily. tamsulosin (FLOMAX) 0.4 mg Take 1 capsule by mouth once daily. (Patient not taking: Reported on 01/15/2024) ondansetron orally disintegrating (ZOFRAN ODT) 4 mg disintegrating tablet Take 4 mg by mouth every 8 hours as needed for nausea/vomiting. (Patient not taking: Reported on 11/23/2023) tamsulosin (FLOMAX) 0.4 mg Take 0.4 mg by mouth once daily. (Patient not taking: Reported on 11/23/2023) oxyCODONE-acetaminophen (PERCOCET) 5-325 mg tablet Take 1 tablet by mouth every 8 hours as needed for pain. (Patient not taking: Reported on 11/23/2023) pravastatin (PRAVACHOL) 10 mg tablet Take 10 mg by mouth once daily. (Patient not taking: Reported on 12/25/2023) 0 HISTORIES PAST MEDICAL HISTORY Diagnosis Date Atrial fibrillation (HCC) Elibrielleis- Sees Moodispaw Clark's esophagus DM (diabetes mellitus) [...] Onset Alcohol/Drug Father Coronary Artery Disease Father OR Emphysema Mother Coronary Artery Disease Mother OR SOCIAL HISTORY Social History Tobacco Use Smoking status: Never Smokeless tobacco: Never Tobacco comments: Parents smoked in childhood home. Vaping Use Vaping Use: Never used Substance Use Topics Alcohol use: No Drug use: No There were no vitals taken for this visit. Physical Exam Constitutional: Appearance: Normal appearance. HENT: Head: Normocephalic. Pulmonary: Effort: Pulmonary effort is normal. Abdominal: General: Abdomen is flat. Neurological: Mental Status: (more content not included)... Normal [facility] PSA SerPl-mCncon 04-22-2024 Prostate specific Ag [Mass/Vol] 1.07 ng/mL Normal <2.60 [facility] Comment on above: Order Comment: Speci men Type: BLOOD SPECIMEN Ordering Facility: [facility] Address: [place] [address] Result Comment: This is a new methodology for this marker. Tumor markers obtained from different assay methods cannot be used interchangeably. Expect results of this assay to run lower than the previous assay. It is recommended to re-baseline patients when changing to a new methodology. Performed By: #### 2 4321-2 #### [facility] CLIA [id number] [id number] [place] UA DIP, URINE (POC)on 2023 BILIRUBIN UA (POCT) Negative Negative [facility] CLARITY UA (POCT) Clear [facility] COLOR UA (POCT) Yellow [facility] GLUCOSE UA (POCT) Negative Negative mg/dL [facility] Hemoglobin Ql (U) Negative Negative [facility] KETONE UA (POCT) Negative Negative mg/dL [facility] LEUKOCYTES UA (POCT) Negative Negative [facility] NITRITE UA (POCT) Negative Negative [facility] PH UA (POCT) 5.5 4.5 - 8.0 [facility] Protein Ql (U) Negative Negative mg/dL [facility] SPECIFIC GRAVITY UA (POCT) >=1.030 1.005 - 1.030 [facility] UROBILINOGEN UA (POCT) 0.2 Normal E.U./dL [facility] Location:[facility], [address] [place] [address], [address] [place] [address] POINT OF CARE [facility] XR ABDOMEN 1V SUPINEon 04-22 XR ABDOMEN 1V SUPINE * * *Final Report* * * DATE OF EXAM: Apr 22 2024 1:58PM [id number] - XR ABDOMEN 1V SUPINE / PROCEDURE REASON: Kidney stone * * * * Physician Interpretation * * * * XR ABDOMEN 1V SUPINE PROVIDED HISTORY: Kidney stone COMPARISON: 08/22/2023 TECHNIQUE: Supine abdomen RESULT: A cluster of calcifications in the right upper quadrant of the abdomen measures up to 7 mm in size. These are likely gallstones. No renal stones are seen. Bowel gas pattern unremarkable. No free air is identified. Partial visualization of a hardware pin of the left femur IMPRESSION: No renal stones are identified. Incidental gallstones Teachers' Aide: PSCLatesha Transcribe Date/Time: Apr 25 2024 7:28P Dictated by : ANGELA MARCOS MD This examination was interpreted and the report reviewed and electronically signed by: ANGELA MARCOS MD on Apr 25 2024 7:29PM EST [id number] [facility] BLADDER SCANon 01-15-2024 Bladder scan 2ml. [facility] CNOVon 01-15-2024 CNOV Office Visit (URMASS ) LUIS DURBIN ([id number]) 1950 M Date Time Provider Department 01/15/24 3:20 PM [facility] During your visit today, we recorded the following information about you: Debra Cintron MD 01/15/2024 3:27 PM Signed [facility] ESTABLISHED PATIENT OFFICE VISIT HISTORY OF PRESENT ILLNESS Luis Durbin is a 73 year old male who is here for follow up of enlarged prostate status post Rezum procedure performed on November 23, 2023 Postvoid residual urine is 2 mL Has a good urinary stream Urine today showing microscopic hematuria probably due to incomplete healing of the prostatic fossa. Review of Systems The remainder of the ROS was reviewed and is negative. LAB Creatinine Date Value Ref Range Status 08/23/2023 0.83 0.50 - 1.40 mg/dL Final Comment: Patients receiving either N-Acetylcysteine (NAC) or Metamizole prior to venipuncture, may have falsely depressed results. GLUCOSE UA (POCT) (mg/dL) Date Value 01/15/2024 Negative BILIRUBIN UA (POCT) (no units) Date Value 01/15/2024 Negative KETONE UA (POCT) (mg/dL) Date Value 01/15/2024 Negative SPECIFIC GRAVITY UA (POCT) (no units) Date Value 01/15/2024 >=1.030 HEMOGLOBIN/BLOOD UA (POCT) (no units) Date Value 01/15/2024 Large (A) PH UA (POCT) (no units) Date Value 01/15/2024 5.5 PROTEIN UA (POCT) (mg/dL) Date Value 01/15/2024 30 (A) UROBILINOGEN UA (POCT) (E.U./dL) Date Value 01/15/2024 0.2 NITRITE UA (POCT) (no units) Date Value 01/15/2024 Negative LEUKOCYTES UA (POCT) (no units) Date Value 01/15/2024 Small (A) COLOR UA (POCT) (no units) Date Value 01/15/2024 Yellow CLARITY UA (POCT) (no units) Date Value 01/15/2024 Clear ] MEDICATIONS cefdinir (OMNICEF) 300 mg capsule Take 1 capsule by mouth two times a day. First dose evening of the procedure lisinopril (ZESTRIL) 5 mg tablet Take 5 mg by mouth once daily. omeprazole (PRILOSEC) 20 mg capsule Take 1 capsule by mouth once daily. glipiZIDE (GLUCOTROL) 10 mg tablet Take 10 mg by mouth once daily. dilTIAZem CD (CARDIZEM CD, CARTIA XT) 120 mg 24 hr capsule Take 120 mg by mouth once daily. Take 1/2 tablet by mouth once daily. metFORMIN (GLUCOPHAGE) 1,000 mg tablet Take 1,000 mg by mouth twice daily. tamsulosin (FLOMAX) 0.4 mg Take 1 capsule by mouth once daily. (Patient not taking: Reported on 01/15/2024) ondansetron orally disintegrating (ZOFRAN ODT) 4 mg disintegrating tablet Take 4 mg by mouth every 8 hours as needed for nausea/vomiting. (Patient not taking: Reported on 11/23/2023) tamsulosin (FLOMAX) 0.4 mg Take 0.4 mg by mouth once daily. (Patient not taking: Reported on 11/23/2023) oxyCODONE-acetaminophen (PERCOCET) 5-325 mg tablet Take 1 tablet by mouth every 8 hours as needed for pain. (Patient not taking: Reported on 11/23/2023) pravastatin (PRAVACHOL) 10 mg tablet Take 10 mg by mouth once daily. (Patient not taking: Reported on 12/25/2023) 0 HISTORIES PAST MEDICAL HISTORY Diagnosis Date Atrial fibrillation (HCC) Elikamilah- Sees Moodispaw Clark's esophagus DM (diabetes mellitus) [...] Onset Alcohol/Drug Father Coronary Artery Disease Father OR Emphysema Mother Coronary Artery Disease Mother OR SOCIAL HISTORY Social History Tobacco Use Smoking status: Never Smokeless tobacco: Never Tobacco comments: Parents smoked in childhood home. Vaping Use Vaping Use: Never used Substance Use Topics Alcohol use: No Drug use: No There were no vitals taken for this visit. Physical Exam ASSESSMENT AND PLAN: No problem-specific Assessment AND Plan notes found for this encounter. ASSESSMENT/PLAN: 1. BPH with obstruction/lower urinary tract symptoms [N40.1, N13.8] - ICD9: 600.01, 599.69, ICD10: N40.1, N13.8 (primary diagnosis) Status post Rezum performed on November 23, 2023 and patient is doing well with a minimum amount of postvoid residual urine of about 2 mm - BLADDER SCAN 2. History of hydronephrosis, History of left hydronephrosis secondary to retroperitoneal bleed probably secondary to trauma in a chen (more content not included)... Normal [facility] UA DIP, URINE (POC)on 2023 BILIRUBIN UA (POCT) Negative Negative [facility] CLARITY UA (POCT) Clear [facility] COLOR UA (POCT) Yellow [facility] GLUCOSE UA (POCT) Negative Negative mg/dL [facility] Hemoglobin Ql (U) Large Abnormal Negative [facility] Interpretation and review of laboratory results Abnormal [facility] KETONE UA (POCT) Negative Negative mg/dL [facility] LEUKOCYTES UA (POCT) Small Abnormal Negative [facility] NITRITE UA (POCT) Negative Negative [facility] PH UA (POCT) 5.5 4.5 - 8.0 [facility] Protein Ql (U) 30 mg/dL Abnormal Negative [facility] SPECIFIC GRAVITY UA (POCT) >=1.030 1.005 - 1.030 [facility] UROBILINOGEN UA (POCT) 0.2 Normal E.U./dL [facility] Location:[facility], [address] [place] [address], [id number] [facility] POINT OF CARE [facility] CNOVon 12-25-2023 CNOV Office Visit (URMASS ) GIFTYLUIS JONES ([id number]) 1950 M Date Time Provider Department 12/25/23 1:00 PM DEBRA CINTRON During your visit today, we recorded the following information about you: Pulse Blood pressure 95/minute 138/79 Debra Cintron MD 12/25/2023 2:43 PM Signed [facility] ESTABLISHED PATIENT OFFICE VISIT HISTORY OF PRESENT ILLNESS Luis Durbin is a 73 year old male who is here for follow up of dysuria and weak urinary stream Has occasional blood clots, is not on Flomax now we will do it was ordered Few months ago Postvoid residual urine today is 176 mL Will start Flomax daily . Review of Systems The remainder of the ROS was reviewed and is negative. LAB Creatinine Date Value Ref Range Status 08/23/2023 0.83 0.50 - 1.40 mg/dL Final Comment: Patients receiving either N-Acetylcysteine (NAC) or Metamizole prior to venipuncture, may have falsely depressed results. GLUCOSE UA (POCT) (mg/dL) Date Value 12/25/2023 Negative BILIRUBIN UA (POCT) (no units) Date Value 12/25/2023 Negative KETONE UA (POCT) (mg/dL) Date Value 12/25/2023 Negative SPECIFIC GRAVITY UA (POCT) (no units) Date Value 12/25/2023 1.025 HEMOGLOBIN/BLOOD UA (POCT) (no units) Date Value 12/25/2023 Large (A) PH UA (POCT) (no units) Date Value 12/25/2023 6.0 PROTEIN UA (POCT) (mg/dL) Date Value 12/25/2023 30 (A) UROBILINOGEN UA (POCT) (E.U./dL) Date Value 12/25/2023 0.2 NITRITE UA (POCT) (no units) Date Value 12/25/2023 Negative LEUKOCYTES UA (POCT) (no units) Date Value 12/25/2023 Large (A) COLOR UA (POCT) (no units) Date Value 12/25/2023 Yellow CLARITY UA (POCT) (no units) Date Value 12/25/2023 Clear ] MEDICATIONS cefdinir (OMNICEF) 300 mg capsule Take 1 capsule by mouth two times a day. First dose evening of the procedure lisinopril (ZESTRIL) 5 mg tablet Take 5 mg by mouth once daily. omeprazole (PRILOSEC) 20 mg capsule Take 1 capsule by mouth once daily. glipiZIDE (GLUCOTROL) 10 mg tablet Take 10 mg by mouth once daily. dilTIAZem CD (CARDIZEM CD, CARTIA XT) 120 mg 24 hr capsule Take 120 mg by mouth once daily. Take 1/2 tablet by mouth once daily. metFORMIN (GLUCOPHAGE) 1,000 mg tablet Take 1,000 mg by mouth twice daily. tamsulosin (FLOMAX) 0.4 mg Take 1 capsule by mouth once daily. ondansetron orally disintegrating (ZOFRAN ODT) 4 mg disintegrating tablet Take 4 mg by mouth every 8 hours as needed for nausea/vomiting. (Patient not taking: Reported on 11/23/2023) tamsulosin (FLOMAX) 0.4 mg Take 0.4 mg by mouth once daily. (Patient not taking: Reported on 11/23/2023) oxyCODONE-acetaminophen (PERCOCET) 5-325 mg tablet Take 1 tablet by mouth every 8 hours as needed for pain. (Patient not taking: Reported on 11/23/2023) pravastatin (PRAVACHOL) 10 mg tablet Take 10 mg by mouth once daily. (Patient not taking: Reported on 12/25/2023) 0 HISTORIES PAST MEDICAL HISTORY Diagnosis Date [...] Onset Alcohol/Drug Father Coronary Artery Disease Father OR Emphysema Mother Coronary Artery Disease Mother OR SOCIAL HISTORY Social History Tobacco Use Smoking status: Never Smokeless tobacco: Never Tobacco comments: Parents smoked in childhood home. Vaping Use Vaping Use: Never used Substance Use Topics Alcohol use: No Drug use: No BP 138/79 Pulse 95 SpO2 97% Physical Exam ASSESSMENT AND PLAN: No problem-specific Assessment AND Plan notes found for this encounter. ASSESSMENT/PLAN: 1. Benign prostatic hyperplasia with weak urinary stream - ICD9: 600.01, 788.62, ICD10: N40.1, R39.12 (primary diagnosis) Postprocedure urine is 176 mL - BLADDER SCAN 2. Feeling of incomplete bladder emptying - ICD9: 788.21, ICD10: R39.14 Tamsulosin started Debra Cintron MD This note was partially created using voice recognition software and is inherently subject to errors including those of syntax and sound-alike substitutions which may escape proofreading. In suc (more content not included)... Normal [facility] UA DIP, URINE (POC)on 2023 BILIRUBIN UA (POCT) Negative Negative [facility] CLARITY UA (POCT) Clear [facility] COLOR UA (POCT) Yellow [facility] GLUCOSE UA (POCT) Negative Negative mg/dL [facility] Hemoglobin Ql (U) Large Abnormal Negative [facility] KETONE UA (POCT) Negative Negative mg/dL [facility] LEUKOCYTES UA (POCT) Large Abnormal Negative [facility] NITRITE UA (POCT) Negative Negative [facility] PH UA (POCT) 6.0 4.5 - 8.0 [facility] Protein Ql (U) 30 mg/dL Abnormal Negative mg/dL [facility] SPECIFIC GRAVITY UA (POCT) 1.025 1.005 - 1.030 [facility] UROBILINOGEN UA (POCT) 0.2 E.U./dL Normal E.U./dL [facility] CNPTaylor 12-24-2023 CNPN Telephone (URCANT) LUIS DURBIN ([id number]) 1950 M Date Time Provider Department 12/24/23 DEBRA CINTRON During your visit today, we recorded the following information about you: Alonso Murguia 12/24/2023 10:57 AM Addendum Pt sts he was at [facility] on 12/18 for UTI symptoms and bleeding. Pt sts he unable to empty his bladder and has abdominal pain. Pt is returning to ER this date. Pt is VERY hard of hearing. Alonso Hernandez 12/24/2023 11:06 AM Signed Called and left phone message Cecille Ryder LPN 12/25/2023 11:07 AM Signed Spoke to patient he is going to try to come in today at 1 pm to be seen by Dr Cintron. Cecille Suresh LPN Allergies As of Date: 12/24/2023 (No Known Allergies) Date Reviewed: 11/27/2023 Reviewed by: Mike Sanchez RN - Fully Assessed Reason for Visit: Patient Update [1234] Prescriptions as of 12/25/2023 - cefdinir (OMNICEF) 300 mg capsule Take 1 capsule by mouth two times a day. First dose evening of the procedure - lisinopril (ZESTRIL) 5 mg tablet Take 5 mg by mouth once daily. - ondansetron orally disintegrating (ZOFRAN ODT) 4 mg disintegrating tablet Take 4 mg by mouth every 8 hours as needed for nausea/vomiting. - tamsulosin (FLOMAX) 0.4 mg Take 0.4 mg by mouth once daily. - oxyCODONE-acetaminophen (PERCOCET) 5-325 mg tablet Take 1 tablet by mouth every 8 hours as needed for pain. - omeprazole (PRILOSEC) 20 mg capsule Take 1 capsule by mouth once daily. - glipiZIDE (GLUCOTROL) 10 mg tablet Take 10 mg by mouth once daily. - dilTIAZem CD (CARDIZEM CD, CARTIA XT) 120 mg 24 hr capsule Take 120 mg by mouth once daily. Take 1/2 tablet by mouth once daily. - metFORMIN (GLUCOPHAGE) 1,000 mg tablet Take 1,000 mg by mouth twice daily. - pravastatin (PRAVACHOL) 10 mg tablet Take 10 mg by mouth once daily. 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] 08/22/2023 Renal disease [N28.9] 08/22/2023 08/23/2023 Dysuria [R30.0] [R30.0] 10/11/2023 Screening for prostate cancer [Z12.5] 10/11/2023 Hydronephrosis [N13.30] 10/11/2023 Feeling of incomplete bladder emptying [R39.14] 10/11/2023 Benign prostatic hyperplasia with weak urinary *10/11/2023 Encounter Status:Closed by ALONSO MURGUIA on 12/24/23 [facility] Erickson 11-27-2023 CNARCENIO Office Visit (URCANT ) LUIS DURBIN ([id number]) 1950 M Date Time Provider Department 11/27/23 3:00 PM NURSE MILLERL ARCHIE SALINAS During your visit today, we recorded the following information about you: Mike Sanchez RN 11/27/2023 3:38 PM Signed Patient voided x 2 at home and x1 in office. PVR is [address] Cintron ok for patient to start eliquis in 3 days. Patient aware to call office if begins to pass large clots/unable to void or go to ER. Mike Sanchez RN Allergies As of Date: 11/27/2023 (No Known Allergies) Date Reviewed: 11/27/2023 Reviewed by: Sanchez, Mike, RN - Fully Assessed Reason for Visit: Post Void Residual [355] Primary Visit Diagnosis:Benign prostatic hyperplasia with weak urinary stream [N40.1, R39.12] Prescriptions as of 11/27/2023 - cefdinir (OMNICEF) 300 mg capsule Take 1 capsule by mouth two times a day. First dose evening of the procedure - lisinopril (ZESTRIL) 5 mg tablet Take 5 mg by mouth once daily. - ondansetron orally disintegrating (ZOFRAN ODT) 4 mg disintegrating tablet Take 4 mg by mouth every 8 hours as needed for nausea/vomiting. - tamsulosin (FLOMAX) 0.4 mg Take 0.4 mg by mouth once daily. - oxyCODONE-acetaminophen (PERCOCET) 5-325 mg tablet Take 1 tablet by mouth every 8 hours as needed for pain. - omeprazole (PRILOSEC) 20 mg capsule Take 1 capsule by mouth once daily. - glipiZIDE (GLUCOTROL) 10 mg tablet Take 10 mg by mouth once daily. - dilTIAZem CD (CARDIZEM CD, CARTIA XT) 120 mg 24 hr capsule Take 120 mg by mouth once daily. Take 1/2 tablet by mouth once daily. - metFORMIN (GLUCOPHAGE) 1,000 mg tablet Take 1,000 mg by mouth twice daily. - pravastatin (PRAVACHOL) 10 mg tablet Take 10 mg by mouth once daily. 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 PVR is [address] Lester castorena for patient to start eliquis in 3 days. Patient aware to call office if begins to pass large clots/unable to void or go to ER. Mike Sanchez RN Encounter Status:Closed by MIKE SANCHEZ on 11/27/23 [facility] CNOV Office Visit (URCANT ) GIFTYLUIS [place] ([id number]) 1950 M Date Time Provider Department 11/27/23 8:00 AM NURSE UROL ARCHIE SALINAS During your visit today, we recorded the following information about you: Mike Sanchez RN 11/27/2023 8:24 AM Signed Patient is in today for a catheter removal and later PVR. Balloon deflated and catheter removed intact without difficulty. Patient has no co pain or discomfort after removal. Patient instructed to continue drink plenty of fluids, bleeding and or burning can occur but should resolve over the next day. Patient is to RTO as scheduled for a PVR if able to urinate by 3 pm. If patient is unable to urinate, patient is to RTO before becoming too uncomfortable. Patient voiced understanding of all instructions. Logistics/Shipper offered:Patient declines Mike Sanchez RN Allergies As of Date: 11/27/2023 (No Known Allergies) Date Reviewed: 11/27/2023 Reviewed by: Mike Sanchez RN - Fully Assessed Reason for Visit: boogie catheter removal [Other] Primary Visit Diagnosis:Benign prostatic hyperplasia with weak urinary stream [N40.1, R39.12] Prescriptions as of 11/27/2023 - cefdinir (OMNICEF) 300 mg capsule Take 1 capsule by mouth two times a day. First dose evening of the procedure - lisinopril (ZESTRIL) 5 mg tablet Take 5 mg by mouth once daily. - ondansetron orally disintegrating (ZOFRAN ODT) 4 mg disintegrating tablet Take 4 mg by mouth every 8 hours as needed for nausea/vomiting. - tamsulosin (FLOMAX) 0.4 mg Take 0.4 mg by mouth once daily. - oxyCODONE-acetaminophen (PERCOCET) 5-325 mg tablet Take 1 tablet by mouth every 8 hours as needed for pain. - omeprazole (PRILOSEC) 20 mg capsule Take 1 capsule by mouth once daily. - glipiZIDE (GLUCOTROL) 10 mg tablet Take 10 mg by mouth once daily. - dilTIAZem CD (CARDIZEM CD, CARTIA XT) 120 mg 24 hr capsule Take 120 mg by mouth once daily. Take 1/2 tablet by mouth once daily. - metFORMIN (GLUCOPHAGE) 1,000 mg tablet Take 1,000 mg by mouth twice daily. - pravastatin (PRAVACHOL) 10 mg tablet Take 10 mg by mouth once daily. 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 Balloon deflated and catheter removed intact without difficulty. Patient has no co pain or discomfort after removal. Patient instructed to continue drink plenty of fluids, bleeding and or burning can occur but should resolve over the next day. Patient is to RTO as scheduled for a PVR if able to urinate by 3 pm. If patient is unable to urinate, patient is to RTO before becoming too uncomfortable. Patient voiced understanding of all instructions. Logistics/Shipper offered:Patient declines Mike Sanchez RN Encounter Status:Closed by MIKE SANCHEZ on 11/27/23 [facility] Kevan 11-26-2023 JOHANNA Telephone (URCANT) LUIS DURBIN ([id number]) 1950 M Date Time Provider Department 11/26/23 NADINE JIMENEZ During your visit today, we recorded the following information about you: Mike Sanchez RN 11/26/2023 2:57 PM Signed Voiding trial pended. 11/27/23 Please add > pvr amount for boogie reinsertion. Mike Brar RN Haupt, Lindsay, APRN.CNP 11/27/2023 9:13 AM Signed >200ml Nadine Brar APRN.CNP Allergies As of Date: 11/26/2023 (No Known Allergies) Date Reviewed: 11/23/2023 Reviewed by: Eloina Castro OCCA - Fully Assessed Reason for Visit: Orders [681] Primary Visit Diagnosis:Benign prostatic hyperplasia with weak urinary stream [N40.1, R39.12] Order(s):VOIDING TRIAL PROTOCOL [[id number]] Order #: [id number] Prescriptions as of 11/27/2023 - cefdinir (OMNICEF) 300 mg capsule Take 1 capsule by mouth two times a day. First dose evening of the procedure - lisinopril (ZESTRIL) 5 mg tablet Take 5 mg by mouth once daily. - ondansetron orally disintegrating (ZOFRAN ODT) 4 mg disintegrating tablet Take 4 mg by mouth every 8 hours as needed for nausea/vomiting. - tamsulosin (FLOMAX) 0.4 mg Take 0.4 mg by mouth once daily. - oxyCODONE-acetaminophen (PERCOCET) 5-325 mg tablet Take 1 tablet by mouth every 8 hours as needed for pain. - omeprazole (PRILOSEC) 20 mg capsule Take 1 capsule by mouth once daily. - glipiZIDE (GLUCOTROL) 10 mg tablet Take 10 mg by mouth once daily. - dilTIAZem CD (CARDIZEM CD, CARTIA XT) 120 mg 24 hr capsule Take 120 mg by mouth once daily. Take 1/2 tablet by mouth once daily. - metFORMIN (GLUCOPHAGE) 1,000 mg tablet Take 1,000 mg by mouth twice daily. - pravastatin (PRAVACHOL) 10 mg tablet Take 10 mg by mouth once daily. 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] 08/22/2023 Renal disease [N28.9] 08/22/2023 08/23/2023 Dysuria [R30.0] [R30.0] 10/11/2023 Screening for prostate cancer [Z12.5] 10/11/2023 Hydronephrosis [N13.30] 10/11/2023 Feeling of incomplete bladder emptying [R39.14] 10/11/2023 Benign prostatic hyperplasia with weak urinary *10/11/2023 Encounter Status:Closed by MIKE SANCHEZ on 11/27/23 [facility] CNOVon 11-23-2023 CNOV Office Visit (URCANT ) LUIS DURBIN ([id number]) 1950 M Date Time Provider Department 11/23/23 9:20 AM DEBRA CINTRON During your visit today, we recorded the following information about you: Pulse Respiration Blood pressure Weight 88/minute 18/minute 145/79 87.1 kg Height 1.854 m Eloina Castro OCCA 11/23/2023 9:22 AM Signed Logistics/Shipper offered:Patient accepts, visit chaperoned by HERB Lopez Brooke, RN 11/23/2023 10:30 AM Signed Patient feeling whoozy vitals taken and patient remained seated. Dr cintron notified and nurse manager client support Zamzam. Patient placed in wheelchair and taken to spouse in waiting room until feeling better. RICK Gautam, Debra Michaud MD 11/23/2023 1:12 PM Signed Prostate nerve block and the Rezum procedure Luis Durbin is a 73 year old male who presents with enlarged prostate and urinary retention for 6 Rezum procedure and prostate nerve block. PRE-OP/PRE-PROCEDURE DIAGNOSIS: Enlarged prostate and incomplete bladder emptying POST-OP/POST-PROCEDURE DIAGNOSIS: Same SURGERY/PROCEDURE(S): Prostate nerve block and Rezum procedure Pt ID verified with patient: Yes Procedure verified with patient: Yes Procedure confirmed with physician and patient support specialist: Yes UNIVERSAL PROTOCOL / SAFETY CHECKLIST Procedure [...] (optional for EMERGENT procedures): No specimen collected. Debra Cintron MD A urinalysis was performed revealing [...] draped and cystoscopy was done using the [employer] scope 5 areas were treated 1 at 6:00 near the bladder neck and 2 on each side of the lateral lobes of the prostate Then after finishing the procedure and #16 Somali coude catheter inserted per urethra and left indwelling patient tolerated procedure well Debra Cintron MD Electronically Signed: Debra Cintron MD November 23, 2023 1:03 PM This note was partially created using voice recognition software and is inherently subject to errors including those of syntax and sound-alike substitutions which may escape proofreading. In such instances, original meaning may be extrapolated by contextual derivation. Referring Provider: DEBRA CINTRON [[id number]] Allergies As of Date: 11/23/2023 (No Known Allergies) Date Reviewed: 11/23/2023 Reviewed by: Eloina Castro OCCA - Fully Assessed Reason for Visit: Rezum [Other] Cmt: Pt states he stopped blood thinner Eliquis 1 week ago. Pt started taking antibiotic this morning. Primary Visit Diagnosis:Benign prostatic hyperplasia with weak urinary stream [N40.1, R39.12] Order(s):[] lidocaine 10 mg/mL (1 %) 200 mg injection (XYLOCAINE)Disp: Rfl: [] lidocaine urojet 2 % 11 mL topical gel (GLYDO)Disp: Rfl: UA DIP, URINE (POC) [[id number]] Order #: [id number]. #:[id number] Prescriptions as of 11/23/2023 - cefdinir (OMNICEF) 300 mg capsule Take 1 capsule by mouth two times a day. First dose evening of the procedure - lisinopril (ZESTRIL) 5 mg tablet Take 5 mg by mouth once daily. - ondansetron orally disintegrating (ZOFRAN ODT) 4 mg disintegrating tablet Take 4 mg by mouth every 8 hours as needed for nausea/vomiting. - tamsulosin (FLOMAX) 0.4 mg Take 0.4 mg by mouth once daily. - oxyCODONE-acetaminophen (PERCOCET) 5-325 mg tablet Take 1 tablet by mouth every 8 hours as needed for pain. - omeprazole (PRILOSEC) 20 mg capsule Take 1 capsule by mouth once daily. - glipiZIDE (GLUCOTROL) 10 mg tablet Take 10 mg by mouth once daily. - dilTIAZem CD (CARDIZEM CD, CARTIA XT) 120 mg 24 hr capsule Take 120 mg by mouth once daily. Take 1/2 tablet by mouth once daily. - metFORMIN (GLUCOPHAGE) 1,000 mg tablet Take 1,000 mg by mouth twice daily. - pravastatin (PRAVACHOL) 10 mg tablet T (more content not included)... Normal [facility] UA DIP, URINE (POC)on 2023 BILIRUBIN UA (POCT) Negative Negative [facility] CLARITY UA (POCT) Clear [facility] COLOR UA (POCT) Yellow [facility] GLUCOSE UA (POCT) 250 mg/dL Abnormal Negative mg/dL [facility] Hemoglobin Ql (U) Negative Negative [facility] KETONE UA (POCT) Negative Negative mg/dL [facility] LEUKOCYTES UA (POCT) Trace Abnormal Negative [facility] NITRITE UA (POCT) Negative Negative [facility] PH UA (POCT) 5.0 4.5 - 8.0 [facility] Protein Ql (U) Trace Abnormal Negative mg/dL [facility] SPECIFIC GRAVITY UA (POCT) >=1.030 1.005 - 1.030 [facility] UROBILINOGEN UA (POCT) 0.2 E.U./dL Normal E.U./dL [facility] Kevan 11-20-2023 JOHANNA Telephone (URCANT) LUIS DURBIN ([id number]) 1950 M Date Time Provider Department 11/20/23 DEBRA CINTRON During your visit today, we recorded the following information about you: Joie Joy OCCA 11/20/2023 12:03 PM Signed Pt called with questions regarding medication for Rezum. His paper work says to start medication 3 days prior, but on the prescription it states to start the evening of procedure. Please advise. HERB Whitaker Celina, OCCA 11/21/2023 8:51 AM Signed LVM to call the office back. HERB Whitaker Allergies As of Date: 11/20/2023 (No Known Allergies) Date Reviewed: 10/11/2023 Reviewed by: Kelsey Hoffman MA - Fully Assessed Reason for Visit: Patient Question [1477] Prescriptions as of 11/21/2023 - cefdinir (OMNICEF) 300 mg capsule Take 1 capsule by mouth two times a day. First dose evening of the procedure - lisinopril (ZESTRIL) 5 mg tablet Take 5 mg by mouth once daily. - ondansetron orally disintegrating (ZOFRAN ODT) 4 mg disintegrating tablet Take 4 mg by mouth every 8 hours as needed for nausea/vomiting. - tamsulosin (FLOMAX) 0.4 mg Take 0.4 mg by mouth once daily. - oxyCODONE-acetaminophen (PERCOCET) 5-325 mg tablet Take 1 tablet by mouth every 8 hours as needed for pain. - omeprazole (PRILOSEC) 20 mg capsule Take 1 capsule by mouth once daily. - glipiZIDE (GLUCOTROL) 10 mg tablet Take 10 mg by mouth once daily. - dilTIAZem CD (CARDIZEM CD, CARTIA XT) 120 mg 24 hr capsule Take 120 mg by mouth once daily. Take 1/2 tablet by mouth once daily. - metFORMIN (GLUCOPHAGE) 1,000 mg tablet Take 1,000 mg by mouth twice daily. - pravastatin (PRAVACHOL) 10 mg tablet Take 10 mg by mouth once daily. 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] 08/22/2023 Renal disease [N28.9] 08/22/2023 08/23/2023 Dysuria [R30.0] [R30.0] 10/11/2023 Screening for prostate cancer [Z12.5] 10/11/2023 Hydronephrosis [N13.30] 10/11/2023 Feeling of incomplete bladder emptying [R39.14] 10/11/2023 Benign prostatic hyperplasia with weak urinary *10/11/2023 Encounter Status:Closed by JOIE JOY on 11/21/23 [facility] PSA/PROSTSPECAG SCRNon 10-12 Prostate specific Ag [Mass/Vol] 11.56 ng/mL High <2.60 [facility] Comment on above: Order Comment: Speci men Type: BLOOD SPECIMEN Ordering Facility: [facility] Address: [address] [place] [address] Result Comment: Tota hira PSA test methodology used is the Electrochemiluminescence Immunoassay by [employer]. Total PSA values by differing methodologies cannot be interchanged. For an individual patient, the significance of a PSA level should be interpreted in a broad clinical context, including age, race, family history, digital rectal exam, prostate size, results of prior testing (prostate biopsy, free PSA, PCA3), and use of 5-alpha reductase inhibitors. Considering the high incidence of asymptomatic cancer in the general population that may not pose an ultimate risk to a patient, the decision to recommend urological evaluation or prostate biopsy should be individualized after consideration of all these factors. REFERENCE: Komal Ball M.D., M.P.H., Nghia Garay M.D., Ph.D., Misael Sifuentes M.D., Cristy Pineda, M.P.H., Kacie White, Zack. Effect of Verification Bias on Screening for Prostate Cancer by Measurement of Prostatic Specific Antigen. N Engl J Med 2003,349:335-42. Performed By: #### P SAS1 #### [facility] CLIA [id number] [address] [place] [address] [place] CNCOon 10-11-2023 CNCO Letter Text [facility] CNOVon 10-11-2023 CNOV Office Visit (URCANT ) LUIS DURBIN ([id number]) 1950 M Date Time Provider Department 10/11/23 11:00 AM DEBRA CINTRON URCANMaite During your visit today, we recorded the following information about you: Temperature Weight Height 97.6 degrees 87.1 kg 1.87 m Debra Cintron MD 10/12/2023 8:14 AM Signed [facility] ESTABLISHED PATIENT OFFICE VISIT HISTORY OF PRESENT ILLNESS Luis Durbin is a 73 year old male who [...] Onset Alcohol/Drug Father Coronary Artery Disease Father OR Emphysema Mother Coronary Artery Disease Mother OR SOCIAL HISTORY Social History Tobacco Use Smoking [...] 591, ICD10: N13.30 Cleared 4. Benign prostatic hyperplasi (more content not included)... Normal [facility] CNOVon 09-27-2023 CNOV Office Visit (URCANT ) LUIS DURBIN ([id number]) 1950 M Date Time Provider Department 09/27/23 1:00 PM DEBRA CINTRON During your visit today, we recorded the following information about you: Blood pressure Weight Height 162/90 87.1 kg 1.87 m Debra Cintron MD 09/27/2023 1:21 PM Signed CYSTOSCOPY/stent removal PROCEDURE NOTE: Cysto/stent remove-[id number] Dx;z46.6 Luis Durbin is a 73 year old male who presents with a stent. for cystoscopy and stent removal Pt ID verified with patient: yes Procedure verified with patient: yes Procedure confirmed with physician and patient support specialist: yes Special equipment-cystoscope and grasping forceps UNIVERSAL [...] (optional for EMERGENT procedures): No specimen collected. Debra Cintron MD A urinalysis was obtained prior [...] 2 % MUCOSAL JELLY IN APPLICATOR 2 Debra Cintron MD See progress note for plans Debra Cintron MD Allergies As of Date: 09/27/2023 (No Active Allergies) Date Reviewed: 09/27/2023 Reviewed by: Tess Montilla OCCA - Fully Assessed Reason for Visit: Cystoscopy-1 [303] Cmt: Stent Removal. 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 #:[id number] Prescriptions as of 09/27/2023 - lisinopril (ZESTRIL) 5 mg tablet Take 5 mg by mouth once daily. - ondansetron orally disintegrating (ZOFRAN ODT) 4 mg disintegrating tablet Take 4 mg by mouth every 8 hours as needed for nausea/vomiting. - tamsulosin (FLOMAX) 0.4 mg Take 0.4 mg by mouth once daily. - oxyCODONE-acetaminophen (PERCOCET) 5-325 mg tablet Take 1 tablet by mouth every 8 hours as needed for pain. - omeprazole (PRILOSEC) 20 mg capsule Take 1 capsule by mouth once daily. - glipiZIDE (GLUCOTROL) 10 mg tablet Take 10 mg by mouth once daily. - dilTIAZem CD (CARDIZEM CD, CARTIA XT) 120 mg 24 hr capsule Take 120 mg by mouth once daily. Take 1/2 tablet by mouth once daily. - metFORMIN (GLUCOPHAGE) 1,000 mg tablet Take 1,000 mg by mouth twice daily. - pravastatin (PRAVACHOL) 10 mg tablet Take 10 mg by mouth once daily. 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 Normal [facility] Bacteria Ur Culton Bacteria identified Cx Nom (U) CULTURE, URINE: Normal urogenital jose: ORGANISM ID: 1 <10,000 CFU/ml Staphylococcus epidermidis No further workup Normal [facility] Comment on above: Performed By: #### 6 30-4 #### [facility] CLIA [id number] [address] [place] [address] [place] URINALYSIS, DIPSTICK ONLYon 09-18-2023 Bilirubin Ql (U) Negative Normal Negative [facility] Comment on above: Order Comment: Speci men Type: URINE SPECIMEN Ordering Facility: [facility] Address: [address] [place] [address] Performed By: #### U A #### [facility] CLIA [id number] [address] [place] [address] [place] Clarity (Unsp spec) Cloudy Abnormal Clear [facility] Comment on above: Order Comment: Speci men Type: URINE SPECIMEN Ordering Facility: [facility] Address: [address] [place] [address], [place] [address] Performed By: #### U A #### [facility] CLIA [id number] [facility] [place] [address] [place] Color (U) Andrews Abnormal Yellow [facility] Comment on above: Order Comment: Speci men Type: URINE SPECIMEN Ordering Facility: [facility] Address: [address] [place] [address] Performed By: #### U A #### [facility] CLIA [id number] [address] [place] [address] [place] Glucose Test strip (U) [Mass/Vol] 2+ Abnormal Negative [facility] Comment on above: Order Comment: Speci men Type: URINE SPECIMEN Ordering Facility: [facility] Address: [address] [place] [address], [place] [address] Performed By: #### U A #### [facility] CLIA [id number] [address] [place] [address] [place] Hemoglobin Ql (U) 3+ Abnormal Negative [facility] Comment on above: Order Comment: Speci men Type: URINE SPECIMEN Ordering Facility: [facility] Address: [address] [place] [address] Performed By: #### U A #### [facility] CLIA [id number] [address] [place] [address] [place] Ketones Ql (U) Trace Abnormal Negative [facility] Comment on above: Order Comment: Speci men Type: URINE SPECIMEN Ordering Facility: [facility] Address: [address] [place] [address] Performed By: #### U A #### [facility] CLIA [id number] [address] [place] [address] [place] Leukocyte esterase Test strip Ql (U) 1+ Abnormal Negative [facility] Comment on above: Order Comment: Speci men Type: URINE SPECIMEN Ordering Facility: [facility] Address: [address] [place] [address] Performed By: #### U A #### [facility] CLIA [id number] [address] [place] [address] [place] Nitrite Ql (U) Negative Normal Negative [facility] Comment on above: Order Comment: Speci men Type: URINE SPECIMEN Ordering Facility: [facility] Address: [address] [place] [address] Performed By: #### U A #### [facility] CLIA [id number] [address] [place] [address] [place] pH (U) 5.5 [pH] Normal <8.5 [facility] Comment on above: Order Comment: Speci men Type: URINE SPECIMEN Ordering Facility: [facility] Address: [address] [place] [address] Performed By: #### U A #### [facility] CLIA [id number] [address] [place] [address] [place] Protein (U) [Mass/Vol] 2+ Abnormal Negative [facility] Comment on above: Order Comment: Speci men Type: URINE SPECIMEN Ordering Facility: [facility] Address: [address] [place] [address] Performed By: #### U A #### [facility] CLIA [id number] [address] [place] [address] [place] Specific gravity (U) [Rel density] 1.020 Normal 1.005-1.030 [facility] Comment on above: Order Comment: Speci men Type: URINE SPECIMEN Ordering Facility: [facility] Address: [address] [place] [address] Performed By: #### U A #### [facility] CLIA [id number] [address] [place] [address] [place] Urobilinogen Ql (U) 0.2 EU/dL Normal 0.2-1.0 EU/dL [facility] Comment on above: Order Comment: Speci men Type: URINE SPECIMEN Ordering Facility: [facility] Address: [address] [place] [address] Performed By: #### U A #### [facility] CLIA [id number] [address] [place] [address] [place] Kevan 08-27-2023 JOHANNA Telephone (URCANT) LUIS DURBIN ([id number]) 1950 M Date Time Provider Department 08/27/23 DEBRA CINTRON During your visit today, we recorded the following information about you: Crista Sanders 08/27/2023 8:25 AM Signed Patient called in and wanted to schedule follow up from surgery. Does this need to be in the office or surgery for stent removal? Crista Sanders 08/27/2023 10:32 AM Signed Is this too early to schedule patient Cristy Mason LPN 08/28/2023 9:14 AM Signed Patient stopped in Clinic asking why he has not been called back. I did let him know that staff would call him back to discuss plan of care. Verbalizes understanding. Crista Eduardo LPN 09/03/2023 10:59 AM Signed Patient has been called and scheduled for 09/27/23 Allergies As of Date: 08/27/2023 (No Active Allergies) Date Reviewed: 08/23/2023 Reviewed by: Reva Stokes RN - Fully Assessed Reason for Visit: post op appointment [Other] Prescriptions as of 09/03/2023 - lisinopril (ZESTRIL) 5 mg tablet Take 5 mg by mouth once daily. - ondansetron orally disintegrating (ZOFRAN ODT) 4 mg disintegrating tablet Take 4 mg by mouth every 8 hours as needed for nausea/vomiting. - tamsulosin (FLOMAX) 0.4 mg Take 0.4 mg by mouth once daily. - oxyCODONE-acetaminophen (PERCOCET) 5-325 mg tablet Take 1 tablet by mouth every 8 hours as needed for pain. - omeprazole (PRILOSEC) 20 mg capsule Take 1 capsule by mouth once daily. - glipiZIDE (GLUCOTROL) 10 mg tablet Take 10 mg by mouth once daily. - dilTIAZem CD (CARDIZEM CD, CARTIA XT) 120 mg 24 hr capsule Take 120 mg by mouth once daily. Take 1/2 tablet by mouth once daily. - metFORMIN (GLUCOPHAGE) 1,000 mg tablet Take 1,000 mg by mouth twice daily. - pravastatin (PRAVACHOL) 10 mg tablet Take 10 mg by mouth once daily. 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] 08/22/2023 Renal disease [N28.9] 08/22/2023 08/23/2023 Encounter Status:Closed by CRISTA SANDERS on 09/03/23 Normal [facility] CBC panel Auto (Bld)on 08-23 Erythrocyte distribution width (RBC) [Ratio] 15.7 % High 11.5-15.0 [facility] Comment on above: Order Comment: Speci men Type: BLOOD SPECIMEN Ordering Facility: [facility] Address: [address] [place] [address] Performed By: #### 5 7021-8 #### [facility] CLIA [id number] [address] [place] [address] [place] Hematocrit (Bld) [Volume fraction] 31.9 % Low 39.0-51.0 [facility] Comment on above: Order Comment: Sheryli men Type: BLOOD SPECIMEN Ordering Facility: [facility] Address: [address] [place] [address] Performed By: #### 5 7021-8 #### [facility] CLIA [id number] [address] [place] [address] [place] Hemoglobin (Bld) [Mass/Vol] 10.0 g/dL Low 13.0-17.0 [facility] Comment on above: Order Comment: Speci men Type: BLOOD SPECIMEN Ordering Facility: [facility] Address: [address] [place] [address] Performed By: #### 5 7021-8 #### [facility] CLIA [id number] [address] [place] [address] [place] MCH (RBC) [Entitic mass] 25.8 pg Low 26.0-34.0 [facility] Comment on above: Order Comment: Speci men Type: BLOOD SPECIMEN Ordering Facility: [facility] Address: [address] [place] [address] Performed By: #### 5 7021-8 #### [facility] CLIA [id number] [address] [place] [address] MCHC (RBC) [Mass/Vol] 31.3 g/dL Normal 30.5-36.0 [facility] Comment on above: Order Comment: Speci men Type: BLOOD SPECIMEN Ordering Facility: [facility] Address: [address] [place] [address] Performed By: #### 5 7021-8 #### [facility] [facility] CLIA [id number] [address] [place] [address] [place] MCV (RBC) [Entitic vol] 82.2 fL Normal 80.0-100.0 [facility] Comment on above: Order Comment: Speci men Type: BLOOD SPECIMEN Ordering Facility: [facility] Address: [address] [place] [address] Performed By: #### 5 7021-8 #### [facility] CLIA [id number] [address] [place] [address] [place] Nucleated RBC (Bld) [#/Vol] 10*3/uL Normal <0.01 [facility] Comment on above: Order Comment: Speci men Type: BLOOD SPECIMEN Ordering Facility: [facility] Address: [address] [facility] [place] [address] Performed By: #### 5 7021-8 #### [facility] CLIA [id number] [address] [place], [place] [address] [place] Platelet mean volume (Bld) [Entitic vol] 9.6 fL Normal 9.0-12.7 [facility] Comment on above: Order Comment: Speci men Type: BLOOD SPECIMEN Ordering Facility: [facility] Address: [address] [place] [address] Performed By: #### 5 7021-8 #### [facility] CLIA [id number] [address] [place] [address] [place] Platelets (Bld) [#/Vol] 243 10*3/uL Normal 150-400 [facility] Comment on above: Order Comment: Speci men Type: BLOOD SPECIMEN Ordering Facility: [facility] Address: [address] [place] [address] Performed By: #### 5 7021-8 #### [facility] CLIA [id number] [address] [place] [address] [place] RBC (Bld) [#/Vol] 3.88 10*6/uL Low 4.20-6.00 [facility] Comment on above: Order Comment: Speci men Type: BLOOD SPECIMEN Ordering Facility: [facility] Address: [address] [place] [address] Performed By: #### 5 7021-8 #### [facility] CLIA [id number] [address] [place], [place] [address] [place] WBC (Bld) [#/Vol] 6.49 10*3/uL Normal 3.70-11.00 [facility] Comment on above: Order Comment: Speci men Type: BLOOD SPECIMEN Ordering Facility: [facility] Address: [address] [place] [address] Performed By: #### 5 7021-8 #### [facility] CLIA [id number] [address] [place] [address] [place] Erythrocyte distribution width (RBC) [Ratio] 15.5 % High 11.5-15.0 [facility] Comment on above: Order Comment: Speci men Type: BLOOD SPECIMEN Ordering Facility: [facility] Address: [address] [place] [address] Performed By: #### 5 7021-8 #### [facility] CLIA [id number] [address] [place] [address] [place] Hematocrit (Bld) [Volume fraction] 31.9 % Low 39.0-51.0 [facility] Comment on above: Order Comment: Speci men Type: BLOOD SPECIMEN Ordering Facility: [facility] Address: [address] [place] [address] Performed By: #### 5 7021-8 #### [facility] CLIA [id number] [address] [place] [address] [place] Hemoglobin (Bld) [Mass/Vol] 10.3 g/dL Low 13.0-17.0 [facility] Comment on above: Order Comment: Speci men Type: BLOOD SPECIMEN Ordering Facility: [facility] Address: [address] [place] [address] Performed By: #### 5 7021-8 #### [facility] CLIA [id number] [address] [place] [address] [place] MCH (RBC) [Entitic mass] 26.2 pg Normal 26.0-34.0 [facility] Comment on above: Order Comment: Speci men Type: BLOOD SPECIMEN Ordering Facility: [facility] Address: [address] [place] [address] Performed By: #### 5 7021-8 #### [facility] CLIA [id number] [address] [place] [address] [place] MCHC (RBC) [Mass/Vol] 32.3 g/dL Normal 30.5-36.0 [facility] Comment on above: Order Comment: Speci men Type: BLOOD SPECIMEN Ordering Facility: [facility] Address: [address] [place] [address] Performed By: #### 5 7021-8 #### [facility] CLIA [id number] [address] [place] [address] [place] MCV (RBC) [Entitic vol] 81.2 fL Normal 80.0-100.0 [facility] Comment on above: Order Comment: Speci men Type: BLOOD SPECIMEN Ordering Facility: [facility] Address: [address] [place] [address] Performed By: #### 5 7021-8 #### [facility] CLIA [id number] [address] [place] [address] [place] Nucleated RBC (Bld) [#/Vol] 10*3/uL Normal <0.01 [facility] Comment on above: Order Comment: Speci men Type: BLOOD SPECIMEN Ordering Facility: [facility] Address: [address] [place] [address] Performed By: #### 5 7021-8 #### [facility] CLIA [id number] [address] [place] [address] [place] Platelet mean volume (Bld) [Entitic vol] 10.0 fL Normal 9.0-12.7 [facility] Comment on above: Order Comment: Speci men Type: BLOOD SPECIMEN Ordering Facility: [facility] Address: [address] [place] [address] Performed By: #### 5 7021-8 #### [facility] CLIA [id number] [address] [place] [address] [place] Platelets (Bld) [#/Vol] 236 10*3/uL Normal 150-400 [facility] Comment on above: Order Comment: Speci men Type: BLOOD SPECIMEN Ordering Facility: [facility] Address: [address] [place] [address] Performed By: #### 5 7021-8 #### [facility] CLIA [id number] [address] [place] [address] [place] RBC (Bld) [#/Vol] 3.93 10*6/uL Low 4.20-6.00 [facility] Comment on above: Order Comment: Nick men Type: BLOOD SPECIMEN Ordering Facility: [facility] Address: [address] [place] [address] Performed By: #### 5 7021-8 #### [facility] CLIA [id number] [address] [place], [place] [address] [place] WBC (Bld) [#/Vol] 6.87 10*3/uL Normal 3.70-11.00 [facility] Comment on above: Order Comment: Speci men Type: BLOOD SPECIMEN Ordering Facility: [facility] Address: [address] [place] [address] Performed By: #### 5 7021-8 #### [facility] CLIA [id number] [address] [place], [place] [address] [facility] CNDSon 08-23-2023 CNDS HNO ID: [id number] Author: Yaritza Walton DO Service: Hospital Medicine Author Type: Physician Type: Discharge Summary Filed: 08/23/2023 3:19 PM Note Text: DISCHARGE SUMMARY PATIENT NAME: Luis Durbin ADMISSION DATE: 08/20/2023 DISCHARGE DATE: 08/23/2023 ATTENDING PHYSICIAN: Yaritza Walton DO Code Status: Full Code CONSULTING TEAMS DURING HOSPITALIZATION: Urology REASON FOR HOSPITALIZATION: Left ureteral stone, obstructive uropathy, acute kidney injury DIAGNOSIS: 1. Left-sided ureteral stone 2. Left-sided retroperitoneal hemorrhage 3. Obstructive uropathy 4. Acute kidney injury 5. Type II diabetes mellitus 6. Atrial fibrillation 7. Hypertension 8. Hyperlipidemia 9. GERD OPERATIONS/PROCEDURES DURING HOSPITALIZATION: Cystoscopy with left ureteral stent insertion (08/22) HOSPITAL COURSE: - patient presented to an [facility] emergency department with left flank pain - imaging was obtained and showed evidence of an obstructing ureteral stone on the left side, hydronephrosis was seen as well - labs revealed evidence of renal failure with an elevated creatinine level of 1.64 - patient was transferred here to [facility] for urology evaluation - symptoms improved within a day, creatinine normalized - urology recommending repeat CT scan to look for stone passage - CT no longer showed evidence of an obstructing stone, but findings did show evidence of a moderate-sized retroperitoneal hemorrhage on the left, hemorrhage was causing obstruction of the left ureter with [id number] left-sided hydronephrosis - patient was taken to the operating room 08/22 for cystoscopy and left ureteral stent insertion - on 08/23 the patient was believed to be in stable and satisfactory condition, despite his hemorrhage hemoglobin was stable - he was discharged home - he was instructed to remain off of his home Eliquis for at least 1 week - he will follow-up with his primary care physician as well as urology in the coming weeks PHYSICAL EXAM: BP 136/69 Pulse 97 Temp (Src) 98.6 (Oral) Resp 20 Ht 6' 2 (1.88m) Wt 198 lb 6.4 oz (90.0kg) SpO2 98% BMI 25.46 kg/(m2). O2 Therapy: Room Air General: alert and oriented x3, resting comfortably Neck: supple, no hepatojugular reflux or jugular venous distention, no carotid bruits Lungs: clear to auscultation bilaterally, no wheezing, rales, or rhonchi Cardiac: regular rate and rhythm, normal S1 and S2, no murmurs, gallops, or rubs Abdomen: soft, nontender, nondistended, bowel sounds present Extremities: no edema, cyanosis, or clubbing Skin: no rashes or breakdown Lymphatic: no cervical or supraclavicular lymphadenopathy Neurologic: cranial nerves II-XII are grossly intact Psychiatry: normal affect, no hallucinations, no suicidal ideation DISCHARGE MEDICATION: Medication List CONTINUE taking these medications dilTIAZem CD 120 mg 24 hr capsule Commonly known as: CARDIZEM CD, CARTIA XT glipiZIDE 10 mg tablet Commonly known as: GLUCOTROL lisinopril 5 mg tablet Commonly known as: ZESTRIL metFORMIN 1,000 mg tablet Commonly known as: GLUCOPHAGE omeprazole 20 mg capsule Commonly known as: PriLOSEC Take 1 capsule by mouth once daily. ondansetron orally disintegrating 4 mg disintegrating tablet Commonly known as: ZOFRAN ODT oxyCODONE-acetaminophen 5-325 mg tablet Commonly known as: PERCOCET pravastatin 10 mg tablet Commonly known as: PRAVACHOL tamsulosin 0.4 mg Commonly known as: FLOMAX STOP taking these medications ELIQUIS 5 mg tab(s) Generic drug: apixaban KEFLEX 500 mg capsule Generic drug: cephALEXin lactase 3,000 unit tablet Commonly known as: LACTAID FUTURE APPOINTMENTS: Follow Up Appointments Follow-Up Appointment When: In 2 weeks Nadir Savage [phone] [facility] [address] [place] [address] PCP Requested Referral Follow-Up Appointment When: In 1 week Debra Cintron MD [phone] [facility] [address] [phone] PCP Requested Referral PATIENT CONDITION AT DISCHARGE: Stable DISCHARGE DISPOSITION: Home DISCHARGE TIME: 33 minutes SIGNATURE: Yaritza Walton, DATE: August 23, 2023 TIME: 3:14 PM Normal [facility] Comprehensive metabolic 2000 panelon 08-23-2023 Albumin [Mass/Vol] 2.4 g/dL Low 3.2-5.0 [facility] Comment on above: Order Comment: Nick jordan Type: BLOOD SPECIMEN Ordering Facility: [facility] Address: [address] [place] [address] Performed By: #### 5 7021-8 #### [facility] CLIA [id number] [address] [place] [address] [place] ALP [Catalytic activity/Vol] 93 U/L Normal 45-117 [facility] Comment on above: Order Comment: Nick jordan Type: BLOOD SPECIMEN Ordering Facility: [facility] Address: [address] [place] [address] Performed By: #### 5 7021-8 #### [facility] CLIA [id number] [address] [place] [address] [place] ALT [Catalytic activity/Vol] 19 U/L Normal 13-61 [facility] Comment on above: Order Comment: Nick jordan Type: BLOOD SPECIMEN Ordering Facility: [facility] Address: [address] [place] [address] Result Comment: Resu lts may be falsely depressed after the administration of Sulfasalazine and/or Sulfapyridine. Performed By: #### 5 7021-8 #### [facility] CLIA [id number] [address] [place] [address] [place] Anion gap [Moles/Vol] 8 mmol/L Normal 5-16 [facility] Comment on above: Order Comment: Speci men Type: BLOOD SPECIMEN Ordering Facility: [facility] Address: [address] [place] [address] Performed By: #### 5 7021-8 #### [facility] CLIA [id number] [address] [place] [address] [place] AST [Catalytic activity/Vol] 17 U/L Normal 8-34 [facility] Comment on above: Order Comment: Speci men Type: BLOOD SPECIMEN Ordering Facility: [facility] Address: [address] [place] [address] Result Comment: Resu lts may be falsely depressed after the administration of Sulfasalazine and/or Sulfapyridine. Performed By: #### 5 7021-8 #### [facility] CLIA [id number] [address] [place] [address] [place] Bilirubin [Mass/Vol] 0.8 mg/dL Normal 0.2-1.0 [facility] Comment on above: Order Comment: Speci men Type: BLOOD SPECIMEN Ordering Facility: [facility] Address: [address] [place] [address] Performed By: #### 5 7021-8 #### [facility] CLIA [id number] [address] [place] [address] [place] Calcium [Mass/Vol] 8.1 mg/dL Low 8.5-10.5 [facility] Comment on above: Order Comment: Speci men Type: BLOOD SPECIMEN Ordering Facility: [facility] Address: [address] [place] [address] Performed By: #### 5 7021-8 #### [facility] CLIA [id number] [address] [place] [address] [place] Chloride [Moles/Vol] 107 mmol/L Normal 98-107 [facility] Comment on above: Order Comment: Speci men Type: BLOOD SPECIMEN Ordering Facility: [facility] Address: [address] [place] [address] Performed By: #### 5 7021-8 #### [facility] CLIA [id number] [address] [place] [address] [place] CO2 [Moles/Vol] 25 mmol/L Normal 21-32 [facility] Comment on above: Order Comment: Speci men Type: BLOOD SPECIMEN Ordering Facility: [facility] Address: [address] [place] [address] Performed By: #### 5 7021-8 #### [facility] CLIA [id number] [address] [place] [address] [place] Creatinine [Mass/Vol] 0.83 mg/dL Normal 0.50-1.40 [facility] Comment on above: Order Comment: Speci men Type: BLOOD SPECIMEN Ordering Facility: [facility] Address: [address] [place] [address] Result Comment: Chen ents receiving either N-Acetylcysteine (NAC) or Metamizole prior to venipuncture, may have falsely depressed results. Performed By: #### 5 7021-8 #### [facility] CLIA [id number] [address] [place] [address] [facility] Creatinine and Glomerular filtration rate.predicted panel (S/P/Bld) 92 mL/min/1.73m??? Normal >=60 [facility] Comment on above: Order Comment: Speci men Type: BLOOD SPECIMEN Ordering Facility: [facility] Address: [address] [place] [address] Result Comment: Elda mated Glomerular Filtration Rate (eGFR) is calculated using the 2020 CKD-EPI creatinine equation. This equation utilizes serum creatinine, sex, and age as parameters. The creatinine assay has traceable calibration to isotope dilution-mass spectrometry. Refer to KDIGO guidelines for clinical interpretation. In patients with unstable renal function, e.g. those with acute kidney injury, the eGFR may not accurately reflect actual GFR. Performed By: #### 5 7021-8 #### [facility] CLIA [id number] [address] [place] [address] [place] Glucose [Mass/Vol] 140 mg/dL High 70-100 [facility] Comment on above: Order Comment: Speci men Type: BLOOD SPECIMEN Ordering Facility: [facility] Address: [address] [place] [address] Result Comment: The [place] [employer] (ADA) provides guidance for cutoff values for fasting glucose and random glucose. The ADA defines fasting as no caloric intake for at least 8 hours. Fasting plasma glucose results between 100 to 125 mg/dL indicate increased risk for diabetes (prediabetes). Fasting plasma glucose results greater than or equal to 126 mg/dL meet the criteria for diagnosis of diabetes. In the absence of unequivocal hyperglycemia, results should be confirmed by repeat testing. In a patient with classic symptoms of hyperglycemia or hyperglycemic crisis, random plasma glucose results greater than or equal to 200 mg/dL meet the criteria for diagnosis of diabetes. Reference: Standards of Medical Care in Diabetes 2016, [place] [employer]. Diabetes Care. 2016.39(Suppl 1). Results may be falsely elevated after the administration of Sulfapyridine. Results may be falsely depressed after the administration of Sulfasalazine. Performed By: #### 5 7021-8 #### [facility] CLIA [id number] [address] [place] [address] [place] Potassium [Moles/Vol] 4.1 mmol/L Normal 3.5-5.1 [facility] Comment on above: Order Comment: Nick jordan Type: BLOOD SPECIMEN Ordering Facility: [facility] Address: [address] [place] [address] Performed By: #### 5 7021-8 #### [facility] CLIA [id number] [address] [place] [address] [place] Protein [Mass/Vol] 5.5 g/dL Low 6.0-8.5 [facility] Comment on above: Order Comment: Nick jordan Type: BLOOD SPECIMEN Ordering Facility: [facility] Address: [address] [place] [address] Performed By: #### 5 7021-8 #### [facility] CLIA [id number] [address] [place] [address] [place] Sodium [Moles/Vol] 140 mmol/L Normal 136-145 [facility] Comment on above: Order Comment: Nick jordna Type: BLOOD SPECIMEN Ordering Facility: [facility] Address: [address] [place] [address] Performed By: #### 5 7021-8 #### [facility] CLIA [id number] [address] [place], [place] [address] [place] Urea nitrogen [Mass/Vol] 32 mg/dL High 7- [facility] Comment on above: Order Comment: Speci men Type: BLOOD SPECIMEN Ordering Facility: [facility] Address: [address] [place] [id number] Performed By: #### 5 7021-8 #### [facility] CLIA [id number] [address] [place], [place] [address] [place] Magnesium SerPl-mCncon 08-23 Magnesium [Mass/Vol] 1.9 mg/dL Normal 1.6-2.6 [facility] Comment on above: Order Comment: Speci men Type: BLOOD SPECIMEN Ordering Facility: [facility] Address: [address] [place] [id number] Performed By: #### 5 7021-8 #### [facility] CLIA [id number] [address] [place], [place] [address] [place] ANES POSTPROC EVALon 023 ANES POSTPROC EVAL HNO ID: [id number] Author: Breana Mcclain MD Service: Anesthesiology Author Type: Anesthesiologist Type: Anesthesia Postprocedure Evaluation Filed: 08/22/2023 7:22 PM Note Text: POST ANESTHESIA EVALUATION NOTE : 1950 Procedure Summary Date: 08/22/23 Room / Location: OR 06 / OR Anesthesia Start: 1700 Anesthesia Stop: 1752 Procedure: CYSTOSCOPY, INSERTION STENT URETERAL J (Left: Bladder) Diagnosis: Hydronephrosis (Hydronephrosis [N13.30]) Surgeons: Debra Cintron MD Responsible Provider: Breana Mcclain MD Anesthesia Type: general ASA Status: 3 Anesthesia Type: general Airway Type: LMA Last Vitals Vitals Value Taken Time BP 144/77 08/22/23 1855 Temp 36.9 ?C (98.4 ?F) 08/22/23 1855 HR SpO2 80 08/22/23 1841 Resp 20 08/22/23 1855 SpO2 92 % 08/22/23 1855 Vitals shown include unvalidated device data. Post Anesthesia Patient Status Patient Evaluation: PACU. PACU/ICU Patient Condition: stable. Anticipated Disposition: inpatient floor planned admission. Neurological Status: aware and responsive. Pulmonary Status: breathing comfortably on room air Airway Control: returned to baseline unsupported. Cardiovascular Status: stable. Pain Management: clinically adequate Postoperative Hydration: acceptable. Intraoperative Events: no significant anesthesia events Post Operative Nausea/Vomiting Status: no significant post operative nausea or vomiting Recommendation: continue current plan of care. Other Remarks: No issues in PACU, vitals are stable. . Anesthesia Observations No notable events were associated with this procedure. Documented by Breana Mcclain MD 08/22/2023 7:19 PM EST SIGNATURE: Breana Mcclain MD PATIENT NAME: Luis Durbin DATE: August 22, 2023 TIME: 7:19 PM CSN: [id number] [facility] ANES PRE-OPon 08-22-2023 ANES PRE-OP HNO ID: [id number] Author: Breana Mcclain MD Service: Anesthesiology Author Type: Anesthesiologist Type: Anesthesia Preprocedure Evaluation Filed: 08/22/2023 7:26 PM Note Text: ANESTHESIOLOGY DAY OF SURGERY NOTE : 1950 [facility] HANDP: ASSESSMENT: ? Obstructive uropathy; ELBA; nausea, vomiting -- Patient will be admitted to [facility] -- Urology consult -- Pain control, bowel regimen -- Will continue to hold Eliquis -- Will continue Flomax -- Patient did receive several doses of Rocephin, will hold at this time -- Repeat CBC and BMP in the a.m. -- Further recommendations pending above ? Diabetes mellitus --CCHO diet -- Continue home glipizide and metformin -- SSI, sensitive ? Hyperlipidemia; hypertension; PAF; GERD --will continue home medications ? Abnormal physical exam --some coarse upper airway noise, will check chest xray ? ? Disclaimer This dictation was created using voice recognition software. Phonetic and/or minor grammatical errors may exist. ? SIGNATURE: Jeimy Culman, DO ? CHIEF COMPLAINT: Intractable flank pain, nausea, vomiting . ? HPI: 73 year old male with a significant PMH of diabetes, hypertension, hyperlipidemia, PAF on Eliquis, and GERD who presented to [facility] with flank pain and nausea and was initially diagnosed with a kidney stone and sent home with Flomax and oxycodone, he returned to their facility with worsening pain, and intractable nausea and vomiting. Initial imaging did show a proximal left ureteral calculus with moderate left hydroureteronephrosis and lab work was consistent with an ELBA, they do not have urology services and so requested transfer to [facility]. At the time of my exam, the patient states his pain is improved, no nausea, would like to eat, his Eliquis has been on hold since Sunday. ? ? REVIEW OF SYSTEMS: (since the onset of symptoms) ? Please see HPI for pertinent review of systems, all other systems reviewed and are negative ? PAST MEDICAL HISTORY: PAST MEDICAL HISTORY PAST MEDICAL HISTORY Diagnosis Date - Atrial fibrillation (HCC) ? ? Eliquis- Sees [facility] - Clark's esophagus ? - DM (diabetes mellitus) (HCC) ? - GERD with esophagitis ? - Hard of hearing ? - Hx of sarcoma of soft tissue ? - Hyperlipidemia ? - Snoring ? PAST SURGICAL HISTORY: PAST SURGICAL HISTORY PAST SURGICAL HISTORY Procedure Laterality Date - CHEST WALL RESECTION OF TUMOR AND/OR RIBS ? 12/2012 ? cancer - COLONOSCOPY ? 12/11/2014 ? R Cebul - negative - ESOPHAGOGASTRODUODENOSCOPY TRANSORAL DIAGNOSTIC ? 07/09/2017 ? repeat 2 years - ESOPHAGOGASTRODUODENOSCOPY TRANSORAL DIAGNOSTIC ? 07/21/2019 ? EGD - ESOPHAGOGASTRODUODENOSCOPY TRANSORAL DIAGNOSTIC ? 09/13/2021 - EYE SURGERY HX ? ? - FRACTURE SURGERY ? ? - HAND/FINGER SURGERY UNLISTED ? ? ? R 5th finger - PAST SURGICAL HISTORY OF ? 1991 ? repair of broken left hip - PAST SURGICAL HISTORY OF ? 1968 ? left eye surgery - SKIN BIOPSY HX ? ? - TONSILLECTOMY HX ? ? SOCIAL HISTORY: SOCIAL HISTORY Social History ? Tobacco Use - Smoking status: Never - Smokeless tobacco: Never - Tobacco comments: ? ? Parents smoked in childhood home. Vaping Use - Vaping Use: Never used Substance Use Topics - Alcohol use: No - Drug use: No FAMILY HISTORY: FAMILY HISTORY FAMILY HISTORY Problem Relation Age of Onset - Alcohol/Drug Father ? - Coronary Artery Disease Father ? ? OR - Emphysema Mother ? - Coronary Artery Disease Mother ? ? OR ? HOME MEDICATIONS: CURRENT MEDICATIONS Current Facility-Administered Medications Medication Dose Route Frequency - NaCl 0.9% iv infusion 50 mL/hr INTRAVENOUS CONTINUOUS - ondansetron 4 mg tab(s) (ZOFRAN) 4 mg ORAL q 6 H PRN ? Or - ondansetron (PF) 4 mg injection (ZOFRAN) 4 mg INTRAVENOUS q 6 H PRN - acetaminophen 650 mg tab(s) (TYLENOL) 650 mg ORAL q 6 H PRN - oxyCODONE-acetaminophen 5-325 mg 1 tablet (PERCOCET) 1 tablet ORAL q 4 H PRN - NaCl 0.9% iv flush bag 20 mL INTRAVENOUS PRN - dextrose 40 % 15 g 15 g ORAL PRN ? Or - glucagon 1 mg injection 1 mg INTRAMUSCULAR PRN ? Or - dextrose 10% iv bolus 12.5 g INTRAVENOUS PRN - insulin lispro injection (rapid acting) (ADMElog) SUBCUTANEOUS w MEALS ? ALLERGIES: ALLERGIES CXR: IMPRESSION: Poor inspiratory effort. ?There are mild atelectatic changes at the left base. Teachers' Aide: IVY ? Transcribe Date/Time: Aug 21 2023 ?6:58A Dictated by : MISAEL ELIAS MD Procedure Information Date/Time: 08/22/23 1631 Procedure: CYSTOSCOPY, INSERTION STENT URETERAL J (Left: Bladder) Location: MR OR 06 / MR OR Surgeons: Debra Cintron MD Estimated body mass index is 25.34 kg/m? as calculated from the following: Height as of this encounter: 188 cm (6' 2 ). Weight as of this encounter: 89.5 kg (197 lb 6.4 oz). Most recent hematocrit and potassium results: Hematocri (more content not included)... Normal [facility] CBC panel Auto (Bld)on 08-22 Erythrocyte distribution width (RBC) [Ratio] 15.3 % High 11.5-15.0 [facility] Comment on above: Order Comment: Speci men Type: BLOOD SPECIMEN Ordering Facility: [facility] Address: [address] [place], [place] [address] Performed By: #### 5 8410-2 #### [facility] CLIA [id number] [address] [place] [address] [place] Hematocrit (Bld) [Volume fraction] 31.8 % Low 39.0-51.0 [facility] Comment on above: Order Comment: Speci men Type: BLOOD SPECIMEN Ordering Facility: [facility] Address: [address] [place] [address] Performed By: #### 5 8410-2 #### [facility] CLIA [id number] [address] [place] [address] [place] Hemoglobin (Bld) [Mass/Vol] 10.2 g/dL Low 13.0-17.0 [facility] Comment on above: Order Comment: Speci men Type: BLOOD SPECIMEN Ordering Facility: [facility] Address: [address] [place] [address] Performed By: #### 5 8410-2 #### [facility] CLIA [id number] [address] [place] [address] [place] MCH (RBC) [Entitic mass] 25.7 pg Low 26.0-34.0 [facility] Comment on above: Order Comment: Speci men Type: BLOOD SPECIMEN Ordering Facility: [facility] Address: [address] [place] [address] Performed By: #### 5 8410-2 #### [facility] CLIA [id number] [address] [place] [address] [place] MCHC (RBC) [Mass/Vol] 32.1 g/dL Normal 30.5-36.0 [facility] Comment on above: Order Comment: Speci men Type: BLOOD SPECIMEN Ordering Facility: [facility] Address: [address] [place] [address] Performed By: #### 5 8410-2 #### [facility] CLIA [id number] [address] [place] [address] [place] MCV (RBC) [Entitic vol] 80.1 fL Normal 80.0-100.0 [facility] Comment on above: Order Comment: Speci men Type: BLOOD SPECIMEN Ordering Facility: [facility] Address: [address] [place] [address] Performed By: #### 5 8410-2 #### [facility] CLIA [id number] [address] [place], [place] [address] [place] Nucleated RBC (Bld) [#/Vol] 10*3/uL Normal <0.01 [facility] Comment on above: Order Comment: Speci men Type: BLOOD SPECIMEN Ordering Facility: [facility] Address: [address] [place] [address] Performed By: #### 5 8410-2 #### [facility] CLIA [id number] [address] [place] [address] [place] Platelet mean volume (Bld) [Entitic vol] 9.8 fL Normal 9.0-12.7 [facility] Comment on above: Order Comment: Speci men Type: BLOOD SPECIMEN Ordering Facility: [facility] Address: [address] [place] [address] Performed By: #### 5 8410-2 #### [facility] CLIA [id number] [address] [place] [address] [place] Platelets (Bld) [#/Vol] 210 10*3/uL Normal 150-400 [facility] Comment on above: Order Comment: Speci men Type: BLOOD SPECIMEN Ordering Facility: [facility] Address: [address] [place] [address] Performed By: #### 5 8410-2 #### [facility] CLIA [id number] [address] [place] [address] [place] RBC (Bld) [#/Vol] 3.97 10*6/uL Low 4.20-6.00 [facility] Comment on above: Order Comment: Speci men Type: BLOOD SPECIMEN Ordering Facility: [facility] Address: [address] [place] [address] Performed By: #### 5 8410-2 #### [facility] CLIA [id number] [address] [place] [address] [place] WBC (Bld) [#/Vol] 8.54 10*3/uL Normal 3.70-11.00 [facility] Comment on above: Order Comment: Speci men Type: BLOOD SPECIMEN Ordering Facility: [facility] Address: [place] [address] Performed By: #### 5 8410-2 #### [facility] CLIA [id number] [address] [place] [address] [place] CONSULTon 08-22-2023 CONSULT HNO ID: [id number] Author: Debra Citnron MD Service: Urology Author Type: Physician Type: Consults Filed: 08/22/2023 12:44 PM Note Text: UROLOGY INPATIENT CONSULT SERVICE DATE: 08/22/2023 REFERRING PROVIDER: Osmin Medley DO [address] [facility] [id number] PCP: Nadir Savage CNP DIAGNOSIS, ASSESSMENT AND PLAN Active Hospital Problems Obstructive uropathy [N13.9] Assessment AND Plan: Left hydronephrosis Acute kidney injury Atrial fibrillation Medication induced coagulopathy Male lisinopril (ZESTRIL) 5 mg tablet, Take 5 mg by mouth once daily., Disp: , Rfl: , Unknown cephALEXin (KEFLEX) 500 mg capsule, Take 500 mg by mouth three times a day., Disp: , Rfl: , Unknown ondansetron orally disintegrating (ZOFRAN ODT) 4 mg disintegrating tablet, Take 4 mg by mouth every 8 hours as needed for nausea/vomiting., Disp: , Rfl: , Unknown tamsulosin (FLOMAX) 0.4 mg, Take 0.4 mg by mouth once daily., Disp: , Rfl: , Unknown oxyCODONE-acetaminophen (PERCOCET) 5-325 mg tablet, Take 1 tablet by mouth every 8 hours as needed for pain., Disp: , Rfl: omeprazole (PRILOSEC) 20 mg capsule, Take 1 capsule by mouth once daily., Disp: 30 capsule, Rfl: 11, Unknown glipiZIDE (GLUCOTROL) 10 mg tablet, Take 10 mg by mouth once daily., Disp: , Rfl: , Unknown dilTIAZem CD (CARDIZEM CD, CARTIA XT) 120 mg 24 hr capsule, Take 120 mg by mouth once daily. Take 1/2 tablet by mouth once daily., Disp: , Rfl: , Unknown apixaban (ELIQUIS) 5 mg tab(s), Take 5 mg by mouth two times a day., Disp: , Rfl: , Unknown lactase (LACTAID) 3,000 unit tablet, Take one with breakfast and evening meal. (Patient not taking: Reported on 05/24/2023), Disp: 60 tablet, Rfl: 5 metFORMIN (GLUCOPHAGE) 1,000 mg tablet, Take 1,000 mg by mouth twice daily., Disp: , Rfl: , Unknown pravastatin (PRAVACHOL) 10 mg tablet, Take 10 mg by mouth once daily., Disp: , Rfl: , Unknown Current Facility-Administered Medications Medication Dose Route Frequency [...] mg tab(s) (PROTONIX) 20 mg ORAL DAILY Physical examination: Alert cooperative in no acute distress Normocephalic Neck supple no cervical adenopathy Heart irregular Lungs clear abdomen soft no hepatosplenomegaly no abdominal mass No flank tenderness right or left side Legs are benign . Final impression Left hydronephrosis secondary to left retroperitoneal bleed For cystoscopy and left stent insertion SIGNATURE: Debra Cintron MD PATIENT NAME: Luis Durbin DATE: August 22, 2023 TIME: 12:39 PM [facility] CT FLANK WO IVCONon 08-22- 23 CT FLANK WO IVCON * * *Final Report* * * DATE OF EXAM: Aug 22 2023 12:05PM [facility] 0529 - CT FLANK WO IVCON / PROCEDURE REASON: Flank pain, kidney stone suspected * * * * Physician Interpretation * * * * EXAMINATION: CT ABDOMEN AND PELVIS WITHOUT IV CONTRAST (Renal stone protocol) CLINICAL HISTORY: Flank pain TECHNIQUE: Non-contrast imaging of the abdomen and pelvis was performed through the urinary tract. Study performed without intravenous or oral contrast to evaluate for urinary tract calculus. MQ: [id number] Contrast: IV contrast: None Oral contrast: None CT Radiation dose: Integrated dose-length product (DLP) for this visit = 947.71 mGy*cm. CT Dose Reduction Employed: Automated exposure control(AEC) and iterative recon COMPARISON: CT study of 06/15/2019 RESULT: Limitations: Unenhanced imaging is limited for the evaluation of some renal and other intra-abdominal and pelvic pathology. Urinary Tract: Right kidney and ureter: There are no calculi. There is no hydronephrosis. There is mild nonspecific perinephric soft tissue stranding. The right ureter is not dilated. Left kidney and ureter: There are no renal calculi. There is mild to moderate hydronephrosis. There is dilatation of the proximal to mid ureter. No obstructing calculi are identified. There is perinephric soft tissue stranding. There is diffuse soft tissue stranding and fluid with areas of high density extending throughout the left retroperitoneal primarily in the perirenal space and involving the posterior pararenal space. There is extension into the pelvis extending along primarily the presacral region. There is mild involvement in the right retroperitoneum. The findings are compatible with retroperitoneal hemorrhage. The findings are most likely the cause of the left ureteral obstruction with soft tissue stranding extending along the left ureter. Bladder: No calculi are identified. Abdomen and Pelvis: Liver: The liver shows no acute abnormalities. There is fatty infiltration. Biliary: There is cholelithiasis. Spleen: The spleen is normal in size with no acute abnormalities. Pancreas: The pancreas shows no acute findings. Adrenals: The adrenal glands are unremarkable. GI Tract: There is a small hiatal hernia. There is no bowel obstruction. There is diverticulosis. Lymph Nodes: No lymphadenopathy is identified. Mesentery/peritoneum: There is no free air. There is no ascites. Vasculature: Limited evaluation due to lack of intravenous contrast. The aorta is mildly atherosclerotic. Pelvis: The prostate gland measures 4.6 cm in diameter. There are fat-containing inguinal hernias, greater on the left. Bones and Soft Tissues: There are postsurgical changes of the left femur with associated artifact. Lower thorax: There is a small left pleural effusion and adjacent left lower lobe consolidation. There are atelectatic changes at the right base. Pressure Tester (topogram) images: Noncontributory. IMPRESSION: 1. Small left pleural effusion and adjacent left lower lobe consolidation. 2. Cholelithiasis. 3. Findings compatible with moderate left retroperitoneal hemorrhage. There are findings felt to represent secondary obstruction of the left ureter with mild to moderate left hydronephrosis. Teachers' Aide: [facility] Transcribe Date/Time: Aug 22 2023 12:06P Dictated by : MISAEL ELIAS MD This examination was interpreted and the report reviewed and electronically signed by: MISAEL ELIAS MD on Aug 22 2023 12:16PM EST [id number] Normal [facility] Comprehensive metabolic 2000 panelon 08-22-2023 Albumin [Mass/Vol] 2.4 g/dL Low 3.2-5.0 [facility] Comment on above: Order Comment: Speci men Type: BLOOD SPECIMEN Ordering Facility: [facility] Address: [address] [place] [address] Performed By: #### 2 4323-8, 30091-0 #### [facility] CLIA [id number] [address] [place] [address] [place] ALP [Catalytic activity/Vol] 82 U/L Normal 45-117 [facility] Comment on above: Order Comment: Speci men Type: BLOOD SPECIMEN Ordering Facility: [facility] Address: [address] [place] [address] Performed By: #### 2 4328, #### [facility] CLIA [id number] [address] [place] [address] [place] ALT [Catalytic activity/Vol] 21 U/L Normal 13-61 [facility] Comment on above: Order Comment: Speci men Type: BLOOD SPECIMEN Ordering Facility: [facility] Address: [address] [place] [address] Result Comment: Resu lts may be falsely depressed after the administration of Sulfasalazine and/or Sulfapyridine. Performed By: #### 2 4328, #### [facility] CLIA [id number] [address] [place], [place] [address] [place] Anion gap [Moles/Vol] 7 mmol/L Normal 5-16 [facility] Comment on above: Order Comment: Speci men Type: BLOOD SPECIMEN Ordering Facility: [facility] Address: [address] [place] [address] Performed By: #### 2 4323-04, #### [facility] CLIA [id number] [address] [place], [place] [address] [place] AST [Catalytic activity/Vol] 21 U/L Normal 8-34 [facility] Comment on above: Order Comment: Speci men Type: BLOOD SPECIMEN Ordering Facility: [facility] Address: [address] [place] [address] Result Comment: Resu lts may be falsely depressed after the administration of Sulfasalazine and/or Sulfapyridine. Performed By: #### 2 43211-29, #### [facility] CLIA [id number] [address] [place] [address] [place] Bilirubin [Mass/Vol] 0.9 mg/dL Normal 0.2-1.0 [facility] Comment on above: Order Comment: Speci men Type: BLOOD SPECIMEN Ordering Facility: [facility] Address: [address] [place] [address] Performed By: #### 2 4328, #### [facility] CLIA [id number] [address] [place] [address] [place] Calcium [Mass/Vol] 8.0 mg/dL Low 8.5-10.5 [facility] Comment on above: Order Comment: Speci men Type: BLOOD SPECIMEN Ordering Facility: [facility] Address: [address] [place] [address] Performed By: #### 2 4323-8, #### [facility] CLIA [id number] [address] [place] [address] [place] Chloride [Moles/Vol] 106 mmol/L Normal 98-107 [facility] Comment on above: Order Comment: Speci men Type: BLOOD SPECIMEN Ordering Facility: [facility] Address: [address] [place] [address] Performed By: #### 2 4323-8, #### [facility] CLIA [id number] [address] [place] [address] [place] CO2 [Moles/Vol] 25 mmol/L Normal 21-32 [facility] Comment on above: Order Comment: Speci men Type: BLOOD SPECIMEN Ordering Facility: [facility] Address: [address] [place] [address] Performed By: #### 2 4323-8, #### [facility] CLIA [id number] [address] [place] [address] [place] Creatinine [Mass/Vol] 0.93 mg/dL Normal 0.50-1.40 [facility] Comment on above: Order Comment: Speci men Type: BLOOD SPECIMEN Ordering Facility: [facility] Address: [address] [place] [address] Result Comment: Chen ents receiving either N-Acetylcysteine (NAC) or Metamizole prior to venipuncture, may have falsely depressed results. Performed By: #### 2 4323-8, #### [facility] CLIA [id number] [address] [place] [address] [place] Creatinine and Glomerular filtration rate.predicted panel (S/P/Bld) 86 mL/min/1.73m??? Normal >=60 [facility] Comment on above: Order Comment: Nick jordan Type: BLOOD SPECIMEN Ordering Facility: [facility] Address: [address] [place] [address] Result Comment: Elda mated Glomerular Filtration Rate (eGFR) is calculated using the 2020 CKD-EPI creatinine equation. This equation utilizes serum creatinine, sex, and age as parameters. The creatinine assay has traceable calibration to isotope dilution-mass spectrometry. Refer to KDIGO guidelines for clinical interpretation. In patients with unstable renal function, e.g. those with acute kidney injury, the eGFR may not accurately reflect actual GFR. Performed By: #### 2 4323-8, 49231-2 #### [facility] CLIA [id number] [address] [place], [place] [address] [place] Glucose [Mass/Vol] 165 mg/dL High 70-100 [facility] Comment on above: Order Comment: Nick jordan Type: BLOOD SPECIMEN Ordering Facility: [facility] Address: [address] [place] [address] Result Comment: The [place] [employer] (ADA) provides guidance for cutoff values for fasting glucose and random glucose. The ADA defines fasting as no caloric intake for at least 8 hours. Fasting plasma glucose results between 100 to 125 mg/dL indicate increased risk for diabetes (prediabetes). Fasting plasma glucose results greater than or equal to 126 mg/dL meet the criteria for diagnosis of diabetes. In the absence of unequivocal hyperglycemia, results should be confirmed by repeat testing. In a patient with classic symptoms of hyperglycemia or hyperglycemic crisis, random plasma glucose results greater than or equal to 200 mg/dL meet the criteria for diagnosis of diabetes. Reference: Standards of Medical Care in Diabetes 2016, [place] [employer]. Diabetes Care. 2016.39(Suppl 1). Results may be falsely elevated after the administration of Sulfapyridine. Results may be falsely depressed after the administration of Sulfasalazine. Performed By: #### 2 4323-8, 17312-9 #### [facility] CLIA [id number] [address] [place], [place] [address] [place] Potassium [Moles/Vol] 3.9 mmol/L Normal 3.5-5.1 [facility] Comment on above: Order Comment: Speci men Type: BLOOD SPECIMEN Ordering Facility: [facility] Address: [address] [facility] [place] [address] Performed By: #### 2 432-8, #### [facility] CLIA [id number] [address] [place], [place] [address] [place] Protein [Mass/Vol] 5.4 g/dL Low 6.0-8.5 [facility] Comment on above: Order Comment: Speci men Type: BLOOD SPECIMEN Ordering Facility: [facility] Address: [address] [place] [address] Performed By: #### 2 8, #### [facility] CLIA [id number] [address] [place] [address] [place] Sodium [Moles/Vol] 138 mmol/L Normal 136-145 [facility] Comment on above: Order Comment: Speci men Type: BLOOD SPECIMEN Ordering Facility: [facility] Address: [address] [place] [address] Performed By: #### 2 8, #### [facility] CLIA [id number] [address] [place] [address] [place] Urea nitrogen [Mass/Vol] 35 mg/dL High 7-26 [facility] Comment on above: Order Comment: Speci men Type: BLOOD SPECIMEN Ordering Facility: [facility] Address: [address] [place] [address] Performed By: #### 2 8, #### [facility] CLIA [id number] [address] [place], [place] [address] [place] Magnesium SerPl-mCncon 08-22 Magnesium [Mass/Vol] 1.9 mg/dL Normal 1.6-2.6 [facility] Comment on above: Order Comment: Speci men Type: BLOOD SPECIMEN Ordering Facility: [facility] Address: [address] [place] [address] Performed By: #### 2 8, #### [facility] CLIA [id number] [facility] STATES OF [facility] OPERATIVE NOon 08-22-2023 OPERATIVE NO HNO ID: [id number] Author: Debra Cintron MD Service: Urology Author Type: Physician Type: Operative Report Filed: 08/22/2023 5:48 PM Note Text: OPERATIVE/PROCEDURE REPORT LOG ID: [id number] SURGERY/PROCEDURE DATE: 08/22/2023 INCISION/PROCEDURE START TIME: 5:21 PM INCISION CLOSE/PROCEDURE END TIME: 5:39 PM SURGEON(S)/PROCEDURALIST(S) AND CUSTOMER COUNTER ASSOCIATE(S): Surgeon(s) and Role: * Debra Cintron MD - Primary No Additional Staff SURGERY/PROCEDURE(S): Cystoscopy and left stent insertion ANESTHESIA: General SURGERY/PROCEDURE DETAILS: Patient was put lithotomy position prepped and draped in the usual sterile manner Attempted to insert there is a 21 cystoscope sheath could not be done due to the a narrowing at the level of the fossa navicularis Dilation was done using [place] sounds and cystoscopy was done Anterior urethra was completely normal no evidence of stricture otherwise Prostatic urethra was wide open and without any evidence of obstruction Bladder was inspected it was normal no stone seen no tumor was seen in the right and left orifices were normal The left orifice was intubated using #0.0 35 Glidewire and a number 26 cm 6 Somali double-J ureteral stent was fed over the wire advanced into the collecting system After proper positioning of the stent guidewire and pusher were both removed bladder was emptied the scope was removed patient tolerated well taken to recovery room in satisfactory condition PRE-OP/PRE-PROCEDURE DIAGNOSIS: Left hydronephrosis POST-OP/POST-PROCEDURE DIAGNOSIS: Same, hydronephrosis secondary to retroperitoneal bleed ESTIMATED BLOOD LOSS: Not applicable SPECIMENS: None IMPLANTABLE DEVICES: None DRAINS: 26 cm 6 Somali double-J ureteral stent COMPLICATIONS: None PARTICIPATION IN SURGERY/PROCEDURE: I/primary surgeon/proceduralist performed the procedure with assistance. SIGNATURE: Debra Cintron MD PATIENT NAME: Luis Durbin DATE: August 22, 2023 TIME: 5:45 PM Normal [facility] Basic metabolic 2000 panelon 08-21-2023 Anion gap [Moles/Vol] 9 mmol/L Normal 5-16 [facility] Comment on above: Order Comment: Speci men Type: BLOOD SPECIMEN Ordering Facility: [facility] Address: [address] [place] [address] Performed By: #### 2 4321-2 #### [facility] CLIA [id number] [address] [place], [place] [address] [place] Calcium [Mass/Vol] 8.3 mg/dL Low 8.5-10.5 [facility] Comment on above: Order Comment: Speci men Type: BLOOD SPECIMEN Ordering Facility: [facility] Address: [address] [place] [address] Performed By: #### 2 4321-2 #### [facility] CLIA [id number] [address] [place] [address] [place] Chloride [Moles/Vol] 105 mmol/L Normal 98-107 [facility] Comment on above: Order Comment: Speci men Type: BLOOD SPECIMEN Ordering Facility: [facility] Address: [address] [place] [address] Performed By: #### 2 4321-2 #### [facility] CLIA [id number] [address] [place] [address] [place] CO2 [Moles/Vol] 23 mmol/L Normal 21-32 [facility] Comment on above: Order Comment: Speci men Type: BLOOD SPECIMEN Ordering Facility: [facility] Address: [address] [place] [address] Performed By: #### 2 4321-2 #### [facility] CLIA [id number] [address] [place] [address] [place] Creatinine [Mass/Vol] 1.40 mg/dL Normal 0.50-1.40 [facility] Comment on above: Order Comment: Speci men Type: BLOOD SPECIMEN Ordering Facility: [facility] Address: [address] [place] [address] Result Comment: Chen ents receiving either N-Acetylcysteine (NAC) or Metamizole prior to venipuncture, may have falsely depressed results. Performed By: #### 2 4321-2 #### [facility] CLIA [id number] [address] [place] [address] [place] Creatinine and Glomerular filtration rate.predicted panel (S/P/Bld) 53 mL/min/1.73m??? Low >=60 [facility] Comment on above: Order Comment: Nick jordan Type: BLOOD SPECIMEN Ordering Facility: [facility] Address: [address] [place] [address] Result Comment: Elda mated Glomerular Filtration Rate (eGFR) is calculated using the 2020 CKD-EPI creatinine equation. This equation utilizes serum creatinine, sex, and age as parameters. The creatinine assay has traceable calibration to isotope dilution-mass spectrometry. Refer to KDIGO guidelines for clinical interpretation. In patients with unstable renal function, e.g. those with acute kidney injury, the eGFR may not accurately reflect actual GFR. Performed By: #### 2 4321-2 #### [facility] CLIA [id number] [address] [place] [address] [place] Glucose [Mass/Vol] 192 mg/dL High 70-100 [facility] Comment on above: Order Comment: Nick jordan Type: BLOOD SPECIMEN Ordering Facility: [facility] Address: [address] [place] [address] Result Comment: The [place] [employer] (ADA) provides guidance for cutoff values for fasting glucose and random glucose. The ADA defines fasting as no caloric intake for at least 8 hours. Fasting plasma glucose results between 100 to 125 mg/dL indicate increased risk for diabetes (prediabetes). Fasting plasma glucose results greater than or equal to 126 mg/dL meet the criteria for diagnosis of diabetes. In the absence of unequivocal hyperglycemia, results should be confirmed by repeat testing. In a patient with classic symptoms of hyperglycemia or hyperglycemic crisis, random plasma glucose results greater than or equal to 200 mg/dL meet the criteria for diagnosis of diabetes. Reference: Standards of Medical Care in Diabetes 2016, [place] [employer]. Diabetes Care. 2016.39(Suppl 1). Results may be falsely elevated after the administration of Sulfapyridine. Results may be falsely depressed after the administration of Sulfasalazine. Performed By: #### 2 4321-2 #### [facility] CLIA [id number] [address] [place] [address] [place] Potassium [Moles/Vol] 3.9 mmol/L Normal 3.5-5.1 [facility] Comment on above: Order Comment: Speci men Type: BLOOD SPECIMEN Ordering Facility: [facility] Address: [address] [place] [address] Performed By: #### 2 4321-2 #### [facility] CLIA [id number] [address] [place] [address] [place] Sodium [Moles/Vol] 137 mmol/L Normal 136-145 [facility] Comment on above: Order Comment: Speci men Type: BLOOD SPECIMEN Ordering Facility: [facility] Address: [address] [place] [address] Performed By: #### 2 4321-2 #### [facility] CLIA [id number] [address] [place] [address] [place] Urea nitrogen [Mass/Vol] 32 mg/dL High 04-18 [facility] Comment on above: Order Comment: Speci men Type: BLOOD SPECIMEN Ordering Facility: [facility] Address: [address] [place] [address] Performed By: #### 2 4321-2 #### [facility] CLIA [id number] [address] [place] [address] [place] CBC W Auto Differential pane l (Bld)on 08-21-2023 Basophils (Bld) [#/Vol] 0.03 10*3/uL Normal <0.11 [facility] Comment on above: Order Comment: Speci men Type: BLOOD SPECIMEN Ordering Facility: [facility] Address: [address] [place] [address] Performed By: #### 5 7021-8 #### [facility] CLIA [id number] [address] [place] [address] [place] Basophils/100 WBC (Bld) 0.3 % Normal [facility] Comment on above: Order Comment: Speci men Type: BLOOD SPECIMEN Ordering Facility: [facility] Address: [address] [place] [address] Performed By: #### 5 7021-8 #### [facility] CLIA [id number] [address] [place] [address] [place] Differential cell count method Nom (Bld) Auto Normal [facility] Comment on above: Order Comment: Speci men Type: BLOOD SPECIMEN Ordering Facility: [facility] Address: [address] [place] [address] Performed By: #### 5 7021-8 #### [facility] CLIA [id number] [address] [place] [address] [place] Eosinophils (Bld) [#/Vol] 10*3/uL Normal <0.46 [facility] Comment on above: Order Comment: Speci men Type: BLOOD SPECIMEN Ordering Facility: [facility] Address: [address] [place] [address] Performed By: #### 5 7021-8 #### [facility] CLIA [id number] [address] [place] [address] [place] Eosinophils/100 WBC (Bld) 0.0 % Normal [facility] Comment on above: Order Comment: Speci men Type: BLOOD SPECIMEN Ordering Facility: [facility] Address: [address] [place] [address] Performed By: #### 5 7021-8 #### [facility] CLIA [id number] [address] [place] [address] [place] Erythrocyte distribution width (RBC) [Ratio] 15.4 % High 11.5-15.0 [facility] Comment on above: Order Comment: Speci men Type: BLOOD SPECIMEN Ordering Facility: [facility] Address: [address] [place] [address] Performed By: #### 5 7021-8 #### [facility] CLIA [id number] [address] [place] [address] [place] Hematocrit (Bld) [Volume fraction] 34.7 % Low 39.0-51.0 [facility] Comment on above: Order Comment: Speci men Type: BLOOD SPECIMEN Ordering Facility: [facility] Address: [address] [place] [address] Performed By: #### 5 7021-8 #### [facility] CLIA [id number] [address] [place] [address] [place] Hemoglobin (Bld) [Mass/Vol] 11.3 g/dL Low 13.0-17.0 [facility] Comment on above: Order Comment: Speci men Type: BLOOD SPECIMEN Ordering Facility: [facility] Address: [address] [place] [address] Performed By: #### 5 7021-8 #### [facility] CLIA [id number] [address] [place] [address] [place] Immature granulocytes (Bld) [#/Vol] 0.04 10*3/uL Normal <0.10 [facility] Comment on above: Order Comment: Speci men Type: BLOOD SPECIMEN Ordering Facility: [facility] Address: [address] [place] [address] Performed By: #### 5 7021-8 #### [facility] CLIA [id number] [address] [place] [address] [place] Immature granulocytes/100 WBC (Bld) 0.4 % Normal [facility] Comment on above: Order Comment: Speci men Type: BLOOD SPECIMEN Ordering Facility: [facility] Address: [address] [place] [address] Performed By: #### 5 7021-8 #### [facility] CLIA [id number] [address] [place] [address] [place] Lymphocytes (Bld) [#/Vol] 0.80 10*3/uL Low 1.00-4.00 [facility] Comment on above: Order Comment: Speci men Type: BLOOD SPECIMEN Ordering Facility: [facility] Address: [address] [place] [address] Performed By: #### 5 7021-8 #### [facility] CLIA [id number] [address] [place] [address] [place] Lymphocytes/100 WBC (Bld) 7.5 % Normal [facility] Comment on above: Order Comment: Speci men Type: BLOOD SPECIMEN Ordering Facility: [facility] Address: [address] [place] [address] Performed By: #### 5 7021-8 #### [facility] CLIA [id number] [address] [place] [address] [place] MCH (RBC) [Entitic mass] 26.3 pg Normal 26.0-34.0 [facility] Comment on above: Order Comment: Speci men Type: BLOOD SPECIMEN Ordering Facility: [facility] Address: [address] [place] [address] Performed By: #### 5 7021-8 #### [facility] CLIA [id number] [address] [place] [address] [place] MCHC (RBC) [Mass/Vol] 32.6 g/dL Normal 30.5-36.0 [facility] Comment on above: Order Comment: Speci men Type: BLOOD SPECIMEN Ordering Facility: [facility] Address: [address] [place] [address] Performed By: #### 5 7021-8 #### [facility] CLIA [id number] [address] [place] [address] [place] MCV (RBC) [Entitic vol] 80.9 fL Normal 80.0-100.0 [facility] Comment on above: Order Comment: Speci men Type: BLOOD SPECIMEN Ordering Facility: [facility] Address: [address] [place] [address] Performed By: #### 5 7021-8 #### [facility] CLIA [id number] [address] [place] [address] [place] Monocytes (Bld) [#/Vol] 1.21 10*3/uL High <0.87 [facility] Comment on above: Order Comment: Speci men Type: BLOOD SPECIMEN Ordering Facility: [facility] Address: [address] [place] [address] Performed By: #### 5 7021-8 #### [facility] CLIA [id number] [address] [place] [address] [place] Monocytes/100 WBC (Bld) 11.3 % Normal [facility] Comment on above: Order Comment: Speci men Type: BLOOD SPECIMEN Ordering Facility: [facility] Address: [address] [place] [address] Performed By: #### 5 7021-8 #### [facility] CLIA [id number] [address] [place] [address] [place] Neutrophils (Bld) [#/Vol] 8.65 10*3/uL High 1.45-7.50 [facility] Comment on above: Order Comment: Speci men Type: BLOOD SPECIMEN Ordering Facility: [facility] Address: [address] [place] [address] Performed By: #### 5 7021-8 #### [facility] CLIA [id number] [address] [place] [address] [place] Neutrophils/100 WBC (Bld) 80.5 % Normal [facility] Comment on above: Order Comment: Speci men Type: BLOOD SPECIMEN Ordering Facility: [facility] Address: [address] [place] [address] Performed By: #### 5 7021-8 #### [facility] CLIA [id number] [address] [place] [address] [place] Nucleated RBC (Bld) [#/Vol] 10*3/uL Normal <0.01 [facility] Comment on above: Order Comment: Speci men Type: BLOOD SPECIMEN Ordering Facility: [facility] Address: [address] [place] [address] Performed By: #### 5 7021-8 #### [facility] CLIA [id number] [address] [place] [address] [place] Nucleated RBC/100 WBC (Bld) [Ratio] 0.0 /100 WBC Normal [facility] Comment on above: Order Comment: Speci men Type: BLOOD SPECIMEN Ordering Facility: [facility] Address: [address] [place] [address] Performed By: #### 5 7021-8 #### [facility] CLIA [id number] [address] [place], [place] [id number] [place] Platelet mean volume (Bld) [Entitic vol] 10.1 fL Normal 9.0-12.7 [facility] Comment on above: Order Comment: Speci men Type: BLOOD SPECIMEN Ordering Facility: [facility] Address: [address] [place] [address] Performed By: #### 5 7021-8 #### [facility] CLIA [id number] [address] [place] [address] [place] Platelets (Bld) [#/Vol] 238 10*3/uL Normal 150-400 [facility] Comment on above: Order Comment: Speci men Type: BLOOD SPECIMEN Ordering Facility: [facility] Address: [address] [place] [address] Performed By: #### 5 7021-8 #### [facility] CLIA [id number] [address] [place] [address] [place] RBC (Bld) [#/Vol] 4.29 10*6/uL Normal 4.20-6.00 [facility] Comment on above: Order Comment: Speci men Type: BLOOD SPECIMEN Ordering Facility: [facility] Address: [address] [place] [address] Performed By: #### 5 7021-8 #### [facility] CLIA [id number] [address] [place], [place] [address] [place] WBC (Bld) [#/Vol] 10.73 10*3/uL Normal 3.70-11.00 [facility] Comment on above: Order Comment: Speci men Type: BLOOD SPECIMEN Ordering Facility: [facility] Address: [address] [place] [address] Performed By: #### 5 7021-8 #### [facility] CLIA [id number] [address] [place], [place] [address] [facility] ALLIED HEALTHon 08-20-2023 ALLIED HEALTH HNO ID: [id number] Author: Emily Rachel Tech Service: Radiology Author Type: Technologist Type: Allied Health Filed: 08/20/2023 10:03 PM Note Text: Summary: xray Radiology Service Progress Note PATIENT NAME: Luis Durbin DATE OF SERVICE: August 20, 2023 TIME: 10:03 PM PATIENT IDENTITY VERIFICATION COMPLETED USING TWO (2) IDENTIFIERS: Name and Date of confirmed by patient verbally and Name and Date of confirmed by identification band. FALL SCREENING: Has the patient had 2 falls in the last year or 1 fall with injury or currently using an Ambulatory Assistive Device (Walker, Cane, Wheelchair, Crutches, etc.)? Inpatient: Screened on floor PATIENT GENDER DATA: Female. status: : No status: NO. PATIENT RELEVANT IMPLANT DATA REVIEWED: Not Applicable RADIOLOGY DEPARTMENT: General X-ray: Exam(s) Completed: Chest X-Ray PERIPHERAL IV DATA: Not applicable SIGNED BY: Forest Rodriguez August 20, 2023 10:03 PM [facility] HISTORY PHYSICALon HISTORY PHYSICAL HNO ID: [id number] Author: Jeimy Zimmer DO Service: Hospital Medicine Author Type: Physician Type: HANDP Filed: 08/20/2023 8:39 PM Note Text: INTERNAL MEDICINE ADMISSION NOTE HISTORY AND PHYSICAL Patient Name: Luis Durbin Admission Date: 08/20/2023 Date of Evaluation: 08/20/2023 Time of Evaluation: 8:32 PM CHIEF COMPLAINT: Intractable flank pain, nausea, vomiting . HPI: 73 year old male with a significant PMH of diabetes, hypertension, hyperlipidemia, PAF on Eliquis, and GERD who presented to [facility] with flank pain and nausea and was initially diagnosed with a kidney stone and sent home with Flomax and oxycodone, he returned to their facility with worsening pain, and intractable nausea and vomiting. Initial imaging did show a proximal left ureteral calculus with moderate left hydroureteronephrosis and lab work was consistent with an ELBA, they do not have urology services and so requested transfer to [facility]. At the time of my exam, the patient states his pain is improved, no nausea, would like to eat, his Eliquis has been on hold since Sunday. REVIEW OF SYSTEMS: (since the onset of symptoms) Please see HPI for pertinent review of systems, all other systems reviewed and are negative PAST MEDICAL HISTORY: PAST MEDICAL HISTORY Diagnosis Date Atrial fibrillation (HCC) Eliquis- Sees [place] Clark's esophagus DM (diabetes mellitus) (HCC) GERD with esophagitis Hard of hearing Hx of sarcoma of soft tissue Hyperlipidemia Snoring PAST SURGICAL HISTORY: PAST SURGICAL HISTORY Procedure Laterality Date CHEST [...] eye surgery SKIN BIOPSY HX TONSILLECTOMY HX SOCIAL HISTORY: Social History Tobacco Use Smoking status: Never Smokeless tobacco: Never Tobacco comments: Parents smoked in childhood home. Vaping Use Vaping Use: Never used Substance Use Topics Alcohol use: No Drug use: No FAMILY HISTORY: FAMILY HISTORY Problem Relation Age of Onset Alcohol/Drug Father Coronary Artery Disease Father OR Emphysema Mother Coronary Artery Disease Mother OR HOME MEDICATIONS: Current Facility-Administered Medications Medication Dose Route Frequency [...] injection (rapid acting) (ADMElog) SUBCUTANEOUS w MEALS ALLERGIES: ALLERGIES No Known Allergies PHYSICAL EXAM: Vital Signs: BP 149/85 Pulse 114 Temp 37.2 ?C (99 ?F) (Oral) Resp 18 Ht 188 cm (6' 2 ) Wt 88.1 kg (194 lb 4.8 oz) SpO2 92% BMI 24.95 kg/m? Body mass index is 24.95 kg/m?. Gen: elderly, chronically ill appearing CV: RRR Resp: coarse upper airway noise Abd: soft, NT, ND Ext: no c/c/e DATA: Recent Labs 08/20/23 1903 PCGLUCOSE 249* LABORATORY TESTS: CBC:No results for input(s): WBC , HB , PLT , MCV , NEUTP , ABSNEUT , LYMPHP , EODINP in the last 168 hours. CHEM: No results for input(s): NA , K , CA , MG , P , ANION , CHLOR , CO2 , GLUC , BUN , CREAT in the last 168 hours. HEPATIC: No results for input(s): ALT , AST , TBILI , ALKPHOS , ALB , TPROT , LIPASE in the last 168 hours. URINALYSIS:No results for input(s): SPGR , UBACTERIA , LEUKEST , SSA , UWBC , URBC , UHB , UPROT , UGLUC , UKET in the last 168 hours. Invalid input(s): NITR COAG: No results for input(s): APTT , INR in the last 168 hours. CARDIAC: No results for input(s): CKMB , CKMBP , TROPT , PBNP in the last 168 hours. ASSESSMENT: Obstructive uropathy; ELBA; nausea, vomiting -- Patient will be admitted to [facility] -- Urology consult -- Pain control, bowel regimen -- Will continue to hold Eliquis -- Will continue Flomax -- Patient did receive several doses of Rocephin, will hold at this time -- Repeat CBC and BMP in the a.m. -- Further recommendations pending above Diabetes mellitus --CCHO diet -- Continue home glipizide and metformin -- SSI, sensitive Hyperlipidemia; hypertension; PAF; GERD --w (more content not included)... [facility] XR CHEST 1V FRONTAL PORTon 1 10-20-2022 XR CHEST 1V FRONTAL PORT * * *Final Report* * * DATE OF EXAM: Aug 20 2023 10:02PM [id number] [id number] - XR CHEST 1V FRONTAL PORT / PROCEDURE REASON: Shortness of breath * * * * Physician Interpretation * * * * EXAMINATION: CHEST RADIOGRAPH (PORTABLE SINGLE VIEW AP) Exam Date/Time: 08/20/2023 10:02 PM CLINICAL HISTORY: Shortness of breath MQ: XCPR_5 Comparison: 04/13/2020 RESULT: Lines, tubes, and devices: None. Lungs and pleura: There is a limited inspiratory effort. There are mild atelectatic changes at the left base. No acute infiltrates or congestion is seen. No effusions are seen. Cardiomediastinal silhouette: The heart is normal in size. The aorta is tortuous. Other: There are no acute osseous abnormalities. IMPRESSION: Poor inspiratory effort. There are mild atelectatic changes at the left base. Teachers' Aide: IVY Transcribe Date/Time: Aug 21 2023 6:58A Dictated by : MISAEL ELIAS MD This examination was interpreted and the report reviewed and electronically signed by: MISAEL ELIAS MD on Aug 21 2023 6:59AM EST [id number] [facility] CNTHERAPYon 11-10-2021 CNTHERAPY OT/PT/Speech Visit ( [facility]) LUIS DURBIN ([id number]) 1950 M Date Time Provider Department 11/10/21 1:00 PM STEFANIA BARTOLOME [facility] Date Time Provider Department [place] 11/10/2021 1:00 PM [id number] for Visit: Speech Instrumental Swallow Eval [3660] Speech Discharge [3488] Primary Visit Diagnosis:Difficulty swallowing pills [R19.8] Allergies As of Date: 11/10/2021 (No Known Allergies) Date Reviewed: 10/18/2021 Reviewed by: Ciera Bee LPN - Fully Assessed Prescriptions as of 11/10/2021 - omeprazole (PRILOSEC) 20 mg capsule Take 1 capsule by mouth once daily. - glipiZIDE (GLUCOTROL XL) 2.5 mg 24 hr tablet Take 2.5 mg by mouth once daily. - diltiazem (CARDIZEM) 120 mg tablet Take 1/2 tablet by mouth once daily. - apixaban (ELIQUIS) 5 mg tab(s) Take by mouth twice daily. - amiodarone (PACERONE) 200 mg tablet Take by mouth once daily. - lactase (LACTAID) 3,000 unit tablet Take one with breakfast and evening meal. - cholecalciferol, Vitamin D3, (VITAMIN D3) 50,000 unit cap capsule Take 50,000 Units by mouth once each week. - metFORMIN (GLUCOPHAGE) 1,000 mg tablet Take 1,000 mg by mouth twice daily. - pravastatin (PRAVACHOL) 10 mg tablet Take 10 mg by mouth once daily. Letter Text Normal [facility] XR MOD BARIUM SWALLOW W SPEE Krystal 11-10-2021 XR MOD BARIUM SWALLOW W SPEECH * * *Final Report* * * DATE OF EXAM: Nov 10 2021 1:35PM MDX [id number] - XR MOD BARIUM SWALLOW W SPEECH / PROCEDURE REASON: R19.8-Difficulty swallowing pills * * * * Physician Interpretation * * * * MODIFIED ESOPHAGRAM WITH VIDEO BY SPEECH PATHOLOGY Fluoroscopy was provided for an oropharyngeal phase swallowing examination performed by Speech Pathology. The exam is recorded for review. Please refer to the Speech Pathologist's report. Fluoroscopic Radiation Summary: Plane A, Air Kerma: 3.0 mGy Dose Area Product (DAP): 0.0 mGy*cm^2 Fluoro time: 1:40 min:sec INDICATION: Difficulty swallowing pills RESULT: See speech pathology notes. IMPRESSION: See speech pathology notes. Teachers' Aide: IVY Transcribe Date/Time: Nov 10 2021 1:59P Dictated by : TRAVIS QUESADA MD This examination was interpreted and the report reviewed and electronically signed by: TRAVIS QUESADA MD on Nov 10 2021 2:00PM EST [id number] Normal [facility] Coronavirus 2019on 1 SARS-CoV-2 (COVID-19) RNA EUSEBIO+probe Ql (Unsp spec) Normal Negative for COVID19 (SARS CoV2) by RT-PCR or equival [facility] Comment on above: Result Comment: Nega tive for This test was developed and its performance characteristics determined by [facility] [place]. This test has been authorized by FDA under an Emergency Use Authorization (EUA). This test has been validated in accordance with the FDA's Guidance Document Policy for Diagnostics Testing in Laboratories Certified to Perform High Complexity Testing under CLIA prior to Emergency use Authorization for Coronavirus Disease 2019 during the Public Health Emergency issued on November 22, 2019. Test performed by [facility], [facility] [place], [address] [id number]. COVID19 (SARS This test was developed and its performance characteristics determined by [facility] [place]. This test has been authorized by FDA under an Emergency Use Authorization (EUA). This test has been validated in accordance with the FDA's Guidance Document Policy for Diagnostics Testing in Laboratories Certified to Perform High Complexity Testing under CLIA prior to Emergency use Authorization for Coronavirus Disease 2019 during the Public Health Emergency issued on November 22, 2019. Test performed by [facility], [facility], [address] [address]. CoV2) by RT-PCR This test was developed and its performance characteristics determined by [facility] [facility]. This test has been authorized by [facility] under an Emergency Use Authorization (EUA). This test has been validated in accordance with the FDA's Guidance Document Policy for Diagnostics Testing in Laboratories Certified to Perform High Complexity Testing under CLIA prior to Emergency use Authorization for Coronavirus Disease 2019 during the Public Health Emergency issued on November 22, 2019. Test performed by [facility], [facility], [address] [address]. or equivalent This test was developed and its performance characteristics determined by [facility]. This test has been authorized by FDA under an Emergency Use Authorization (EUA). This test has been validated in accordance with the FDA's Guidance Document Policy for Diagnostics Testing in Laboratories Certified to Perform High Complexity Testing under CLIA prior to Emergency use Authorization for Coronavirus Disease 2019 during the Public Health Emergency issued on November 22, 2019. Test performed by [facility], [facility], [address] [id number]. ethod. This test was developed and its performance characteristics determined by [facility]. This test has been authorized by FDA under an Emergency Use Authorization (EUA). This test has been validated in accordance with the FDA's Guidance Document Policy for Diagnostics Testing in Laboratories Certified to Perform High Complexity Testing under CLIA prior to Emergency use Authorization for Coronavirus Disease 2019 during the Public Health Emergency issued on November 22, 2019. Test performed by [facility], [facility], [address] [address]. SARS-CoV-2 (COVID-19) RNA EUSEBIO+probe Ql (Unsp spec) AUTOMATIC TIRE TESTER Normal [facility] Reference Lab BLADDER SCAN [facility] Vital Signs Date Time Vital Sign Value Performing Clinician Faci lity 05-02-2024 11:33-0400 Heart rate 70 /min Debra Cintron MD Work Phone: [facility] 05-02-2024 11:33-0400 SaO2% (BldA) [Mass fraction] 98 % Debra Cintron MD Work Phone: [facility] 12-25-2023 14:32-0400 Diastolic blood pressure 79 mm[Hg] Debra Cintron MD Work Phone: [facility] 12-25-2023 14:32-0400 Heart rate 95 /min Debra Cintron MD Work Phone: [facility] 12-25-2023 14:32-0400 SaO2% (BldA) [Mass fraction] 97 % Debra Cintron MD Work Phone: [facility] 12-25-2023 14:32-0400 Systolic blood pressure 138 mm[Hg] Debra Cintron MD Work Phone: [facility] 11-23-2023 10:15-0500 Diastolic blood pressure 79 mm[Hg] Debra Cintron MD Work Phone: [facility] 11-23-2023 10:15-0500 Heart rate 88 /min Debra Cintron MD Work Phone: [facility] 11-23-2023 10:15-0500 Respiratory rate 18 /min Debra Cintron MD Work Phone: [facility] 11-23-2023 10:15-0500 SaO2% (BldA) [Mass fraction] 98 % Debra Cintron MD Work Phone: [facility] 11-23-2023 10:15-0500 Systolic blood pressure 145 mm[Hg] Debra Cintron MD Work Phone: [facility] 11-23-2023 09:20-0500 Body height 185.4 cm Debra Cintron MD Work Phone: [facility] 11-23-2023 09:20-0500 Body weight 87.09 kg Debra Cintron MD Work Phone: [facility] Encounters Encounter Date Encounter Type Care Provider Facility Start: 05-27-2024 End: 05-27-2024 ambulatory NADIR SAVAGE Facility:[facility] Start: 05-27-2024 End: 05-27-2024 Patient encounter procedure Emmanuel Valverde Work Phone: Podiatry Comment on above: Onychomycosis (Prima ry Dx); Pain in toe of right foot; Pain in toe of left foot; Hallux valgus of left foot; Hallux valgus of right foot; Tailor's bunion of left foot; Well controlled type 2 diabetes mellitus with neurological manifestations (HCC) Start: 05-02-2024 End: 05-02-2024 Patient encounter procedure Debra Cintron MD Work Phone: Urology Comment on above: Calculus of kidney [ N20.0] (Primary Dx); Biliary calculus of other site without obstruction; Elevated prostate specific antigen (PSA) Start: 05-02-2024 End: 05-02-2024 ambulatory DEBRA CINTRON Facility:[facility] Start: 04-22-2024 End: 04-22-2024 Subsequent hospital visit by physician Debbie Camejo Work Phone: [facility] Comment on above: Kidney stone [N20.0] Start: 04-22-2024 End: 04-22-2024 Patient encounter procedure Debra Cintron MD Work Phone: Urology Comment on above: BPH with obstruction /lower urinary tract symptoms (Primary Dx); Elevated prostate specific antigen (PSA); Kidney stone Start: 04-22-2024 End: 04-22-2024 ambulatory DEBRA CINTRON Facility:[id number] Start: 01-15-2024 End: 01-15-2024 Patient encounter procedure Debra Cintron MD Work Phone: Urology Comment on above: BPH with obstruction /lower urinary tract symptoms [N40.1, N13.8] (Primary Dx); Hydronephrosis, unspecified hydronephrosis type Start: 01-15-2024 End: 01-15-2024 ambulatory DEBRA CINTRON Facility:[id number] Start: 12-25-2023 End: 12-25-2023 ambulatory DEBRA CINTRON Facility:[id number] Start: 12-25-2023 End: 12-25-2023 Patient encounter procedure Debra Cintron MD Work Phone: Urology Comment on above: Benign prostatic hyp erplasia with weak urinary stream (Primary Dx); Feeling of incomplete bladder emptying Start: 12-24-2023 Telephone encounter Debra Cintron MD Work Phone: Urology Comment on above: Patient Update Start: 11-27-2023 End: 11-27-2023 ambulatory NADIR L SWIHART Facility:[id number] Start: 11-27-2023 End: 11-27-2023 Patient encounter procedure Nurse Amado Burns Work Phone: Urology Comment on above: Benign prostatic hyp erplasia with weak urinary stream (Primary Dx) Start: 11-27-2023 End: 11-27-2023 ambulatory NADIR L SWIHART Facility:[id number] Start: 11-26-2023 Telephone encounter Nadine govea APRN.CNP Work Phone: Urology Comment on above: Orders Start: 11-23-2023 End: 11-23-2023 Patient encounter procedure Debra Cintron MD Work Phone: Urology Comment on above: Benign prostatic hyp erplasia with weak urinary stream (Primary Dx) Start: 11-23-2023 End: 11-23-2023 ambulatory DEBRA CINTRON Facility:[id number] Start: 11-20-2023 Telephone encounter Debra Cintron MD Work Phone: Urology Comment on above: Patient Question Start: 10-12-2023 End: 10-12-2023 ambulatory NADIR L SWIHART Facility:[facility] Start: 10-11-2023 End: 10-11-2023 ambulatory DEBRA CINTRON Facility:[id number] Start: 09-27-2023 End: 09-27-2023 ambulatory DEBRA CINTRON Facility:[id number] Start: 08-27-2023 Telephone encounter Debra Cintron MD Work Phone: Urology Comment on above: post op appointment Start: 08-20-2023 End: 08-23-2023 Evaluation and management of inpatient JEIMY ZIMMER Facility:[id number] Start: 05-24-2023 End: 05-24-2023 Patient encounter procedure Emmanuel Martinezgwen Work Phone: Podiatry Comment on above: Onychomycosis (Prima ry Dx); Pain in toe of right foot; Pain in toe of left foot; Well controlled type 2 diabetes mellitus with neurological manifestations (HCC); Tailor's bunion of left foot Start: 01-24-2022 End: 01-24-2022 Patient encounter procedure Emmanuel Martinezgwen Work Phone: Podiatry Comment on above: Onychomycosis (Prima ry Dx); Pain in toe of right foot; Pain in toe of left foot; Well controlled type 2 diabetes mellitus with neurological manifestations (HCC); Ingrowing toenail of right foot; Tailor's bunion of left foot Procedures Date Procedure Procedure Detail Performing Clinician Start: 05-02-2024 Urnls dip stick/tabl et rgnt auto w/o microscopy Debra Cintron MD Work Phone: Start: 04-22-2024 BLADDER SCAN Debra Cintron MD Work Phone: Start: 04-22-2024 Urnls dip stick/tabl et rgnt auto w/o microscopy Debra Cintron MD Work Phone: Start: 01-15-2024 Urnls dip stick/tabl et rgnt auto w/o microscopy Debra Cintron MD Work Phone: Start: 01-15-2024 BLADDER SCAN Debra Cintron MD Work Phone: Start: 12-25-2023 Urnls dip stick/tabl et rgnt auto w/o microscopy Debra Cintron MD Work Phone: Start: 12-25-2023 BLADDER SCAN Debra Cintron MD Work Phone: Start: 11-23-2023 Urnls dip stick/tabl et rgnt auto w/o microscopy Debra Cintron MD Work Phone: Start: 01-27-2015 Adult depression scr eening assessment Emmanuel Valverde Work Phone: Start: 12-11-2014 Colonoscopy Emmanuel Gamboa Work Phone: Plan of Treatment Date Care Activity Detail Author Start: 03-05-2032 Urine microalbumin profile DTaP,Tdap,Td Vaccine (2 - Td or Tdap) [facility] Start: 05-28-2025 End: 05-28-2025 Patient encounter procedure 05/28/2025 10:15 AM EDT Office Visit Podiatry [address] [place] [address] Emmanuel Valverde [address] [place], [place] [id number] 1year follow up Podiatry Comment on above: 1year follow up Start: 05-27-2025 Diabetic foot examination Diabetic Foot Exam [facility] Start: 12-11-2024 Colonoscopy COLONOSCOPY [facility] Start: 12-11-2024 COLORECTAL CANCER SCREENING COLORECTAL CANCER SCREENING [facility] Start: 12-11-2024 Screening for malign ant neoplasm of colon [facility] Start: 11-07-2024 End: 11-07-2024 Patient encounter procedure 11/07/2024 8:40 AM EST Office Visit Urology [address] [place] [address] Debra Cintron MD [address] [place] [address] 6 months follow up Urology Comment on above: 6 months follow up Start: 05-27-2024 End: 05-27-2024 Patient encounter procedure 05/27/2024 10:00 AM EDT Office Visit Podiatry [address] [place], [place] [address] Emmanuel Valverde [address] [place] [address] 1year follow up Podiatry Comment on above: 1year follow up Start: 05-25-2024 Covid-19 Vaccine () Covid-19 Vaccine () [facility] Start: 05-25-[address] [facility] Start: 05-24-2024 3 comp foot exam completed DIABETIC FOOT EXAM [facility] Start: 05-24-2024 Diabetic foot examination Diabetic Foot Exam [facility] Start: 05-02-2024 End: 05-02-2024 Patient encounter procedure 05/02/2024 2:00 PM EDT Office Visit Urology [address] [place] [address] Debra Cintron MD [address] [place] [address] 1 week follow up - Per DR. Cintron - PSA/KUB prior Urology Comment on above: 1 week follow up - P er DR. Cintron - PSA/KUB prior Start: 04-22-2024 End: 07-22-2024 Prostate specific Ag [Mass/volume] in Serum or Plasma [facility] Comment on above: Expected: 04/22/2024 , Expires: 07/22/2024 Start: 04-22-2024 End: 05-22-2025 XR Abdomen Supine and Upright [facility] Work Phone: Comment on above: Expected: 04/22/2024 , Expires: 05/22/2025 Start: 04-22-2024 End: 04-22-2024 Patient encounter procedure 04/22/2024 1:00 PM EDT Office Visit Urology [address] [place] [address] Debra Cintron MD [address] [id number] 3 month follow up - W/ [facility] Comment on above: 3 month follow up - W/ [facility] Start: 09-24-2023 Advance Directive Discussion Advance Directive Discussion [facility] Start: 09-24-2023 Behavioral Health Screening Behavioral Health Screening [facility] Start: 09-24-2023 Depression Assessment Depression Ass essment [facility] Start: 05-25-2023 Covid-19 Vaccine ( season) Covid-19 Vaccine ( season) [facility] Start: 05-25-[address] [facility] Start: 11-24-2022 COVID-19 VACCINE (4 - Moderna series) COVID-19 VACCINE (4 - Moderna series) [facility] Start: 09-24-2022 ADVANCE DIRECTIVE DISCUSSION ADVANCE DIRECTIVE DISCUSSION [facility] Start: 09-24-2022 DEPRESSION ASSESSMENT DEPRESSION ASS ESSMENT [facility] Start: 05-25-2022 Influenza vaccination INFLUENZ A (Season Ended) [facility] Start: 09-24-2021 ADVANCE DIRECTIVE DISCUSSION ADVANCE DIRECTIVE DISCUSSION [facility] Start: 06-01-2021 COVID-19 VACCINE (3 - Booster for Moderna series) COVID-19 VACCINE (3 - Booster for Moderna series) [facility] Start: 08-01-2019 3 comp foot exam completed DIABETIC FOOT EXAM [facility] Start: 01-28-2016 Adult depression screening assessment DEPRESSION SCREENING [facility] Start: 2014 PNEUMOVAX AGE 65 AND OVER WITH 5YR LOOKBACK (#1) PNEUMOVAX AGE 65 AND OVER WITH 5YR LOOKBACK (#1) [facility] Start: 07-03-2013 Hemoglobin A1c measurement HbA1C [facility] Start: 07-03-2013 Hemoglobin A1c/Hemoglobin.total in Blood HBA1C [facility] Start: 05-21-2013 Hepatitis B surface antibody level LDL CHOLESTEROL [facility] Start: 2009 RSV Vaccine (1 - 1-d ose 60+ series) RSV Vaccine (1 - 1-dose 60+ series) [facility] Start: 1999 SHINGRIX VACCINE (1 of 2) SHINGRIX VACCINE (1 of 2) [facility] Start: 1994 COLOGUARD (FIT-DNA) COLOGUARD (FIT-D NA) [facility] Start: [address] COLONOGRAPHY [facility] Start: 1994 FECAL OCCULT BLOOD FECAL OCCULT BLOO D [facility] Start: 1994 Screening for malign ant neoplasm of colon [facility] Start: 1994 SIGMOIDOSCOPY SIGMOIDOSCOPY [facility] Start: 1968 Urine microalbumin profile DTAP,TDAP,TD (1 - Tdap) [facility] Start: 1967 ANNUAL PCP TEAM [employer] ANN DISEASE VISIT ANNUAL PCP TEAM CHRONIC DISEASE VISIT [facility] Start: 1967 Anxiety Screening Anxiety Screening [facility] Start: 1967 Depression Screening Depression Scre ening [facility] Start: 1967 HEPATITIS C SCREENING HEPATITIS C [facility] Start: 1967 Hepatitis C screening Hepatitis C [facility] Start: 1959 Glaucoma screening Dilated Retinal E xam [facility] Start: 1959 Hepatitis B screening URINE ALBUMIN:CREATININE RATIO [facility] Start: 1959 Hepatitis C antibody , confirmatory test DILATED RETINAL EXAM [facility] Start: 1955 Pneumococcal Vaccine : 65+ (1 - PCV) Pneumococcal Vaccine: 65+ (1 - PCV) [facility] Start: 1955 Pneumococcal Vaccine : 65+ (1 of 2 - PCV) Pneumococcal Vaccine: 65+ (1 of 2 - PCV) [facility] Start: 1955 PNEUMOCOCCAL: 65+ (1 - PCV) PNEUMOCOCCAL: 65+ (1 - PCV) [facility] VOIDING TRIAL PROTOCOL VOIDING T RIAL PROTOCOL Procedures Routine Benign prostatic hyperplasia with weak urinary stream Ordered: 11/27/2023 [facility] Work Phone: Comment on above: Ordered: 11/27/2023 [facility] Immunizations Immunization Date Immunization Notes Care Provider Gayle riggins 07-27-2022 influenza virus vacc ine, unspecified formulation Debra Cintron MD Work Phone: [facility] 07-19-2012 influenza virus vacc ine, unspecified formulation Emmanule Valverde Work Phone: [facility] Payers Date Payer Category Payer Medicare [facility] MEDICARE [facility] DUAL COMPLETE HMO POS SNP [id number] 2023-Present [phone] [address] [place] [address] Medicare [id number] 2023 Unknown [id number] 2019 Medicaid [facility] MEDICAID MYC ARE [facility] MEDICAID [id number] 2019-Present [phone] [address] [place] [address] Medicaid [id number] 2019 Medicaid [facility] MEDICAID MYC ARE [facility] MEDICAID [id number] 2019-Present [phone] [address] [place] [address] Medicaid [id number] 2019 Medicaid [id number] Social History Date Type Detail Facility Start: 11-23-2012 End: 04-10-2023 Tobacco smoking status NHIS Never smoked tobacco [facility] Start: 11-23-2012 End: 04-10-2023 Tobacco use and exposure Smokeless tobacco non-user [facility] Start: 01-24-2022 End: 05-27-2024 Alcohol intake Current non-drinker of alcohol (finding) [facility] Start: 10-05-2014 End: 04-10-2023 Tobacco Comment Parents smoked in childhood home. [facility] Start: 1950 Sex Assigned At Not on file [facility] Start: 01-14-2022 End: 01-24-2022 Exposure to SARS-CoV-2 (event) Not sure [facility] Start: 05-24-2023 End: 05-27-2024 History of Social function [facility] Start: 05-24-2023 End: 05-27-2024 Tobacco use panel [facility] National Score (1-10 0), lower number is lower risk 68 [facility] Medical Equipment Procedure Code Equipment Code Equipment Original Text Equipment Identifier Dates Mesh Srg Surgipr o 6x6in Rachel - [id number] Start: 01-06-2013 Comment on above: Description: surgipr o monofilament polypropylene mesh implanted to left lateral chest wall/back/abdomen Stent Contour 6x26 W/O Wire - [id number] Start: 08-22-2023 Clinical Notes 11-10-2021 to 05-27-2024 Patient InstructionsEmmanuel Valverde - 05/27/2024 10:10 AM EDTCecille Saini RN - 05/27/2024 10:02 AM Debra Vargas MD - 05/02/2024 12:01 PM EDMike Washington RN - 11/27/2023 8:21 AM EST Note Date & Type Note Facility 05-27-2024 Instructions Emmanuel Valverde - 05/27/2024 10:18 AM EDT Diabetes Foot Care Instructions When [...] it. Apply a bandage and wear a different pair of shoes. Take Care of Your Toenails Cut toenails after bathing, when they are soft. Cut toenails straight across and smooth with a nail file. Avoid cutting into the corners of toes. Do not cut cuticles. If you have neuropathy (or decreased sensation in your feet) a geologist should always cut your toenails. Be Careful [...] make sure there are no foreign objects or rough areas. Avoid tight socks. Wear natural-fiber socks [...] Go to your health care provider or geologist to treat these conditions. documented in this encounter [facility] 05-27-2024 Note HNO ID: [id number] Author: EMMANUEL VALVERDE, ? Service: ? Author Type: Physician Type: Progress Notes Filed: 05/27/2024 13:02 Note Text: Last saw pcp: not in chart Subjective: This 74 year old male presents to clinic for diabetic foot check. Patient has the following complaints: dystrophic/painful toenails. Patient admits to being diabetic for multiple years now. 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 lisinopril (ZESTRIL) 5 mg tablet Take 5 mg by mouth once daily. omeprazole (PRILOSEC) 20 mg capsule Take 1 capsule by mouth once daily. glipiZIDE (GLUCOTROL) 10 mg tablet Take 10 mg by mouth once daily. dilTIAZem CD (CARDIZEM CD, CARTIA XT) 120 mg 24 hr capsule Take 120 mg by mouth once daily. Take 1/2 tablet by mouth once daily. metFORMIN (GLUCOPHAGE) 1,000 mg tablet Take 1,000 mg by mouth twice daily. pravastatin (PRAVACHOL) 10 mg tablet Take 10 mg by mouth once daily. tamsulosin (FLOMAX) 0.4 mg Take 1 capsule by mouth once daily. (Patient not taking: Reported on 05/27/2024) cefdinir (OMNICEF) 300 mg capsule Take 1 capsule by mouth two times a day. First dose evening of the procedure (Patient not taking: Reported on 05/02/2024) ondansetron orally disintegrating (ZOFRAN ODT) 4 mg disintegrating tablet Take 4 mg by mouth every 8 hours as needed for nausea/vomiting. (Patient not taking: Reported on 05/27/2024) tamsulosin (FLOMAX) 0.4 mg Take 0.4 mg by mouth once daily. (Patient not taking: Reported on 05/27/2024) oxyCODONE-acetaminophen (PERCOCET) 5-325 mg tablet Take 1 tablet by mouth every 8 hours as needed for pain. (Patient not taking: Reported on 05/27/2024) No current facility-administered medications for this visit. ALLERGIES No Known Allergies PAST SURGICAL HISTORY 12/2012: CHEST WALL RESECTION OF TUMOR AND/OR RIBS Comment: cancer 12/11/2014: COLONOSCOPY Comment: Sofia Cebul - negative 07/09/2017: ESOPHAGOGASTRODUODENOSCOPY TRANSORAL DIAGNOSTIC Comment: repeat 2 years 07/21/2019: ESOPHAGOGASTRODUODENOSCOPY TRANSORAL DIAGNOSTIC Comment: EGD 09/13/2021: ESOPHAGOGASTRODUODENOSCOPY TRANSORAL DIAGNOSTIC No date: EYE SURGERY HX No date: FRACTURE SURGERY No date: HAND/FINGER SURGERY UNLISTED Comment: R 5th finger 1991: PAST SURGICAL HISTORY OF Comment: repair of broken left hip 1968: PAST SURGICAL HISTORY OF Comment: left eye surgery No date: SKIN BIOPSY HX No date: TONSILLECTOMY HX FAMILY HISTORY Problem Relation Age of Onset Alcohol/Drug Father Coronary Artery Disease Father OR Emphysema Mother Coronary Artery Disease Mother OR Social History Tobacco Use Smoking status: Never Smokeless tobacco: Never Tobacco comments: Parents smoked in childhood home. Vaping Use Vaping status: Never Used Substance Use Topics Alcohol use: No Drug [...] Patient presents to clinic ambulating in diabetic shoe Constitutional: Pt is a well developed 74 year old male who is alert, oriented, cooperative and in no apparent distress. Eyes: Following during examination. No redness or drainage. Respiratory: RR normal and nonlabored. Even breathing. No evidence of distress. Psychology: Patient is engaged during conversation. Normal affect and mood. Does not appear depressed or a (more content not included)... [facility] 05-27-2024 History of Present illness Narrative Last saw pcp: not in chart Subjective: This 74 year old male presents to clinic for diabetic foot check. Patient has the following complaints: dystrophic/painful toenails. Patient admits to being diabetic for multiple years now. Patient +B/T/N in feet at this time. Patient -pain in legs when walking. No other pedal complaints at this time. No change in medications or medical history since last visit. PAIN EVALUATION No data found in the last 1 encounters. 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 lisinopril (ZESTRIL) 5 mg tablet Take 5 mg by mouth once daily. omeprazole (PRILOSEC) 20 mg capsule Take 1 capsule by mouth once daily. glipiZIDE (GLUCOTROL) 10 mg tablet Take 10 mg by mouth once daily. dilTIAZem CD (CARDIZEM CD, CARTIA XT) 120 mg 24 hr capsule Take 120 mg by mouth once daily. Take 1/2 tablet by mouth once daily. metFORMIN (GLUCOPHAGE) 1,000 mg tablet Take 1,000 mg by mouth twice daily. pravastatin (PRAVACHOL) 10 mg tablet Take 10 mg by mouth once daily. tamsulosin (FLOMAX) 0.4 mg Take 1 capsule by mouth once daily. (Patient not taking: Reported on 05/27/2024) cefdinir (OMNICEF) 300 mg capsule Take 1 capsule by mouth two times a day. First dose evening of the procedure (Patient not taking: Reported on 05/02/2024) ondansetron orally disintegrating (ZOFRAN ODT) 4 mg disintegrating tablet Take 4 mg by mouth every 8 hours as needed for nausea/vomiting. (Patient not taking: Reported on 05/27/2024) tamsulosin (FLOMAX) 0.4 mg Take 0.4 mg by mouth once daily. (Patient not taking: Reported on 05/27/2024) oxyCODONE-acetaminophen (PERCOCET) 5-325 mg tablet Take 1 tablet by mouth every 8 hours as needed for pain. (Patient not taking: Reported on 05/27/2024) No current facility-administered medications for this visit. ALLERGIES No Known Allergies PAST SURGICAL HISTORY 12/2012: CHEST WALL RESECTION OF TUMOR &/OR RIBS Comment: cancer 12/11/2014: COLONOSCOPY Comment: R Cebul - negative 07/09/2017: ESOPHAGOGASTRODUODENOSCOPY TRANSORAL DIAGNOSTIC Comment: repeat 2 years 07/21/2019: ESOPHAGOGASTRODUODENOSCOPY TRANSORAL DIAGNOSTIC Comment: EGD 09/13/2021: ESOPHAGOGASTRODUODENOSCOPY TRANSORAL DIAGNOSTIC No date: EYE SURGERY HX No date: FRACTURE SURGERY No date: HAND/FINGER SURGERY UNLISTED Comment: R 5th finger 1991: PAST SURGICAL HISTORY OF Comment: repair of broken left hip 1968: PAST SURGICAL HISTORY OF Comment: left eye surgery No date: SKIN BIOPSY HX No date: TONSILLECTOMY HX FAMILY HISTORY Problem Relation Age of Onset Alcohol/Drug Father Coronary Artery Disease Father OR Emphysema Mother Coronary Artery Disease Mother OR Social History Tobacco Use Smoking status: Never Smokeless tobacco: Never Tobacco comments: Parents smoked in childhood home. Vaping Use Vaping status: Never Used Substance Use Topics Alcohol use: No Drug [...] Patient presents to clinic ambulating in diabetic shoe Constitutional: Pt is a well developed 74 year old male who is alert, oriented, [...] Hair growth present. Neuro: Protective sensation is decreased to the foot and toes when tested with the 5.07 SWM bilateral. Vibratory sensation is absent at the hallux bilateral. + Significant neurological defecits. Derm: Inspection and palpation performed. Nails 1 right are painful, discolored-yellow, thick, crumbly, dystrophic and with subungal debris. Left hallux nail plate has been removed. Skin is of normal turgor and texture. Hyperkeratosis noted to not present. NO ulcerations, scars, verruca or other lesions noted. Ortho: Ankle joint DF is full with the knee extended and full with knee flexed. No pain or crepitus noted. STJ, MTJ ROM are full and free of pain or crepitus. Muscle strength is 5/5 for dorsiflexors, plantarflexors, inverters, everters. Digital deformities include small hallux valgus b/l. Small tailors bunion b/l. Assessment: (B35.1) Onychomycosis (primary encounter diagnosis) (M79.674) Pain in toe of right foot (M79.675) Pain in toe of left foot (M20.12) Hallux valgus of left foot (M20.11) Hallux valgus of right foot (M21.622) Tailor's bunion of left foot (E11.49) Well controlled type 2 diabetes mellitus with neurological manifestations ([facility]) Plan: 1. Patient was seen and evaluated. 2. Patient was instructed on the continued importance of diabetic foot care along with proper diet and keeping their blood sugar under control to prevent complications. Stressed the importance of avoiding barefoot walking, wearing good shoes and daily foot inspection Instructions given both oral and written. 3. Patient has dystrophic right hallux toenail. Toenails 1-5 right and 2-5 left were debrided. Discussed consideration into total nail matrixectomy. He has had on the left in the past and did well. Would be open perhaps in future to consider. Small bleed on right hallux. Band aide applied. 4. Discussed small bunion of b/l 1st and 5th rays. No pain. Continue with wider shoes. Diabetic shoes order. He is candidate due to bunion and diabetic with slight neuropathy. Emmanuel Valverde DPM Patient presents with: Left Foot - Established Patient, Follow Up, Diabetic Foot Check Right Foot - Established Patient, Follow Up, Diabetic Foot Check Patient presents for 1 year follow up diabetic foot exam. Also states that he needs his nails trimmed due to some being too thick. Would like a new order for diabetic shoes. [facility]05/24/23 documented in this encounter [facility] 05-27-2024 Note HNO ID: [id number] Author: CECILLE SAINI RN Service: ? Author Type: Registered Nurse Type: Progress Notes Filed: 05/27/2024 13:02 Note Text: Patient presents with: Left Foot - Established Patient, Follow Up, Diabetic Foot Check Right Foot - Established Patient, Follow Up, Diabetic Foot Check Patient presents for 1 year follow up diabetic foot exam. Also states that he needs his nails trimmed due to some being too thick. Would like a new order for diabetic shoes. [facility]05/24/23 [facility] 05-02-2024 Note HNO ID: [id number] Author: DEBRA CINTRON MD Service: ? Author Type: Physician Type: Progress Notes Filed: 05/02/2024 12:07 Note Text: [facility] ESTABLISHED PATIENT OFFICE VISIT HISTORY OF PRESENT ILLNESS Luis Durbin is a 74 year old male who is here for follow up of kidney stone disease Patient also history of elevated PSA following Rezum procedure repeat PSA 3 days ago was normal at 1.1 So most likely his PSA was elevated due to previous prostate procedure KUB obtained also few days ago was negative for kidney stone disease but there was also some gallstones and that was explained to patient Patient would need to be referred to a general surgeon and he said he will find a surgeon on his own in [place] Denies any lower urinary tract symptoms following Rezum therapy . Review of Systems The remainder of the ROS was reviewed and is negative. LAB Creatinine Date Value Ref Range Status 08/23/2023 0.83 0.50 - 1.40 mg/dL Final Comment: Patients receiving either N-Acetylcysteine (NAC) or Metamizole prior to venipuncture, may have falsely depressed results. GLUCOSE UA (POCT) (mg/dL) Date Value 05/02/2024 Negative BILIRUBIN UA (POCT) (no units) Date Value 05/02/2024 Small (A) KETONE UA (POCT) (mg/dL) Date Value 05/02/2024 Trace SPECIFIC GRAVITY UA (POCT) (no units) Date Value 05/02/2024 >=1.030 HEMOGLOBIN/BLOOD UA (POCT) (no units) Date Value 05/02/2024 Negative PH UA (POCT) (no units) Date Value 05/02/2024 5.5 PROTEIN UA (POCT) (mg/dL) Date Value 05/02/2024 Negative UROBILINOGEN UA (POCT) (E.U./dL) Date Value 05/02/2024 0.2 NITRITE UA (POCT) (no units) Date Value 05/02/2024 Negative LEUKOCYTES UA (POCT) (no units) Date Value 05/02/2024 Negative COLOR UA (POCT) (no units) Date Value 05/02/2024 Yellow CLARITY UA (POCT) (no units) Date Value 05/02/2024 Clear ] MEDICATIONS TRULICITY 1.5 mg/0.5 mL pen injector INJECT THE CONTENTS OF 1 PEN UNDER THE SKIN ONCE WEEKLY ELIQUIS 5 mg tab(s) Take 1 tablet by mouth every 12 hours. tamsulosin (FLOMAX) 0.4 mg Take 1 capsule by mouth once daily. lisinopril (ZESTRIL) 5 mg tablet Take 5 mg by mouth once daily. ondansetron orally disintegrating (ZOFRAN ODT) 4 mg disintegrating tablet Take 4 mg by mouth every 8 hours as needed for nausea/vomiting. tamsulosin (FLOMAX) 0.4 mg Take 0.4 mg by mouth once daily. oxyCODONE-acetaminophen (PERCOCET) 5-325 mg tablet Take 1 tablet by mouth every 8 hours as needed for pain. omeprazole (PRILOSEC) 20 mg capsule Take 1 capsule by mouth once daily. glipiZIDE (GLUCOTROL) 10 mg tablet Take 10 mg by mouth once daily. dilTIAZem CD (CARDIZEM CD, CARTIA XT) 120 mg 24 hr capsule Take 120 mg by mouth once daily. Take 2 tablet by mouth once daily. metFORMIN (GLUCOPHAGE) 1,000 mg tablet Take 1,000 mg by mouth twice daily. pravastatin (PRAVACHOL) 10 mg tablet Take 10 mg by mouth once daily. cefdinir (OMNICEF) 300 mg capsule Take 1 capsule by mouth two times a day. 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 No date: Hyperlipidemia 08/22/2023: Renal disease No date: Snoring PAST SURGICAL HISTORY 12/2012: CHEST WALL RESECTION OF TUMOR AND/OR RIBS Comment: cancer 12/11/2014: COLONOSCOPY Comment: Sofia Cebul - negative 07/09/2017: ESOPHAGOGASTRODUODENOSCOPY TRANSORAL DIAGNOSTIC Comment: repeat 2 years 07/21/2019: ESOPHAGOGASTRODUODENOSCOPY TRANSORAL DIAGNOSTIC Comment: EGD 09/13/2021: ESOPHAGOGASTRODUODENOSCOPY TRANSORAL DIAGNOSTIC No date: EYE SURGERY HX No date: FRACTURE SURGERY No date: HAND/FINGER SURGERY UNLISTED Comment: R 5th finger 1991: PAST SURGICAL HISTORY OF Comment: repair of broken left hip 1968: PAST SURGICAL HISTORY OF Comment: left eye surgery No date: SKIN BIOPSY HX No date: TONSILLECTOMY HX FAMILY HISTORY Problem Relation Age of Onset Alcohol/Drug Father Coronary Artery Disease Father OR Emphysema Mother Coronary Artery Disease Mother OR SOCIAL HISTORY Social History Tobacco Use Smoking status: Never Smokeless tobacco: Never Tobacco comments: Parents smoked in childhood home. Vaping Use Vaping Use: Never used Substance Use Topics Alcohol use: No Drug use: No Pulse 70 SpO2 98% Physical Exam Constitutional: Appearance: Normal appearance. HENT: Head: Normocephalic. Nose: Nose normal. Pulmonary: Effort: Pulmonary effort is normal. Abdominal: General: Abdomen is flat. Neurological: Mental Status: He is alert. Psychiatric: Mood and Affect: Mood normal. ASSESSMENT AND PLAN: No problem-specific Assessment AND Plan notes fou (more content not included)... [facility] 05-02-2024 History of Present illness Narrative Images from the original note were not included. [facility] ESTABLISHED PATIENT OFFICE VISIT HISTORY OF PRESENT ILLNESS Luis Durbin is a 74 year old male who is here for follow up of kidney stone disease Patient also history of elevated PSA following Rezum procedure repeat PSA 3 days ago was normal at 1.1 So most likely his PSA was elevated due to previous prostate procedure KUB obtained also few days ago was negative for kidney stone disease but there was also some gallstones and that was explained to patient Patient would need to be referred to a general surgeon and he said he will find a surgeon on his own in [place] Denies any lower urinary tract symptoms following Rezum therapy . Review of Systems The remainder of the ROS was reviewed and is negative. LAB Creatinine Date Value Ref Range Status 08/23/2023 0.83 0.50 - 1.40 mg/dL Final Comment: Patients receiving either N-Acetylcysteine (NAC) or Metamizole prior to venipuncture, may have falsely depressed results. GLUCOSE UA (POCT) (mg/dL) Date Value 05/02/2024 Negative BILIRUBIN UA (POCT) (no units) Date Value 05/02/2024 Small (A) KETONE UA (POCT) (mg/dL) Date Value 05/02/2024 Trace SPECIFIC GRAVITY UA (POCT) (no units) Date Value 05/02/2024 >=1.030 HEMOGLOBIN/BLOOD UA (POCT) (no units) Date Value 05/02/2024 Negative PH UA (POCT) (no units) Date Value 05/02/2024 5.5 PROTEIN UA (POCT) (mg/dL) Date Value 05/02/2024 Negative UROBILINOGEN UA (POCT) (E.U./dL) Date Value 05/02/2024 0.2 NITRITE UA (POCT) (no units) Date Value 05/02/2024 Negative LEUKOCYTES UA (POCT) (no units) Date Value 05/02/2024 Negative COLOR UA (POCT) (no units) Date Value 05/02/2024 Yellow CLARITY UA (POCT) (no units) Date Value 05/02/2024 Clear ] MEDICATIONS TRULICITY 1.5 mg/0.5 mL pen injector INJECT THE CONTENTS OF 1 PEN UNDER THE SKIN ONCE WEEKLY ELIQUIS 5 mg tab(s) Take 1 tablet by mouth every 12 hours. tamsulosin (FLOMAX) 0.4 mg Take 1 capsule by mouth once daily. lisinopril (ZESTRIL) 5 mg tablet Take 5 mg by mouth once daily. ondansetron orally disintegrating (ZOFRAN ODT) 4 mg disintegrating tablet Take 4 mg by mouth every 8 hours as needed for nausea/vomiting. tamsulosin (FLOMAX) 0.4 mg Take 0.4 mg by mouth once daily. oxyCODONE-acetaminophen (PERCOCET) 5-325 mg tablet Take 1 tablet by mouth every 8 hours as needed for pain. omeprazole (PRILOSEC) 20 mg capsule Take 1 capsule by mouth once daily. glipiZIDE (GLUCOTROL) 10 mg tablet Take 10 mg by mouth once daily. dilTIAZem CD (CARDIZEM CD, CARTIA XT) 120 mg 24 hr capsule Take 120 mg by mouth once daily. Take 1/2 tablet by mouth once daily. metFORMIN (GLUCOPHAGE) 1,000 mg tablet Take 1,000 mg by mouth twice daily. pravastatin (PRAVACHOL) 10 mg tablet Take 10 mg by mouth once daily. cefdinir (OMNICEF) 300 mg capsule Take 1 capsule by mouth two times a day. 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 No date: Hyperlipidemia 08/22/2023: Renal disease No date: Snoring PAST SURGICAL HISTORY 12/2012: CHEST WALL RESECTION OF TUMOR &/OR RIBS Comment: cancer 12/11/2014: COLONOSCOPY Comment: Sofia Wheatl - negative 07/09/2017: ESOPHAGOGASTRODUODENOSCOPY TRANSORAL DIAGNOSTIC Comment: repeat 2 years 07/21/2019: ESOPHAGOGASTRODUODENOSCOPY TRANSORAL DIAGNOSTIC Comment: EGD 09/13/2021: ESOPHAGOGASTRODUODENOSCOPY TRANSORAL DIAGNOSTIC No date: EYE SURGERY HX No date: FRACTURE SURGERY No date: HAND/FINGER SURGERY UNLISTED Comment: R 5th finger 1992: PAST SURGICAL HISTORY OF Comment: repair of broken left hip 1969: PAST SURGICAL HISTORY OF Comment: left eye surgery No date: SKIN BIOPSY HX No date: TONSILLECTOMY HX FAMILY HISTORY Problem Relation Age of Onset Alcohol/Drug Father Coronary Artery Disease Father OR Emphysema Mother Coronary Artery Disease Mother OR SOCIAL HISTORY Social History Tobacco Use Smoking status: Never Smokeless tobacco: Never Tobacco comments: Parents smoked in childhood home. Vaping Use Vaping Use: Never used Substance Use Topics Alcohol use: No Drug use: No Pulse 70 SpO2 98% Physical Exam Constitutional: Appearance: Normal appearance. HENT: Head: Normocephalic. Nose: Nose normal. Pulmonary: Effort: Pulmonary effort is normal. Abdominal: General: Abdomen is flat. Neurological: Mental Status: He is alert. Psychiatric: Mood and Affect: Mood normal. ASSESSMENT & PLAN: No problem-specific Assessment & Plan notes found for this encounter. ASSESSMENT/PLAN: 1. Calculus of kidney [N20.0] - ICD9: 592.0, ICD10: N20.0 (primary diagnosis) Cleared, recent KUB was not showing any stone disease 2. Biliary calculus of other site without obstruction - ICD9: 574.20, ICD10: K80.80 Stones were also present on CT scan obtained November 2022 3. Elevated prostate specific antigen (PSA) - ICD9: 790.93, ICD10: R97.20 Value is back to normal, PSA was obtained early following Rezum therapy Debra Citnron MD This note was partially created using voice recognition software and is inherently subject to errors including those of syntax and sound-alike substitutions which may escape proofreading. In such instances, original meaning may be extrapolated by contextual derivation. documented in this encounter [facility] 04-22-2024 History of Present illness Narrative Radiology Service Progress Note PATIENT NAME: Luis Durbin DATE OF SERVICE: April 22, 2024 TIME: 1:57 PM PATIENT IDENTITY VERIFICATION COMPLETED USING TWO (2) IDENTIFIERS: Name and Date of confirmed by patient verbally. FALL SCREENING: Has the patient had 2 falls in the last year or 1 fall with injury or currently using an Ambulatory Assistive Device (Walker, Cane, Wheelchair, Crutches, etc.)? No PATIENT GENDER DATA: Male PATIENT RELEVANT IMPLANT DATA REVIEWED: Not Applicable PATIENT PRESENTS WITH AN IMPLANTABLE OR ATTACHED UNSTACKER: No RADIOLOGY DEPARTMENT: General X-ray: Exam(s) Completed: Abdomen X-Ray: Abdomen PERIPHERAL IV DATA: Not applicable SIGNED BY: PIYUSH Neville) April 22, 2024 1:57 PM documented in this encounter [facility] 04-22-2024 Note HNO ID: [id number] Author: AMBAR KLINE RT (R) Service: Radiology Author Type: Technologist Type: Progress Notes Filed: 04/22/2024 13:58 Note Text: Radiology Service Progress Note PATIENT NAME: Luis Durbin DATE OF SERVICE: April 22, 2024 TIME: 1:57 PM PATIENT IDENTITY VERIFICATION COMPLETED USING TWO (2) IDENTIFIERS: Name and Date of confirmed by patient verbally. FALL SCREENING: Has the patient had 2 falls in the last year or 1 fall with injury or currently using an Ambulatory Assistive Device (Walker, Cane, Wheelchair, Crutches, etc.)? No PATIENT GENDER DATA: Male PATIENT RELEVANT IMPLANT DATA REVIEWED: Not Applicable PATIENT PRESENTS WITH AN IMPLANTABLE OR ATTACHED UNSTACKER: No RADIOLOGY DEPARTMENT: General X-ray: Exam(s) Completed: Abdomen X-Ray: Abdomen PERIPHERAL IV DATA: Not applicable SIGNED BY: PIYUSH Neville) April 22, 2024 1:57 PM [facility] 04-22-2024 Note HNO ID: [id number] Author: DEBRA CINTRON MD Service: ? Author Type: Physician Type: Progress Notes Filed: 04/22/2024 13:35 Note Text: [facility] ESTABLISHED PATIENT OFFICE VISIT HISTORY OF PRESENT ILLNESS Luis Durbin is a 74 year old male who is here for follow up of enlarged prostate and lower urinary tract symptoms Patient is status post Rezum therapy and he is doing well with urinary stream and postvoid residual urine is 0 Denies any hematuria Patient has some investigation performed last week for abdominal pain and was told he had kidney stones ,KUB ordered History of high PSA, PSA reordered this could be secondary to previous infection due to enlarged prostate . Review of Systems The remainder of the ROS was reviewed and is negative. LAB Creatinine Date Value Ref Range Status 08/23/2023 0.83 0.50 - 1.40 mg/dL Final Comment: Patients receiving either N-Acetylcysteine (NAC) or Metamizole prior to venipuncture, may have falsely depressed results. GLUCOSE UA (POCT) (mg/dL) Date Value 04/22/2024 Negative BILIRUBIN UA (POCT) (no units) Date Value 04/22/2024 Negative KETONE UA (POCT) (mg/dL) Date Value 04/22/2024 Negative SPECIFIC GRAVITY UA (POCT) (no units) Date Value 04/22/2024 >=1.030 HEMOGLOBIN/BLOOD UA (POCT) (no units) Date Value 04/22/2024 Negative PH UA (POCT) (no units) Date Value 04/22/2024 5.5 PROTEIN UA (POCT) (mg/dL) Date Value 04/22/2024 Negative UROBILINOGEN UA (POCT) (E.U./dL) Date Value 04/22/2024 0.2 NITRITE UA (POCT) (no units) Date Value 04/22/2024 Negative LEUKOCYTES UA (POCT) (no units) Date Value 04/22/2024 Negative COLOR UA (POCT) (no units) Date Value 04/22/2024 Yellow CLARITY UA (POCT) (no units) Date Value 04/22/2024 Clear ] MEDICATIONS TRULICITY 1.5 mg/0.5 mL pen injector INJECT THE CONTENTS OF 1 PEN UNDER THE SKIN ONCE WEEKLY ELIQUIS 5 mg tab(s) Take 1 tablet by mouth every 12 hours. cefdinir (OMNICEF) 300 mg capsule Take 1 capsule by mouth two times a day. First dose evening of the procedure lisinopril (ZESTRIL) 5 mg tablet Take 5 mg by mouth once daily. omeprazole (PRILOSEC) 20 mg capsule Take 1 capsule by mouth once daily. glipiZIDE (GLUCOTROL) 10 mg tablet Take 10 mg by mouth once daily. dilTIAZem CD (CARDIZEM CD, CARTIA XT) 120 mg 24 hr capsule Take 120 mg by mouth once daily. Take 1/2 tablet by mouth once daily. metFORMIN (GLUCOPHAGE) 1,000 mg tablet Take 1,000 mg by mouth twice daily. tamsulosin (FLOMAX) 0.4 mg Take 1 capsule by mouth once daily. (Patient not taking: Reported on 01/15/2024) ondansetron orally disintegrating (ZOFRAN ODT) 4 mg disintegrating tablet Take 4 mg by mouth every 8 hours as needed for nausea/vomiting. (Patient not taking: Reported on 11/23/2023) tamsulosin (FLOMAX) 0.4 mg Take 0.4 mg by mouth once daily. (Patient not taking: Reported on 11/23/2023) oxyCODONE-acetaminophen (PERCOCET) 5-325 mg tablet Take 1 tablet by mouth every 8 hours as needed for pain. (Patient not taking: Reported on 11/23/2023) pravastatin (PRAVACHOL) 10 mg tablet Take 10 mg by mouth once daily. (Patient not taking: Reported on 12/25/2023) 0 HISTORIES PAST MEDICAL HISTORY Diagnosis Date [...] Onset Alcohol/Drug Father Coronary Artery Disease Father OR Emphysema Mother Coronary Artery Disease Mother OR SOCIAL HISTORY Social History Tobacco Use Smoking status: Never Smokeless tobacco: Never Tobacco comments: Parents smoked in childhood home. Vaping Use Vaping Use: Never used Substance Use Topics Alcohol use: No Drug use: No There were no vitals taken for this visit. Physical Exam Constitutional: Appearance: Normal appearance. HENT: Head: Normocephalic. Pulmonary: Effort: Pulmonary effort is normal. Abdominal: General: Abdomen is flat. Neurological: Mental Status: He is alert. Psychiatric: Mood and Affect: Mood normal. ASSESSMENT AND PLAN: No problem-specific Assessment AND Plan notes found for this encounter. ASSESSMENT/PLAN: 1. BPH with obstruction/lowe (more content not included)... [facility] 04-22-2024 History of Present illness Narrative Images from the original note were not included. [facility] ESTABLISHED PATIENT OFFICE VISIT HISTORY OF PRESENT ILLNESS Luis Durbin is a 74 year old male who is here for follow up of enlarged prostate and lower urinary tract symptoms Patient is status post Rezum therapy and he is doing well with urinary stream and postvoid residual urine is 0 Denies any hematuria Patient has some investigation performed last week for abdominal pain and was told he had kidney stones ,KUB ordered History of high PSA, PSA reordered this could be secondary to previous infection due to enlarged prostate . Review of Systems The remainder of the ROS was reviewed and is negative. LAB Creatinine Date Value Ref Range Status 08/23/2023 0.83 0.50 - 1.40 mg/dL Final Comment: Patients receiving either N-Acetylcysteine (NAC) or Metamizole prior to venipuncture, may have falsely depressed results. GLUCOSE UA (POCT) (mg/dL) Date Value 04/22/2024 Negative BILIRUBIN UA (POCT) (no units) Date Value 04/22/2024 Negative KETONE UA (POCT) (mg/dL) Date Value 04/22/2024 Negative SPECIFIC GRAVITY UA (POCT) (no units) Date Value 04/22/2024 >=1.030 HEMOGLOBIN/BLOOD UA (POCT) (no units) Date Value 04/22/2024 Negative PH UA (POCT) (no units) Date Value 04/22/2024 5.5 PROTEIN UA (POCT) (mg/dL) Date Value 04/22/2024 Negative UROBILINOGEN UA (POCT) (E.U./dL) Date Value 04/22/2024 0.2 NITRITE UA (POCT) (no units) Date Value 04/22/2024 Negative LEUKOCYTES UA (POCT) (no units) Date Value 04/22/2024 Negative COLOR UA (POCT) (no units) Date Value 04/22/2024 Yellow CLARITY UA (POCT) (no units) Date Value 04/22/2024 Clear ] MEDICATIONS TRULICITY 1.5 mg/0.5 mL pen injector INJECT THE CONTENTS OF 1 PEN UNDER THE SKIN ONCE WEEKLY ELIQUIS 5 mg tab(s) Take 1 tablet by mouth every 12 hours. cefdinir (OMNICEF) 300 mg capsule Take 1 capsule by mouth two times a day. First dose evening of the procedure lisinopril (ZESTRIL) 5 mg tablet Take 5 mg by mouth once daily. omeprazole (PRILOSEC) 20 mg capsule Take 1 capsule by mouth once daily. glipiZIDE (GLUCOTROL) 10 mg tablet Take 10 mg by mouth once daily. dilTIAZem CD (CARDIZEM CD, CARTIA XT) 120 mg 24 hr capsule Take 120 mg by mouth once daily. Take 1/2 tablet by mouth once daily. metFORMIN (GLUCOPHAGE) 1,000 mg tablet Take 1,000 mg by mouth twice daily. tamsulosin (FLOMAX) 0.4 mg Take 1 capsule by mouth once daily. (Patient not taking: Reported on 01/15/2024) ondansetron orally disintegrating (ZOFRAN ODT) 4 mg disintegrating tablet Take 4 mg by mouth every 8 hours as needed for nausea/vomiting. (Patient not taking: Reported on 11/23/2023) tamsulosin (FLOMAX) 0.4 mg Take 0.4 mg by mouth once daily. (Patient not taking: Reported on 11/23/2023) oxyCODONE-acetaminophen (PERCOCET) 5-325 mg tablet Take 1 tablet by mouth every 8 hours as needed for pain. (Patient not taking: Reported on 11/23/2023) pravastatin (PRAVACHOL) 10 mg tablet Take 10 mg by mouth once daily. (Patient not taking: Reported on 12/25/2023) 0 HISTORIES PAST MEDICAL HISTORY Diagnosis Date [...] Onset Alcohol/Drug Father Coronary Artery Disease Father OR Emphysema Mother Coronary Artery Disease Mother OR SOCIAL HISTORY Social History Tobacco Use Smoking status: Never Smokeless tobacco: Never Tobacco comments: Parents smoked in childhood home. Vaping Use Vaping Use: Never used Substance Use Topics Alcohol use: No Drug use: No There were no vitals taken for this visit. Physical Exam Constitutional: Appearance: Normal appearance. HENT: Head: Normocephalic. Pulmonary: Effort: Pulmonary effort is normal. Abdominal: General: Abdomen is flat. Neurological: Mental Status: He is alert. Psychiatric: Mood and Affect: Mood normal. ASSESSMENT & PLAN: No problem-specific Assessment & Plan notes found for this encounter. ASSESSMENT/PLAN: 1. BPH with obstruction/lower urinary tract symptoms - ICD9: 600.01, 599.69, ICD10: N40.1, N13.8 (primary diagnosis) Postvoid digital urine is 1 mL - BLADDER SCAN 2. Elevated prostate specific antigen (PSA) - ICD9: 790.93, ICD10: R97.20 PSA ordered - PROSTATE-SPECIFIC ANTIGEN DIAGNOSTIC 3. Kidney stone - ICD9: 592.0, ICD10: N20.0 - XR ABDOMEN 1V SUPINE Debra Cintron MD This note was partially created using voice recognition software and is inherently subject to errors including those of syntax and sound-alike substitutions which may escape proofreading. In such instances, original meaning may be extrapolated by contextual derivation. documented in this encounter [facility] 01-15-2024 Note HNO ID: [id number] Author: DEBRA CINTRON MD Service: ? Author Type: Physician Type: Progress Notes Filed: 01/15/2024 15:27 Note Text: [facility] ESTABLISHED PATIENT OFFICE VISIT HISTORY OF PRESENT ILLNESS Luis Durbin is a 73 year old male who is here for follow up of enlarged prostate status post Rezum procedure performed on November 23, 2023 Postvoid residual urine is 2 mL Has a good urinary stream Urine today showing microscopic hematuria probably due to incomplete healing of the prostatic fossa. Review of Systems The remainder of the ROS was reviewed and is negative. LAB Creatinine Date Value Ref Range Status 08/23/2023 0.83 0.50 - 1.40 mg/dL Final Comment: Patients receiving either N-Acetylcysteine (NAC) or Metamizole prior to venipuncture, may have falsely depressed results. GLUCOSE UA (POCT) (mg/dL) Date Value 01/15/2024 Negative BILIRUBIN UA (POCT) (no units) Date Value 01/15/2024 Negative KETONE UA (POCT) (mg/dL) Date Value 01/15/2024 Negative SPECIFIC GRAVITY UA (POCT) (no units) Date Value 01/15/2024 >=1.030 HEMOGLOBIN/BLOOD UA (POCT) (no units) Date Value 01/15/2024 Large (A) PH UA (POCT) (no units) Date Value 01/15/2024 5.5 PROTEIN UA (POCT) (mg/dL) Date Value 01/15/2024 30 (A) UROBILINOGEN UA (POCT) (E.U./dL) Date Value 01/15/2024 0.2 NITRITE UA (POCT) (no units) Date Value 01/15/2024 Negative LEUKOCYTES UA (POCT) (no units) Date Value 01/15/2024 Small (A) COLOR UA (POCT) (no units) Date Value 01/15/2024 Yellow CLARITY UA (POCT) (no units) Date Value 01/15/2024 Clear ] MEDICATIONS cefdinir (OMNICEF) 300 mg capsule Take 1 capsule by mouth two times a day. First dose evening of the procedure lisinopril (ZESTRIL) 5 mg tablet Take 5 mg by mouth once daily. omeprazole (PRILOSEC) 20 mg capsule Take 1 capsule by mouth once daily. glipiZIDE (GLUCOTROL) 10 mg tablet Take 10 mg by mouth once daily. dilTIAZem CD (CARDIZEM CD, CARTIA XT) 120 mg 24 hr capsule Take 120 mg by mouth once daily. Take 1/2 tablet by mouth once daily. metFORMIN (GLUCOPHAGE) 1,000 mg tablet Take 1,000 mg by mouth twice daily. tamsulosin (FLOMAX) 0.4 mg Take 1 capsule by mouth once daily. (Patient not taking: Reported on 01/15/2024) ondansetron orally disintegrating (ZOFRAN ODT) 4 mg disintegrating tablet Take 4 mg by mouth every 8 hours as needed for nausea/vomiting. (Patient not taking: Reported on 11/23/2023) tamsulosin (FLOMAX) 0.4 mg Take 0.4 mg by mouth once daily. (Patient not taking: Reported on 11/23/2023) oxyCODONE-acetaminophen (PERCOCET) 5-325 mg tablet Take 1 tablet by mouth every 8 hours as needed for pain. (Patient not taking: Reported on 11/23/2023) pravastatin (PRAVACHOL) 10 mg tablet Take 10 mg by mouth once daily. (Patient not taking: Reported on 12/25/2023) 0 HISTORIES PAST MEDICAL HISTORY Diagnosis Date [...] Onset Alcohol/Drug Father Coronary Artery Disease Father OR Emphysema Mother Coronary Artery Disease Mother OR SOCIAL HISTORY Social History Tobacco Use Smoking status: Never Smokeless tobacco: Never Tobacco comments: Parents smoked in childhood home. Vaping Use Vaping Use: Never used Substance Use Topics Alcohol use: No Drug use: No There were no vitals taken for this visit. Physical Exam ASSESSMENT AND PLAN: No problem-specific Assessment AND Plan notes found for this encounter. ASSESSMENT/PLAN: 1. BPH with obstruction/lower urinary tract symptoms [N40.1, N13.8] - ICD9: 600.01, 599.69, ICD10: N40.1, N13.8 (primary diagnosis) Status post Rezum performed on November 23, 2023 and patient is doing well with a minimum amount of postvoid residual urine of about 2 mm - BLADDER SCAN 2. History of hydronephrosis, History of left hydronephrosis secondary to retroperitoneal bleed probably secondary to trauma in a patient with medication induced coagulopathy Hydronephrosis has cleared as per ultrasound performed on September 2023 Debra Cintron MD This note was partially created using voice recognition software and (more content not included)... [facility] 01-15-2024 History of Present illness Narrative Images from the original note were not included. [facility] ESTABLISHED PATIENT OFFICE VISIT HISTORY OF PRESENT ILLNESS Luis Durbin is a 73 year old male who is here for follow up of enlarged prostate status post Rezum procedure performed on November 23, 2023 Postvoid residual urine is 2 mL Has a good urinary stream Urine today showing microscopic hematuria probably due to incomplete healing of the prostatic fossa. Review of Systems The remainder of the ROS was reviewed and is negative. LAB Creatinine Date Value Ref Range Status 08/23/2023 0.83 0.50 - 1.40 mg/dL Final Comment: Patients receiving either N-Acetylcysteine (NAC) or Metamizole prior to venipuncture, may have falsely depressed results. GLUCOSE UA (POCT) (mg/dL) Date Value 01/15/2024 Negative BILIRUBIN UA (POCT) (no units) Date Value 01/15/2024 Negative KETONE UA (POCT) (mg/dL) Date Value 01/15/2024 Negative SPECIFIC GRAVITY UA (POCT) (no units) Date Value 01/15/2024 >=1.030 HEMOGLOBIN/BLOOD UA (POCT) (no units) Date Value 01/15/2024 Large (A) PH UA (POCT) (no units) Date Value 01/15/2024 5.5 PROTEIN UA (POCT) (mg/dL) Date Value 01/15/2024 30 (A) UROBILINOGEN UA (POCT) (E.U./dL) Date Value 01/15/2024 0.2 NITRITE UA (POCT) (no units) Date Value 01/15/2024 Negative LEUKOCYTES UA (POCT) (no units) Date Value 01/15/2024 Small (A) COLOR UA (POCT) (no units) Date Value 01/15/2024 Yellow CLARITY UA (POCT) (no units) Date Value 01/15/2024 Clear ] MEDICATIONS cefdinir (OMNICEF) 300 mg capsule Take 1 capsule by mouth two times a day. First dose evening of the procedure lisinopril (ZESTRIL) 5 mg tablet Take 5 mg by mouth once daily. omeprazole (PRILOSEC) 20 mg capsule Take 1 capsule by mouth once daily. glipiZIDE (GLUCOTROL) 10 mg tablet Take 10 mg by mouth once daily. dilTIAZem CD (CARDIZEM CD, CARTIA XT) 120 mg 24 hr capsule Take 120 mg by mouth once daily. Take 1/2 tablet by mouth once daily. metFORMIN (GLUCOPHAGE) 1,000 mg tablet Take 1,000 mg by mouth twice daily. tamsulosin (FLOMAX) 0.4 mg Take 1 capsule by mouth once daily. (Patient not taking: Reported on 01/15/2024) ondansetron orally disintegrating (ZOFRAN ODT) 4 mg disintegrating tablet Take 4 mg by mouth every 8 hours as needed for nausea/vomiting. (Patient not taking: Reported on 11/23/2023) tamsulosin (FLOMAX) 0.4 mg Take 0.4 mg by mouth once daily. (Patient not taking: Reported on 11/23/2023) oxyCODONE-acetaminophen (PERCOCET) 5-325 mg tablet Take 1 tablet by mouth every 8 hours as needed for pain. (Patient not taking: Reported on 11/23/2023) pravastatin (PRAVACHOL) 10 mg tablet Take 10 mg by mouth once daily. (Patient not taking: Reported on 12/25/2023) 0 HISTORIES PAST MEDICAL HISTORY Diagnosis Date [...] Onset Alcohol/Drug Father Coronary Artery Disease Father OR Emphysema Mother Coronary Artery Disease Mother OR SOCIAL HISTORY Social History Tobacco Use Smoking status: Never Smokeless tobacco: Never Tobacco comments: Parents smoked in childhood home. Vaping Use Vaping Use: Never used Substance Use Topics Alcohol use: No Drug use: No There were no vitals taken for this visit. Physical Exam ASSESSMENT & PLAN: No problem-specific Assessment & Plan notes found for this encounter. ASSESSMENT/PLAN: 1. BPH with obstruction/lower urinary tract symptoms [N40.1, N13.8] - ICD9: 600.01, 599.69, ICD10: N40.1, N13.8 (primary diagnosis) Status post Rezum performed on November 23, 2023 and patient is doing well with a minimum amount of postvoid residual urine of about 2 mm - BLADDER SCAN 2. History of hydronephrosis, History of left hydronephrosis secondary to retroperitoneal bleed probably secondary to trauma in a patient with medication induced coagulopathy Hydronephrosis has cleared as per ultrasound performed on September 2023 Debra Cintron MD This note was partially created using voice recognition software and is inherently subject to errors including those of syntax and sound-alike substitutions which may escape proofreading. In such instances, original meaning may be extrapolated by contextual derivation. documented in this encounter [facility] 12-25-2023 Miscellaneous Notes Addended by: CECILLE SURESH on: 12/25/2023 03:39 PM Modules accepted: Orders documented in this encounter [facility] 12-25-2023 Note HNO ID: [id number] Author: DEBRA CINTRON MD Service: ? Author Type: Physician Type: Progress Notes Filed: 12/25/2023 14:43 Note Text: [facility] ESTABLISHED PATIENT OFFICE VISIT HISTORY OF PRESENT ILLNESS Luis Durbin is a 73 year old male who is here for follow up of dysuria and weak urinary stream Has occasional blood clots, is not on Flomax now we will do it was ordered Few months ago Postvoid residual urine today is 176 mL Will start Flomax daily . Review of Systems The remainder of the ROS was reviewed and is negative. LAB Creatinine Date Value Ref Range Status 08/23/2023 0.83 0.50 - 1.40 mg/dL Final Comment: Patients receiving either N-Acetylcysteine (NAC) or Metamizole prior to venipuncture, may have falsely depressed results. GLUCOSE UA (POCT) (mg/dL) Date Value 12/25/2023 Negative BILIRUBIN UA (POCT) (no units) Date Value 12/25/2023 Negative KETONE UA (POCT) (mg/dL) Date Value 12/25/2023 Negative SPECIFIC GRAVITY UA (POCT) (no units) Date Value 12/25/2023 1.025 HEMOGLOBIN/BLOOD UA (POCT) (no units) Date Value 12/25/2023 Large (A) PH UA (POCT) (no units) Date Value 12/25/2023 6.0 PROTEIN UA (POCT) (mg/dL) Date Value 12/25/2023 30 (A) UROBILINOGEN UA (POCT) (E.U./dL) Date Value 12/25/2023 0.2 NITRITE UA (POCT) (no units) Date Value 12/25/2023 Negative LEUKOCYTES UA (POCT) (no units) Date Value 12/25/2023 Large (A) COLOR UA (POCT) (no units) Date Value 12/25/2023 Yellow CLARITY UA (POCT) (no units) Date Value 12/25/2023 Clear ] MEDICATIONS cefdinir (OMNICEF) 300 mg capsule Take 1 capsule by mouth two times a day. First dose evening of the procedure lisinopril (ZESTRIL) 5 mg tablet Take 5 mg by mouth once daily. omeprazole (PRILOSEC) 20 mg capsule Take 1 capsule by mouth once daily. glipiZIDE (GLUCOTROL) 10 mg tablet Take 10 mg by mouth once daily. dilTIAZem CD (CARDIZEM CD, CARTIA XT) 120 mg 24 hr capsule Take 120 mg by mouth once daily. Take 1/2 tablet by mouth once daily. metFORMIN (GLUCOPHAGE) 1,000 mg tablet Take 1,000 mg by mouth twice daily. tamsulosin (FLOMAX) 0.4 mg Take 1 capsule by mouth once daily. ondansetron orally disintegrating (ZOFRAN ODT) 4 mg disintegrating tablet Take 4 mg by mouth every 8 hours as needed for nausea/vomiting. (Patient not taking: Reported on 11/23/2023) tamsulosin (FLOMAX) 0.4 mg Take 0.4 mg by mouth once daily. (Patient not taking: Reported on 11/23/2023) oxyCODONE-acetaminophen (PERCOCET) 5-325 mg tablet Take 1 tablet by mouth every 8 hours as needed for pain. (Patient not taking: Reported on 11/23/2023) pravastatin (PRAVACHOL) 10 mg tablet Take 10 mg by mouth once daily. (Patient not taking: Reported on 12/25/2023) 0 HISTORIES PAST MEDICAL HISTORY Diagnosis Date [...] Onset Alcohol/Drug Father Coronary Artery Disease Father OR Emphysema Mother Coronary Artery Disease Mother OR SOCIAL HISTORY Social History Tobacco Use Smoking status: Never Smokeless tobacco: Never Tobacco comments: Parents smoked in childhood home. Vaping Use Vaping Use: Never used Substance Use Topics Alcohol use: No Drug use: No BP 138/79 Pulse 95 SpO2 97% Physical Exam ASSESSMENT AND PLAN: No problem-specific Assessment AND Plan notes found for this encounter. ASSESSMENT/PLAN: 1. Benign prostatic hyperplasia with weak urinary stream - ICD9: 600.01, 788.62, ICD10: N40.1, R39.12 (primary diagnosis) Postprocedure urine is 176 mL - BLADDER SCAN 2. Feeling of incomplete bladder emptying - ICD9: 788.21, ICD10: R39.14 Tamsulosin started Debra Cintron MD This note was partially created using voice recognition software and is inherently subject to errors including those of syntax and sound-alike substitutions which may escape proofreading. In such instances, original meaning may be extrapolated by contextual derivation. [facility] 12-25-2023 History of Present illness Narrative Images from the original note were not included. [facility] ESTABLISHED PATIENT OFFICE VISIT HISTORY OF PRESENT ILLNESS Luis Durbin is a 73 year old male who is here for follow up of dysuria and weak urinary stream Has occasional blood clots, is not on Flomax now we will do it was ordered Few months ago Postvoid residual urine today is 176 mL Will start Flomax daily . Review of Systems The remainder of the ROS was reviewed and is negative. LAB Creatinine Date Value Ref Range Status 08/23/2023 0.83 0.50 - 1.40 mg/dL Final Comment: Patients receiving either N-Acetylcysteine (NAC) or Metamizole prior to venipuncture, may have falsely depressed results. GLUCOSE UA (POCT) (mg/dL) Date Value 12/25/2023 Negative BILIRUBIN UA (POCT) (no units) Date Value 12/25/2023 Negative KETONE UA (POCT) (mg/dL) Date Value 12/25/2023 Negative SPECIFIC GRAVITY UA (POCT) (no units) Date Value 12/25/2023 1.025 HEMOGLOBIN/BLOOD UA (POCT) (no units) Date Value 12/25/2023 Large (A) PH UA (POCT) (no units) Date Value 12/25/2023 6.0 PROTEIN UA (POCT) (mg/dL) Date Value 12/25/2023 30 (A) UROBILINOGEN UA (POCT) (E.U./dL) Date Value 12/25/2023 0.2 NITRITE UA (POCT) (no units) Date Value 12/25/2023 Negative LEUKOCYTES UA (POCT) (no units) Date Value 12/25/2023 Large (A) COLOR UA (POCT) (no units) Date Value 12/25/2023 Yellow CLARITY UA (POCT) (no units) Date Value 12/25/2023 Clear ] MEDICATIONS cefdinir (OMNICEF) 300 mg capsule Take 1 capsule by mouth two times a day. First dose evening of the procedure lisinopril (ZESTRIL) 5 mg tablet Take 5 mg by mouth once daily. omeprazole (PRILOSEC) 20 mg capsule Take 1 capsule by mouth once daily. glipiZIDE (GLUCOTROL) 10 mg tablet Take 10 mg by mouth once daily. dilTIAZem CD (CARDIZEM CD, CARTIA XT) 120 mg 24 hr capsule Take 120 mg by mouth once daily. Take 1/2 tablet by mouth once daily. metFORMIN (GLUCOPHAGE) 1,000 mg tablet Take 1,000 mg by mouth twice daily. tamsulosin (FLOMAX) 0.4 mg Take 1 capsule by mouth once daily. ondansetron orally disintegrating (ZOFRAN ODT) 4 mg disintegrating tablet Take 4 mg by mouth every 8 hours as needed for nausea/vomiting. (Patient not taking: Reported on 11/23/2023) tamsulosin (FLOMAX) 0.4 mg Take 0.4 mg by mouth once daily. (Patient not taking: Reported on 11/23/2023) oxyCODONE-acetaminophen (PERCOCET) 5-325 mg tablet Take 1 tablet by mouth every 8 hours as needed for pain. (Patient not taking: Reported on 11/23/2023) pravastatin (PRAVACHOL) 10 mg tablet Take 10 mg by mouth once daily. (Patient not taking: Reported on 12/25/2023) 0 HISTORIES PAST MEDICAL HISTORY Diagnosis Date [...] Onset Alcohol/Drug Father Coronary Artery Disease Father OR Emphysema Mother Coronary Artery Disease Mother OR SOCIAL HISTORY Social History Tobacco Use Smoking status: Never Smokeless tobacco: Never Tobacco comments: Parents smoked in childhood home. Vaping Use Vaping Use: Never used Substance Use Topics Alcohol use: No Drug use: No BP 138/79 Pulse 95 SpO2 97% Physical Exam ASSESSMENT & PLAN: No problem-specific Assessment & Plan notes found for this encounter. ASSESSMENT/PLAN: 1. Benign prostatic hyperplasia with weak urinary stream - ICD9: 600.01, 788.62, ICD10: N40.1, R39.12 (primary diagnosis) Postprocedure urine is 176 mL - BLADDER SCAN 2. Feeling of incomplete bladder emptying - ICD9: 788.21, ICD10: R39.14 Tamsulosin started Debra Cintron MD This note was partially created using voice recognition software and is inherently subject to errors including those of syntax and sound-alike substitutions which may escape proofreading. In such instances, original meaning may be extrapolated by contextual derivation. documented in this encounter [facility] 12-24-2023 Miscellaneous Notes Called and left phone message Alonso Murguia Pt sts he was at [facility] on 12/18 for UTI symptoms and bleeding. Pt sts he unable to empty his bladder and has abdominal pain. Pt is returning to ER this date. Pt is VERY hard of hearing. Alonso Murguia documented in this encounter [facility] 11-27-2023 Miscellaneous Notes >200ml ThanksNadine APRN.PAPER FINISHER Voiding trial pended. 11/27/23 Please add > pvr amount for boogie reinsertion. Mike Brar RN documented in this encounter [facility] 11-27-2023 Nurse Note Patient is in today for a catheter removal and later PVR. Balloon deflated and catheter removed intact without difficulty. Patient has no c\o pain or discomfort after removal. Patient instructed to continue drink plenty of fluids, bleeding and or burning can occur but should resolve over the next day. Patient is to RTO as scheduled for a PVR if able to urinate by 3 pm. If patient is unable to urinate, patient is to RTO before becoming too uncomfortable. Patient voiced understanding of all instructions. Logistics/Shipper offered:Patient declines Mike Sanchez RN documented in this encounter [facility] 11-23-2023 Note HNO ID: [id number] Author: DEBRA CINTRON MD Service: ? Author Type: Physician Type: Procedures Filed: 11/23/2023 13:12 Note Text: Prostate nerve block and the Rezum procedure Luis Durbin is a 73 year old male who presents with enlarged prostate and urinary retention for 6 Rezum procedure and prostate nerve block. PRE-OP/PRE-PROCEDURE DIAGNOSIS: Enlarged prostate and incomplete bladder emptying POST-OP/POST-PROCEDURE DIAGNOSIS: Same SURGERY/PROCEDURE(S): Prostate nerve block and Rezum procedure Pt ID verified with patient: Yes Procedure verified with patient: Yes Procedure confirmed with physician and patient support specialist: Yes UNIVERSAL PROTOCOL / SAFETY CHECKLIST Procedure [...] (optional for EMERGENT procedures): No specimen collected. Debra Cintron MD A urinalysis was performed revealing [...] Then after finishing the procedure and #16 Somali coude catheter inserted per urethra and left indwelling patient tolerated procedure well Debra Cintron MD Electronically Signed: Debra Cintron MD November 23, 2023 1:03 PM This note was partially created using voice recognition software and is inherently subject to errors including those of syntax and sound-alike substitutions which may escape proofreading. In such instances, original meaning may be extrapolated by contextual derivation. [facility] 11-23-2023 Procedure note Prostate nerve block and the Rezum procedure Luis Durbin is a 73 year old male who presents with enlarged prostate and urinary retention for 6 Rezum procedure and prostate nerve block. PRE-OP/PRE-PROCEDURE DIAGNOSIS: Enlarged prostate and incomplete bladder emptying POST-OP/POST-PROCEDURE DIAGNOSIS: Same SURGERY/PROCEDURE(S): Prostate nerve block and Rezum procedure Pt ID verified with patient: Yes Procedure verified with patient: Yes Procedure confirmed with physician and patient support specialist: Yes UNIVERSAL PROTOCOL / SAFETY CHECKLIST Procedure [...] (optional for EMERGENT procedures): No specimen collected. Debra Cintron MD A urinalysis was performed revealing [...] Then after finishing the procedure and #16 Somali coud catheter inserted per urethra and left indwelling patient tolerated procedure well Debra Cintron MD Electronically Signed: Debra Cintron MD November 23, 2023 1:03 PM This note was partially created using voice recognition software and is inherently subject to errors including those of syntax and sound-alike substitutions which may escape proofreading. In such instances, original meaning may be extrapolated by contextual derivation. documented in this encounter [facility] 11-23-2023 Nurse Note Patient feeling whoozy vitals taken and patient remained seated. Dr cintron notified and nurse manager client support Zamzam. Patient placed in wheelchair and taken to spouse in waiting room until feeling better. Mike Sanchez RN Logistics/Shipper offered:Patient accepts, visit chaperoned by HERB Lopez documented in this encounter [facility] 11-21-2023 Miscellaneous Notes LVM to call the office back. HERB Whitaker Pt called with questions regarding medication for Rezum. His paper work says to start medication 3 days prior, but on the prescription it states to start the evening of procedure. Please advise. HERB Whitaker documented in this encounter [facility] 10-11-2023 Note HNO ID: [id number] Author: DEBRA CINTRON MD Service: ? Author Type: Physician [...] which was explained to him as well [facility] 10-11-2023 Note HNO ID: [id number] Author: DEBRA CINTRON MD Service: ? Author Type: Physician Type: Progress Notes Filed: 10/12/2023 08:14 Note Text: [facility] ESTABLISHED PATIENT OFFICE VISIT HISTORY OF PRESENT ILLNESS Luis Durbin is a 73 year old male who [...] Onset Alcohol/Drug Father Coronary Artery Disease Father OR Emphysema Mother Coronary Artery Disease Mother OR SOCIAL HISTORY Social History Tobacco Use Smoking [...] of incomplete blad (more content not included)... [facility] 09-27-2023 Note HNO ID: [id number] Author: DEBRA CINTRON MD Service: ? Author Type: Physician Type: Procedures Filed: 09/27/2023 13:21 Note Text: CYSTOSCOPY/stent removal PROCEDURE NOTE: Cysto/stent remove-[id number] Luis Durbin is a 73 year old male who presents with a stent. for cystoscopy and stent removal Pt ID verified with patient: yes Procedure verified with patient: yes Procedure confirmed with physician and patient support specialist: yes Special equipment-cystoscope and grasping forceps UNIVERSAL [...] (optional for EMERGENT procedures): No specimen collected. Debra Cintron MD A urinalysis was obtained prior [...] 2 % MUCOSAL JELLY IN APPLICATOR 2 Debra Cintron MD See progress note for plans Debra Cintron MD [facility] 09-03-2023 Miscellaneous Notes Patient has been called and scheduled for [...] for stent removal? documented in this encounter [facility] 08-22-2023 Note HNO ID: [id number] Author: Reva Stokes RN Service: Nursing Author Type: Registered Nurse Type: Nursing Progress Note Filed: 08/22/2023 7:05 PM Note Text: Pt return from or on ed alarm [facility] 08-22-2023 Note HNO ID: [id number] Author: Breana Mcclain MD Service: Anesthesiology Author Type: Anesthesiologist Type: Anesthesia Procedure Notes Filed: 08/22/2023 7:20 PM Note Text: ANESTHESIOLOGY PROCEDURE NOTE Airway General Information Procedure Start Time/Medication Administration: 08/22/2023 5:06 PM Patient location during procedure: OR Timeout Performed Pre-procedure: timeout performed Consent Obtained: Yes Patient identity confirmed: arm band Staffing Anesthesiologist: Breana Mcclain MD WOOD CASKET ASSEMBLER: Neli Smith APRN.WOOD CASKET ASSEMBLER Performed by: WOOD CASKET ASSEMBLER Indications and Patient Condition Indications for airway management: anesthesia Preoxygenated: yes anesthesia circuit Method: sleep Difficult Mask: No Final Airway Details Final airway type: supraglottic airway Number of attempts at approach: 1 Final Supraglottic Airway: Size 5 Seal Adequate: yes Airway not difficult Comments Smooth induction easy mask ventilation easy LMA placement, no issues with anesthesia induction and airway procedure. SIGNATURE: Neli Smith APRN.WOOD CASKET ASSEMBLER PATIENT NAME: Luis Durbin DATE: August 22, 2023 TIME: 5:19 PM CSN: [id number] [facility] 08-22-2023 Note HNO ID: [id number] Author: Reva Stokes RN Service: Nursing Author Type: Registered Nurse Type: Nursing Progress Note Filed: 08/22/2023 4:04 PM Note Text: Bs 77 pacu notified [facility] 08-22-2023 Note HNO ID: [id number] Author: Reva Stokes RN Service: Nursing Author Type: Registered Nurse Type: Nursing Progress Note Filed: 08/22/2023 3:58 PM Note Text: To or [facility] 08-22-2023 Note HNO ID: [id number] Author: Yaritza Walton DO Service: Hospital Medicine Author Type: Physician [...] no complaints - imaging obtained at the [facility] showed evidence of an obstructing ureteral stone [...] causing obstruction of the left ureter with [id number] left-sided hydronephrosis - in light of those findings plan is for the patient to be taken to the operating room later today for stent placement - continue PO Percocet 1 tablet every 4 hours PRN for pain relief - continue IV fluids via normal saline at 75 cc/hour SIGNATURE: Yaritza Walton DO PATIENT NAME: Luis Durbin DATE: August 22, 2023 TIME: 3:05 PM [facility] 08-22-2023 Note HNO ID: [id number] Author: Inez Arreola, RICK Service: Care Management Author Type: Registered Nurse [...] SIGNATURE: Inez Arreola RN PATIENT NAME: Luis Durbin DATE: August 22, 2023 TIME: 2:42 PM PAGER/CONTACT #: [phone] [facility] 08-22-2023 History of Past i llness Narrative Problem Noted Date Diagnosed Date Resolved Date Renal disease 08/22/2023 08/23/2023 Overview: ELBA Obstructive uropathy 08/20/2023 023 documented as of this encounter (statuses as of 09/03/2023) [facility]11-29-2023 History of Past illness Narrative* Problem Noted Date Diagnosed Date Resolved Date Renal disease 08/22/2023 08/23/2023 Overview: ELBA Obstructive uropathy 08/20/2023 023 documented as of this encounter (statuses as of 11/21/2023) [facility]11-29-2023 History of Past illness Narrative* Problem Noted Date Diagnosed Date Resolved Date Renal disease 08/22/2023 08/23/2023 Overview: ELBA Obstructive uropathy 08/20/2023 023 documented as of this encounter (statuses as of 11/23/2023) [facility] History of Past illness Narrative* Problem Noted Date Diagnosed Date Resolved Date Renal disease 08/22/2023 08/23/2023 Overview: ELBA Obstructive uropathy 08/20/2023 023 documented as of this encounter (statuses as of 11/27/2023) [facility] History of Past illness Narrative* Problem Noted Date Diagnosed Date Resolved Date Renal disease 08/22/2023 08/23/2023 Overview: ELBA Obstructive uropathy 08/20/2023 023 documented as of this encounter (statuses as of 12/24/2023) [facility] History of Past illness Narrative* Problem Noted Date Diagnosed Date Resolved Date Renal disease 08/22/2023 08/23/2023 Overview: ELBA Obstructive uropathy 08/20/2023 023 documented as of this encounter (statuses as of 12/25/2023) [facility]11-28-2023 NoteHNO ID: [id number] Author: Yaritza Walton DO Service: Hospital Medicine Author Type: Physician [...] longer nauseated - imaging obtained at the [facility] showed evidence of an obstructing ureteral stone [...] stent placement) is performed tomorrow SIGNATURE: Yaritza Walton DO PATIENT NAME: Luis Durbin DATE: August 21, 2023 TIME: 6:52 PM[facility] NoteHNO ID: [id number] Author: Radha Zhu RN Service: Nursing Author Type: Registered Nurse Type: Progress Notes Filed: 08/22/2023 7:59 AM Note Text: Dr. Cintron, Urology consult recalled at this time.[facility]11-28-2023 NoteHNO ID: [id number] Author: Inez Arreola RN Service: Care Management Author Type: Registered Nurse Type: Care Mgt Initial Assessment Filed: 08/21/2023 1:15 PM Note Text: CARE MANAGEMENT: ASSESSMENT AND DISCHARGE PLAN SERVICE DATE: August 21, 2023 SERVICE TIME: 1030 PCP: Nadir Savage CNP Primary Contact: Extended Emergency Contact Information Primary Emergency Contact: Ani Carrasco Mobile Relation: Sister Admission Status: Inpatient Insurance Provider: [facility] DUAL COMPLETE HMO POS SNP Discharge Planning requested by: Per Department Practice Potential Transition Plans Home Advance Directives Current Advance Directive: None Chicken Picker Attempted to Assist with AD Completion: Yes [...] Be able to go home, Less pain [place] of Choice Explained: [place] of Choice Given: No Reason Not Given: [...] SIGNATURE: Inez Arreola RN PATIENT NAME: Luis Durbin DATE: August 21, 2023 TIME: 1:14 PM CONTACT #: [id number] Instructions* Patient Instructions* Emmanuel Valverde - 05/24/2023 8:53 AM EDT Diabetes Foot [...] (or decreased sensation in your feet) a geologist should always cut your toenails. Be Careful [...] Go to your health care provider or geologist to treat these conditions. 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 Emmanuel Valverde DPM * Cecille Sanii RN - 05/24/2023 8:38 AM EDT Patient [...] the nail was discussed. [facility] in [facility] Instructions* Patient Instructions* Emmanuel Valverde - 01/24/2022 8:33 AM EDT Diabetes Foot [...] (or decreased sensation in your feet) a geologist should always cut your toenails. Be Careful [...] Go to your health care provider or geologist to treat these conditions. documented in [facility] History of Present illness Narrative* Emmanuel Valverde - 01/24/2022 8:17 AM EDT Last saw Nadir Savage: not reported Subjective: Patient presents to [...] is to RTC in 3-4 months. Emmanuel Valverde DPM * Mitzi Palm RN - 01/24/2022 8:04 AM EDT AMB ROOMING INTAKE FLOWSHEET DATA Risk Screening Do you have concerns about personal safety or safety in the home?: No Patient presents with: Right Great Toe - Established Patient, Nail Fungus Patient wants to discuss having toenail removed. documented in this encounterC[facility]02-[facility]-2022 NoteHNO ID: [id number] Author: Celestino Devlin, ROSALINDA-LAND LEASING EXAMINER Service: ? Author Type: Speech Language Pathologist Type: Progress Notes Filed: 11/10/2021 1:47 PM Note Text: Start of Care Date: 11/10/21 Onset Date: 09/24/21 Patient Identified by Name and Date of : Yes [facility] MODIFIED BARIUM [...] met by mouth at mealtime. SUBJECTIVE: Luis Durbin is a 71 year old male seen [...] was necessary to support success due to WAINWRIGHT Compensatory Strategies Utilized During Assessment: Double swallows;Effortful [...] States/Identifies TREATMENT: Performed Modified Barium Swallowing Study (52221). -Education regarding findings from today's Modified Barium Swallowing study (fluoroscopic study) and suggested initial strategies to support increased success with PO Intake were provided to the patient through v (more content not included)...[id number] NoteHNO ID: [id number] Author: SAUL Giron Service: Radiology Author Type: Technologist Type: Progress Notes Filed: 11/10/2021 1:39 PM Note Text: Radiology Service Progress Note PATIENT NAME: Luis Durbin DATE OF SERVICE: November 10, 2021 TIME: [...] BY: SAUL Giron November 10, 2021 1:38 [facility]* Diagnosis Onychomycosis- Primary Dermatophytosis of nail [...] of left foot [facility]* Diagnosis Onychomycosis- Primary Dermatophytosis of nail Pain in toe of right foot Pain in limb Pain in toe of left foot Pain in limb Well controlled type 2 diabetes mellitus with neurological manifestations (HCC) Type II or unspecified type diabetes mellitus with neurological manifestations, not stated as uncontrolled Tailor's bunion of left foot [facility] Diagnosis Benign prostatic hyperplasia with weak urinary stream- Primary [facility]* Diagnosis Benign prostatic hyperplasia with weak urinary stream- Primary [facility] Diagnosis Benign prostatic hyperplasia with weak urinary stream- Primary [facility]* Diagnosis Benign prostatic hyperplasia with weak urinary stream- Primary Feeling of incomplete bladder emptying Incomplete bladder emptying [facility]* Diagnosis BPH with obstruction/lower urinary tract symptoms [N40.1, N13.8]- Primary Hypertrophy of prostate with urinary obstruction and other lower urinary tract symptoms (LUTS) Hydronephrosis, unspecified hydronephrosis type [facility]* Diagnosis BPH with obstruction/lower urinary tract symptoms- Primary Hypertrophy of prostate with urinary obstruction and other lower urinary tract symptoms (LUTS) Elevated prostate specific antigen (PSA) Kidney stone Calculus of kidney [facility] Diagnosis Kidney stone Calculus of kidney [facility] Diagnosis Calculus of kidney [N20.0]- Primary Calculus of kidney Biliary calculus of other site without obstruction Elevated prostate specific antigen (PSA) [facility] Onychomycosis- Primary Dermatophytosis of nail Pain in toe of right foot Pain in limb Pain in toe of left foot Pain in limb Hallux valgus of left foot Hallux valgus of right foot Tailor's bunion of left foot Well controlled type 2 diabetes mellitus with neurological manifestations (HCC) Type II or unspecified type diabetes mellitus with neurological manifestations, not stated as uncontrolled documented in this encounter [facility] for referral (narrative)* Diagnostic Procedure Only (Routine) - Closed Specialty Diagnoses / Procedures Referred By Contac t Referred To Contact XR IMAGING Diagnoses Kidney stone Procedures XR ABDOMEN 1V SUPINE RADIOLOGIC EXAM ABDOMEN 1 VIEW Debra Cintron MD [address] [place] [address] [place] [address] Referral ID Status Reason Start Date Expiration Date V isits Requested Visits Authorized [id number] Closed Auto-Generate d Referral 04/22/2024 05/22/2025 1 1 [facility] for visit Narrative* Diagnostic Procedure Only (Routine) - Closed Specialty Diagnoses / Procedures Referred By Contlance t Referred To Contact XR IMAGING Diagnoses Kidney stone Procedures XR ABDOMEN 1V SUPINE RADIOLOGIC EXAM ABDOMEN 1 VIEW Debra Cintron MD [address] [place], [place] [id number] [place] [address] Referral ID Status Reason Start Date Expiration Date V isits Requested Visits Authorized [id number] Closed Auto-Generate d Referral 04/22/2024 05/22/2025 1 1 [facility] Summary Purpose Family History No Family History Records FoundNo Family History Records FoundNo Family History Records FoundNo Family History Records FoundNo Family History Records Found Advance Directives Documents on File Type Date Recorded 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 Advance Directive(s) 09/13/2021 11:06 AM [...] Comments Full Code Order Discussed With: Patient Date Activated Date Inactivated Comments 08/20/2023 6:33 PM 08/23/2023 8:58 PM Question Answer Comments Full Code Order Discussed With: Patient Date Activated Date Inactivated Comments 08/20/2023 6:33 PM 08/23/2023 8:58 PM Question Answer Comments Full Code Order Discussed With: Patient Additional Source Comments (unrecognized sect ion and content) No Status Records FoundNo Status Records FoundNo Status Records FoundNo Status Records FoundNo Status Records Found INFORMATION SOURCE (unrecogn ized section and content) DATE CREATED AUTHOR 06/18/2021 [facility] DATE CREATED AUTHOR AUTHOR'S ORGANIZ ATION 11/11/2021 [facility] DATE CREATED AUTHOR AUTHOR'S ORGANIZ ATION 04/28/2024 [facility]ter DATE CREATED AUTHOR AUTHOR'S ORGANIZ ATION 05/05/2024 [facility] DATE CREATED AUTHOR AUTHOR'S ORGANIZ ATION 05/27/2024 [facility] Source Comments (unrecognize d section and content) In the event this informatio n is protected by the Federal Confidentiality of Alcohol and Drug Abuse Patient Records regulations: The Federal rules restrict any use of the information to criminally investigate or prosecute any alcohol or drug abuse patient.[facility] Center[facility] the event this information is protected by the Federal Confidentiality of Alcohol and Drug Abuse Patient Records regulations: The Federal rules restrict any use of the information to criminally investigate or prosecute any alcohol or drug abuse patient.[facility] CenterIn the event this information is protected by the Federal Confidentiality of Alcohol and Drug Abuse Patient Records regulations: The Federal rules restrict any use of the information to criminally investigate or prosecute any alcohol or drug abuse patient.[facility] CenterIn the event this information is protected by the Federal Confidentiality of Alcohol and Drug Abuse Patient Records regulations: The Federal rules restrict any use of the information to criminally investigate or prosecute any alcohol or drug abuse patient.[facility] CenterIn the event this information is protected by the Federal Confidentiality of Alcohol and Drug Abuse Patient Records regulations: The Federal rules restrict any use of the information to criminally investigate or prosecute any alcohol or drug abuse patient.[facility] CenterIn the event this information is protected by the Federal Confidentiality of Alcohol and Drug Abuse Patient Records regulations: The Federal rules restrict any use of the information to criminally investigate or prosecute any alcohol or drug abuse patient.[facility] CenterIn the event this information is protected by the Federal Confidentiality of Alcohol and Drug Abuse Patient Records regulations: The Federal rules restrict any use of the information to criminally investigate or prosecute any alcohol or drug abuse patient.[facility] CenterIn the event this information is protected by the Federal Confidentiality of Alcohol and Drug Abuse Patient Records regulations: The Federal rules restrict any use of the information to criminally investigate or prosecute any alcohol or drug abuse patient.[facility] CenterIn the event this information is protected by the Federal Confidentiality of Alcohol and Drug Abuse Patient Records regulations: The Federal rules restrict any use of the information to criminally investigate or prosecute any alcohol or drug abuse patient.[facility] CenterIn the event this information is protected by the Federal Confidentiality of Alcohol and Drug Abuse Patient Records regulations: The Federal rules restrict any use of the information to criminally investigate or prosecute any alcohol or drug abuse patient.[facility] CenterIn the event this information is protected by the Federal Confidentiality of Alcohol and Drug Abuse Patient Records regulations: The Federal rules restrict any use of the information to criminally investigate or prosecute any alcohol or drug abuse patient.[facility] CenterIn the event this information is protected by the Federal Confidentiality of Alcohol and Drug Abuse Patient Records regulations: The Federal rules restrict any use of the information to criminally investigate or prosecute any alcohol or drug abuse patient.[facility] CenterIn the event this information is protected by the Federal Confidentiality of Alcohol and Drug Abuse Patient Records regulations: The Federal rules restrict any use of the information to criminally investigate or prosecute any alcohol or drug abuse patient.[facility] CenterIn the event this information is protected by the Federal Confidentiality of Alcohol and Drug Abuse Patient Records regulations: The Federal rules restrict any use of the information to criminally investigate or prosecute any alcohol or drug abuse patient.[facility] Reason for Visit (unrecogniz ed section and content) Reason Comments Established Patient Nail Fungus Reason Comments Established Patient Follow Up Diabetic Foot Care Reason Comments post op appointment Reason Comments Patient Question Reason Comments Rezum Pt states he stopped blood thinner Eliquis 1 week ago. Pt started taking antibiotic this morning. Specialty Diagnoses / Procedures Referred By Erica love Referred To Contact Urology / UROLOGY Diagnoses rezum Procedures Debra Collins MD [address] [facility] [address] [address] Debra Cintron MD [address] [address] Referral ID Status Reason Start Date Expiration Date Visits Requested Visits Authorized [id number] Pending Review Patient Cleared - Admin/Chair man/Directo r advise to proceed or did not respond 11/23/2023 02/21/2024 1 1 Reason Comments boogie catheter removal Reason Comments Orders Reason Comments Patient Update Reason Comments Benign Prostatic Hypertrophy Reason Comments Benign Prostatic Hypertrophy 3 month fol low up Kidney Stones Reason Comments Kidney Stones Reason Comments Established Patient Follow Up Diabetic Foot Check Care Teams (unrecognized sec tion and content) Bean Dumper Relationship Specialty Start Date End Date Nadir Savage [facility] [place], [place] [id number] PCP - General Family Practice 05/02/18 Martina Blair CNP [facility] [place], [place] [address] Referring Internal Medicine 01/19/22 Bean Dumper Relationship Specialty Start Date End Date Nadir Savage [address] [place] [address] [place] [address] PCP - General Family Medicine 05/02/18 Martina Blair, FATUMA [address] [place] [address] Referring Internal Medicine 01/19/22 Bean Dumper Relationship Specialty Start Date End Date Nadir Savage [address] [facility] [address] PCP - General Family Medicine 05/02/18 Martina Blair, PAPER FINISHER [facility] [facility] [address] Referring Internal Medicine 01/19/22 Bean Dumper Relationship Specialty Start Date End Date Nadir Savage [facility] [facility] [place] [address] PCP - General Family Medicine 05/02/18 Martina Blair, FATUMA [address] [facility] [address] Referring Internal Medicine 01/19/22 Bean Dumper Relationship Specialty Start Date End Date Nadir Savage [address] [facility] [place] [address] PCP - General Family Medicine 05/02/18 Martina Blair, PAPER FINISHER [address] [facility] [place] [address] Referring Internal Medicine 01/19/22 Bean Dumper Relationship Specialty Start Date End Date Nadir Savage [address] [place] [address] PCP - General Family Medicine 05/02/18 Martina Blair, PAPER FINISHER [address] [place] [address] Referring Internal Medicine 01/19/22 Bean Dumper Relationship Specialty Start Date End Date Nadir Savage [address] [place] [address] PCP - General Family Medicine 05/02/18 Martina Blair, PAPER FINISHER [address] [place] [address] Referring Internal Medicine 01/19/22 Bean Dumper Relationship Specialty Start Date End Date Nadir Savage [facility] [place] [address] PCP - General Family Medicine 05/02/18 Martina Blair, PAPER FINISHER [address] [place] [address] Referring Internal Medicine 01/19/22 Bean Dumper Relationship Specialty Start Date End Date Nadir Savage [address] [place] [address] PCP - General Family Medicine 05/02/18 Martina Blair, PAPER FINISHER [address] [place] [address] Referring Internal Medicine 01/19/22 Bean Dumper Relationship Specialty Start Date End Date Nadir Savage [address] [place] [address] PCP - General Family Medicine 05/02/18 Martina Blair, PAPER FINISHER [address] [place] [address] Referring Internal Medicine 01/19/22 Bean Dumper Relationship Specialty Start Date End Date Nadir Savage [address] [place] [address] PCP - General Family Medicine 05/02/18 Martina Blair CNP [address] [place] [address] Referring Internal Medicine 01/19/22 Bean Dumper Relationship Specialty Start Date End Date Nadir Savage [address] [place] [address] PCP - General Family Medicine 05/02/18 Martina Blair CNP [address] [place] [address] Referring Internal Medicine 01/19/22 Inactive Administered Medications - up to 3 most recent administrations Administered Medications (un recognized section and content) Medication Order MAR Action Action Date Dose Rate Site lidocaine 10 mg/mL (1 %) 200 mg injection (XYLOCAINE) 200 mg (20 mL), OTHER, ONCE (UP TO 30 DAYS AMB), 1 dose, On Sun11/23/23 at 1330 Given 11/23/2023 1:11 PM EST 200 mg lidocaine urojet 2 % 11 mL topical gel (GLYDO) 11 mL, URETHRAL, ONCE, 1 dose, On Sun11/23/23 at 1330 Given 11/23/2023 1:12 PM EST 11 mL FOR RECORDS PERTAINING TO PATIENTS WHO ARE [...] BE BASED ON THE PRIMARY CLINICAL RECORDS. [facility] CenterAGEIA Technologies [facility]. provides no warranty or guarantee of the accuracy or completeness of information in this document.
--- NOTE | 2024-07-17 06:27 | EKG12_ITS ---
Test Reason : PRE OP Blood Pressure : / mmHG Vent. Rate : 072 BPM Atrial Rate : 072 BPM P-R Int : 182 ms QRS Dur : 096 ms QT Int : 380 ms P-R-T Axes : 081 059 018 degrees QTc Int : 416 ms Normal sinus rhythm Nonspecific T wave abnormality Abnormal ECG When compared with ECG of 06-SEP-2019 06:02, Nonspecific T wave abnormality, improved in Lateral leads Confirmed by DEJAN BAILEY, BUZZ ([id number]), market editor KD GUEVARA ([id number]) on 07/20/2024 5:54:23 PM Referred By: Nghia Li Confirmed By:BUZZ WYLIE MD
[2024-07-17] MEDS: Lactated Ringers 1,000 ML 15 ML IV (06:38)
--- NOTE | 2024-07-17 06:40 | PCM.HP.BLA ---
History and Physical Date of Admission: 07/17/24 Intake Vital Signs 04/29/2406:06 06/09/2409:06 Height 6 ft 2 in 6 ft 2 in Weight: 186 lb BMI 23.8 BP 129/79 H Blood Pressure Location Rt brachial Position Sitting Respiration 16 Intake Visit Reasons: GALLSTONES Chief Complaint: gallstones Water System Operator Required: No Is patient in pain?: No Allergies No Known Allergies Allergy (Verified 06/09/24 09:07) Medications ?Medication ?Instructions ?Recorded ?Confirmed ?Type metformin 1,000 mg tablet 1 tab PO BID dm 09/05/19 06/09/24 History pravastatin 10 mg tablet 1 tab PO QHS cholesterol 09/05/19 06/09/24 History apixaban 5 mg tablet (Eliquis) 5 mg PO BID #60 tabs 11/26/23 06/09/24 Rx dulaglutide 0.75 mg/0.5 mL 0.75 mg subcut QWEEK 12/21/23 06/09/24 History subcutaneous pen injector (Trulicity) glipizide 5 mg tablet 5 mg PO DAILY 12/21/23 06/09/24 History lisinopril 10 mg tablet 10 mg PO QHS 12/21/23 06/09/24 History omeprazole 20 mg capsule,delayed 20 mg PO DAILY #90 caps 04/07/24 06/09/24 Rx release diltiazem HCl 120 mg 120 mg PO QHS 04/24/24 06/09/24 History capsule,extended release 24 hr Have you fallen in the past year?: No PFSH Medical History (Updated 06/09/24 @ 09:[address] Nghia Li MD) Chondrosarcoma of rib Hard of hearing Cardiology follow-up encounter Wears glasses Cancer Diabetes Easy bruising Gastric reflux Non-smoker History of echocardiogram History of stress test History of CHF (congestive heart failure) History of atrial fibrillation HTN (hypertension) Barretts esophagus Dysphagia Type 2 diabetes mellitus without complication History of excision of malignant tumor Paroxysmal atrial fibrillation Hyperlipidemia Atrial fibrillation with RVR Surgical History (Updated 06/09/24 @ 09:06 by Susie Rios) Status post surgery History of tonsillectomy History of hip surgery Family History (Updated 06/09/24 @ 09:06 by Susie Rios) Father CAD (coronary artery disease) Myocardial infarctionMother Emphysema lung Myocardial infarction CAD (coronary artery disease)Brother Heart disease Myocardial infarction Social History Smoking Status: Never smoker alcohol intake: never substance use type: does not use caffeine: Yes Type: coffee Number of servings: 2 HPI HPI HPI: Patient is a 74-year-old male here with gallstones. He was referred because he has been having occasional pain. He says his pain is 4 out of 10. Patient denies nausea or vomiting. He denies fevers or chills. He had an EGD and colonoscopy by Dr. Friend. GARCIA General General: No weight change, appetite, fatigue, colon cancer, breast cancer or weakness HEENT HEENT: Yes eye injury and eye surgery; No difficulty swallowing, swollen glands or hoarseness Endo Endocrine: Yes diabetes mellitus; No thyroid disease, thyroid cancer, Hair loss, heat intolerance or cold intolerance Skin Skin: No rash or changing moles Breast Breast: No left breast lump, right breast lump, nipple discharge, breast pain, abnormal mammogram, abnormal US or breast enlargement Musc Musculoskeletal: Yes back problems; No arthritis, rheumatoid arthritis, gout or joint pain Cardio Cardiovascular: Yes atrial fibrillation and high blood pressure; No murmur, pacemaker, heart disease, heart attack, heart stent, palpitations, shortness of breat with exertion or chest pain Psych Psychiatric: No depression, anxiety or hearing voices Resp Respiratory: No shortness of breath, No sleep apnea, No cough, No COPD, No asthma, No emphysema and No wheezing Gastro Gastrointestinal: Yes abdominal pain, No nausea or vomiting, Yes diarrhea, No constipation, No blood in stool, Yes acid reflux, Yes hemorrhoids, No ulcers, Yes gallbladder problem and No black,tarry stools [place] Hematologic: Yes blood thinners, No blood disorders, No bleeding, No anemia and No blood clots Neuro Neurologic: No system reviewed and no additional complaints, except as documented, No as per HPI, No abnormal gait, No abnormal hearing, No abnormal movements, No abnormal speech, No behavioral changes, No burning sensations, No confusion, No convulsions, No disequilibrium, No dizziness, No localized weakness, No frequent falls, No headache(s), No lack of coordination, No loss of vision, No memory loss, No numbness, No other visual disturbances, No radicular pain, No restless legs, No sensory deficit, No syncope, No tingling, No tremor(s), No weakness and No other Exam Const General: cooperative Orientation: alert and oriented x3 HENMT Head: normal to inspection Neck Neck: normal visual inspection and full ROM Chest Chest palpation & inspection: normal inspection of the chest Resp Effort & Inspection: normal respiratory effort Auscultation: clear to auscultation bilaterally Cardio Rate: regular rate Rhythm: regular rhythm GI Inspection: non-distended Palpation: soft and nontender Skin General: no rashes or lesions noted Neuro General: patient alert and patient oriented x3 Extrem General: full ROM Psych Appearance: grossly normal Mental Status: mental status grossly normal Assessment and Plan Assessment and Plan (1) Cholelithiasis: Status: Acute Qualifiers: Cholelithiasis location: gallbladder Cholecystitis presence: without cholecystitis Biliary obstruction: without biliary obstruction Qualified Code(s): K80.20 - Calculus of gallbladder without cholecystitis without obstruction Plan: Patient has cholelithiasis and biliary colic. Patient had ultrasound which showed gallstones. I discussed laparoscopic cholecystectomy with the patient in detail. I discussed the procedure in detail with the patient. I discussed the risks, benefits, and alternatives of the procedure. I discussed the risks including but not limited to bleeding, infection, injury to surrounding organs such as the liver, bile duct, bowels. I did discuss the possibility of having to convert to an open procedure as well as the possibility that if any injuries occurred this may necessitate further surgery at a tertiary care center. Nghia Li MD Pager: [facility] [address] [place] [address], [address] [place] [address] Office: I have examined the patient and the H&P has been reviewed. There are no clinical changes since date of exam.
[2024-07-17 06:50] LABS: Bedside Glucose 113 mg/dL (74-106)
--- NOTE | 2024-07-17 06:50 | PRE.ANES_ITS ---
ASA Classification* ASA Classification ASA Classification: 3 Assessment & Plan Anesthesia* Anesthesia Assessment Anesthesia Assessment: Discussed sedation and/or anesthesia options, risks, benefits, and alternatives with patient/parents/legal guardian/POA. Questions invited. The patient/parents/legal guardian/POA seems to understand and agrees to proceed with anesthesia plan. Reviewed the physical assessment, medical history, allergy history and patient home medications list prior to surgery/procedure/anesthetic and documented any changes. Performed airway and anesthesia risk assessments. Anesthesia Type Anesthesia Type: General Anesthesia Focused Assessment* Temperature: 97.4 F Pulse Rate: 69 Blood Pressure: 122/64 Respiratory Rate: 16 Pulse Ox: 99 Airway Assessment Mouth opens: >3 cm Mallampati Score: II Focused Labs Anesthesia Preop lab: CBC WBC 10.2 K/mm3 (4.4-11.0) 06/25/24 10:50 RBC 4.67 M/mm3 (4.6-6.2) 06/25/24 10:50 Hgb 12.1 g/dL (13.0-16.5) L 06/25/24 10:50 Hct 38.7 % (40-54) L 06/25/24 10:50 Plt Count 253 K/mm3 (150-450) 06/25/24 10:50 CHEMISTRY Potassium 4.0 mmol/L (3.5-5.1) 06/25/24 10:50 Sodium 135 mmol/L (136-145) L 06/25/24 10:50 Magnesium 1.7 mg/dL (1.6-2.6) 08/19/23 01:58 Phosphorus 3.1 mg/dL (2.5-4.9) 08/19/23 05:10 BUN 20 mg/dL (7-18) H 06/25/24 10:50 Creatinine 1.38 mg/dL (0.70-1.30) H 06/25/24 10:50 Glucose 193 mg/dL (74-106) H 06/25/24 10:50 POC Glucose 125 mg/dL (74-106) H 04/29/24 05:55 TSH 0.85 uIU/mL (0.358-3.74) 08/19/23 05:10 COAG PT 13.4 SECONDS (11.7-14.9) 09/05/19 00:25 Pre-Assessment Diagnosis/Proposed Procedure Planned Operative Procedure(s): LAP REJI WITH GRAMS Anesthesia History 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 When Was Last Pacemaker Check QUESTION #4 FULL TEXT: You/Your Family Experience fever (hyperthermia) with Anesthesia Last Oral Intake Last Oral intake: Last Oral Intake NPO since 02:00 07/17/24 06:26 Meds taken in AM with sips of No 07/17/24 06:26 water? Meds patient instructed to take am of surgery PONV PONV - mobile home technician: PONV - mobile home technician Female No 07/03/24 09:54 HX of Motion Sickness No 07/03/24 09:54 HX of N/V After Surgery No 07/03/24 09:54 Non-Smoker Yes 07/03/24 09:54 Duration of Surgery greater No 07/03/24 09:54 than 60 minutes Number of Risk Factors 1 07/03/24 09:54 PONV Score Low Risk 07/03/24 09:54 Height & Weight Height & Weight: Anesthesia: Height & Weight Height 6 ft 2 in 07/17/24 06:26 Weight: 83.189 kg 07/17/24 06:26 Body Mass Index (BMI) 23.5 07/17/24 06:26 Respiratory Assessment Respiratory Assessment - mobile home technician: Respiratory Tract Infection Hx - mobile home technician Hx Respiratory Tract Infection No 07/03/24 09:54 STOP Sleep Apnea STOP Sleep Apnea - mobile home technician: STOP Sleep Apnea - mobile home technician Hx Hypertension Yes: CONTROLLED WITH MEDS 07/03/24 09:54 Hx Sleep Apnea No 07/03/24 09:54 CPAP BIPAP Do you snore loudly (louder No 07/03/24 09:54 than talking or can be heard Do you often feel tired/ No 07/03/24 09:54 fatigued/ sleepy during daytime? Has anyone observed you stop No 07/03/24 09:54 breathing during sleep? STOP Results Negative 07/03/24 09:54 QUESTION #5 FULL TEXT : Do you snore loudly (louder than talking or can be heard through closed doors)? 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 Specify any problems Hx of Preganancy in last 3 N/A 07/03/24 09:54 Months Nurse Filling Out Transfusion DSCHRIBER 07/03/24 09:54 & Questions: Date: 07/03/24 07/03/24 09:54 Time: 09:54 07/03/24 09:54 Patient unable to answer at this time (ie. confused, unrespo /Reproduction History /Reproductive History - mobile home technician: /Reproductive Hx- mobile home technician Hx Now Gestational Age (in weeks): EDC: Hx Hx Para Hx Section SAB No 07/03/24 09:54 Active Medications Active Medications: Current Medications Generic Name Dose Route Start Last Admin Trade Name Freq PRN Reason Stop Dose Admin Cefotetan Disodium 2 gm/ 100 mls @ 200 mls/hr 07/17/24 07:30 Sodium Chloride IV 07/17/24 07:59 PREOP ONE Lactated Ringer's 1,000 mls @ 15 mls/hr 07/17/24 06:15 07/17/24 06:38 IV 07/22/24 19:34 15 mls/hr .Q48H MONICA Administration Protocol PFSH Medical History Chondrosarcoma of rib Hard of hearing Cardiology follow-up encounter Wears glasses Cancer Diabetes Gastric reflux Non-smoker History of echocardiogram History of stress test History of CHF (congestive heart failure) History of atrial fibrillation HTN (hypertension) Barretts esophagus Dysphagia Type 2 diabetes mellitus without complication History of excision of malignant tumor Paroxysmal atrial fibrillation Hyperlipidemia Atrial fibrillation with RVR Home Medications ?Medication ?Instructions ?Recorded ?Last Taken ?Type metformin 1,000 mg tablet 1 tab PO BID dm 09/05/19 07/16/24 History pravastatin 10 mg tablet 1 tab PO QHS cholesterol 09/05/19 07/16/24 History apixaban 5 mg tablet (Eliquis) 5 mg PO BID #60 tabs 11/26/23 07/13/24 Rx dulaglutide 0.75 mg/0.5 mL 0.75 mg subcut SA 12/21/23 07/10/24 History subcutaneous pen injector (Trulicity) lisinopril 10 mg tablet 10 mg PO QHS 12/21/23 07/16/24 History diltiazem HCl 120 mg 120 mg PO QHS 04/24/24 07/16/24 History capsule,extended release 24 hr omeprazole 20 mg capsule,delayed 20 mg PO DAILY #90 caps 07/03/24 07/16/24 Rx release Allergy/AdvReac Type Severity Reaction Status Date / Time No Known Allergies Allergy Verified 07/17/24 06:20 Family History Father CAD (coronary artery disease) Myocardial infarction Mother Emphysema lung Myocardial infarction CAD (coronary artery disease) Brother Heart disease Myocardial infarction Surgical History History of esophagogastroduodenoscopy (EGD) Status post surgery History of tonsillectomy History of hip surgery Social History Smoking Status: Never smoker alcohol intake: never substance use type: does not use caffeine: Yes Type: coffee Number of servings: 2 Review of Systems (Anesthesia) ROS Narrative System reviewed and no additional complaints, except as documented.
[2024-07-17] MEDS: Cefotetan 2 GM in 0.9% Normal Saline (100mL MB+) 100 ML IV (07:26)
--- NOTE | 2024-07-17 07:30 | GALL_PTH ---
PATHOLOGY RESULTS PATIENT: TAHMINA DURBIN LOC: [facility] [place] U#:[id number] AGE/SX: 74/M ROOM: RE07/17/[address]: Dr. Nghia Li MD : 1950 BED: DIS: 07/17/2024 SPEC #: [id number] RECD: 07/17/24 10:42 STATUS: AV GALDAMEZ #: [id number] FLIP: 07/17/24 07:[address]: Nghia Li DEPT: SURGICAL PATHOLOGY RECD BY: Willem Rich ENTERED: 07/17/24 11:45 SP TYPE: MERCEDEZ STEVENSON DR: Dipika Wheeler, [facility], EQUIPMENT APPLICATION SPECIALIST-C Tissues: Gallbladder, NOS Procedures: Surgery Specimen Level III HEADER OPERATION: Laparoscopic cholecystectomy with IOC PRE-OP DIAGNOSIS: Cholelithiasis TISSUE SUBMITTED: Gallbladder MICROSCOPIC DIAGNOSIS Gallbladder, cholecystectomy: Chronic cholecystitis and cholelithiasis. AM.mr 07/18/2024 MICROSCOPIC DESCRIPTION Slides are reviewed. GROSS DESCRIPTION Received is one container labeled with the patient's name and designated gallbladder. The specimen consists of a gallbladder measuring 9.5 cm in length and up to 4.5 cm in diameter. The external surface is pink-hinton, smooth and glistening for the most part. Focally it is granular, hemorrhagic and contains cautery artifact. The gallbladder contains green-yellow mucoid bile and multiple mulberry black stone measuring in aggregate 2.5 x 1.5 x 0.8 cm and 0.2 to 1.0 cm in greatest dimension. The mucosa is bile-stained and without any mass lesions. The gallbladder wall measures up to 0.2cm in thickness. Club Manager sections from the gallbladder and the cystic duct are submitted in one cassette. / SJ: 07/17/2024 TC:3 CPT: 04963
--- NOTE | 2024-07-17 07:48 | RAD_ITS ---
STUDY: INTRAOPERATIVE CHOLANGIOGRAM. REASON FOR EXAM: Male, 74 years old. LAP REJI W/ IOC FLUOROSCOPY TIME (if supplied): ( 25.6 seconds ) minutes/seconds. 10.08 mGy. TECHNIQUE: An intraoperative cholangiogram was performed by the surgeon. Imaging was submitted. COMPARISON: None. FINDINGS: The intra and extrahepatic biliary ducts are unremarkable. There is free flow of contrast into the duodenum. No intraluminal filling defect is seen. RAD/Cholangiogram/ O R,Initial IMPRESSION: Unremarkable intraoperative cholangiogram. Electronically Signed: Richmond Vazquez MD at 13:49 EDT ,
--- NOTE | 2024-07-17 08:28 | OP.PCM_ITS ---
Operative Report (Standard) Operative Information Surgery/Procedure Performed: Laparoscopic cholecystectomy with cholangiograms Surgeon: Nghia Li Date of Procedure: 07/17/24 Procedure Start Time: 07:47 Procedure Stop Time: 08:45 Pre-Operative Diagnosis: Biliary colic and cholelithiasis Post-Operative Diagnosis: Same Select all DRAINS/GRAFTS/IMPLANTS that apply: None Type of Anesthesia: General/Regional Estimated Blood Loss: 10 Specimen collected: Yes Description of specimen(s) removed: Gallbladder Description of surgery: After obtaining informed consent patient was brought back to the operating room. General anesthesia was induced. The abdomen was prepped and draped in usual sterile fashion. A small midline incision was made superior to the umbilicus and deepened to the level of fascia. The fascia was elevated and incised. Next the peritoneum was elevated and incised in the same fashion. Finger sweep was performed and the Hogan trocar was placed into the abdomen. The balloon was inflated. The abdomen was inflated to 15 mmHg. Next a camera was introduced into the abdomen and the abdomen was inspected. Next under direct visualization three 5-mm ports were placed one subxiphoid and 2 subcostal. Next the gallblad emilia was elevated and retracted toward the right shoulder. The peritoneum was stripped from the gallbladder. The infundibulum was located and retracted laterally. Next the triangle of Calot was dissected and the cystic duct and cystic artery were identified. Cholangiograms were performed. The Celestin clamp was used to clamp across the infundibulum and the catheter needle was inserted into the gallbladder. Under fluoroscopy contrast was instilled into the gallbladder and the common duct, cystic duct as well as proximal hepatic ducts were identified. There was good filling of the duodenum. There were no filling defects noted in the common bile duct. The clamp was removed as well as the needle and the infundibulum was grasped once more. Three hemolock clips were placed across the cystic duct. The cystic duct was then divided leaving 2 clips on the stump. The cystic artery was clipped and divided in the same fashion. The hook cautery was then used to take the gallbladder off of the gallbladder bed. Hemostasis was obtained. Gallbladder fossa was irrigated and no active bleeding or bile leakage was noted. Next the camera was introduced in the subxiphoid port. An Endopouch bag was placed through the umbilical port and the gallbladder was placed into it. The gallbladder was then removed through the umbilical incision. The camera was then reinserted through the umbilical port. The gallbladder fossa was inspected once more and noted to be hemostatic with no leaking bile. The abdomen was suctioned dry. The 5 mm ports were removed under direct visualization. The umbilical port was then removed and the air was removed from the abdomen. Next using an 0 Vicryl suture the umbilical fascia was closed in a [id number] fashion. The umbilical port site was irrigated local anesthetic was administered to all the incisions. All the incisions were closed with interrupted subcuticular 4-0 Monocryl sutures followed by Steri- Strips and dressings. The patient was awoken and taken to PACU in stable condition. 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
--- NOTE | 2024-07-17 08:50 | PCM.POST.ANE ---
Anesthesia: Postop Eval I Current Vital Signs Temperature: 97.3 F Pulse Rate: 97 Blood Pressure: 135/74 Respiratory Rate: 16 Pulse Ox: 95 Oxygen Delivery Method: Room Air Assessment Airway patent: Yes Spontaneous unlabored respirations: Yes Mental status: Awake and Calm nausea: No Vomiting: No Anesthesia Complication: No Fluid Hydration Crystalloid volume administer (ml): 900 Total IV fluid infused: 900 Progress Note Anesthesia document: Postop Eval 1 completed: Yes
--- NOTE | 2024-07-17 09:11 | DCINST_ITS ---
Discharge Instructions Procedure Gallbladder Diet Discharge Diet: Light diet - advance as tolerated Activity Discharge Activity: May Not Drive (for 2-3 days or while taking narcotic pain medications.) and - (Do not drive, work heavy equipment or sign legal documents for 24 hours.) May shower in (days): 1 Lifting Restrictions: 20 lbs for 2 weeks Additional Activity Instructions:: Pain medication may cause nausea. You should typically eat light foods as you take your pain medications. Pain medication may also cause constipation. If this is a problem for you, please discuss with your doctor. Alternate ibuprofen and Tylenol for pain control, oxycodone for breakthrough pain Resume Eliquis tomorrow Dressing / Incision Call your doctor if your incision/area has: Continuous Slow Oozing, Sudden Increased Bleeding, Increased Pain/ Swelling, Increased Redness and Foul Smelling Discharge Call your doctor if you observe: Fever of 101 or Higher Suture Line Care: Avoid Pulling/Pushing and Avoid Pinching/Bending Remove Dressing in: 2 days Additional Dressing/Incision Instructions:: Leave operative bandaids on for 2 days. When you remove dressing, leave Steri-Strips on until your follow-up appointment, or until the Steri-Strips fall off on their own. Follow Up Care Please Follow Up With: Nghia Li MD When: Please call to schedule 2 week follow up appointment. [phone] Test Results: Test results from this visit will be discussed in further detail at your follow- up appointment, if applicable. Discharge Plan Admission Attending Provider: Nghia Li Primary Care Provider: Dipika Wheeler [facility] Instructions Print Language: Icelandic Discharge Orders/Prescriptions Prescriptions: New oxycodone 5 mg Tablet 5 - 10 mg PO Q4H PRN PRN (Reason: Pain Score 4-10) 5 Days Qty: 14 0RF No Action pravastatin 10 MG tablet 1 tab PO QHS Patient Comments: TAKE 1 TABLET EVERY DAY AT BEDTIME metformin 1,000 MG tablet 1 tab PO BID Patient Comments: Take one tablet twice a day. Trulicity 0.75 mg/0.5 mL pen injector 0.75 mg subcut SA lisinopril 10 mg tablet 10 mg PO QHS diltiazem HCl 120 mg capsule,extended release 24hr 120 mg PO QHS Eliquis 5 mg tablet 5 mg PO BID Qty: 60 11RF Patient Comments: HOLD FOR 3 DAYS PRIOR TO OR omeprazole 20 mg capsule,delayed release(DR/EC) 20 mg PO DAILY Qty: 90 0RF Referrals / Follow Up: Dipika Wheeler, TELEVISION PROGRAM DIRECTOR-C [Primary Care Provider] - Disposition Disposition (needs filled in before D/C Order can be placed): Home, Self Care
[2024-07-17] MEDS: Acetaminophen 325 MG Tablet 650 MG PO (09:49)
--- NOTE | 2024-07-17 10:51 | POSTOPAN2_ITS ---
Anesthesia Postop Eval I Sum Postop Eval Completion status Anesthesia document: Postop Eval 1 completed: Yes Anesthesia Postop Eval I Summary Anesthesia Postop Eval I Summary: Anesthesia Postop Eval I: Assessment Summary Airway patent Yes 07/17/24 08:51 WELDER [email or web address].[email or web address] Spontaneous unlabored Yes 07/17/24 08:51 WELDER REPAIR.[email or web address] respirations Mental status Awake,Calm 07/17/24 08:51 WELDER REPAIR.[email or web address] nausea No 07/17/24 08:51 WELDER REPAIR.GDOTT Vomiting No 07/17/24 08:51 WELDER REPAIR.GDOTT Anesthesia Postop Eval I: Fluid Summary Crystalloid volume administer 900 07/17/24 08:51 WELDER REPAIR.GDOTT (ml) Colloids volume administered ( ml) Blood Product volume administered (ml) Total IV fluid infused 900 07/17/24 08:51 WELDER REPAIR.GDOTT Anesthesia Postop Eval I: Summary Notes Anesthesia Complication No 07/17/24 08:51 WELDER REPAIR.GDOTT Anesthesia Complication Comment: Post-operative progress note Anesthesia: Postop Eval II Evaluation Mental status: Awake Pain Level: 0 nausea: No Vomiting: No
--- NOTE | 2024-07-17 10:51 | PCM.POSTANE2 ---
Anesthesia Postop Eval I Sum Postop Eval Completion status Anesthesia document: Postop Eval 1 completed: Yes Anesthesia Postop Eval I Summary Anesthesia Postop Eval I Summary: Anesthesia Postop Eval I: Assessment Summary Airway patent Yes 07/17/24 08:51 [email or web address] Spontaneous unlabored Yes 07/17/24 08:51 [email or web address] respirations Mental status Awake,Calm 07/17/24 08:51 [email or web address] nausea No 07/17/24 08:51 [email or web address] Vomiting No 07/17/24 08:51 [email or web address] Anesthesia Postop Eval I: Fluid Summary Crystalloid volume administer 900 07/17/24 08:51 [email or web address] (ml) Colloids volume administered ( ml) Blood Product volume administered (ml) Total IV fluid infused 900 07/17/24 08:51 [email or web address] Anesthesia Postop Eval I: Summary Notes Anesthesia Complication No 07/17/24 08:51 [email or web address] Anesthesia Complication Comment: Post-operative progress note Anesthesia: Postop Eval II Evaluation Mental status: Awake Pain Level: 0 nausea: No Vomiting: No
[2024-07-17 18:47] LABS: Hemoglobin A1c 6.3 % (3.8-5.6)
== END 2024-07-17 12:40 | disposition home or self-care (01) ==
LOC: SDC 05:52 → AC 05:53
PROVIDERS: Anesthesiology; PCP Nurse Practitioner Family; Referring Provider Surgery; Visit Provider Surgery
PROC: (CPT 47610; principal; 2024-07-17 07:10)
DX: K80.10 Calculus of gallbladder with chronic cholecystitis without obstruction (principal); I11.0 Hypertensive heart disease with heart failure; I50.9 Heart failure, unspecified; I48.0 Paroxysmal atrial fibrillation; E11.9 Type 2 diabetes mellitus without complications; Z79.84 Long term (current) use of oral hypoglycemic drugs; E78.5 Hyperlipidemia, unspecified; Z79.01 Long term (current) use of anticoagulants; K80.50 Calculus of bile duct without cholangitis or cholecystitis without obstruction; Z79.85 Long-term (current) use of injectable non-insulin antidiabetic drugs; Z79.899 Other long term (current) drug therapy; K21.9 Gastro-esophageal reflux disease without esophagitis
CPT/HCPCS: 47563; 00790; 74300; 76000; 82962; 83036; 88304; 93005; J7120; J2405

== ENCOUNTER 2024-07-19 17:23 | Emergency (ER) | payer MEDICARE, MEDICAID, SELFPAY ==
[2024-07-19 17:24] VITALS: BP 151/87; PULSE 106; RESP 18; TEMP 36.5; O2SAT 98; BMI 23.6
[2024-07-19 17:29] VITALS: BP 151/87; PULSE 106; RESP 18; TEMP 36.5; O2SAT 98
--- OUTSIDE RECORDS SUMMARY | 2024-07-19 17:39 | XMS RPT_ITS | CCD ---
Author Organization [facility] Care Team Providers Care Solar Engineer Name Role Phone Nadir Savage Primary Care Provider [phone] BlairMartina peterson CNP Unavailable [phone] JEIMY ZIMMER Admitting Unavailable OSMIN MEDLEY Referring Unavaila ble SWIHART, NADIR L Primary Care Unavailable YARITZA WALTON [...] Unavailable Swihart, Nadir L Primary Care Provider [phone] Blair CNP, Martina K Unavailable [phone] LESTER, DEBRA MICHAUD Attending Unavailabl e SWIHART, NADRI L Primary Care Unavailable SWIHART, NADIR L [...] on above: Take [address] [facility] two times a day. First dose evening [...] on above: Take [address] [facility] once daily. ondansetron 4 mg disintegrating oral [...] mouth once daily. Take 1 capsule by [facility] once daily. Completed/Discontinued Medications Medication Drug Class(es) [...] Test Name Value Interpretation Reference Range Facility [facility]Son 05-27-2024 CNOV Office Visit (PODIWS ) GIFTYLUIS JONES ([id number]) 1950 M Date Time Provider Department 05/27/24 [...] Onset Alcohol/Drug Father Coronary Artery Disease Father [place] Emphysema Mother Coronary Artery Disease Mother SC Social History Tobacco Use Smoking status: Never [...] ENDOCRINE: Negative (more content not included)... Normal [facility] CNOVon 05-02-2024 CNOV Office Visit (UROLAG ) LUIS DURBIN ([id number]) 1950 M Date Time Provider Department 05/02/24 2:00 PM DBERA CINTRON UROLAG During your visit today, we recorded the following information about you: Pulse 70/minute Debra Cintron MD 05/02/2024 12:07 PM Signed [facility] ESTABLISHED PATIENT OFFICE VISIT HISTORY OF PRESENT [...] Onset Alcohol/Drug Father Coronary Artery Disease Father [place] Emphysema Mother Coronary Artery Disease Mother SC SOCIAL HISTORY Social History Tobacco Use Smoking status: Never Smokeless tobacco: Never Tobacco comments: Parents smoked in childhood home. Vaping Use Vaping Use: Never used Substance Use Topics Alcohol use: No Drug use: No Pulse 70 SpO2 98% Physical Exam Constitutional: Appearance: Normal appearance. HENT: Head: Normocephalic. Nose: Nose normal. Pulmonary: Effort: Pulmonary e (more content not included)... Normal [facility] UA DIP, URINE (POC)on 2023 BILIRUBIN UA (POCT) Small Abnormal Negative [facility] CLARITY UA (POCT) Clear [facility] COLOR UA (POCT) Yellow [facility] GLUCOSE UA (POCT) Negative Negative mg/dL [facility] Hemoglobin Ql (U) Negative Negative [facility] Interpretation and review of laboratory results Abnormal [facility] KETONE UA (POCT) Trace Negative mg/dL [facility] LEUKOCYTES UA (POCT) Negative Negative [facility] NITRITE UA (POCT) Negative Negative [facility] PH UA (POCT) 5.5 4.5 - 8.0 [facility] Protein Ql (U) Negative Negative mg/dL [facility] SPECIFIC GRAVITY UA (POCT) >=1.030 1.005 - 1.030 [facility] UROBILINOGEN UA (POCT) 0.2 Normal E.U./dL [facility] Location:[facility], [facility] [address] [place] [address], [address] [place] [address] POINT OF CARE [facility] BLADDER SCANon 04-22-2024 PVR 1 ml [facility] CNOVon 04-22-2024 CNOV Office Visit (URMASS ) LUIS DURBIN ([id number]) 1950 M Date Time Provider Department 04/22/24 1:00 PM DEBRA CINTRON During your visit today, we recorded the following information about you: Debra Cintron MD 04/22/2024 1:35 PM Signed [facility] ESTABLISHED PATIENT OFFICE VISIT HISTORY OF PRESENT [...] Onset Alcohol/Drug Father Coronary Artery Disease Father [place] Emphysema Mother Coronary Artery Disease Mother SC SOCIAL HISTORY Social History Tobacco Use Smoking [...] Mental Status: (more content not included)... Normal [facility] PSA SerPl-mCncon 04-22-2024 Prostate specific Ag [Mass/Vol] 1.07 ng/mL Normal <2.60 [facility] Comment on above: Order Comment: Speci men Type: BLOOD SPECIMEN Ordering Facility: [facility] Address: [place] [address] Result Comment: This is a new methodology for this marker. Tumor markers obtained from different assay methods cannot be used interchangeably. Expect results of this assay to run lower than the previous assay. It is recommended to re-baseline patients when changing to a new methodology. Performed By: #### 2 4321-2 #### [facility] CLIA [id number] [address] [id number] [place] UA DIP, URINE (POC)on 2023 BILIRUBIN UA (POCT) Negative Negative [facility] CLARITY UA (POCT) Clear [facility] COLOR UA (POCT) Yellow [facility] GLUCOSE UA (POCT) Negative Negative mg/dL [facility] Hemoglobin Ql (U) Negative Negative [facility] KETONE UA (POCT) Negative Negative mg/dL [facility] LEUKOCYTES UA (POCT) Negative Negative [facility] NITRITE UA (POCT) Negative Negative [facility] PH UA (POCT) 5.5 4.5 - 8.0 [facility] Protein Ql (U) Negative Negative mg/dL [facility] SPECIFIC GRAVITY UA (POCT) >=1.030 1.005 - 1.030 [facility] UROBILINOGEN UA (POCT) 0.2 Normal E.U./dL [facility] Location:[facility], [address] [place] [address], [address] [place] [address] POINT OF CARE [facility] XR ABDOMEN 1V SUPINEon 04-22 XR ABDOMEN [...] No renal stones are identified. Incidental gallstones Can Dragger: PSCLatesha Transcribe Date/Time: Apr 25 2024 7:28P Dictated by : ANGELA MARCOS MD This examination was interpreted and the report reviewed and electronically signed by: ANGELA MARCOS MD on Apr 25 2024 7:29PM EST [id number] [facility] BLADDER SCANon 01-15-2024 Bladder scan 2ml. [facility] CNOVon 01-15-2024 CNOV Office Visit (URMASS ) LUIS DURBIN ([id number]) 1950 M Date Time Provider Department 01/15/24 3:20 PM [facility] During your visit today, we recorded the following information about you: Debra Cintron MD 01/15/2024 3:27 PM Signed [facility] ESTABLISHED PATIENT OFFICE VISIT HISTORY OF PRESENT [...] Onset Alcohol/Drug Father Coronary Artery Disease Father [place] Emphysema Mother Coronary Artery Disease Mother SC SOCIAL HISTORY Social History Tobacco Use Smoking [...] a chen (more content not included)... Normal [facility] UA DIP, URINE (POC)on 2023 BILIRUBIN UA (POCT) Negative Negative [facility] CLARITY UA (POCT) Clear [facility] COLOR UA (POCT) Yellow [facility] GLUCOSE UA (POCT) Negative Negative mg/dL [facility] Hemoglobin Ql (U) Large Abnormal Negative [facility] Interpretation and review of laboratory results Abnormal [facility] KETONE UA (POCT) Negative Negative mg/dL [facility] LEUKOCYTES UA (POCT) Small Abnormal Negative [facility] NITRITE UA (POCT) Negative Negative [facility] PH UA (POCT) 5.5 4.5 - 8.0 [facility] Protein Ql (U) 30 mg/dL Abnormal Negative [facility] SPECIFIC GRAVITY UA (POCT) >=1.030 1.005 - 1.030 [facility] UROBILINOGEN UA (POCT) 0.2 Normal E.U./dL [facility] Location:[facility], [address] [place] [address], [address] [facility] POINT OF CARE [facility] CNOVon 12-25-2023 CNOV Office Visit (URMASS ) GIFTYLUIS JONES ([id number]) 1950 M Date Time Provider Department 12/25/23 1:00 PM DBERA CINTRON During your visit today, we recorded the following information about you: Pulse Blood pressure 95/minute 138/79 Debra Cintron MD 12/25/2023 2:43 PM Signed [facility] ESTABLISHED PATIENT OFFICE VISIT HISTORY OF PRESENT [...] Onset Alcohol/Drug Father Coronary Artery Disease Father [place] Emphysema Mother Coronary Artery Disease Mother SC SOCIAL HISTORY Social History Tobacco Use Smoking [...] In suc (more content not included)... Normal [facility] UA DIP, URINE (POC)on 2023 BILIRUBIN UA (POCT) Negative Negative [facility] CLARITY UA (POCT) Clear [facility] COLOR UA (POCT) Yellow [facility] GLUCOSE UA (POCT) Negative Negative mg/dL [facility] Hemoglobin Ql (U) Large Abnormal Negative [facility] KETONE UA (POCT) Negative Negative mg/dL [facility] LEUKOCYTES UA (POCT) Large Abnormal Negative [facility] NITRITE UA (POCT) Negative Negative [facility] PH UA (POCT) 6.0 4.5 - 8.0 [facility] Protein Ql (U) 30 mg/dL Abnormal Negative mg/dL [facility] SPECIFIC GRAVITY UA (POCT) 1.025 1.005 - 1.030 [facility] UROBILINOGEN UA (POCT) 0.2 E.U./dL Normal E.U./dL [facility] CNPTaylor 12-24-2023 CNPN Telephone (URCANT) LUIS DURBIN ([id number]) 1950 M Date Time Provider Department 12/24/23 DEBRA CINTRON During your visit today, we recorded the following information about you: Alonso Murguia 12/24/2023 10:57 AM Addendum Pt sts he was at [facility] on 12/18 for UTI symptoms and [...] Encounter Status:Closed by ALONSO MURGUIA on 12/24/23 [facility] [place] 11-27-2023 CNARCENIO Office Visit (URCANT ) LUIS DURBIN ([id number]) 1950 M Date Time Provider Department 11/27/23 [...] Encounter Status:Closed by MIKE SANCHEZ on 11/27/23 [facility] CNOV Office Visit (URCANT ) GIFTYLUIS [place] ([id number]) 1950 M Date Time Provider Department 11/27/23 [...] uncomfortable. Patient voiced understanding of all instructions. Magazine Grinder Loader offered:Patient declines Mike Sanchez RN Allergies As [...] uncomfortable. Patient voiced understanding of all instructions. Magazine Grinder Loader offered:Patient declines Mike Sanchez RN Encounter Status:Closed by MIKE SANCHEZ on 11/27/23 [facility] Kevan 11-26-2023 JOHANNA Telephone (URCANT) LUIS DURBIN ([id number]) 1950 M Date Time Provider Department 11/26/23 [...] urinary stream [N40.1, R39.12] Order(s):VOIDING TRIAL PROTOCOL [[id number]] Order #: [id number] Prescriptions as of 11/27/2023 - cefdinir (OMNICEF) [...] Encounter Status:Closed by MIKE SANCHEZ on 11/27/23 [facility] CNOVon 11-23-2023 CNOV Office Visit (URCANT ) LUIS DURBIN ([id number]) 1950 M Date Time Provider Department 11/23/23 9:20 AM DEBRA CINTRON During your visit today, we recorded the following information about you: Pulse Respiration Blood pressure Weight 88/minute 18/minute 145/79 87.1 kg Height 1.854 m Eloina Castro OCCA 11/23/2023 9:22 AM Signed Magazine Grinder Loader offered:Patient accepts, visit chaperoned by HERB Lopez Brooke, RN 11/23/2023 10:30 AM Signed Patient feeling whoozy vitals taken and patient remained seated. Dr cintron notified and nurse convention services manager Zamzam. Patient placed in wheelchair and taken [...] patient: Yes Procedure confirmed with physician and ict customer support officer: Yes UNIVERSAL PROTOCOL / SAFETY CHECKLIST Procedure [...] draped and cystoscopy was done using the ReYoopiesm scope 5 areas were treated 1 at 6:00 near the bladder neck and 2 on each side of the lateral lobes of the prostate Then after finishing the procedure and #16 Zambian coude catheter inserted per urethra and left [...] by contextual derivation. Referring Provider: DEBRA CINTRON [[id number]] Allergies As of Date: 11/23/2023 (No Known [...] gel (GLYDO)Disp: Rfl: UA DIP, URINE (POC) [[id number]] Order #: [id number]. #:[id number] Prescriptions as of 11/23/2023 - cefdinir [...] tablet T (more content not included)... Normal [facility] UA DIP, URINE (POC)on 2023 BILIRUBIN UA (POCT) Negative Negative [facility] CLARITY UA (POCT) Clear [facility] COLOR UA (POCT) Yellow [facility] GLUCOSE UA (POCT) 250 mg/dL Abnormal Negative mg/dL [facility] Hemoglobin Ql (U) Negative Negative [facility] KETONE UA (POCT) Negative Negative mg/dL [facility] LEUKOCYTES UA (POCT) Trace Abnormal Negative [facility] NITRITE UA (POCT) Negative Negative [facility] PH UA (POCT) 5.0 4.5 - 8.0 [facility] Protein Ql (U) Trace Abnormal Negative mg/dL [facility] SPECIFIC GRAVITY UA (POCT) >=1.030 1.005 - 1.030 [facility] UROBILINOGEN UA (POCT) 0.2 E.U./dL Normal E.U./dL [facility] Kevan 11-20-2023 JOHANNA Telephone (URCANT) LUIS DURBIN ([id number]) 1950 M Date Time Provider Department 11/20/23 [...] Encounter Status:Closed by JOIE JOY on 11/21/23 [facility] PSA/PROSTSPECAG SCRNon 10-12 Prostate specific Ag [Mass/Vol] 11.56 ng/mL High <2.60 [facility] Comment on above: Order Comment: Speci men Type: BLOOD SPECIMEN Ordering Facility: [facility] Address: [address] [place] [address] Result Comment: Tota hira PSA test methodology [...] 2003,349:335-42. Performed By: #### P SAS1 #### [facility] CLIA [id number] [address] [facility] [place] [address] [place] CNCOon 10-11-2023 CNCO Letter Text [facility] CNOVon 10-11-2023 CNOV Office Visit (URCANT ) LUIS DURBIN ([id number]) 1950 M Date Time Provider Department 10/11/23 11:00 AM DEBRA CINTRON URCANMaite During your visit today, we recorded the following information about you: Temperature Weight Height 97.6 degrees 87.1 kg 1.87 m Debra Cintron MD 10/12/2023 8:14 AM Signed [facility] ESTABLISHED PATIENT OFFICE VISIT HISTORY OF PRESENT [...] Onset Alcohol/Drug Father Coronary Artery Disease Father [place] Emphysema Mother Coronary Artery Disease Mother SC SOCIAL HISTORY Social History Tobacco Use Smoking [...] prostatic hyperplasi (more content not included)... Normal [facility] CNOVon 09-27-2023 CNOV Office Visit (URCANT ) LUIS DURBIN ([id number]) 1950 M Date Time Provider Department 09/27/23 1:00 PM DEBRA CINTRON During your visit today, we recorded the following information about you: Blood pressure Weight Height 162/90 87.1 kg 1.87 m Debra Cintron MD 09/27/2023 1:21 PM Signed CYSTOSCOPY/stent removal PROCEDURE NOTE: Cysto/stent remove-65057 Dx;z46.6 Luis Durbin is a 73 year old male who presents with a stent. for cystoscopy and stent removal Pt ID verified with patient: yes Procedure verified with patient: yes Procedure confirmed with physician and ict customer support officer: yes Special equipment-cystoscope and grasping forceps UNIVERSAL [...] gel (GLYDO)Disp: Rfl: UA DIP, URINE (POC) [[id number]] Order #: [id number]. #:[id number] Prescriptions as of 09/27/2023 - lisinopril [...] Gastric polyp [K31.7] 12/21/2014 Diverticulosis [K57.90] 12/21/2014 [place] (more content not included)... Normal [facility] Bacteria Ur Culton Bacteria identified Cx Nom (U) CULTURE, URINE: Normal urogenital jose: ORGANISM ID: 1 <10,000 CFU/ml Staphylococcus epidermidis No further workup Normal [facility] Comment on above: Performed By: #### 6 30-4 #### [facility] CLIA [id number] [address] [place] [address] [place] URINALYSIS, DIPSTICK ONLYon 09-18-2023 Bilirubin Ql (U) Negative Normal Negative [facility] Comment on above: Order Comment: Speci men Type: URINE SPECIMEN Ordering Facility: [facility] Address: [address] [place] [address] Performed By: #### U A #### [facility] CLIA [id number] [address] [place] [address] [place] Clarity (Unsp spec) Cloudy Abnormal Clear [facility] Comment on above: Order Comment: Speci men Type: URINE SPECIMEN Ordering Facility: [facility] Address: [address] [place] [address], [place] [address] Performed By: #### U A #### [facility] CLIA [id number] [facility] [place] [address] [place] Color (U) [place] Abnormal Yellow [facility] Comment on above: Order Comment: Speci men Type: URINE SPECIMEN Ordering Facility: [facility] Address: [address] [place] [address] Performed By: #### U A #### [facility] CLIA [id number] [address] [place] [address] [place] Glucose Test strip (U) [Mass/Vol] 2+ Abnormal Negative [facility] Comment on above: Order Comment: Speci men Type: URINE SPECIMEN Ordering Facility: [facility] Address: [address] [place] [address], [place] [address] Performed By: #### U A #### [facility] CLIA [id number] [address] [place] [address] [place] Hemoglobin Ql (U) 3+ Abnormal Negative [facility] Comment on above: Order Comment: Speci men Type: URINE SPECIMEN Ordering Facility: [facility] Address: [address] [place] [address] Performed By: #### U A #### [facility] CLIA [id number] [address] [place] [address] [place] Ketones Ql (U) Trace Abnormal Negative [facility] Comment on above: Order Comment: Speci men Type: URINE SPECIMEN Ordering Facility: [facility] Address: [address] [place] [address] Performed By: #### U A #### [facility] CLIA [id number] [address] [place] [address] [place] Leukocyte esterase Test strip Ql (U) 1+ Abnormal Negative [facility] Comment on above: Order Comment: Speci men Type: URINE SPECIMEN Ordering Facility: [facility] Address: [address] [place] [address] Performed By: #### U A #### [facility] CLIA [id number] [address] [place] [address] [place] Nitrite Ql (U) Negative Normal Negative [facility] Comment on above: Order Comment: Speci men Type: URINE SPECIMEN Ordering Facility: [facility] Address: [address] [place] [address] Performed By: #### U A #### [facility] CLIA [id number] [address] [place] [address] [place] pH (U) 5.5 [pH] Normal <8.5 [facility] Comment on above: Order Comment: Speci men Type: URINE SPECIMEN Ordering Facility: [facility] Address: [address] [place] [address] Performed By: #### U A #### [facility] CLIA [id number] [address] [place] [address] [place] Protein (U) [Mass/Vol] 2+ Abnormal Negative [facility] Comment on above: Order Comment: Speci men Type: URINE SPECIMEN Ordering Facility: [facility] Address: [address] [place] [address] Performed By: #### U A #### [facility] CLIA [id number] [address] [place] [address] [place] Specific gravity (U) [Rel density] 1.020 Normal 1.005-1.030 [facility] Comment on above: Order Comment: Speci men Type: URINE SPECIMEN Ordering Facility: [facility] Address: [address] [place] [address] Performed By: #### U A #### [facility] CLIA [id number] [address] [place] [address] OF [place] Urobilinogen Ql (U) 0.2 EU/dL Normal 0.2-1.0 EU/dL [facility] Comment on above: Order Comment: Speci men Type: URINE SPECIMEN Ordering Facility: [facility] Address: [address] [place] [address] Performed By: #### U A #### [facility] CLIA [id number] [address] [place] [address] [place] Kevan 08-27-2023 JOHANNA Telephone (URCANT) LUIS DURBIN ([id number]) 1950 M Date Time Provider Department 08/27/23 [...] Status:Closed by CRISTA SANDERS on 09/03/23 Normal [facility] CBC panel Auto (Bld)on 08-23 Erythrocyte distribution width (RBC) [Ratio] 15.7 % High 11.5-15.0 [facility] Comment on above: Order Comment: Speci men Type: BLOOD SPECIMEN Ordering Facility: [facility] Address: [address] [place] [address] Performed By: #### 5 7021-8 #### [facility] CLIA [id number] [address] [place] [address] [place] Hematocrit (Bld) [Volume fraction] 31.9 % Low 39.0-51.0 [facility] Comment on above: Order Comment: Sheryli men Type: BLOOD SPECIMEN Ordering Facility: [facility] Address: [address] [place] [address] Performed By: #### 5 7021-8 #### [facility] CLIA [id number] [address] [place] [address] [place] Hemoglobin (Bld) [Mass/Vol] 10.0 g/dL Low 13.0-17.0 [facility] Comment on above: Order Comment: Speci men Type: BLOOD SPECIMEN Ordering Facility: [facility] Address: [address] [place] [address] Performed By: #### 5 7021-8 #### [facility] CLIA [id number] [address] [place] [address] [place] MCH (RBC) [Entitic mass] 25.8 pg Low 26.0-34.0 [facility] Comment on above: Order Comment: Speci men Type: BLOOD SPECIMEN Ordering Facility: [facility] Address: [address] [place] [address] Performed By: #### 5 7021-8 #### [facility] CLIA [id number] [address] [place] [address] MCHC (RBC) [Mass/Vol] 31.3 g/dL Normal 30.5-36.0 [facility] Comment on above: Order Comment: Speci men Type: BLOOD SPECIMEN Ordering Facility: [facility] Address: [address] [place] [address] Performed By: #### 5 7021-8 #### [facility] CLIA [id number] [address] [place] [address] [place] MCV (RBC) [Entitic vol] 82.2 fL Normal 80.0-100.0 [facility] Comment on above: Order Comment: Speci men Type: BLOOD SPECIMEN Ordering Facility: [facility] Address: [address] [place] [address] Performed By: #### 5 7021-8 #### [facility] CLIA [id number] [address] [place] [address] [place] Nucleated RBC (Bld) [#/Vol] 10*3/uL Normal <0.01 [facility] Comment on above: Order Comment: Speci men Type: BLOOD SPECIMEN Ordering Facility: [facility] Address: [address] [facility] [place] [address] Performed By: #### 5 7021-8 #### [facility] CLIA [id number] [address] [place], [place] [id number] [place] Platelet mean volume (Bld) [Entitic vol] 9.6 fL Normal 9.0-12.7 [facility] Comment on above: Order Comment: Speci men Type: BLOOD SPECIMEN Ordering Facility: [facility] Address: [address] [place] [address] Performed By: #### 5 7021-8 #### [facility] CLIA [id number] [address] [place] [address] [place] Platelets (Bld) [#/Vol] 243 10*3/uL Normal 150-400 [facility] Comment on above: Order Comment: Speci men Type: BLOOD SPECIMEN Ordering Facility: [facility] Address: [address] [place] [address] Performed By: #### 5 7021-8 #### [facility] CLIA [id number] [address] [place] [address] [place] RBC (Bld) [#/Vol] 3.88 10*6/uL Low 4.20-6.00 [facility] Comment on above: Order Comment: Speci men Type: BLOOD SPECIMEN Ordering Facility: [facility] Address: [address] [place] [address] Performed By: #### 5 7021-8 #### [facility] CLIA [id number] [address] [place], [place] [address] [place] WBC (Bld) [#/Vol] 6.49 10*3/uL Normal 3.70-11.00 [facility] Comment on above: Order Comment: Speci men Type: BLOOD SPECIMEN Ordering Facility: [facility] Address: [address] [place] [address] Performed By: #### 5 7021-8 #### [facility] CLIA [id number] [address] [place] [address] [place] Erythrocyte distribution width (RBC) [Ratio] 15.5 % High 11.5-15.0 [facility] Comment on above: Order Comment: Speci men Type: BLOOD SPECIMEN Ordering Facility: [facility] Address: [address] [place] [address] Performed By: #### 5 7021-8 #### [facility] CLIA [id number] [address] [place] [address] [place] Hematocrit (Bld) [Volume fraction] 31.9 % Low 39.0-51.0 [facility] Comment on above: Order Comment: Speci men Type: BLOOD SPECIMEN Ordering Facility: [facility] Address: [address] [place] [address] Performed By: #### 5 7021-8 #### [facility] CLIA [id number] [address] [place] [address] [place] Hemoglobin (Bld) [Mass/Vol] 10.3 g/dL Low 13.0-17.0 [facility] Comment on above: Order Comment: Speci men Type: BLOOD SPECIMEN Ordering Facility: [facility] Address: [address] [place] [address] Performed By: #### 5 7021-8 #### [facility] CLIA [id number] [address] [place] [address] [place] MCH (RBC) [Entitic mass] 26.2 pg Normal 26.0-34.0 [facility] Comment on above: Order Comment: Speci men Type: BLOOD SPECIMEN Ordering Facility: [facility] Address: [address] [place] [address] Performed By: #### 5 7021-8 #### [facility] CLIA [id number] [address] [place] [address] [place] MCHC (RBC) [Mass/Vol] 32.3 g/dL Normal 30.5-36.0 [facility] Comment on above: Order Comment: Speci men Type: BLOOD SPECIMEN Ordering Facility: [facility] Address: [address] [place] [address] Performed By: #### 5 7021-8 #### [facility] CLIA [id number] [address] [place] [address] [place] MCV (RBC) [Entitic vol] 81.2 fL Normal 80.0-100.0 [facility] Comment on above: Order Comment: Speci men Type: BLOOD SPECIMEN Ordering Facility: [facility] Address: [address] [place] [address] Performed By: #### 5 7021-8 #### [facility] CLIA [id number] [address] [place] [address] [place] Nucleated RBC (Bld) [#/Vol] 10*3/uL Normal <0.01 [facility] Comment on above: Order Comment: Speci men Type: BLOOD SPECIMEN Ordering Facility: [facility] Address: [address] [place] [address] Performed By: #### 5 7021-8 #### [facility] CLIA [id number] [address] [place] [address] [place] Platelet mean volume (Bld) [Entitic vol] 10.0 fL Normal 9.0-12.7 [facility] Comment on above: Order Comment: Speci men Type: BLOOD SPECIMEN Ordering Facility: [facility] Address: [address] [place] [address] Performed By: #### 5 7021-8 #### [facility] CLIA [id number] [address] [place] [address] [place] Platelets (Bld) [#/Vol] 236 10*3/uL Normal 150-400 [facility] Comment on above: Order Comment: Speci men Type: BLOOD SPECIMEN Ordering Facility: [facility] Address: [address] [place] [address] Performed By: #### 5 7021-8 #### [facility] CLIA [id number] [address] [place] [address] [place] RBC (Bld) [#/Vol] 3.93 10*6/uL Low 4.20-6.00 [facility] Comment on above: Order Comment: Nick men Type: BLOOD SPECIMEN Ordering Facility: [facility] Address: [address] [place] [address] Performed By: #### 5 7021-8 #### [facility] CLIA [id number] [address] [place], [place] [address] [place] WBC (Bld) [#/Vol] 6.87 10*3/uL Normal 3.70-11.00 [facility] Comment on above: Order Comment: Speci men Type: BLOOD SPECIMEN Ordering Facility: [facility] Address: [address] [place] [address] Performed By: #### 5 7021-8 #### [facility] CLIA [id number] [address] [place], [place] [address] [facility] CNDSon 08-23-2023 CNDS HNO ID: [id number] Author: Yaritza Walton DO Service: Hospital Medicine [...] HOSPITAL COURSE: - patient presented to an [facility] emergency department with left flank pain - imaging was obtained and showed evidence of an obstructing ureteral stone on the left side, hydronephrosis was seen as well - labs revealed evidence of renal failure with an elevated creatinine level of 1.64 - patient was transferred here to [facility] for urology evaluation - symptoms improved within a day, creatinine normalized - urology recommending repeat CT scan to look for stone passage - CT no longer showed evidence of an obstructing stone, but findings did show evidence of a moderate-sized retroperitoneal hemorrhage on the left, hemorrhage was causing obstruction of the left ureter with qdzd-[id number] left-sided hydronephrosis - patient was taken to [...] Appointment When: In 2 weeks Nadir Savage [phone] [facility] [address] [place] [address] PCP Requested Referral Follow-Up Appointment When: In 1 week Debra Cintron MD [phone] [facility] [address] [address] PCP Requested Referral PATIENT CONDITION AT DISCHARGE: Stable DISCHARGE DISPOSITION: Home DISCHARGE TIME: 33 minutes SIGNATURE: Yaritza Walton, DATE: August 23, 2023 TIME: 3:14 PM Normal [facility] Comprehensive metabolic 2000 panelon 08-23-2023 Albumin [Mass/Vol] 2.4 g/dL Low 3.2-5.0 [facility] Comment on above: Order Comment: Nick jordan Type: BLOOD SPECIMEN Ordering Facility: [facility] Address: [address] [place] [address] Performed By: #### 5 7021-8 #### [facility] CLIA [id number] [address] [place] [address] [place] ALP [Catalytic activity/Vol] 93 U/L Normal 45-117 [facility] Comment on above: Order Comment: Nick jordan Type: BLOOD SPECIMEN Ordering Facility: [facility] Address: [address] [place] [address] Performed By: #### 5 7021-8 #### [facility] CLIA [id number] [address] [place] [address] [place] ALT [Catalytic activity/Vol] 19 U/L Normal 13-61 [facility] Comment on above: Order Comment: Nick jordan Type: BLOOD SPECIMEN Ordering Facility: [facility] Address: [address] [place] [address] Result Comment: Resu lts may be falsely depressed after the administration of Sulfasalazine and/or Sulfapyridine. Performed By: #### 5 7021-8 #### [facility] CLIA [id number] [address] [place] [address] [place] Anion gap [Moles/Vol] 8 mmol/L Normal 5-16 [facility] Comment on above: Order Comment: Speci men Type: BLOOD SPECIMEN Ordering Facility: [facility] Address: [address] [place] [address] Performed By: #### 5 7021-8 #### [facility] CLIA [id number] [address] [place] [address] [place] AST [Catalytic activity/Vol] 17 U/L Normal 8-34 [facility] Comment on above: Order Comment: Speci men Type: BLOOD SPECIMEN Ordering Facility: [facility] Address: [address] [place] [address] Result Comment: Resu lts may be falsely depressed after the administration of Sulfasalazine and/or Sulfapyridine. Performed By: #### 5 7021-8 #### [facility] CLIA [id number] [address] [place] [address] [place] Bilirubin [Mass/Vol] 0.8 mg/dL Normal 0.2-1.0 [facility] Comment on above: Order Comment: Speci men Type: BLOOD SPECIMEN Ordering Facility: [facility] Address: [address] [place] [address] Performed By: #### 5 7021-8 #### [facility] CLIA [id number] [address] [place] [address] [place] Calcium [Mass/Vol] 8.1 mg/dL Low 8.5-10.5 [facility] Comment on above: Order Comment: Speci men Type: BLOOD SPECIMEN Ordering Facility: [facility] Address: [address] [place] [address] Performed By: #### 5 7021-8 #### [facility] CLIA [id number] [address] [place] [address] [place] Chloride [Moles/Vol] 107 mmol/L Normal 98-107 [facility] Comment on above: Order Comment: Speci men Type: BLOOD SPECIMEN Ordering Facility: [facility] Address: [address] [place] [address] Performed By: #### 5 7021-8 #### [facility] CLIA [id number] [address] [place] [address] [place] CO2 [Moles/Vol] 25 mmol/L Normal 21-32 [facility] Comment on above: Order Comment: Speci men Type: BLOOD SPECIMEN Ordering Facility: [facility] Address: [address] [place] [address] Performed By: #### 5 7021-8 #### [facility] CLIA [id number] [address] [place] [address] [place] Creatinine [Mass/Vol] 0.83 mg/dL Normal 0.50-1.40 [facility] Comment on above: Order Comment: Speci men Type: BLOOD SPECIMEN Ordering Facility: [facility] Address: [address] [place] [address] Result Comment: Chen ents receiving either N-Acetylcysteine (NAC) or Metamizole prior to venipuncture, may have falsely depressed results. Performed By: #### 5 7021-8 #### [facility] CLIA [id number] [address] [place] [address] [facility] Creatinine and Glomerular filtration rate.predicted panel (S/P/Bld) 92 mL/min/1.73m??? Normal >=60 [facility] Comment on above: Order Comment: Speci men Type: BLOOD SPECIMEN Ordering Facility: [facility] Address: [address] [place] [address] Result Comment: Elda mated Glomerular Filtration Rate [...] GFR. Performed By: #### 5 7021-8 #### [facility] CLIA [id number] [address] [place] [address] [place] Glucose [Mass/Vol] 140 mg/dL High 70-100 [facility] Comment on above: Order Comment: Speci men Type: BLOOD SPECIMEN Ordering Facility: [facility] Address: [address] [place] [address] Result Comment: The [place] [employer] (ADA) provides guidance for cutoff [...] Standards of Medical Care in Diabetes 2016, [place] [employer]. Diabetes Care. 2016.39(Suppl 1). Results may be falsely elevated after the administration of Sulfapyridine. Results may be falsely depressed after the administration of Sulfasalazine. Performed By: #### 5 7021-8 #### [facility] CLIA [id number] [address] [place] [address] [place] Potassium [Moles/Vol] 4.1 mmol/L Normal 3.5-5.1 [facility] Comment on above: Order Comment: Nick jordan Type: BLOOD SPECIMEN Ordering Facility: [facility] Address: [address] [place] [address] Performed By: #### 5 7021-8 #### [facility] CLIA [id number] [address] [place] [address] [place] Protein [Mass/Vol] 5.5 g/dL Low 6.0-8.5 [facility] Comment on above: Order Comment: Nick jordan Type: BLOOD SPECIMEN Ordering Facility: [facility] Address: [address] [place] [address] Performed By: #### 5 7021-8 #### [facility] CLIA [id number] [address] [place] [address] [place] Sodium [Moles/Vol] 140 mmol/L Normal 136-145 [facility] Comment on above: Order Comment: Nick jordan Type: BLOOD SPECIMEN Ordering Facility: [facility] Address: [address] [place] [address] Performed By: #### 5 7021-8 #### [facility] CLIA [id number] [address] [place], [place] [address] [place] Urea nitrogen [Mass/Vol] 32 mg/dL High 7- [facility] Comment on above: Order Comment: Speci men Type: BLOOD SPECIMEN Ordering Facility: [facility] Address: [address] [id number] Performed By: #### 5 7021-8 #### [facility] CLIA [id number] [address] [place], [place] [address] [place] Magnesium SerPl-mCncon 08-23 Magnesium [Mass/Vol] 1.9 mg/dL Normal 1.6-2.6 [facility] Comment on above: Order Comment: Speci men Type: BLOOD SPECIMEN Ordering Facility: [facility] Address: [address] [place] [id number] Performed By: #### 5 7021-8 #### [facility] CLIA [id number] [address] [place], [place] [address] [place] ANES POSTPROC EVALon 023 ANES POSTPROC EVAL HNO ID: [id number] Author: Breana Mcclain MD Service: Anesthesiology Author [...] August 22, 2023 TIME: 7:19 PM CSN: [id number] [facility] ANES PRE-OPon 08-22-2023 ANES PRE-OP HNO ID: [id number] Author: Breana Mcclain MD Service: Anesthesiology Author Type: Anesthesiologist Type: Anesthesia Preprocedure Evaluation Filed: 08/22/2023 7:26 PM Note Text: ANESTHESIOLOGY DAY OF SURGERY NOTE : 1950 Per [facility] HANDP: ASSESSMENT: ? Obstructive uropathy; ELBA; nausea, vomiting -- Patient will be admitted to [facility] -- Urology consult -- Pain control, bowel [...] on Eliquis, and GERD who presented to [facility] with flank pain and nausea and [...] urology services and so requested [facility]. At the time of my exam, [...] - Coronary Artery Disease Father ? ? [place] - Emphysema Mother ? - Coronary Artery Disease Mother ? ? [place] ? HOME MEDICATIONS: CURRENT MEDICATIONS Current Facility-Administered [...] mild atelectatic changes at the left base. Can Dragger: IVY ? Transcribe Date/Time: Aug 21 2023 [...] results: Hematocri (more content not included)... Normal [facility] CBC panel Auto (Bld)on 08-22 Erythrocyte distribution width (RBC) [Ratio] 15.3 % High 11.5-15.0 [facility] Comment on above: Order Comment: Speci men Type: BLOOD SPECIMEN Ordering Facility: [facility] Address: [address] [place], [place] [address] Performed By: #### 5 8410-2 #### [facility] CLIA [id number] [address] [place] [address] [place] Hematocrit (Bld) [Volume fraction] 31.8 % Low 39.0-51.0 [facility] Comment on above: Order Comment: Speci men Type: BLOOD SPECIMEN Ordering Facility: [facility] Address: [address] [place] [address] Performed By: #### 5 8410-2 #### [facility] CLIA [id number] [address] [place] [address] [place] Hemoglobin (Bld) [Mass/Vol] 10.2 g/dL Low 13.0-17.0 [facility] Comment on above: Order Comment: Speci men Type: BLOOD SPECIMEN Ordering Facility: [facility] Address: [address] [place] [address] Performed By: #### 5 8410-2 #### [facility] CLIA [id number] [address] [place] [address] [place] MCH (RBC) [Entitic mass] 25.7 pg Low 26.0-34.0 [facility] Comment on above: Order Comment: Speci men Type: BLOOD SPECIMEN Ordering Facility: [facility] Address: [address] [place] [address] Performed By: #### 5 8410-2 #### [facility] CLIA [id number] [address] [place] [address] [place] MCHC (RBC) [Mass/Vol] 32.1 g/dL Normal 30.5-36.0 [facility] Comment on above: Order Comment: Speci men Type: BLOOD SPECIMEN Ordering Facility: [facility] Address: [address] [place] [address] Performed By: #### 5 8410-2 #### [facility] CLIA [id number] [address] [place] [address] [place] MCV (RBC) [Entitic vol] 80.1 fL Normal 80.0-100.0 [facility] Comment on above: Order Comment: Speci men Type: BLOOD SPECIMEN Ordering Facility: [facility] Address: [address] [place] [address] Performed By: #### 5 8410-2 #### [facility] CLIA [id number] [address] [place], [place] [address] [place] Nucleated RBC (Bld) [#/Vol] 10*3/uL Normal <0.01 [facility] Comment on above: Order Comment: Speci men Type: BLOOD SPECIMEN Ordering Facility: [facility] Address: [address] [place] [address] Performed By: #### 5 8410-2 #### [facility] CLIA [id number] [address] [place] [address] [place] Platelet mean volume (Bld) [Entitic vol] 9.8 fL Normal 9.0-12.7 [facility] Comment on above: Order Comment: Speci men Type: BLOOD SPECIMEN Ordering Facility: [facility] Address: [address] [place] [address] Performed By: #### 5 8410-2 #### [facility] CLIA [id number] [address] [place] [address] [place] Platelets (Bld) [#/Vol] 210 10*3/uL Normal 150-400 [facility] Comment on above: Order Comment: Speci men Type: BLOOD SPECIMEN Ordering Facility: [facility] Address: [address] [place] [address] Performed By: #### 5 8410-2 #### [facility] CLIA [id number] [address] [place] [address] [place] RBC (Bld) [#/Vol] 3.97 10*6/uL Low 4.20-6.00 [facility] Comment on above: Order Comment: Speci men Type: BLOOD SPECIMEN Ordering Facility: [facility] Address: [address] [place] [address] Performed By: #### 5 8410-2 #### [facility] CLIA [id number] [address] [place] [address] [place] WBC (Bld) [#/Vol] 8.54 10*3/uL Normal 3.70-11.00 [facility] Comment on above: Order Comment: Speci men Type: BLOOD SPECIMEN Ordering Facility: [facility] Address: [place] [address] Performed By: #### 5 8410-2 #### [facility] CLIA [id number] [address] [place] [address] [place] CONSULTon 08-22-2023 CONSULT HNO ID: [id number] Author: Debra Cintron MD Service: Urology Author Type: Physician Type: Consults Filed: 08/22/2023 12:44 PM Note Text: UROLOGY INPATIENT CONSULT SERVICE DATE: 08/22/2023 REFERRING PROVIDER: Osmin Medley DO [address] [facility] [id number] PCP: Nadir Savage CNP DIAGNOSIS, ASSESSMENT AND [...] DATE: August 22, 2023 TIME: 12:39 PM [facility] CT FLANK WO IVCONon 08-22- 23 CT FLANK WO IVCON * * *Final Report* * * DATE OF EXAM: Aug 22 2023 12:05PM [facility] 0529 - CT FLANK WO IVCON / [...] are atelectatic changes at the right base. Signal Technician (topogram) images: Noncontributory. IMPRESSION: 1. Small left pleural effusion and adjacent left lower lobe consolidation. 2. Cholelithiasis. 3. Findings compatible with moderate left retroperitoneal hemorrhage. There are findings felt to represent secondary obstruction of the left ureter with mild to moderate left hydronephrosis. Can Dragger: [facility] Transcribe Date/Time: Aug 22 2023 12:06P Dictated by : MISAEL ELIAS MD This examination was interpreted and the report reviewed and electronically signed by: MISAEL ELIAS MD on Aug 22 2023 12:16PM EST [id number] Normal [facility] Comprehensive metabolic 2000 panelon 08-22-2023 Albumin [Mass/Vol] 2.4 g/dL Low 3.2-5.0 [facility] Comment on above: Order Comment: Speci men Type: BLOOD SPECIMEN Ordering Facility: [facility] Address: [address] [place] [address] Performed By: #### 2 4323-8, 91768-7 #### [facility] CLIA [id number] [address] [place] [address] [place] ALP [Catalytic activity/Vol] 82 U/L Normal 45-117 [facility] Comment on above: Order Comment: Speci men Type: BLOOD SPECIMEN Ordering Facility: [facility] Address: [address] [place] [address] Performed By: #### 2 4328, #### [facility] CLIA [id number] [address] [place] [address] [place] ALT [Catalytic activity/Vol] 21 U/L Normal 13-61 [facility] Comment on above: Order Comment: Speci men Type: BLOOD SPECIMEN Ordering Facility: [facility] Address: [address] [place] [address] Result Comment: Resu lts may be falsely depressed after the administration of Sulfasalazine and/or Sulfapyridine. Performed By: #### 2 4328, #### [facility] CLIA [id number] [address] [place], [place] [address] [place] Anion gap [Moles/Vol] 7 mmol/L Normal 5-16 [facility] Comment on above: Order Comment: Speci men Type: BLOOD SPECIMEN Ordering Facility: [facility] Address: [address] [place] [address] Performed By: #### 2 4323-04, #### [facility] CLIA [id number] [address] [place], [place] [address] [place] AST [Catalytic activity/Vol] 21 U/L Normal 8-34 [facility] Comment on above: Order Comment: Speci men Type: BLOOD SPECIMEN Ordering Facility: [facility] Address: [address] [place] [address] Result Comment: Resu lts may be falsely depressed after the administration of Sulfasalazine and/or Sulfapyridine. Performed By: #### 2 43211-29, #### [facility] CLIA [id number] [address] [place] [address] [place] Bilirubin [Mass/Vol] 0.9 mg/dL Normal 0.2-1.0 [facility] Comment on above: Order Comment: Speci men Type: BLOOD SPECIMEN Ordering Facility: [facility] Address: [address] [place] [address] Performed By: #### 2 4328, #### [facility] CLIA [id number] [address] [place] [address] [place] Calcium [Mass/Vol] 8.0 mg/dL Low 8.5-10.5 [facility] Comment on above: Order Comment: Speci men Type: BLOOD SPECIMEN Ordering Facility: [facility] Address: [address] [place] [address] Performed By: #### 2 4323-8, #### [facility] CLIA [id number] [address] [place] [address] [place] Chloride [Moles/Vol] 106 mmol/L Normal 98-107 [facility] Comment on above: Order Comment: Speci men Type: BLOOD SPECIMEN Ordering Facility: [facility] Address: [address] [place] [address] Performed By: #### 2 4323-8, #### [facility] CLIA [id number] [address] [place] [address] [place] CO2 [Moles/Vol] 25 mmol/L Normal 21-32 [facility] Comment on above: Order Comment: Speci men Type: BLOOD SPECIMEN Ordering Facility: [facility] Address: [address] [place] [address] Performed By: #### 2 4323-8, #### [facility] CLIA [id number] [address] [place] [address] [place] Creatinine [Mass/Vol] 0.93 mg/dL Normal 0.50-1.40 [facility] Comment on above: Order Comment: Speci men Type: BLOOD SPECIMEN Ordering Facility: [facility] Address: [address] [place] [address] Result Comment: Chen ents receiving either N-Acetylcysteine (NAC) or Metamizole prior to venipuncture, may have falsely depressed results. Performed By: #### 2 4323-8, #### [facility] CLIA [id number] [address] [place] [address] [place] Creatinine and Glomerular filtration rate.predicted panel (S/P/Bld) 86 mL/min/1.73m??? Normal >=60 [facility] Comment on above: Order Comment: Nick jordan Type: BLOOD SPECIMEN Ordering Facility: [facility] Address: [address] [place] [address] Result Comment: Elda mated Glomerular Filtration Rate [...] actual GFR. Performed By: #### 2 4323-8, 58361-0 #### [facility] CLIA [id number] [address] [place], [place] [address] [place] Glucose [Mass/Vol] 165 mg/dL High 70-100 [facility] Comment on above: Order Comment: Nick jordan Type: BLOOD SPECIMEN Ordering Facility: [facility] Address: [address] [place] [address] Result Comment: The [place] [employer] (ADA) provides guidance for cutoff [...] Standards of Medical Care in Diabetes 2016, [place] [employer]. Diabetes Care. 2016.39(Suppl 1). Results may be falsely elevated after the administration of Sulfapyridine. Results may be falsely depressed after the administration of Sulfasalazine. Performed By: #### 2 4323-8, 98034-9 #### [facility] CLIA [id number] [address] [place], [place] [address] [place] Potassium [Moles/Vol] 3.9 mmol/L Normal 3.5-5.1 [facility] Comment on above: Order Comment: Speci men Type: BLOOD SPECIMEN Ordering Facility: [facility] Address: [address] [facility] [place] [address] Performed By: #### 2 432-8, #### [facility] CLIA [id number] [address] [place], [place] [address] [place] Protein [Mass/Vol] 5.4 g/dL Low 6.0-8.5 [facility] Comment on above: Order Comment: Speci men Type: BLOOD SPECIMEN Ordering Facility: [facility] Address: [address] [place] [address] Performed By: #### 2 8, #### [facility] CLIA [id number] [address] [place] [address] [place] Sodium [Moles/Vol] 138 mmol/L Normal 136-145 [facility] Comment on above: Order Comment: Speci men Type: BLOOD SPECIMEN Ordering Facility: [facility] Address: [address] [place] [address] Performed By: #### 2 8, #### [facility] CLIA [id number] [address] [place] [address] [place] Urea nitrogen [Mass/Vol] 35 mg/dL High 7-26 [facility] Comment on above: Order Comment: Speci men Type: BLOOD SPECIMEN Ordering Facility: [facility] Address: [address] [place] [address] Performed By: #### 2 8, #### [facility] CLIA [id number] [address] [place], [place] [address] [place] Magnesium SerPl-mCncon 08-22 Magnesium [Mass/Vol] 1.9 mg/dL Normal 1.6-2.6 [facility] Comment on above: Order Comment: Speci men Type: BLOOD SPECIMEN Ordering Facility: [facility] Address: [address] [place] [address] Performed By: #### 2 8, #### [facility] CLIA [id number] [facility] [address] [place] OF [facility] OPERATIVE NOon 08-22-2023 OPERATIVE NO HNO ID: [id number] Author: Debra Cintron MD Service: Urology Author Type: Physician Type: Operative Report Filed: 08/22/2023 5:48 PM Note Text: OPERATIVE/PROCEDURE REPORT LOG ID: [id number] SURGERY/PROCEDURE DATE: 08/22/2023 INCISION/PROCEDURE START TIME: 5:21 PM INCISION CLOSE/PROCEDURE END TIME: 5:39 PM SURGEON(S)/PROCEDURALIST(S) AND DIRECTOR OF MATERIALS(S): Surgeon(s) and Role: * Debra Cintron MD [...] Glidewire and a number 26 cm 6 [place] double-J ureteral stent was fed over the [...] IMPLANTABLE DEVICES: None DRAINS: 26 cm 6 [place] double-J ureteral stent COMPLICATIONS: None PARTICIPATION IN SURGERY/PROCEDURE: I/primary surgeon/proceduralist performed the procedure with assistance. SIGNATURE: Debra Cintron MD PATIENT NAME: Luis Durbin DATE: August 22, 2023 TIME: 5:45 PM Normal [facility] Basic metabolic 2000 panelon 08-21-2023 Anion gap [Moles/Vol] 9 mmol/L Normal 5-16 [facility] Comment on above: Order Comment: Speci men Type: BLOOD SPECIMEN Ordering Facility: [facility] Address: [address] [place] [address] Performed By: #### 2 4321-2 #### [facility] CLIA [id number] [address] [place], [place] [address] [place] Calcium [Mass/Vol] 8.3 mg/dL Low 8.5-10.5 [facility] Comment on above: Order Comment: Speci men Type: BLOOD SPECIMEN Ordering Facility: [facility] Address: [address] [place] [address] Performed By: #### 2 4321-2 #### [facility] CLIA [id number] [address] [place] [address] [place] Chloride [Moles/Vol] 105 mmol/L Normal 98-107 [facility] Comment on above: Order Comment: Speci men Type: BLOOD SPECIMEN Ordering Facility: [facility] Address: [address] [place] [address] Performed By: #### 2 4321-2 #### [facility] CLIA [id number] [address] [place] [address] [place] CO2 [Moles/Vol] 23 mmol/L Normal 21-32 [facility] Comment on above: Order Comment: Speci men Type: BLOOD SPECIMEN Ordering Facility: [facility] Address: [address] [place] [address] Performed By: #### 2 4321-2 #### [facility] CLIA [id number] [address] [place] [address] [place] Creatinine [Mass/Vol] 1.40 mg/dL Normal 0.50-1.40 [facility] Comment on above: Order Comment: Speci men Type: BLOOD SPECIMEN Ordering Facility: [facility] Address: [address] [place] [address] Result Comment: Chen ents receiving either N-Acetylcysteine (NAC) or Metamizole prior to venipuncture, may have falsely depressed results. Performed By: #### 2 4321-2 #### [facility] CLIA [id number] [address] [place] [address] [place] Creatinine and Glomerular filtration rate.predicted panel (S/P/Bld) 53 mL/min/1.73m??? Low >=60 [facility] Comment on above: Order Comment: Nick jordan Type: BLOOD SPECIMEN Ordering Facility: [facility] Address: [address] [place] [address] Result Comment: Elda mated Glomerular Filtration Rate [...] GFR. Performed By: #### 2 4321-2 #### [facility] CLIA [id number] [address] [place] [address] [place] Glucose [Mass/Vol] 192 mg/dL High 70-100 [facility] Comment on above: Order Comment: Nick jordan Type: BLOOD SPECIMEN Ordering Facility: [facility] Address: [address] [place] [address] Result Comment: The [place] Diabetes Association (ADA) provides guidance for cutoff [...] Standards of Medical Care in Diabetes 2016, [place] [employer]. Diabetes Care. 2016.39(Suppl 1). Results may be falsely elevated after the administration of Sulfapyridine. Results may be falsely depressed after the administration of Sulfasalazine. Performed By: #### 2 4321-2 #### [facility] CLIA [id number] [address] [place] [address] [place] Potassium [Moles/Vol] 3.9 mmol/L Normal 3.5-5.1 [facility] Comment on above: Order Comment: Speci men Type: BLOOD SPECIMEN Ordering Facility: [facility] Address: [address] [place] [address] Performed By: #### 2 4321-2 #### [facility] CLIA [id number] [address] [place] [address] [place] Sodium [Moles/Vol] 137 mmol/L Normal 136-145 [facility] Comment on above: Order Comment: Speci men Type: BLOOD SPECIMEN Ordering Facility: [facility] Address: [address] [place] [address] Performed By: #### 2 4321-2 #### [facility] CLIA [id number] [address] [place] [address] [place] Urea nitrogen [Mass/Vol] 32 mg/dL High 04-18 [facility] Comment on above: Order Comment: Speci men Type: BLOOD SPECIMEN Ordering Facility: [facility] Address: [address] [place] [address] Performed By: #### 2 4321-2 #### [facility] CLIA [id number] [address] [place] [address] [place] CBC W Auto Differential pane l (Bld)on 08-21-2023 Basophils (Bld) [#/Vol] 0.03 10*3/uL Normal <0.11 [facility] Comment on above: Order Comment: Speci men Type: BLOOD SPECIMEN Ordering Facility: [facility] Address: [address] [place] [address] Performed By: #### 5 7021-8 #### [facility] CLIA [id number] [address] [place] [address] [place] Basophils/100 WBC (Bld) 0.3 % Normal [facility] Comment on above: Order Comment: Speci men Type: BLOOD SPECIMEN Ordering Facility: [facility] Address: [address] [place] [address] Performed By: #### 5 7021-8 #### [facility] CLIA [id number] [address] [place] [address] [place] Differential cell count method Nom (Bld) Auto Normal [facility] Comment on above: Order Comment: Speci men Type: BLOOD SPECIMEN Ordering Facility: [facility] Address: [address] [place] [address] Performed By: #### 5 7021-8 #### [facility] CLIA [id number] [address] [place] [address] [place] Eosinophils (Bld) [#/Vol] 10*3/uL Normal <0.46 [facility] Comment on above: Order Comment: Speci men Type: BLOOD SPECIMEN Ordering Facility: [facility] Address: [address] [place] [address] Performed By: #### 5 7021-8 #### [facility] CLIA [id number] [address] [place] [address] [place] Eosinophils/100 WBC (Bld) 0.0 % Normal [facility] Comment on above: Order Comment: Speci men Type: BLOOD SPECIMEN Ordering Facility: [facility] Address: [address] [place] [address] Performed By: #### 5 7021-8 #### [facility] CLIA [id number] [address] [place] [address] [place] Erythrocyte distribution width (RBC) [Ratio] 15.4 % High 11.5-15.0 [facility] Comment on above: Order Comment: Speci men Type: BLOOD SPECIMEN Ordering Facility: [facility] Address: [address] [place] [address] Performed By: #### 5 7021-8 #### [facility] CLIA [id number] [address] [place] [address] [place] Hematocrit (Bld) [Volume fraction] 34.7 % Low 39.0-51.0 [facility] Comment on above: Order Comment: Speci men Type: BLOOD SPECIMEN Ordering Facility: [facility] Address: [address] [place] [address] Performed By: #### 5 7021-8 #### [facility] CLIA [id number] [address] [place] [address] [place] Hemoglobin (Bld) [Mass/Vol] 11.3 g/dL Low 13.0-17.0 [facility] Comment on above: Order Comment: Speci men Type: BLOOD SPECIMEN Ordering Facility: [facility] Address: [address] [place] [address] Performed By: #### 5 7021-8 #### [facility] CLIA [id number] [address] [place] [address] [place] Immature granulocytes (Bld) [#/Vol] 0.04 10*3/uL Normal <0.10 [facility] Comment on above: Order Comment: Speci men Type: BLOOD SPECIMEN Ordering Facility: [facility] Address: [address] [place] [address] Performed By: #### 5 7021-8 #### [facility] CLIA [id number] [address] [place] [address] [place] Immature granulocytes/100 WBC (Bld) 0.4 % Normal [facility] Comment on above: Order Comment: Speci men Type: BLOOD SPECIMEN Ordering Facility: [facility] Address: [address] [place] [address] Performed By: #### 5 7021-8 #### [facility] CLIA [id number] [address] [place] [address] [place] Lymphocytes (Bld) [#/Vol] 0.80 10*3/uL Low 1.00-4.00 [facility] Comment on above: Order Comment: Speci men Type: BLOOD SPECIMEN Ordering Facility: [facility] Address: [address] [place] [address] Performed By: #### 5 7021-8 #### [facility] CLIA [id number] [address] [place] [address] [place] Lymphocytes/100 WBC (Bld) 7.5 % Normal [facility] Comment on above: Order Comment: Speci men Type: BLOOD SPECIMEN Ordering Facility: [facility] Address: [address] [place] [address] Performed By: #### 5 7021-8 #### [facility] CLIA [id number] [address] [place] [address] [place] MCH (RBC) [Entitic mass] 26.3 pg Normal 26.0-34.0 [facility] Comment on above: Order Comment: Speci men Type: BLOOD SPECIMEN Ordering Facility: [facility] Address: [address] [place] [address] Performed By: #### 5 7021-8 #### [facility] CLIA [id number] [address] [place] [address] [place] MCHC (RBC) [Mass/Vol] 32.6 g/dL Normal 30.5-36.0 [facility] Comment on above: Order Comment: Speci men Type: BLOOD SPECIMEN Ordering Facility: [facility] Address: [address] [place] [address] Performed By: #### 5 7021-8 #### [facility] CLIA [id number] [address] [place] [address] [place] MCV (RBC) [Entitic vol] 80.9 fL Normal 80.0-100.0 [facility] Comment on above: Order Comment: Speci men Type: BLOOD SPECIMEN Ordering Facility: [facility] Address: [address] [place] [address] Performed By: #### 5 7021-8 #### [facility] CLIA [id number] [address] [place] [address] [place] Monocytes (Bld) [#/Vol] 1.21 10*3/uL High <0.87 [facility] Comment on above: Order Comment: Speci men Type: BLOOD SPECIMEN Ordering Facility: [facility] Address: [address] [place] [address] Performed By: #### 5 7021-8 #### [facility] CLIA [id number] [address] [place] [address] [place] Monocytes/100 WBC (Bld) 11.3 % Normal [facility] Comment on above: Order Comment: Speci men Type: BLOOD SPECIMEN Ordering Facility: [facility] Address: [address] [place] [address] Performed By: #### 5 7021-8 #### [facility] CLIA [id number] [address] [place] [address] [place] Neutrophils (Bld) [#/Vol] 8.65 10*3/uL High 1.45-7.50 [facility] Comment on above: Order Comment: Speci men Type: BLOOD SPECIMEN Ordering Facility: [facility] Address: [address] [place] [address] Performed By: #### 5 7021-8 #### [facility] CLIA [id number] [address] [place] [address] [place] Neutrophils/100 WBC (Bld) 80.5 % Normal [facility] Comment on above: Order Comment: Speci men Type: BLOOD SPECIMEN Ordering Facility: [facility] Address: [address] [place] [address] Performed By: #### 5 7021-8 #### [facility] CLIA [id number] [address] [place] [address] [place] Nucleated RBC (Bld) [#/Vol] 10*3/uL Normal <0.01 [facility] Comment on above: Order Comment: Speci men Type: BLOOD SPECIMEN Ordering Facility: [facility] Address: [address] [place] [address] Performed By: #### 5 7021-8 #### [facility] CLIA [id number] [address] [place] [address] [place] Nucleated RBC/100 WBC (Bld) [Ratio] 0.0 /100 WBC Normal [facility] Comment on above: Order Comment: Speci men Type: BLOOD SPECIMEN Ordering Facility: [facility] Address: [address] [place] [address] Performed By: #### 5 7021-8 #### [facility] CLIA [id number] [address] [place], [place] [address] [place] Platelet mean volume (Bld) [Entitic vol] 10.1 fL Normal 9.0-12.7 [facility] Comment on above: Order Comment: Speci men Type: BLOOD SPECIMEN Ordering Facility: [facility] Address: [address] [place] [address] Performed By: #### 5 7021-8 #### [facility] CLIA [id number] [address] [place] [address] [place] Platelets (Bld) [#/Vol] 238 10*3/uL Normal 150-400 [facility] Comment on above: Order Comment: Speci men Type: BLOOD SPECIMEN Ordering Facility: [facility] Address: [address] [place] [address] Performed By: #### 5 7021-8 #### [facility] CLIA [id number] [address] [place] [address] [place] RBC (Bld) [#/Vol] 4.29 10*6/uL Normal 4.20-6.00 [facility] Comment on above: Order Comment: Speci men Type: BLOOD SPECIMEN Ordering Facility: [facility] Address: [address] [place] [address] Performed By: #### 5 7021-8 #### [facility] CLIA [id number] [address] [place], [place] [address] [place] WBC (Bld) [#/Vol] 10.73 10*3/uL Normal 3.70-11.00 [facility] Comment on above: Order Comment: Speci men Type: BLOOD SPECIMEN Ordering Facility: [facility] Address: [address] [place] [address] Performed By: #### 5 7021-8 #### [facility] CLIA [id number] [address] [place], [place] [address] [facility] ALLIED HEALTHon 08-20-2023 ALLIED HEALTH HNO ID: [id number] Author: Emily Rachel Tech Service: Radiology Author [...] Forest Rodriguez August 20, 2023 10:03 PM [facility] HISTORY PHYSICALon HISTORY PHYSICAL HNO ID: [id number] Author: Jeimy Zimmer DO Service: Hospital Medicine [...] on Eliquis, and GERD who presented to [facility] with flank pain and nausea and [...] urology services and so requested [facility]. At the time of my exam, [...] Onset Alcohol/Drug Father Coronary Artery Disease Father [place] Emphysema Mother Coronary Artery Disease Mother [place] HOME MEDICATIONS: Current Facility-Administered Medications Medication Dose [...] vomiting -- Patient will be admitted to [facility] -- Urology consult -- Pain control, bowel [...] PAF; GERD --w (more content not included)... [facility] XR CHEST 1V FRONTAL PORTon 1 10-20-2022 [...] mild atelectatic changes at the left base. Can Dragger: IVY Transcribe Date/Time: Aug 21 2023 6:58A Dictated by : MISAEL ELIAS MD This examination was interpreted and the report reviewed and electronically signed by: MISAEL ELIAS MD on Aug 21 2023 6:59AM EST [id number] [facility] CNTHERAPYon 11-10-2021 CNTHERAPY OT/PT/Speech Visit ( SPMBME) LUIS DURBIN ([id number]) 1950 M Date Time Provider Department 11/10/21 1:00 PM STEFANIA BARTOLOME SUGGSLA [facility] Date Time Provider Department [place] 11/10/2021 1:00 PM [id number] [facility] Reason for Visit: Speech Instrumental Swallow [...] by mouth once daily. Letter Text Normal [facility] XR MOD BARIUM SWALLOW W SPEE Krystal [...] pathology notes. IMPRESSION: See speech pathology notes. Can Dragger: IVY Transcribe Date/Time: Nov 10 2021 1:59P Dictated by : TRAVIS QUESADA MD This examination was interpreted and the report reviewed and electronically signed by: TRAVIS QUESADA MD on Nov 10 2021 2:00PM EST [id number] Normal [facility] Coronavirus 2019on 1 SARS-CoV-2 (COVID-19) RNA EUSEBIO+probe Ql (Unsp spec) Normal Negative for COVID19 (SARS CoV2) by RT-PCR or equival [facility] Comment on above: Result Comment: Nega tive for This test was developed and its performance characteristics determined by [facility]'s [facility] [place]. This test has been authorized by FDA under an Emergency Use Authorization (EUA). This test has been validated in accordance with the FDA's Guidance Document Policy for Diagnostics Testing in Laboratories Certified to Perform High Complexity Testing under CLIA prior to Emergency use Authorization for Coronavirus Disease 2019 during the Public Health Emergency issued on November 22, 2019. Test performed by [facility], [facility] [place], [address] [id number]. COVID19 (SARS This test was developed and its performance characteristics determined by [facility] [place]. This test has been authorized by FDA under an Emergency Use Authorization (EUA). This test has been validated in accordance with the FDA's Guidance Document Policy for Diagnostics Testing in Laboratories Certified to Perform High Complexity Testing under CLIA prior to Emergency use Authorization for Coronavirus Disease 2019 during the Public Health Emergency issued on November 22, 2019. Test performed by [facility], [facility], [address] [address]. CoV2) by RT-PCR This test was developed and its performance characteristics determined by [facility]. This test has been authorized by [facility] under an Emergency Use Authorization (EUA). This test has been validated in accordance with the FDA's Guidance Document Policy for Diagnostics Testing in Laboratories Certified to Perform High Complexity Testing under CLIA prior to Emergency use Authorization for Coronavirus Disease 2019 during the Public Health Emergency issued on November 22, 2019. Test performed by [facility], [facility], [address] [address]. or equivalent This test was developed and its performance characteristics determined by [facility]. This test has been authorized by FDA under an Emergency Use Authorization (EUA). This test has been validated in accordance with the FDA's Guidance Document Policy for Diagnostics Testing in Laboratories Certified to Perform High Complexity Testing under CLIA prior to Emergency use Authorization for Coronavirus Disease 2019 during the Public Health Emergency issued on November 22, 2019. Test performed by [facility], [facility], [address] [id number]. ethod. This test was developed and its performance characteristics determined by [facility]. This test has been authorized by FDA under an Emergency Use Authorization (EUA). This test has been validated in accordance with the FDA's Guidance Document Policy for Diagnostics Testing in Laboratories Certified to Perform High Complexity Testing under CLIA prior to Emergency use Authorization for Coronavirus Disease 2019 during the Public Health Emergency issued on November 22, 2019. Test performed by [facility], [facility], [address] [address]. SARS-CoV-2 (COVID-19) RNA EUSEBIO+probe Ql (Unsp spec) CATTLE KILLER Normal [facility] BLADDER SCAN [facility] Vital Signs Date Time Vital Sign Value Performing Clinician Faci lity 05-02-2024 11:33-0400 Heart rate 70 /min Debra Cintron MD Work Phone: [facility] 05-02-2024 11:33-0400 SaO2% (BldA) [Mass fraction] 98 % Debra Cintron MD Work Phone: [facility] 12-25-2023 14:32-0400 Diastolic blood pressure 79 mm[Hg] Debra Cintron MD Work Phone: [facility] 12-25-2023 14:32-0400 Heart rate 95 /min Debra Cintron MD Work Phone: [facility] 12-25-2023 14:32-0400 SaO2% (BldA) [Mass fraction] 97 % Debra Cintron MD Work Phone: [facility] 12-25-2023 14:32-0400 Systolic blood pressure 138 mm[Hg] Debra Cintron MD Work Phone: [facility] 11-23-2023 10:15-0500 Diastolic blood pressure 79 mm[Hg] Debra Cintron MD Work Phone: [facility] 11-23-2023 10:15-0500 Heart rate 88 /min Debra Cintron MD Work Phone: [facility] 11-23-2023 10:15-0500 Respiratory rate 18 /min Debra Cintron MD Work Phone: [facility] 11-23-2023 10:15-0500 SaO2% (BldA) [Mass fraction] 98 % Debra Cintron MD Work Phone: [facility] 11-23-2023 10:15-0500 Systolic blood pressure 145 mm[Hg] Debra Cintron MD Work Phone: [facility] 11-23-2023 09:20-0500 Body height 185.4 cm Debra Cintron MD Work Phone: [facility] 11-23-2023 09:20-0500 Body weight 87.09 kg Debra Cintron MD Work Phone: [facility] Encounters Encounter Date Encounter Type Care Provider Facility Start: 05-27-2024 End: 05-27-2024 ambulatory NADIR SAVAGE Facility:[facility] Start: 05-27-2024 End: 05-27-2024 Patient encounter procedure [...] Start: 05-02-2024 End: 05-02-2024 ambulatory DEBRA CINTRON Facility:[facility] Start: 04-22-2024 End: 04-22-2024 Subsequent hospital visit by physician Debbie Camejo Work Phone: [facility] Comment on above: Kidney stone [N20.0] Start: 04-22-2024 End: 04-22-2024 Patient encounter procedure Debra Cintron MD Work Phone: Urology Comment on above: BPH with obstruction /lower urinary tract symptoms (Primary Dx); Elevated prostate specific antigen (PSA); Kidney stone Start: 04-22-2024 End: 04-22-2024 ambulatory DEBRA CINTRON Facility:[id number] Start: 01-15-2024 End: 01-15-2024 Patient encounter procedure Debra Cintron MD Work Phone: Urology Comment on above: BPH with obstruction /lower urinary tract symptoms [N40.1, N13.8] (Primary Dx); Hydronephrosis, unspecified hydronephrosis type Start: 01-15-2024 End: 01-15-2024 ambulatory DEBRA CINTRON Facility:[id number] Start: 12-25-2023 End: 12-25-2023 ambulatory DEBRA CINTRON Facility:[id number] Start: 12-25-2023 End: 12-25-2023 Patient encounter procedure Debra Cintron MD Work Phone: Urology Comment on above: Benign prostatic hyp erplasia with weak urinary stream (Primary Dx); Feeling of incomplete bladder emptying Start: 12-24-2023 Telephone encounter Debra Cintron MD Work Phone: Urology Comment on above: Patient Update Start: 11-27-2023 End: 11-27-2023 ambulatory NADIR L SWIHART Facility:[id number] Start: 11-27-2023 End: 11-27-2023 Patient encounter procedure Nurse Amado Burns Work Phone: Urology Comment on above: Benign prostatic hyp erplasia with weak urinary stream (Primary Dx) Start: 11-27-2023 End: 11-27-2023 ambulatory NADIR L SWIHART Facility:[id number] Start: 11-26-2023 Telephone encounter Nadine govea APRN.CNP Work Phone: Urology Comment on above: Orders Start: 11-23-2023 End: 11-23-2023 Patient encounter procedure Debra Cintron MD Work Phone: Urology Comment on above: Benign prostatic hyp erplasia with weak urinary stream (Primary Dx) Start: 11-23-2023 End: 11-23-2023 ambulatory DEBRA CINTRON Facility:[id number] Start: 11-20-2023 Telephone encounter Debra Cintron MD Work Phone: Urology Comment on above: Patient Question Start: 10-12-2023 End: 10-12-2023 ambulatory NADIR L SWIHART Facility:[facility] Start: 10-11-2023 End: 10-11-2023 ambulatory DEBRA CINTRON Facility:[id number] Start: 09-27-2023 End: 09-27-2023 ambulatory DEBRA CINTRON Facility:[id number] Start: 08-27-2023 Telephone encounter Debra Cintron MD Work Phone: Urology Comment on above: post op appointment Start: 08-20-2023 End: 08-23-2023 Evaluation and management of inpatient JEIMY ZIMMER Facility:[id number] Start: 05-24-2023 End: 05-24-2023 Patient encounter procedure [...] DTaP,Tdap,Td Vaccine (2 - Td or Tdap) [facility] Start: 05-28-2025 End: 05-28-2025 Patient encounter procedure 05/28/2025 10:15 AM EDT Office Visit Podiatry [address] [place] [address] Emmanuel Vlaverde [address] [facility] [place], [place] [id number] 1year follow up Podiatry Comment on above: 1year follow up Start: 05-27-2025 Diabetic foot examination Diabetic Foot Exam [facility] Start: 12-11-2024 Colonoscopy COLONOSCOPY [facility] Start: 12-11-2024 COLORECTAL CANCER SCREENING COLORECTAL CANCER SCREENING [facility] Start: 12-11-2024 Screening for malign ant neoplasm of colon [facility] Start: 11-07-2024 End: 11-07-2024 Patient encounter procedure 11/07/2024 8:40 AM EST Office Visit Urology [address] [place] [address] Debra Cintron MD [address] [place] [address] 6 months follow up Urology Comment on above: 6 months follow up Start: 05-27-2024 End: 05-27-2024 Patient encounter procedure 05/27/2024 10:00 AM EDT Office Visit Podiatry [address] [place], [place] [address] Emmanuel Valverde [address] [place] [id number] 1year follow up Podiatry Comment on above: 1year follow up Start: 05-25-2024 Covid-19 Vaccine () Covid-19 Vaccine () [facility] Start: 05-25-2024 Influenza vaccination C [facility] Start: 05-24-2024 3 comp foot exam completed DIABETIC FOOT EXAM [facility] Start: 05-24-2024 Diabetic foot examination Diabetic Foot Exam [facility] Start: 05-02-2024 End: 05-02-2024 Patient encounter procedure 05/02/2024 2:00 PM EDT Office Visit Urology [address] [place] [address] Debra Cintron MD [address] [place] [address] 1 week follow up - Per DR. Cintron - PSA/KUB prior Urology Comment on above: 1 week follow up - P er DR. Cintron - PSA/KUB prior Start: 04-22-2024 End: 07-22-2024 Prostate specific Ag [Mass/volume] in Serum or Plasma [facility] Comment on above: Expected: 04/22/2024 , Expires: 07/22/2024 Start: 04-22-2024 End: 05-22-2025 XR Abdomen Supine and Upright [facility] Work Phone: Comment on above: Expected: 04/22/2024 , Expires: 05/22/2025 Start: 04-22-2024 End: 04-22-2024 Patient encounter procedure 04/22/2024 1:00 PM EDT Office Visit Urology [address] [place] [address] Debra Cintron MD [address] [id number] 3 month follow up - W/ [facility] Comment on above: 3 month follow up - W/ [facility] Start: 09-24-2023 Advance Directive Discussion Advance Directive Discussion [facility] Start: 09-24-2023 Behavioral Health Screening Behavioral Health Screening [facility] Start: 09-24-2023 Depression Assessment Depression Ass essment [facility] Start: 05-25-2023 Covid-19 Vaccine ( season) Covid-19 Vaccine ( season) [facility] Start: 05-25-2023 Influenza vaccination C [facility] Start: 11-24-2022 COVID-19 VACCINE (4 - Moderna series) COVID-19 VACCINE (4 - Moderna series) [facility] Start: 09-24-2022 ADVANCE DIRECTIVE DISCUSSION ADVANCE DIRECTIVE DISCUSSION [facility] Start: 09-24-2022 DEPRESSION ASSESSMENT DEPRESSION ASS ESSMENT [facility] Start: 05-25-2022 Influenza vaccination INFLUENZ A (Season Ended) [facility] Start: 09-24-2021 ADVANCE DIRECTIVE DISCUSSION ADVANCE DIRECTIVE DISCUSSION [facility] Start: 06-01-2021 COVID-19 VACCINE (3 - Booster for Moderna series) COVID-19 VACCINE (3 - Booster for Moderna series) [facility] Start: 08-01-2019 3 comp foot exam completed DIABETIC FOOT EXAM [facility] Start: 01-28-2016 Adult depression screening assessment DEPRESSION SCREENING [facility] Start: 2014 PNEUMOVAX AGE 65 AND OVER WITH 5YR LOOKBACK (#1) PNEUMOVAX AGE 65 AND OVER WITH 5YR LOOKBACK (#1) [facility] Start: 07-03-2013 Hemoglobin A1c measurement HbA1C [facility] Start: 07-03-2013 Hemoglobin A1c/Hemoglobin.total in Blood HBA1C [facility] Start: 05-21-2013 Hepatitis B surface antibody level LDL CHOLESTEROL [facility] Start: 2009 RSV Vaccine (1 - 1-d ose 60+ series) RSV Vaccine (1 - 1-dose 60+ series) [facility] Start: 1999 SHINGRIX VACCINE (1 of 2) SHINGRIX VACCINE (1 of 2) [facility] Start: 1994 COLOGUARD (FIT-DNA) COLOGUARD (FIT-D NA) [facility] Start: [address] [facility] Start: 1994 FECAL OCCULT BLOOD FECAL OCCULT BLOO D [facility] Start: 1994 Screening for malign ant neoplasm of colon [facility] Start: [address] [facility] Start: 1968 Urine microalbumin profile DTAP,TDAP,TD (1 - Tdap) [facility] Start: 1967 ANNUAL PCP TEAM ELECTRIC METER INSPECTOR ANN DISEASE VISIT ANNUAL PCP TEAM CHRONIC DISEASE VISIT [facility] Start: 1967 Anxiety Screening Anxiety Screening [facility] Start: 1967 Depression Screening Depression Scre ening [facility] Start: 1967 HEPATITIS C SCREENING HEPATITIS C [facility] Start: 1967 Hepatitis C screening Hepatitis C [facility] Start: 1959 Glaucoma screening Dilated Retinal E xam [facility] Start: 1959 Hepatitis B screening URINE ALBUMIN:CREATININE RATIO [facility] Start: 1959 Hepatitis C antibody , confirmatory test DILATED RETINAL EXAM [facility] Start: 1955 Pneumococcal Vaccine : 65+ (1 - PCV) Pneumococcal Vaccine: 65+ (1 - PCV) [facility] Start: 1955 Pneumococcal Vaccine : 65+ (1 of 2 - PCV) Pneumococcal Vaccine: 65+ (1 of 2 - PCV) [facility] Start: 1955 PNEUMOCOCCAL: 65+ (1 - PCV) PNEUMOCOCCAL: 65+ (1 - PCV) [facility] VOIDING TRIAL PROTOCOL VOIDING T RIAL PROTOCOL Procedures Routine Benign prostatic hyperplasia with weak urinary stream Ordered: 11/27/2023 [facility] Work Phone: Comment on above: Ordered: 11/27/2023 [facility] Immunizations Immunization Date Immunization Notes Care Provider Gayle riggins 07-27-2022 influenza virus vacc ine, unspecified formulation Debra Cintron MD Work Phone: [facility] 07-19-2012 influenza virus vacc ine, unspecified formulation Emmanuel Valverde Work Phone: [facility] Payers Date Payer Category Payer Medicare [facility] MEDICARE [facility] DUAL COMPLETE HMO POS SNP [id number] 2023-Present [phone] [address] [place] [address] Medicare [id number] 2023 Unknown [id number] 2019 Medicaid [facility] MEDICAID MYC ARE [facility] MEDICAID [id number] 2019-Present [phone] [address] [place] [address] Medicaid [id number] 2019 Medicaid [facility] MEDICAID MYC ARE [facility] MEDICAID [id number] 2019-Present [phone] [address] [place] [address] Medicaid [id number] 2019 Medicaid [id number] Social History Date Type Detail Facility Start: 11-23-2012 End: 04-10-2023 Tobacco smoking status NHIS Never smoked tobacco [facility] Start: 11-23-2012 End: 04-10-2023 Tobacco use and exposure Smokeless tobacco non-user [facility] Start: 01-24-2022 End: 05-27-2024 Alcohol intake Current non-drinker of alcohol (finding) [facility] Start: 10-05-2014 End: 04-10-2023 Tobacco Comment Parents smoked in childhood home. [facility] Start: 1950 Sex Assigned At Not on file C [facility] Start: 01-14-2022 End: 01-24-2022 Exposure to SARS-CoV-2 (event) Not sure [facility] Start: 05-24-2023 End: 05-27-2024 History of Social function [facility] Start: 05-24-2023 End: 05-27-2024 Tobacco use panel [facility] National Score (1-10 0), lower number is lower risk 68 [facility] Medical Equipment Procedure Code Equipment Code Equipment Original Text Equipment Identifier Dates Mesh Srg Surgipr o 6x6in Rachel - [id number] Start: 01-06-2013 Comment on above: Description: surgipr o monofilament polypropylene mesh implanted to left lateral chest wall/back/abdomen Stent Contour 6x26 W/O Wire - [id number] Start: 08-22-2023 Clinical Notes 11-10-2021 to 05-27-2024 [...] (or decreased sensation in your feet) a guard captain should always cut your toenails. Be Careful [...] Go to your health care provider or guard captain to treat these conditions. documented in this encounter [facility] 05-27-2024 Note HNO ID: [id number] Author: EMMANUEL VALVERDE, ? Service: ? Author [...] Onset Alcohol/Drug Father Coronary Artery Disease Father [place] Emphysema Mother Coronary Artery Disease Mother [place] Social History Tobacco Use Smoking status: Never [...] depressed or a (more content not included)... [facility] 05-27-2024 History of Present illness Narrative Last [...] Date Value 01/01/2013 6.7 05/21/2012 6.8 HBA1C, [place] (%) Date Value 02/02/2012 6.9 06/16/2011 7.3 [...] Onset Alcohol/Drug Father Coronary Artery Disease Father [place] Emphysema Mother Coronary Artery Disease Mother [place] Social History Tobacco Use Smoking status: Never [...] type 2 diabetes mellitus with neurological manifestations ([facility]) Plan: 1. Patient was seen and evaluated. [...] like a new order for diabetic shoes. [facility]05/[facility]23 documented in this encounter [facility] 05-27-2024 Note HNO ID: [id number] Author: CECILLE SAINI RN Service: ? Author [...] like a new order for diabetic shoes. [facility]05/24/23 [facility] 05-02-2024 Note HNO ID: [id number] Author: DEBRA CINTRON MD Service: ? Author Type: Physician Type: Progress Notes Filed: 05/02/2024 12:07 Note Text: [facility] [place] ESTABLISHED PATIENT OFFICE VISIT HISTORY OF PRESENT [...] Onset Alcohol/Drug Father Coronary Artery Disease Father [place] Emphysema Mother Coronary Artery Disease Mother SC SOCIAL HISTORY Social History Tobacco Use Smoking [...] Plan notes fou (more content not included)... [facility] 05-02-2024 History of Present illness Narrative Images from the original note were not included. [facility] [place] ESTABLISHED PATIENT OFFICE VISIT HISTORY OF PRESENT [...] find a surgeon on his own in [place] Denies any lower urinary tract symptoms following [...] Onset Alcohol/Drug Father Coronary Artery Disease Father [place] Emphysema Mother Coronary Artery Disease Mother SC SOCIAL HISTORY Social History Tobacco Use Smoking [...] was obtained early following Rezum therapy Debra Cintron MD This note was partially created using voice recognition software and is inherently subject to errors including those of syntax and sound-alike substitutions which may escape proofreading. In such instances, original meaning may be extrapolated by contextual derivation. documented in this encounter [facility] 04-22-2024 History of Present illness Narrative Radiology [...] PATIENT PRESENTS WITH AN IMPLANTABLE OR ATTACHED AUTOMOBILE MECHANIC HELPER: No RADIOLOGY DEPARTMENT: General X-ray: Exam(s) Completed: Abdomen X-Ray: Abdomen PERIPHERAL IV DATA: Not applicable SIGNED BY: PIYUSH Neville) April 22, 2024 1:57 PM documented in this encounter [facility] 04-22-2024 Note HNO ID: [id number] Author: AMBAR KLINE RT (R) Service: Radiology Author Type: Technologist Type: Progress Notes Filed: 04/22/2024 13:58 Note Text: Radiology Service Progress Note PATIENT NAME: Luis Dubrin DATE OF SERVICE: April 22, 2024 TIME: [...] PATIENT PRESENTS WITH AN IMPLANTABLE OR ATTACHED AUTOMOBILE MECHANIC HELPER: No RADIOLOGY DEPARTMENT: General X-ray: Exam(s) Completed: Abdomen X-Ray: Abdomen PERIPHERAL IV DATA: Not applicable SIGNED BY: PIYUSH Neville) April 22, 2024 1:57 PM [facility] 04-22-2024 Note HNO ID: [id number] Author: DEBRA CINTRON MD Service: ? Author Type: Physician Type: Progress Notes Filed: 04/22/2024 13:35 Note Text: [facility] [place] ESTABLISHED PATIENT OFFICE VISIT HISTORY OF PRESENT [...] Onset Alcohol/Drug Father Coronary Artery Disease Father [place] Emphysema Mother Coronary Artery Disease Mother [place] SOCIAL HISTORY Social History Tobacco Use Smoking [...] BPH with obstruction/lowe (more content not included)... [facility] 04-22-2024 History of Present illness Narrative Images from the original note were not included. [facility] [place] ESTABLISHED PATIENT OFFICE VISIT HISTORY OF PRESENT [...] Onset Alcohol/Drug Father Coronary Artery Disease Father [place] Emphysema Mother Coronary Artery Disease Mother [place] SOCIAL HISTORY Social History Tobacco Use Smoking [...] by contextual derivation. documented in this encounter [facility] 01-15-2024 Note HNO ID: [id number] Author: DEBRA CINTRON MD Service: ? Author Type: Physician Type: Progress Notes Filed: 01/15/2024 15:27 Note Text: [facility] [place] ESTABLISHED PATIENT OFFICE VISIT HISTORY OF PRESENT [...] Onset Alcohol/Drug Father Coronary Artery Disease Father [place] Emphysema Mother Coronary Artery Disease Mother [place] SOCIAL HISTORY Social History Tobacco Use Smoking [...] recognition software and (more content not included)... [facility] 01-15-2024 History of Present illness Narrative Images from the original note were not included. [facility] [place] ESTABLISHED PATIENT OFFICE VISIT HISTORY OF PRESENT [...] Onset Alcohol/Drug Father Coronary Artery Disease Father [place] Emphysema Mother Coronary Artery Disease Mother [place] SOCIAL HISTORY Social History Tobacco Use Smoking [...] by contextual derivation. documented in this encounter [facility] 12-25-2023 Miscellaneous Notes Addended by: CECILLE SURESH on: 12/25/2023 03:39 PM Modules accepted: Orders documented in this encounter [facility] 12-25-2023 Note HNO ID: [id number] Author: DEBRA CINTRON MD Service: ? Author Type: Physician Type: Progress Notes Filed: 12/25/2023 14:43 Note Text: [facility] [place] ESTABLISHED PATIENT OFFICE VISIT HISTORY OF PRESENT [...] Onset Alcohol/Drug Father Coronary Artery Disease Father [place] Emphysema Mother Coronary Artery Disease Mother [place] SOCIAL HISTORY Social History Tobacco Use Smoking [...] meaning may be extrapolated by contextual derivation. [facility] [facility] History of Present illness Narrative Images from the original note were not included. [facility] ESTABLISHED PATIENT OFFICE VISIT HISTORY OF PRESENT [...] Onset Alcohol/Drug Father Coronary Artery Disease Father [place] Emphysema Mother Coronary Artery Disease Mother [place] SOCIAL HISTORY Social History Tobacco Use Smoking [...] by contextual derivation. documented in this encounter [facility] 12-24-2023 Miscellaneous Notes Called and left phone message Alonso Murguia Pt sts he was at [facility] on 12/18 for UTI symptoms and bleeding. Pt sts he unable to empty his bladder and has abdominal pain. Pt is returning to ER this date. Pt is VERY hard of hearing. Alonso Murguia documented in this encounter [facility] 11-27-2023 Miscellaneous Notes >200ml ThanksNadine APRN.CREAMERY WORKER Voiding trial pended. 11/27/23 Please add > pvr amount for boogie reinsertion. Mike Brar RN documented in this encounter [facility] 11-27-2023 Nurse Note Patient is in today [...] uncomfortable. Patient voiced understanding of all instructions. Magazine Grinder Loader offered:Patient declines Mike Sanchez RN documented in this encounter [facility] 11-23-2023 Note HNO ID: [id number] Author: DEBRA CINTRON MD Service: ? Author [...] patient: Yes Procedure confirmed with physician and ict customer support officer: Yes UNIVERSAL PROTOCOL / SAFETY CHECKLIST Procedure [...] Then after finishing the procedure and #16 Zambian coude catheter inserted per urethra and left indwelling patient tolerated procedure well Debra Cintron MD Electronically Signed: Debra Cintron MD November 23, 2023 1:03 PM This note was partially created using voice recognition software and is inherently subject to errors including those of syntax and sound-alike substitutions which may escape proofreading. In such instances, original meaning may be extrapolated by contextual derivation. [facility] 11-23-2023 Procedure note Prostate nerve block and [...] patient: Yes Procedure confirmed with physician and ict customer support officer: Yes UNIVERSAL PROTOCOL / SAFETY CHECKLIST Procedure [...] Then after finishing the procedure and #16 Zambian coud catheter inserted per urethra and left [...] by contextual derivation. documented in this encounter [facility] 11-23-2023 Nurse Note Patient feeling whoozy vitals taken and patient remained seated. Dr cintron notified and nurse convention services manager Zamzam. Patient placed in wheelchair and taken to spouse in waiting room until feeling better. Mike Sanchez RN Magazine Grinder Loader offered:Patient accepts, visit chaperoned by HERB Lopez documented in this encounter [facility] 11-21-2023 Miscellaneous Notes LVM to call the office back. HERB Whitaker Pt called with questions regarding medication for Rezum. His paper work says to start medication 3 days prior, but on the prescription it states to start the evening of procedure. Please advise. HERB Whitaker documented in this encounter [facility] 10-11-2023 Note HNO ID: [id number] Author: DEBRA CINTRON MD Service: ? Author [...] which was explained to him as well [facility] 10-11-2023 Note HNO ID: [id number] Author: DEBRA CINTRON MD Service: ? Author Type: Physician Type: Progress Notes Filed: 10/12/2023 08:14 Note Text: [facility] ESTABLISHED PATIENT OFFICE VISIT HISTORY OF PRESENT [...] Onset Alcohol/Drug Father Coronary Artery Disease Father [place] Emphysema Mother Coronary Artery Disease Mother [place] SOCIAL HISTORY Social History Tobacco Use Smoking [...] of incomplete blad (more content not included)... [facility] 09-27-2023 Note HNO ID: [id number] Author: DEBRA CINTRON MD Service: ? Author Type: Physician Type: Procedures Filed: 09/27/2023 13:21 Note Text: CYSTOSCOPY/stent removal PROCEDURE NOTE: Cysto/stent remove-[id number] Dx;z46.6 Luis Durbin is a 73 year old male who presents with a stent. for cystoscopy and stent removal Pt ID verified with patient: yes Procedure verified with patient: yes Procedure confirmed with physician and ict customer support officer: yes Special equipment-cystoscope and grasping forceps UNIVERSAL [...] progress note for plans Debra Cintron MD [facility] 09-03-2023 Miscellaneous Notes Patient has been called [...] for stent removal? documented in this encounter [facility] 08-22-2023 Note HNO ID: [id number] Author: Reva Stokes RN Service: Nursing Author Type: Registered Nurse Type: Nursing Progress Note Filed: 08/22/2023 7:05 PM Note Text: Pt return from or on ed alarm [facility] 08-22-2023 Note HNO ID: [id number] Author: Breana Mcclain MD Service: Anesthesiology Author Type: Anesthesiologist Type: Anesthesia Procedure Notes Filed: 08/22/2023 7:20 PM Note Text: ANESTHESIOLOGY PROCEDURE NOTE Airway General Information Procedure Start Time/Medication Administration: 08/22/2023 5:06 PM Patient location during procedure: OR Timeout Performed Pre-procedure: timeout performed Consent Obtained: Yes Patient identity confirmed: arm band Staffing Anesthesiologist: Breana Mcclain MD HEAD GRINDER: Neli Smith APRN.HEAD GRINDER Performed by: HEAD GRINDER Indications and Patient Condition Indications for airway management: anesthesia Preoxygenated: yes anesthesia circuit Method: sleep Difficult Mask: No Final Airway Details Final airway type: supraglottic airway Number of attempts at approach: 1 Final Supraglottic Airway: Size 5 Seal Adequate: yes Airway not difficult Comments Smooth induction easy mask ventilation easy LMA placement, no issues with anesthesia induction and airway procedure. SIGNATURE: Neli Smith APRN.HEAD GRINDER PATIENT NAME: Luis Durbin DATE: August 22, 2023 TIME: 5:19 PM CSN: [id number] [facility] 08-22-2023 Note HNO ID: [id number] Author: Reva Stokes RN Service: Nursing Author Type: Registered Nurse Type: Nursing Progress Note Filed: 08/22/2023 4:04 PM Note Text: Bs 76 pacu notified [facility] 08-22-2023 Note HNO ID: [id number] Author: Reva Stokes RN Service: Nursing Author Type: Registered Nurse Type: Nursing Progress Note Filed: 08/22/2023 3:58 PM Note Text: To or [facility] 08-22-2023 Note HNO ID: [id number] Author: Yaritza Walton DO Service: Hospital Medicine [...] no complaints - imaging obtained at the [facility] showed evidence of an obstructing ureteral stone [...] causing obstruction of the left ureter with [id number] left-sided hydronephrosis - in light of those findings plan is for the patient to be taken to the operating room later today for stent placement - continue PO Percocet 1 tablet every 4 hours PRN for pain relief - continue IV fluids via normal saline at 75 cc/hour SIGNATURE: Yaritza Walton DO PATIENT NAME: Luis Durbin DATE: August 22, 2023 TIME: 3:05 PM [facility] 08-22-2023 Note HNO ID: [id number] Author: Inez Arreola, RICK Service: Care Management [...] 22, 2023 TIME: 2:42 PM PAGER/CONTACT #: [phone] [facility] 08-22-2023 History of Past i llness Narrative Problem Noted Date Diagnosed Date Resolved Date Renal disease 08/22/2023 08/23/2023 Overview: ELBA Obstructive uropathy 08/20/2023 023 documented as of this encounter (statuses as of 09/03/2023) [facility]11[facility] History of Past illness Narrative* Problem Noted Date Diagnosed Date Resolved Date Renal disease 08/22/2023 08/23/2023 Overview: ELBA Obstructive uropathy 08/20/2023 023 documented as of this encounter (statuses as of 11/21/2023) [facility] History of Past illness Narrative* Problem Noted Date Diagnosed Date Resolved Date Renal disease 08/22/2023 08/23/2023 Overview: ELBA Obstructive uropathy 08/20/2023 023 documented as of this encounter (statuses as of 11/23/2023) [facility] History of Past illness Narrative* Problem Noted Date Diagnosed Date Resolved Date Renal disease 08/22/2023 08/23/2023 Overview: ELBA Obstructive uropathy 08/20/2023 023 documented as of this encounter (statuses as of 11/27/2023) [facility] History of Past illness Narrative* Problem Noted Date Diagnosed Date Resolved Date Renal disease 08/22/2023 08/23/2023 Overview: ELBA Obstructive uropathy 08/20/2023 023 documented as of this encounter (statuses as of 12/24/2023) [facility] History of Past illness Narrative* Problem Noted Date Diagnosed Date Resolved Date Renal disease 08/22/2023 08/23/2023 Overview: ELBA Obstructive uropathy 08/20/2023 023 documented as of this encounter (statuses as of 12/25/2023) [facility]11-[facility]-2023 NoteHNO ID: [id number] Author: Yaritza Walton DO Service: Hospital Medicine [...] longer nauseated - imaging obtained at the [facility] showed evidence of an obstructing ureteral stone [...] Durbin DATE: August 21, 2023 TIME: 6:52 [facility] NoteHNO ID: [id number] Author: Radha Zhu RN Service: Nursing Author Type: Registered Nurse Type: Progress Notes Filed: 08/22/2023 7:59 AM Note Text: Dr. Cintron, Urology consult recalled at this time.[facility]11-28-2023 NoteHNO ID: [id number] Author: Inez Arreola RN Service: Care Management Author Type: Registered Nurse Type: Care Mgt Initial Assessment Filed: 08/21/2023 1:15 PM Note Text: CARE MANAGEMENT: ASSESSMENT AND DISCHARGE PLAN SERVICE DATE: August 21, 2023 SERVICE TIME: 1030 PCP: Nadir Savage CNP Primary Contact: Extended Emergency Contact Information Primary Emergency Contact: Ani Carrasco Mobile Relation: Sister Admission Status: Inpatient Insurance Provider: [facility] DUAL COMPLETE HMO POS SNP Discharge Planning requested by: Per Department Practice Potential Transition Plans Home Advance Directives Current Advance Directive: None Coil Winder Hand Attempted to Assist with AD Completion: Yes [...] Be able to go home, Less pain [place] of Choice Explained: [place] of Choice Given: No Reason Not Given: [...] 21, 2023 TIME: 1:14 PM [facility]TA[facility]: [id number]* Patient Instructions* Emmanuel Valverde - 05/24/2023 [...] (or decreased sensation in your feet) a guard captain should always cut your toenails. Be Careful [...] Go to your health care provider or guard captain to treat these conditions. 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 Emmanuel Valverde DPM * Cecille Saini RN - 05/24/2023 [...] the nail was discussed. [facility] Instructions* Patient Instructions* Emmanuel Valverde - 01/24/2022 [...] (or decreased sensation in your feet) a guard captain should always cut your toenails. Be Careful [...] Go to your health care provider or guard captain to treat these conditions. [facility] History of Present illness Narrative* Emmanuel Valverde [...] discuss having toenail removed. [facility] NoteHNO ID: [id number] Author: Celestino Devlin, ROSALINDA-TRAVELING REPRESENTATIVE Service: ? Author Type: Speech Language Pathologist Type: Progress Notes Filed: 11/10/2021 1:47 PM Note Text: Start of Care Date: 11/10/21 Onset Date: 09/24/21 Patient Identified by Name and Date of : Yes [facility] MODIFIED BARIUM SWALLOW [...] was necessary to support success due to [place] Compensatory Strategies Utilized During Assessment: Double swallows;Effortful [...] States/Identifies TREATMENT: Performed Modified Barium Swallowing Study (49075). -Education regarding findings from today's Modified Barium Swallowing study (fluoroscopic study) and suggested initial strategies to support increased success with PO Intake were provided to the patient through v (more content not included)...[id number] NoteHNO ID: [id number] Author: SAUL Giron Service: Radiology Author Type: [...] BY: SAUL Giron November 10, 2021 1:38 [facility] Diagnosis Onychomycosis- Primary Dermatophytosis of nail [...] of left foot [facility] Diagnosis Onychomycosis- Primary Dermatophytosis of nail Pain in toe of right foot Pain in limb Pain in toe of left foot Pain in limb Well controlled type 2 diabetes mellitus with neurological manifestations (HCC) Type II or unspecified type diabetes mellitus with neurological manifestations, not stated as uncontrolled Tailor's bunion of left foot [facility] Diagnosis Benign prostatic hyperplasia with weak urinary stream- Primary [facility] Diagnosis Benign prostatic hyperplasia with weak urinary stream- Primary [facility] Diagnosis Benign prostatic hyperplasia with weak urinary stream- Primary [facility] Diagnosis Benign prostatic hyperplasia with weak urinary stream- Primary Feeling of incomplete bladder emptying Incomplete bladder emptying [facility] Diagnosis BPH with obstruction/lower urinary tract symptoms [N40.1, N13.8]- Primary Hypertrophy of prostate with urinary obstruction and other lower urinary tract symptoms (LUTS) Hydronephrosis, unspecified hydronephrosis type [facility] Diagnosis BPH with obstruction/lower urinary tract symptoms- Primary Hypertrophy of prostate with urinary obstruction and other lower urinary tract symptoms (LUTS) Elevated prostate specific antigen (PSA) Kidney stone Calculus of kidney [facility] Diagnosis Kidney stone Calculus of kidney [facility] Diagnosis Calculus of kidney [N20.0]- Primary [...] stated as uncontrolled documented in this encounter [facility] for referral (narrative)* Diagnostic Procedure Only (Routine) - Closed Specialty Diagnoses / Procedures Referred By Contac t Referred To Contact XR IMAGING Diagnoses Kidney stone Procedures XR ABDOMEN 1V SUPINE RADIOLOGIC EXAM ABDOMEN 1 VIEW Debra Cintron MD [address] [place] [address] [place] [address] Referral ID Status Reason Start Date Expiration Date V isits Requested Visits Authorized [id number] Closed Auto-Generate d Referral 04/22/2024 05/22/2025 1 1 [facility] for visit Narrative* Diagnostic Procedure Only (Routine) - Closed Specialty Diagnoses / Procedures Referred By Contlance t Referred To Contact XR IMAGING Diagnoses Kidney stone Procedures XR ABDOMEN 1V SUPINE RADIOLOGIC EXAM ABDOMEN 1 VIEW Debra Cintron MD [address] [place], [place] [id number] [place] [address] Referral ID Status Reason Start Date Expiration Date V isits Requested Visits Authorized [id number] Closed Auto-Generate d Referral 04/22/2024 05/22/2025 1 1 [facility] Summary Purpose Family History No Family History Records FoundNo Family History Records FoundNo Family History Records FoundNo Family History Records FoundNo Family History Records Found Advance Directives Documents on File Type Date Recorded Patient Hand Frame Surgical Elastic Knitter Expl anation Advance Directive(s) 09/13/2021 11:06 AM [...] section and content) DATE CREATED AUTHOR 06/18/2021 [facility] DATE CREATED AUTHOR AUTHOR'S ORGANIZ ATION 11/11/2021 [facility] DATE CREATED AUTHOR AUTHOR'S ORGANIZ ATION 04/28/2024 [facility] DATE CREATED AUTHOR AUTHOR'S ORGANIZ ATION 05/05/2024 [facility] DATE CREATED AUTHOR AUTHOR'S ORGANIZ ATION 05/27/2024 [facility] Source Comments (unrecognize d section and content) In the event this informatio n is protected by the Federal Confidentiality of Alcohol and Drug Abuse Patient Records regulations: The Federal rules restrict any use of the information to criminally investigate or prosecute any alcohol or drug abuse patient.[facility] the event this information is protected by the Federal Confidentiality of Alcohol and Drug Abuse Patient Records regulations: The Federal rules restrict any use of the information to criminally investigate or prosecute any alcohol or drug abuse patient.[facility] Hospital[facility] the event this information is protected by the Federal Confidentiality of Alcohol and Drug Abuse Patient Records regulations: The Federal rules restrict any use of the information to criminally investigate or prosecute any alcohol or drug abuse patient.[facility] the event this information is protected by the Federal Confidentiality of Alcohol and Drug Abuse Patient Records regulations: The Federal rules restrict any use of the information to criminally investigate or prosecute any alcohol or drug abuse patient.[facility] Hospital[facility] the event this information is protected by the Federal Confidentiality of Alcohol and Drug Abuse Patient Records regulations: The Federal rules restrict any use of the information to criminally investigate or prosecute any alcohol or drug abuse patient.[facility] the event this information is protected by the Federal Confidentiality of Alcohol and Drug Abuse Patient Records regulations: The Federal rules restrict any use of the information to criminally investigate or prosecute any alcohol or drug abuse patient.[facility] the event this information is protected by the Federal Confidentiality of Alcohol and Drug Abuse Patient Records regulations: The Federal rules restrict any use of the information to criminally investigate or prosecute any alcohol or drug abuse patient.[facility] the event this information is protected by the Federal Confidentiality of Alcohol and Drug Abuse Patient Records regulations: The Federal rules restrict any use of the information to criminally investigate or prosecute any alcohol or drug abuse patient.[facility] Hospital[facility] the event this information is protected by the Federal Confidentiality of Alcohol and Drug Abuse Patient Records regulations: The Federal rules restrict any use of the information to criminally investigate or prosecute any alcohol or drug abuse patient.[facility] Hospital[facility] the event this information is protected by the Federal Confidentiality of Alcohol and Drug Abuse Patient Records regulations: The Federal rules restrict any use of the information to criminally investigate or prosecute any alcohol or drug abuse patient.[facility] Hospital[facility] the event this information is protected by the Federal Confidentiality of Alcohol and Drug Abuse Patient Records regulations: The Federal rules restrict any use of the information to criminally investigate or prosecute any alcohol or drug abuse patient.[facility] Hospital[facility] the event this information is protected by the Federal Confidentiality of Alcohol and Drug Abuse Patient Records regulations: The Federal rules restrict any use of the information to criminally investigate or prosecute any alcohol or drug abuse patient.[facility] Hospital[facility] the event this information is protected by the Federal Confidentiality of Alcohol and Drug Abuse Patient Records regulations: The Federal rules restrict any use of the information to criminally investigate or prosecute any alcohol or drug abuse patient.[facility] Hospital[facility] the event this information is protected by the Federal Confidentiality of Alcohol and Drug Abuse Patient Records regulations: The Federal rules restrict any use of the information to criminally investigate or prosecute any alcohol or drug abuse patient.[facility] Reason for Visit (unrecogniz ed section [...] Diagnoses rezum Procedures Debra Collins MD [address] [facility] [address] [address] Debra Cintron MD [address] [address] Referral ID Status Reason Start Date Expiration Date Visits Requested Visits Authorized [id number] Pending Review Patient Cleared - Admin/Chair man/Directo [...] Care Teams (unrecognized sec tion and content) Solar Engineer Relationship Specialty Start Date End Date Nadir Savage [facility] [place], [place] [id number] PCP - General Family Practice 05/02/18 Martina Blair CNP [facility] [place], [place] [address] Referring Internal Medicine 01/19/22 Solar Engineer Relationship Specialty Start Date End Date Nadir Savage [address] [place] [address] [place] [address] PCP - General Family Medicine 05/02/18 Martina Blair, FATUMA [address] [place] [address] Referring Internal Medicine 01/19/22 Solar Engineer Relationship Specialty Start Date End Date Nadir Savage [address] [facility] [place] [address] PCP - General Family Medicine 05/02/18 Martina Blair, CREAMERY WORKER [facility] [place] [address] Referring Internal Medicine 01/19/22 Solar Engineer Relationship Specialty Start Date End Date Nadir Savage [facility] [place] [address] PCP - General Family Medicine 05/02/18 Martina Blair, FATUMA [address] [facility] [place] [address] Referring Internal Medicine 01/19/22 Solar Engineer Relationship Specialty Start Date End Date Nadir Savage [address] [place] [address] PCP - General Family Medicine 05/02/18 Martina Blair, CREAMERY WORKER [address] [place] [address] Referring Internal Medicine 01/19/22 Solar Engineer Relationship Specialty Start Date End Date Nadir Savage [address] [place] [address] PCP - General Family Medicine 05/02/18 Martina Blair, CREAMERY WORKER [address] [place] [address] Referring Internal Medicine 01/19/22 Solar Engineer Relationship Specialty Start Date End Date Nadir Savage [address] [place] [address] PCP - General Family Medicine 05/02/18 Martina Blair, CREAMERY WORKER [address] [place] [address] Referring Internal Medicine 01/19/22 Solar Engineer Relationship Specialty Start Date End Date Nadir Savage [facility] [place] [address] PCP - General Family Medicine 05/02/18 Martina Blair, CREAMERY WORKER [address] [place] [address] Referring Internal Medicine 01/19/22 Solar Engineer Relationship Specialty Start Date End Date Nadir Savage [address] [place] [address] PCP - General Family Medicine 05/02/18 Martina Blair, CREAMERY WORKER [address] [place] [address] Referring Internal Medicine 01/19/22 Solar Engineer Relationship Specialty Start Date End Date Nadir Savage [address] [place] [address] PCP - General Family Medicine 05/02/18 Martina Blair, CREAMERY WORKER [address] [place] [address] Referring Internal Medicine 01/19/22 Solar Engineer Relationship Specialty Start Date End Date Nadir Savage [address] [place] [address] PCP - General Family Medicine 05/02/18 Martina Blair CNP [address] [place] [address] Referring Internal Medicine 01/19/22 Solar Engineer Relationship Specialty Start Date End Date Nadir Savage [address] [place] [id number] PCP - General Family Medicine 05/02/18 Martina Blair CNP [address] [place] [address] Referring Internal Medicine 01/19/22 Inactive Administered Medications [...] BE BASED ON THE PRIMARY CLINICAL RECORDS. [facility] provides no warranty or guarantee of the accuracy or completeness of information in this document.
--- NOTE | 2024-07-19 17:49 | EDS_ITS ---
HPI <ERICK Barlow - Last Filed: 07/19/24 19:38> History of Present Illness Chief Complaint: Wound Check Narrative Narrative: Patient is a 74-year-old male with history of type 2 diabetes, GERD, A-fib on Eliquis who recently had a cholecystectomy. Patient had a cholecystectomy on 07/17/[address] Zamorano, he has 5 surgical incisions. Patient states today while he was looking at his abdomen, looks slightly more distended, and he is here for evaluation. He denies any fever or chills, patient is having bowel movements. Denies any nausea or vomiting. PFS <ERICK Barlow - Last Filed: 07/19/24 19:38> [facility] Medical History Chondrosarcoma of rib Hard of hearing Cardiology follow-up encounter Wears glasses Cancer Diabetes Gastric reflux Non-smoker History of echocardiogram History of stress test History of CHF (congestive heart failure) History of atrial fibrillation HTN (hypertension) Barretts esophagus Dysphagia Type 2 diabetes mellitus without complication History of excision of malignant tumor Paroxysmal atrial fibrillation Hyperlipidemia Atrial fibrillation with RVR Home Medications ?Medication ?Instructions ?Recorded ?Last Taken ?Type metformin 1,000 mg tablet 1 tab PO BID dm 09/05/19 07/16/24 History pravastatin 10 mg tablet 1 tab PO QHS cholesterol 09/05/19 07/16/24 History apixaban 5 mg tablet (Eliquis) 5 mg PO BID #60 tabs 11/26/23 07/13/24 Rx dulaglutide 0.75 mg/0.5 mL 0.75 mg subcut SA 12/21/23 07/10/24 History subcutaneous pen injector (Trulicity) lisinopril 10 mg tablet 10 mg PO QHS 12/21/23 07/16/24 History diltiazem HCl 120 mg 120 mg PO QHS 04/24/24 07/16/24 History capsule,extended release 24 hr omeprazole 20 mg capsule,delayed 20 mg PO DAILY #90 caps 07/03/24 07/16/24 Rx release oxycodone 5 mg tablet 5 - 10 mg (1 - 2 x 5 mg) PO Q4H 07/17/24 Unknown Rx PRN PRN Pain Score 4-10 5 days #14 tabs Allergy/AdvReac Type Severity Reaction Status Date / Time No Known Allergies Allergy Verified 07/19/24 17:24 Family History Father CAD (coronary artery disease) Myocardial infarction Mother Emphysema lung Myocardial infarction CAD (coronary artery disease) Brother Heart disease Myocardial infarction Surgical History History of esophagogastroduodenoscopy (EGD) Status post surgery History of tonsillectomy History of hip surgery Social History Smoking Status: Never smoker alcohol intake: never substance use type: does not use caffeine: Yes Type: coffee Number of servings: 2 ROS <ERICK Barlow - Last Filed: 07/19/24 19:38> ROS ED ROS Narrative Constitutional: Negative for fever, chills, weight loss, weakness Eyes: Negative for vision loss, vision change, double vision ENT: Negative for any sore throat, ear pain, congestion Cardiovascular: Negative for any chest pain, tightness, palpitations Respiratory: Negative for any cough, sputum production, hemoptysis, dyspnea, dyspnea on exertion, orthopnea Gastrointestinal: Negative for any nausea, vomiting, diarrhea, constipation, blood in stool, blood in vomit. Positive for abdominal distention : Negative for any urinary frequency, dysuria, retention, blood in urine Muscle skeletal: Negative for any neck pain, back pain Neurological: Negative for any headache, syncope, dizziness Skin: Negative for any rashes, itching, abrasions, lacerations Psychiatric: Negative for any depression, anxiety, stress, suicidal ideation, homicidal ideation Hematologic: Negative for any excessive bruising, easy bleeding EXAM <ERICK Barlow - Last Filed: 07/19/24 19:38> Physical Exam Narrative Exam Narrative: Vital signs reviewed. HEET: Head normocephalic atraumatic, TMs clear bilaterally. Posterior pharynx is clear, moist mucous membranes. Nares clear bilaterally. Neck: Supple with no lymphadenopathy or tenderness. No signs of meningismus. Cardiac: Regular rate and rhythm no murmurs gallops or rubs, equal peripheral pulses bilaterally. Respiratory: Lungs clear to auscultation bilaterally. No chest tenderness. Abdomen: Soft, nontender, nondistended. No abdominal bruit or pulsatile masses. No hepatosplenomegaly. I did look under the bandages, the surgical incisions are covered with Steri-Strips and sutures. The area looks well. There is no redness, there is no drainage. There is no peritoneal signs. The abdomen around the area is soft. Extremities: No peripheral edema, no signs of gross trauma or deformity. Active full range of motion of all extremities. Neuro: Cranial nerves II through XII intact, no focal neurological deficits. Skin: Clean dry and intact with no rash, purpura, petechiae, vesicles or pustules. Backs/flank: No CVA tenderness, no midline spinal tenderness, no deformity. Psych: Normal mood and affect. No SI, HI or acute psychosis. Const Vital Signs: 07/19/24 17:24 07/19/24 17:29 07/19/24 19:23 Temperature 97.7 F L 97.7 F L Temperature Source Oral Oral Pulse Rate 106 H 106 H 91 Respiratory Rate 18 18 18 Blood Pressure 151/87 H 151/87 H Blood Pressure Mean 108 108 Pulse Ox 98 98 93 Oxygen Delivery Method Room Air Room Air Room Air <Dr. Uriel Ramesh DO - Last Filed: 07/19/24 19:47> Physical Exam Const Vital Signs: 07/19/24 17:24 07/19/24 17:29 07/19/24 19:23 Temperature 97.7 F L 97.7 F L Temperature Source Oral Oral Pulse Rate 106 H 106 H 91 Respiratory Rate 18 18 18 Blood Pressure 151/87 H 151/87 H Blood Pressure Mean 108 108 Pulse Ox 98 98 93 Oxygen Delivery Method Room Air Room Air Room Air [facility] <ERICK Barlow - Last Filed: 07/19/24 19:38> [facility] Radiography Diagnostic Testing: Clinical Impression(s) from Imaging Studies Abdomen/Pelvis CT 07/19/24 17:49 IMPRESSION: Pneumoperitoneum and subcutaneous emphysema of the abdominal wall, likely postsurgically related. Correlation with surgical history is needed. Electronically Signed: Jacobo Mott DO at 19:01 EDT Reading Location ID and State: [facility] / [place] Tel [phone], Service support , Treatment and Re-Evaluation :: Differential diagnosis includes however is not limited to: Abdominal hematoma, abscess, seroma, cellulitis, natural healing Patient appears generally well, vital signs are stable, patient is nontoxic- appearing. Present to the emergency department with complaints of abdominal distention postsurgery 2 days. On my physical examination, I was not concerned with the edema, it was soft, this looks to be postsurgical. The and surgical incisions look well-appearing. There is no signs of redness, drainage or abscess. Patient will receive a CT scan of the abdomen pelvis without contrast looking for any fluid collection. All radiologic examinations were read, reviewed by the emergency department attending. From these reads, a plan of care will be put in place. Patient's CT scan showed pneumoperitoneum, subcutaneous emphysema of the abdominal wall likely postsurgical related. No seroma, no abscess formation. Patient made aware of the results. He is instructed to continue following the directions of the surgeon. He will follow-up outpatient. Given return precautions. Stable for discharge. <Dr. Uriel Ramesh, DO - Last Filed: 07/19/24 19:47> [facility] Narrative Medical decision making narrative: I have personally performed a face to face assessment of the patient and have reviewed the SILVIA Note. I performed a substantive portion of the visit including all aspects of the following. My pickett findings include: History: Patient presents with swelling to his abdomen that began today. Patient states it is gradually gotten worse. Patient states he feels like there is a tightness over his upper abdomen. Patient states it is worse with walking. Patient states nothing makes it any better. Patient had recent cholecystectomy. Patient denies any redness or drainage from his incisions. Patient denies any fevers or chills. Exam: Vital signs are stable. Patient is afebrile. Patient is in no acute distress. Oral mucosa is pink and moist. Neck is supple. Trachea is midline. There is no JVD. Heart was regular rate and rhythm. Lungs are clear and equal bilaterally. Abdomen is soft. Bowel sounds are normal. There is mild upper abdominal tenderness. There is no rebound or guarding noted. Incisions are well-healing. There is no erythema or signs of infection. There is no discharge or drainage. Medical Decision Making: Differential diagnosis includes bowel obstruction, perforation, postoperative pain, and postoperative infection. CT scan of the abdomen pelvis will be obtained to assess for obstruction, perforation, and infection. CT scan of the abdomen pelvis was obtained. There is no evidence of any abscess. There is some pneumoperitoneum and subcutaneous emphysema of the abdominal wall. This is most likely postsurgical. There is no free fluid noted. Patient was advised of his findings. Patient was instructed to follow- up with his surgeon in 3 to 5 days. Patient was instructed return if worse in any way. Patient understood and was agreeable with the plan. All questions were answered. Radiography Diagnostic Testing: Clinical Impression(s) from Imaging Studies Abdomen/Pelvis CT 07/19/24 17:49 IMPRESSION: Pneumoperitoneum and subcutaneous emphysema of the abdominal wall, likely postsurgically related. Correlation with surgical history is needed. Electronically Signed: Jacobo Mott DO at 19:01 EDT Reading Location ID and State: [facility] / [place] Tel [phone], Service support , CT scan of the abdomen pelvis was obtained. There is evidence of pneumoperitoneum and subcutaneous emphysema. This is likely postsurgical. This interpreted by the radiologist and was also independently reviewed by myself. Discharge Plan Triage Chief Complaint: Wound Check ED Midlevel Provider: Jay Morataya ED Provider: Uriel Ramesh Dx/Rx/DC Orders Clinical Impression: History of cholecystectomy, Visit for wound care Instructions: Dressing Change Steps Prescriptions: No Action pravastatin 10 MG tablet 1 tab PO QHS Patient Comments: TAKE 1 TABLET EVERY DAY AT BEDTIME metformin 1,000 MG tablet 1 tab PO BID Patient Comments: Take one tablet twice a day. Trulicity 0.75 mg/0.5 mL pen injector 0.75 mg subcut SA lisinopril 10 mg tablet 10 mg PO QHS diltiazem HCl 120 mg capsule,extended release 24hr 120 mg PO QHS oxycodone 5 mg Tablet 5 - 10 mg PO Q4H PRN PRN (Reason: Pain Score 4-10) 5 Days Qty: 14 0RF Eliquis 5 mg tablet 5 mg PO BID Qty: 60 11RF Patient Comments: HOLD FOR 3 DAYS PRIOR TO OR omeprazole 20 mg capsule,delayed release(DR/EC) 20 mg PO DAILY Qty: 90 0RF Primary Care Provider: Dipika Wheeler Referrals: Liam,Dipika VSC, CUSTOM APPLICATOR-C [Primary Care Provider] - Activity Restrictions/Additional Instructions: Continue following the instructions of the surgeon. Do not lift over 20 pounds. This is for multiple weeks. Print Language: Divehi Disposition Disposition: Home, Self Care
--- NOTE | 2024-07-19 17:49 | CT_ITS ---
STUDY: CT ABDOMEN AND PELVIS WITHOUT CONTRAST REASON FOR EXAM: Male, 74 years old. Pain RADIATION DOSAGE (If Supplied By Facility): CTDIvol = ( 7.50 ) mGy, DLP = ( 401.17 ) mGycm TECHNIQUE: Transaxial images were obtained from the dome of the diaphragm to the symphysis pubis without oral contrast, and without intravenous contrast. Sagittal and coronal images were reconstructed. Individualized dose optimization techniques were used for this CT. COMPARISON: None. FINDINGS: The visualized lung bases are unremarkable. The visualized portions of the heart are within normal limits. Normal liver. Nonvisualization of the gallbladder. No dilatation of the extrahepatic biliary system. Normal spleen. Normal pancreas. There is pneumoperitoneum. Normal bilateral adrenal glands. Normal right kidney. Normal left kidney. Normal visualized stomach. Normal small intestine. Normal colon. The appendix is visualized and appears normal. Normal abdominal aorta. Normal inferior vena cava. Normal retroperitoneum. Normal urinary bladder. Fatty density in the inguinal canals, left more than right Subcutaneous emphysema of the abdominal wall. ORIF of the left femur. CT/Abdomen/Pelvis without Cont IMPRESSION: Pneumoperitoneum and subcutaneous emphysema of the abdominal wall, likely postsurgically related. Correlation with surgical history is needed. Electronically Signed: Jacobo Mott DO at 19:01 EDT ,
[2024-07-19 19:23] VITALS: PULSE 91; RESP 18; O2SAT 93
[2024-07-19 19:44] VITALS: BP 135/73; PULSE 71; RESP 16; TEMP 36.6; O2SAT 97
== END 2024-07-19 19:46 | disposition home or self-care (01) ==
PROVIDERS: Emergency Provider Emergency Medicine; PCP Nurse Practitioner Family; Visit Provider Emergency Medicine
DX: Z48.00 Encounter for change or removal of nonsurgical wound dressing (principal); I11.0 Hypertensive heart disease with heart failure; I50.9 Heart failure, unspecified; I48.0 Paroxysmal atrial fibrillation; E11.9 Type 2 diabetes mellitus without complications; E78.5 Hyperlipidemia, unspecified; K21.9 Gastro-esophageal reflux disease without esophagitis; Z79.01 Long term (current) use of anticoagulants; Z90.49 Acquired absence of other specified parts of digestive tract; Z79.84 Long term (current) use of oral hypoglycemic drugs; Z79.85 Long-term (current) use of injectable non-insulin antidiabetic drugs; Z79.899 Other long term (current) drug therapy
CPT/HCPCS: 74176; 99282

== ENCOUNTER → 2024-08-05 | Outpatient (CLI) | payer MEDICARE, MEDICAID, SELFPAY ==
[2024-08-05 12:57] LABS: Absolute Lymphocyte Count 1.45 X10^3/uL (0.83-4.51); Absolute Neutrophil Count 2.9 X10^3/uL (2.0-7.7); Basophil# 0.08 X10^3/uL; Basophil% 1.5 % (0-1); Eosinophil# 0.25 X10^3/uL; Eosinophils% 4.7 % (0-5); Hematocrit 41.9 % (40-54); Hemoglobin 13.3 g/dL (13.0-16.5); Lymphocyte # 1.45 X10^3/ul (0.83-4.51); Lymphocyte % 27.2 % (19-41); Mean Corp Hgb Conc 31.7 g/dL (32-36); Mean Corpuscular Hgb 26.3 pg (27.0-32.0); Mean Corpuscular Volume 82.8 fL (80-94); Mean Platelet Vol. 10.1 fl (6.2-12.0); Monocyte# 0.64 X10^3/uL; NRBC Flagged by Analyzer 0 % (0-5); Neutrophil # 2.91 X10^3/uL (2.7-7.7); Neutrophil % 54.4 % (47-70); Platelet Count 298 K/mm3 (150-450); RBC Distribution Width CV 14.7 % (11.6-14.6); RBC Distribution Width SD 44.7 fl (35.1-43.9); Red Blood Count 5.06 M/mm3 (4.6-6.2); White Blood Count 5.3 K/mm3 (4.4-11.0)
== END | disposition home or self-care (01) ==
LOC: VSLAB 08:48
PROVIDERS: PCP Nurse Practitioner Family
DX: D64.9 Anemia, unspecified (principal)
CPT/HCPCS: 36415; 85025

== ENCOUNTER → 2024-10-07 | Outpatient (CLI) | payer MEDICARE, MEDICAID, SELFPAY ==
[2024-10-07 12:42] LABS: Absolute Lymphocyte Count 1.57 X10^3/uL (0.83-4.51); Absolute Neutrophil Count 3.3 X10^3/uL (2.0-7.7); Basophil# 0.06 X10^3/uL; Eosinophil# 0.15 X10^3/uL; Eosinophils% 2.6 % (0-5); Hematocrit 40.7 % (40-54); Hemoglobin 13.1 g/dL (13.0-16.5); Lymphocyte # 1.57 X10^3/ul (0.83-4.51); Lymphocyte % 27.4 % (19-41); Mean Corp Hgb Conc 32.2 g/dL (32-36); Mean Corpuscular Hgb 26.7 pg (27.0-32.0); Mean Corpuscular Volume 82.9 fL (80-94); Mean Platelet Vol. 9.9 fl (6.2-12.0); Monocyte# 0.69 X10^3/uL; NRBC Flagged by Analyzer 0 % (0-5); Neutrophil # 3.25 X10^3/uL (2.7-7.7); Neutrophil % 56.7 % (47-70); Platelet Count 306 K/mm3 (150-450); RBC Distribution Width CV 14.6 % (11.6-14.6); RBC Distribution Width SD 44.4 fl (35.1-43.9); Red Blood Count 4.91 M/mm3 (4.6-6.2); White Blood Count 5.7 K/mm3 (4.4-11.0)
[2024-10-07 13:32] LABS: Microalbumin,Random Urine 32.1 mg/L (NO RANGE EST.)
[2024-10-07 13:37] LABS: AST(SGOT) 18 U/L (15-37); Alanine Aminotransfer ALT/SGPT 30 U/L (16-61); Albumin, Serum 3.7 g/dL (3.2-5.0); Alkaline Phosphatase 84 U/L (45-117); Anion Gap 6 (5-15); BUN 23 mg/dL (7-18); BUN/Creat Ratio 20.5 RATIO (10-20); Calcium,Total 9.4 mg/dL (8.5-10.1); Chloride 106 mmol/L (98-107); Cholesterol 146 mg/dL (200); Creatinine, Serum 1.12 mg/dL (0.70-1.30); EST Glomerular Filtration Rate 68 mL/min (>60); Est Glom Filt Rate - Afr Amer 82 mL/min (>60); Globulin 3.8 g/dL (2.2-4.2); Glucose 125 mg/dL (74-106); High Density Lipoprotein 48 mg/dL; Potassium 4.2 mmol/L (3.5-5.1); Protein, Total 7.5 g/dL (6.4-8.2); Sodium Level 137 mmol/L (136-145); Triglycerides 175 mg/dL; Very Low Density Lipoprotein 35 mg/dL (5-40)
== END | disposition home or self-care (01) ==
LOC: VSLAB 12:00
PROVIDERS: PCP Nurse Practitioner Family; Visit Provider Nurse Practitioner Family
DX: I10 Essential (primary) hypertension (principal); E11.9 Type 2 diabetes mellitus without complications

== ENCOUNTER → 2025-04-07 | Outpatient (CLI) | payer MEDICARE, MEDICAID, SELFPAY ==
[2025-04-07 12:03] LABS: Hematocrit 38.7 % (40-54); Hemoglobin 12.1 g/dL (13.0-16.5); Immature Granulocytes Count 0.010 X10^3/uL (0.0-0.0); Mean Corp Hgb Conc 31.3 g/dL (32-36); Mean Corpuscular Volume 81.5 fL (80-94); Mean Platelet Vol. 10.5 fl (6.2-12.0); NRBC Flagged by Analyzer 0 % (0-5); Platelet Count 260 K/mm3 (150-450); RBC Distribution Width CV 15.3 % (11.6-14.6); RBC Distribution Width SD 45.3 fl (35.1-43.9); Red Blood Count 4.75 M/mm3 (4.6-6.2); White Blood Count 4.9 K/mm3 (4.4-11.0)
[2025-04-07 12:25] LABS: Microalbumin,Random Urine < 12.0 mg/L (<20 mg/L)
[2025-04-07 12:34] LABS: AST(SGOT) 20 U/L (<=37); Alanine Aminotransfer ALT/SGPT 17 U/L (<=46); Albumin, Serum 4.0 g/dL (3.4-4.8); Alkaline Phosphatase 74 U/L (40-129); Anion Gap 11 (5-15); BUN 18 mg/dL (4-19); BUN/Creat Ratio 16.5 RATIO (10-20); Calcium,Total 9.3 mg/dL (7.6-11.0); Carbon Dioxide 23.7 mmol/L (21.0-32.0); Chloride 104 mmol/L (98-108); Cholesterol 126 mg/dL (<=200); Globulin 3.0 g/dL (2.2-4.2); Glucose 99 mg/dL (70-99); Low Density Lipoprotein Calc. 64 mg/dL; Potassium 4.5 mmol/L (3.3-5.1); Triglycerides 130 mg/dL; Very Low Density Lipoprotein 26 mg/dL (5-40); cholesterol:hdl ratio screen 3.53
== END | disposition home or self-care (01) ==
LOC: VSLAB 09:19
PROVIDERS: PCP Nurse Practitioner Family; Visit Provider Nurse Practitioner Family
DX: I10 Essential (primary) hypertension (principal); E11.9 Type 2 diabetes mellitus without complications; E78.5 Hyperlipidemia, unspecified
CPT/HCPCS: 36415; 80053; 80061; 82043; 84443; 85025

== ENCOUNTER 2025-06-11 08:45 | Day surgery (SDC) | payer MEDICARE, MEDICAID, SELFPAY ==
--- NOTE | 2025-06-09 13:27 | PAT.ANESEVAL ---
Pre-Assessment Diagnosis/Proposed Procedure Planned Operative Procedure(s): colonoscopy, egd Anesthesia History Anesthesia History - record retrieval specialist: Anesthesia History - record retrieval specialist Hx Hospitalization No 06/09/25 09:54 Any Problems With Anesthesia No 06/09/25 09:54 Cholinesterase deficiency No 06/09/25 09:54 You/Your Family Experience No 06/09/25 09:54 fever (hyperthermia) with Relationship Recent Exposure to Contagious No 07/17/24 06:24 Disease Does patient have nerve No 06/09/25 09:54 stimulator Patient instructed to have device shut off --Does patient have Pacemaker or ICD? When Was Last Pacemaker Check QUESTION #4 FULL TEXT: You/Your Family Experience fever (hyperthermia) with Anesthesia Last Oral Intake Last Oral intake: Last Oral Intake NPO since Meds taken in AM with sips of water? Meds patient instructed to take am of surgery PONV PONV - record retrieval specialist: PONV - record retrieval specialist Female No 06/09/25 09:54 HX of Motion Sickness No 06/09/25 09:54 HX of N/V After Surgery No 06/09/25 09:54 Non-Smoker Yes 06/09/25 09:54 Duration of Surgery greater No 06/09/25 09:54 than 60 minutes Number of Risk Factors 1 06/09/25 09:54 PONV Score Low Risk 06/09/25 09:54 Height & Weight Height & Weight: Anesthesia: Height & Weight Height 6 ft 2 in 01/01/25 10:16 Respiratory Assessment Respiratory Assessment - record retrieval specialist: Respiratory Tract Infection Hx - record retrieval specialist Hx Respiratory Tract Infection No 06/09/25 09:54 STOP Sleep Apnea STOP Sleep Apnea - record retrieval specialist: STOP Sleep Apnea - record retrieval specialist Hx Hypertension Yes 06/09/25 09:54 Hx Sleep Apnea No 06/09/25 09:54 CPAP BIPAP Do you snore loudly (louder No 06/09/25 09:54 than talking or can be heard Do you often feel tired/ No 06/09/25 09:54 fatigued/ sleepy during daytime? Has anyone observed you stop No 06/09/25 09:54 breathing during sleep? STOP Results Negative 06/09/25 09:54 QUESTION #5 FULL TEXT : Do you snore loudly (louder than talking or can be heard through closed doors)? 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 Specify any problems Hx of Preganancy in last 3 N/A 06/09/25 09:54 Months Nurse Filling Out Transfusion [id number] 06/09/25 09:54 & Questions: Date: 06/09/25 06/09/25 09:54 Time: 10:02 06/09/25 09:54 Patient unable to answer at this time (ie. confused, unrespo /Reproduction History /Reproductive History - record retrieval specialist: /Reproductive Hx- record retrieval specialist Hx Now Gestational Age (in weeks): EDC: Hx Hx Para Hx Section SAB No 06/09/25 09:54 PFSH Medical History Chondrosarcoma of rib Hard of hearing Cardiology follow-up encounter Wears glasses Cancer Diabetes Gastric reflux Non-smoker History of echocardiogram History of stress test History of CHF (congestive heart failure) History of atrial fibrillation HTN (hypertension) Barretts esophagus Dysphagia Type 2 diabetes mellitus without complication History of excision of malignant tumor Paroxysmal atrial fibrillation Hyperlipidemia Atrial fibrillation with RVR Home Medications ?Medication ?Instructions ?Recorded ?Last Taken ?Type pravastatin 10 mg tablet 1 tab PO QHS cholesterol 09/05/19 07/16/24 History dulaglutide 0.75 mg/0.5 mL 0.75 mg subcut SA 12/21/23 05/31/25 History subcutaneous pen injector (Trulicity) lisinopril 10 mg tablet 10 mg PO QHS 12/21/23 07/16/24 History apixaban 5 mg tablet (Eliquis) 5 mg PO BID #60 tabs 12/09/24 06/08/25 Rx diltiazem HCl 120 mg 120 mg PO QHS #90 caps 01/01/25 Unknown Rx capsule,extended release 24 hr omeprazole 20 mg capsule,delayed 20 mg PO DAILY #90 caps 01/05/25 Unknown Rx release metformin 1,000 mg tablet 500 mg PO BID dm 04/23/25 Unknown History Allergy/AdvReac Type Severity Reaction Status Date / Time No Known Allergies Allergy Verified 06/09/25 09:51 Family History Father CAD (coronary artery disease) Myocardial infarction Mother Emphysema lung Myocardial infarction CAD (coronary artery disease) Brother Heart disease Myocardial infarction Surgical History History of esophagogastroduodenoscopy (EGD) Status post surgery History of tonsillectomy History of hip surgery Social History Smoking Status: Never smoker alcohol intake: never substance use type: does not use caffeine: Yes Type: coffee Number of servings: 2 Audit: Pertinent Findings Pertinent Findings EKG Perinent findings: 07/17/2024. Normal sinus rhythm. Nonspecific T wave abnormality. Compared to 2019, nonspecific T wave abnormality is improved in the lateral leads. Stress test pertinent findings: 09/06/2019. EF of 65%. No stress induced myocardial ischemia. Echo (EF%) pertinent findings: 09/05/2019. EF of 55%. Consult pertinent findings: 01/01/2025. Dr. Kumar. 1. Paroxysmal atrial [id number] score is 4. Patient appears stable. Last EKG was normal sinus rhythm. Continue diltiazem and Eliquis. Recommendation Anesthesia Recommendation Anesthesia recommendation: OPTIMIZED for anesthesia
[2025-06-11] VITALS (8 sets, daily range): BP systolic 114–122; BP diastolic 69–74; PULSE 68–81; RESP 16–18; TEMP 36.4–36.7; O2SAT 95–100; BMI 22.4
[2025-06-11] MEDS: Lactated Ringers 1,000 ML 15 ML IV (09:18)
--- NOTE | 2025-06-11 09:40 | PCM.PRE.AN2 ---
ASA Classification* ASA Classification ASA Classification: 3 Assessment & Plan Anesthesia* Anesthesia Assessment Anesthesia Assessment: Discussed sedation and/or anesthesia options, risks, benefits, and alternatives with patient/parents/legal guardian/POA. Questions invited. The patient/parents/legal guardian/POA seems to understand and agrees to proceed with anesthesia plan. Reviewed the physical assessment, medical history, allergy history and patient home medications list prior to surgery/procedure/anesthetic and documented any changes. Performed airway and anesthesia risk assessments. Anesthesia Type Anesthesia Type: MAC History Source History Obtained from:: Patient and Chart Anesthesia Focused Assessment* Temperature: 98.1 F Pulse Rate: 70 Blood Pressure: 116/70 Respiratory Rate: 18 Pulse Ox: 100 Oxygen Delivery Method: Room Air Airway Assessment Mouth opens: >3 cm Mallampati Score: IV Teeth Condition: Missing (Patient is missing several teeth. Everything else is tight.) Neck Range of motion (ROM): Full ROM Labs Anesthesia Preop lab: CBC WBC, (4.4-11.0) 4.9 K/mm3 04/07/25, 09:20 RBC, (4.6-6.2) 4.75 M/mm3 04/07/25, 09:20 Hgb, (13.0-16.5) 12.1 g/dL L 04/07/25, 09:20 Hct, (40-54) 38.7 % L 04/07/25, 09:20 Plt Count, (150-450) 260 K/mm3 04/07/25, 09:20 CHEMISTRY Potassium, (3.3-5.1) 4.5 mmol/L 04/07/25, 09:20 Sodium, (133-145) 138 mmol/L 04/07/25, 09:20 Magnesium, (1.6-2.6) 1.7 mg/dL 08/19/23, 01:58 Phosphorus, (2.5-4.9) 3.1 mg/dL 08/19/23, 05:10 BUN, (4-19) 18 mg/dL 04/07/25, 09:20 Creatinine, (0.70-1.20) 1.11 mg/dL 04/07/25, 09:20 Glucose, (70-99) 99 mg/dL 04/07/25, 09:20 POC Glucose, (74-106) 129 mg/dL H Today, 09:12 TSH, (0.300-4.200) 1.360 uIU/mL 04/07/25, 09:20 COAG PT, (11.7-14.9) 13.4 SECONDS 09/05/19, 00:25 Pre-Assessment Diagnosis/Proposed Procedure Planned Operative Procedure(s): egd Anesthesia History 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 When Was Last Pacemaker Check QUESTION #4 FULL TEXT: You/Your Family Experience fever (hyperthermia) with Anesthesia Last Oral Intake Last Oral intake: Last Oral Intake NPO since 20:00 06/11/25 09:15 Meds taken in AM with sips of No 06/11/25 09:15 water? Meds patient instructed to take am of surgery Any additional information?: Yes Meds taken in AM with sips of water?: Yes Meds patient instructed to take am of surgery: Omeprazole PONV PONV - tilt wall supervisor: PONV - tilt wall supervisor Female No 06/09/25 09:54 HX of Motion Sickness No 06/09/25 09:54 HX of N/V After Surgery No 06/09/25 09:54 Non-Smoker Yes 06/09/25 09:54 Duration of Surgery greater No 06/09/25 09:54 than 60 minutes Number of Risk Factors 1 06/09/25 09:54 PONV Score Low Risk 06/09/25 09:54 Height & Weight Height & Weight: Anesthesia: Height & Weight Height 6 ft 2 in 06/11/25 09:15 Weight: 79 kg 06/11/25 09:15 Body Mass Index (BMI) 22.4 06/11/25 09:15 Respiratory Assessment Respiratory Assessment - tilt wall supervisor: Respiratory Tract Infection Hx - tilt wall supervisor Hx Respiratory Tract Infection No 06/09/25 09:54 STOP Sleep Apnea STOP Sleep Apnea - tilt wall supervisor: STOP Sleep Apnea - tilt wall supervisor Hx Hypertension Yes 06/09/25 09:54 Hx Sleep Apnea No 06/09/25 09:54 CPAP BIPAP Do you snore loudly (louder No 06/09/25 09:54 than talking or can be heard Do you often feel tired/ No 06/09/25 09:54 fatigued/ sleepy during daytime? Has anyone observed you stop No 06/09/25 09:54 breathing during sleep? STOP Results Negative 06/09/25 09:54 QUESTION #5 FULL TEXT : Do you snore loudly (louder than talking or can be heard through closed doors)? 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 Specify any problems Hx of Preganancy in last 3 N/A 06/09/25 09:54 Months Nurse Filling Out Transfusion [email or web address] 06/09/25 09:54 & Questions: Date: 06/09/25 06/09/25 09:54 Time: 10:02 06/09/25 09:54 Patient unable to answer at this time (ie. confused, unrespo /Reproduction History /Reproductive History - tilt wall supervisor: /Reproductive Hx- tilt wall supervisor Hx Now Gestational Age (in weeks): EDC: Hx Hx Para Hx Section SAB No 06/09/25 09:54 Active Medications Active Medications: Current Medications Generic Name Dose Route Start Last Admin Trade Name Freq PRN Reason Stop Dose Admin Lactated Ringer's 1,000 mls @ 15 mls/hr 06/11/25 09:00 06/11/25 09:18 IV 15 mls/hr .Q48H MONICA Administration PFSH Medical History Chondrosarcoma of rib Hard of hearing Cardiology follow-up encounter Wears glasses Cancer Diabetes Gastric reflux Non-smoker History of echocardiogram History of stress test History of CHF (congestive heart failure) History of atrial fibrillation HTN (hypertension) Barretts esophagus Dysphagia Type 2 diabetes mellitus without complication History of excision of malignant tumor Paroxysmal atrial fibrillation Hyperlipidemia Atrial fibrillation with RVR Home Medications ?Medication ?Instructions ?Recorded ?Last Taken ?Type pravastatin 10 mg tablet 1 tab PO QHS cholesterol 09/05/19 07/16/24 History dulaglutide 0.75 mg/0.5 mL 0.75 mg subcut SA 12/21/23 05/31/25 History subcutaneous pen injector (Trulicity) lisinopril 10 mg tablet 10 mg PO QHS 12/21/23 07/16/24 History apixaban 5 mg tablet (Eliquis) 5 mg PO BID #60 tabs 12/09/24 06/08/25 Rx diltiazem HCl 120 mg 120 mg PO QHS #90 caps 01/01/25 Unknown Rx capsule,extended release 24 hr omeprazole 20 mg capsule,delayed 20 mg PO DAILY #90 caps 01/05/25 Unknown Rx release metformin 1,000 mg tablet 500 mg PO BID dm 04/23/25 Unknown History Allergy/AdvReac Type Severity Reaction Status Date / Time No Known Allergies Allergy Verified 06/11/25 09:15 Family History Father CAD (coronary artery disease) Myocardial infarction Mother Emphysema lung Myocardial infarction CAD (coronary artery disease) Brother Heart disease Myocardial infarction Surgical History History of esophagogastroduodenoscopy (EGD) Status post surgery History of tonsillectomy History of hip surgery Social History Smoking Status: Never smoker alcohol intake: never substance use type: does not use caffeine: Yes Type: coffee Number of servings: 2 Review of Systems (Anesthesia) ROS Narrative System reviewed and no additional complaints, except as documented.
--- NOTE | 2025-06-11 09:48 | PCM.HP.STD ---
HPI - General General Date of Admission: 06/11/25 Date of Service: 06/11/25 Chief Complaint: Clark's esophagus HPI Narrative TAHMINA DURBIN, is a 75 M who presents for the Chief Complaint: Barretts esophagus *BGI established 12.15.22 with history of GERD, Clark?s esophagus +. Most recently seen by Dr. Lantigua through [facility] with EGD . BM pattern typically normal but can have loose stools that he feels are dairy triggered. Start/continue omeprazole. 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 OV 11.9.23 reports he is doing well without reflux difficulty with use of omeprazole. BM vary between normal and loose stools; previously told he was lactose intolerant and is not following a lactose free diet, previously used lactaid which he found helpful and feels he should probably restart this as he has milk products every day. EGD 8.24 - Esophageal mucosal changes secondary to established long-segment Clark's disease. Biopsied. - Hiatal hernia. - No gross lesions in the first portion of the duodenum. OV 7..25 patient here today for follow-up and to reschedule his EGD. Patient doing well today he denies heartburn. He continues with omeprazole daily. He will have diarrhea on occasion but feels this is related to his diabetic medications. He has no GI complaints. Patient's last colonoscopy was 4 to 5 years ago and he thinks he is due for screening. [facility] Medical History Chondrosarcoma of rib Hard of hearing Cardiology follow-up encounter Wears glasses Cancer Diabetes Gastric reflux Non-smoker History of echocardiogram History of stress test History of CHF (congestive heart failure) History of atrial fibrillation HTN (hypertension) Barretts esophagus Dysphagia Type 2 diabetes mellitus without complication History of excision of malignant tumor Paroxysmal atrial fibrillation Hyperlipidemia Atrial fibrillation with RVR Home Medications ?Medication ?Instructions ?Recorded ?Last Taken ?Type pravastatin 10 mg tablet 1 tab PO QHS cholesterol 09/05/19 07/16/24 History dulaglutide 0.75 mg/0.5 mL 0.75 mg subcut SA 12/21/23 05/31/25 History subcutaneous pen injector (Trulicity) lisinopril 10 mg tablet 10 mg PO QHS 12/21/23 07/16/24 History apixaban 5 mg tablet (Eliquis) 5 mg PO BID #60 tabs 12/09/24 06/08/25 Rx diltiazem HCl 120 mg 120 mg PO QHS #90 caps 01/01/25 Unknown Rx capsule,extended release 24 hr omeprazole 20 mg capsule,delayed 20 mg PO DAILY #90 caps 01/05/25 Unknown Rx release metformin 1,000 mg tablet 500 mg PO BID dm 04/23/25 Unknown History Allergy/AdvReac Type Severity Reaction Status Date / Time No Known Allergies Allergy Verified 06/11/25 09:15 Family History Father CAD (coronary artery disease) Myocardial infarction Mother Emphysema lung Myocardial infarction CAD (coronary artery disease) Brother Heart disease Myocardial infarction Surgical History History of esophagogastroduodenoscopy (EGD) Status post surgery History of tonsillectomy History of hip surgery Social History Smoking Status: Never smoker alcohol intake: never substance use type: does not use caffeine: Yes Type: coffee Number of servings: 2 ROS Constitutional Constitutional: Denies fatigue, fever(s), poor appetite, weight gain or weight loss Gastrointestinal Gastrointestinal: Denies belching, bloating, change in bowel habits, change in stool character, chewing difficulty, coffee ground emesis, constipation, cramping, diarrhea, dyspepsia, dysphagia, early satiety, excessive flatus, fecal incontinence, heartburn, hematemesis, hematochezia, hemorrhoids, loose stools, melena, nausea, odynophagia, rectal bleeding, tenesmus, vomiting or weight changes Vital Signs Vital Signs Vital Signs: 06/11/25 09:15 06/11/25 09:15 06/11/25 09:47 Temperature 98.1 F 98.1 F Temperature Source Temporal Pulse Rate 70 70 Respiratory Rate 18 18 Respiratory Pattern Normal Blood Pressure 116/70 116/70 Blood Pressure Mean 85 Blood Pressure Source Monitor Blood Pressure Position Semi-Fowlers Blood Pressure Location Left Arm Pulse Ox 100 100 Oxygen Delivery Method Room Air Room Air Weight Weight: 174 lb 2.643 oz Body Mass Index (BMI) 22.4 Physical Exam Const alert, oriented x3, no apparent distress and healthy appearing General Appearance: cooperative GI normal to inspection, nondistended, normoactive bowel sounds, soft to palpation, non-tender and non-distended Percussion: normal to percussion Rectal Exam: deferred Results Lab / Micro Data Labs: Laboratory Results - last 24 hr 06/11/25 09:12: POC Glucose 129 H Assessment & Plan Assessment/Plan (1) Barretts esophagus: QUALIFIERS: Clark's esophagus type: without dysplasia Qualified Code(s): K22.70 - Clark's esophagus without dysplasia PLAN: Assessment and Plan Assessment and Plan (1) GERD (gastroesophageal reflux disease): Status: Chronic Qualifiers: Esophagitis presence: without esophagitis Qualified Code(s): K21.9 - Gastro-esophageal reflux disease without esophagitis Plan: Trial is a 75-year-old male patient here today for follow-up regarding his Clark's esophagus. Patient underwent EGD in April 2020 for which showed long segment Clark's. Recommendation was for repeat EGD in 1 year. Patient is doing well today and denies any GI complaints. He continues with omeprazole daily. Patient's last colonoscopy was 4 to 5 years ago. He does have intermittent diarrhea. I explained that we stop screening colonoscopies at the age 74. Patient would like to have 1 more colonoscopy. - EGD and colonoscopy - Continue omeprazole - Follow-up after procedures (2) Barretts esophagus: Status: Chronic Qualifiers: Clark's esophagus type: without dysplasia Qualified Code(s): K22.70 - Clark's esophagus without dysplasia
[2025-06-11] MEDS: Lactated Ringers 500 ML IV (09:57)
--- NOTE | 2025-06-11 10:00 | EGD_PTH ---
PATIENT: TAHMINA DURBIN LOC: EN U#:[id number] AGE/SX: 75/M ROOM: RE06/11/[address]: Dr. Jcarlos Yeh DO : 1950 BED: DIS: 06/11/2025 SPEC #: [id number] RECD: 06/11/25 11:46 STATUS: AV RELeticia #: [id number] FLIP: 06/11/25 10:[address]: Jcarlos Yeh DEPT: SURGICAL PATHOLOGY RECD BY: Usman Luke ENTERED: 06/11/25 12:27 SP TYPE: EGD BIOPSY OT DR: Dipika Wheeler, [facility], SUPERVISOR DYER-C Tissues: A - Esophagus, NOS Procedures: Surgery Specimen Level IV HEADER OPERATION: EGD, biopsy PRE-OP DIAGNOSIS: GERD, Clark's esophagus TISSUE SUBMITTED: A- Distal esophagus biopsy MICROSCOPIC DIAGNOSIS A. Distal esophagus, biopsy: * Squamocolumnar mucosa negative for goblet cell metaplasia. * Negative for dysplasia. MICROSCOPIC DESCRIPTION Slides are reviewed. GROSS DESCRIPTION A. Received in fixative is one container labeled with the patient's name and designated Distal esophagus biopsy. The specimen consists of multiple irregular fragments of light hinton soft tissue that in aggregate measure 0.8 x 0.5 x 0.1 cm. The specimen is totally submitted in one cassette. [place] 06/11/2025 CPT:19442
--- NOTE | 2025-06-11 10:18 | PCM.POST.ANE ---
Anesthesia: Postop Eval I Current Vital Signs Temperature: 97.5 F Pulse Rate: 81 Blood Pressure: 114/69 Respiratory Rate: 16 Pulse Ox: 97 Oxygen Delivery Method: Room Air Assessment Airway patent: Yes Spontaneous unlabored respirations: Yes Mental status: Awake and Calm nausea: No Vomiting: No Anesthesia Complication: No Fluid Hydration Crystalloid volume administer (ml): 500 Total IV fluid infused: 500 Progress Note Anesthesia document: Postop Eval 1 completed: Yes
--- NOTE | 2025-06-11 10:22 | OP.EGD_ITS ---
Patient Name: Luis Yates Procedure Date: 06/11/2025 9:59 AM Date of : 1950 Age: 75 Procedure: Upper GI endoscopy Indications: Iron deficiency anemia, Heartburn, Follow-up of Clark's esophagus Providers: Jcarlos Yeh DO Referring MD: Dipika Wheeler [facility], Supervisor [employer]rote[employer]-c Medicines: Monitored Anesthesia Care Patient Profile: This is a 75 year old male. Refer to note in patient chart for documentation of history and physical. Patient has symptoms of chronic heartburn. His most recent EGD for Clark's biopsy was within the past three years. Complications: No immediate complications. Procedure: Pre-Anesthesia Assessment: - Prior to the procedure, a History and Physical was performed, and patient medications and allergies were reviewed. The patient is competent. The risks and benefits of the procedure and the sedation options and risks were discussed with the patient. All questions were answered and informed consent was obtained. Patient identification and proposed procedure were verified by the physician in the pre-procedure area. Mental Status Examination: alert and oriented. Respiratory Examination: clear to auscultation. Prophylactic Antibiotics: The patient does not require prophylactic antibiotics. Prior Anticoagulants: The patient has taken no anticoagulant or antiplatelet agents. ASA Grade Assessment: II - A patient with mild systemic disease. After reviewing the risks and benefits, the patient was deemed in satisfactory condition to undergo the procedure. The anesthesia plan was to use monitored anesthesia care (MAC). Immediately prior to administration of medications, the patient was re-assessed for adequacy to receive sedatives. The heart rate, respiratory rate, oxygen saturations, blood pressure, adequacy of pulmonary ventilation, and response to care were monitored throughout the procedure. The physical status of the patient was re-assessed after the procedure. After obtaining informed consent, the endoscope was passed under direct vision. Throughout the procedure, the patient's blood pressure, pulse, and oxygen saturations were monitored continuously. The gastroscope was introduced through the mouth, and advanced to the second part of duodenum. The upper GI endoscopy was accomplished without difficulty. The patient tolerated the procedure well. Scope In: 10:03:42 AM Scope Out: 10:07:38 AM Total Procedure Duration Time 0 hours 3 minutes 56 seconds Findings: There were esophageal mucosal changes secondary to established long-segment Clark's disease present in the middle third of the esophagus and in the lower third of the esophagus. The maximum longitudinal extent of these mucosal changes was 6 cm in length. Mucosa was biopsied with a cold forceps for histology in a targeted manner at intervals of 1 cm in the lower third of the esophagus. Verification of patient identification for the specimen was done. Estimated blood loss was minimal. A medium-sized hiatal hernia was present. [Site] was. The examined duodenum was normal. Impression: - Esophageal mucosal changes secondary to established long-segment Clark's disease. Biopsied. - Medium-sized hiatal hernia. - Normal stomach. - Normal examined duodenum. Recommendation: - Discharge patient to home. - Resume previous diet. - Continue present medications. - Await pathology results. - Repeat upper endoscopy in 1 year for surveillance. Procedure Code(s): --- Professional --- 72831, Esophagogastroduodenoscopy, flexible, transoral; with biopsy, single or multiple CPT copyright 2021 [employer]. All rights reserved. The codes documented in this report are preliminary and upon tab machine operator review may be revised to meet current compliance requirements. Jcarlos Yeh DO 06/11/2025 10:21:38 AM This report has been signed electronically. Number of Addenda: 0 Note Initiated On: 06/11/2025 9:59 AM
--- NOTE | 2025-06-11 10:22 | OP.PROVAT_ITS ---
06/11/2025 Dipika Wheeler [facility], [facility] Re : Upper GI endoscopy procedure for Luis Wheeler This procedure was performed on May. 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 Biopsied. - Medium-sized hiatal hernia. - Normal stomach. - Normal examined duodenum. Recommendations : - Discharge patient to home. - Resume previous diet. - Continue present medications. - Await pathology results. - Repeat upper endoscopy in 1 year for surveillance. My findings are described in the full procedure note, which is enclosed. If I can be of further assistance, please feel free to contact me at . Sincerely, Jcarlos Yeh, 06/11/2025 10:21:38 AM This report has been signed electronically.
--- NOTE | 2025-06-11 12:53 | POSTOPAN2_ITS ---
Anesthesia Postop Eval I Sum Postop Eval Completion status Anesthesia document: Postop Eval 1 completed: Yes Anesthesia Postop Eval I Summary Anesthesia Postop Eval I Summary: Anesthesia Postop Eval I: Assessment Summary Airway patent Yes 06/11/25 10:19 MEDICAL RECEPTIONIST.[email or web address] Spontaneous unlabored Yes 06/11/25 10:19 MEDICAL RECEPTIONIST.GDOTT respirations Mental status Awake,Calm 06/11/25 10:19 MEDICAL RECEPTIONIST.GDOTT nausea No 06/11/25 10:19 MEDICAL RECEPTIONIST.GDOTT Vomiting No 06/11/25 10:19 MEDICAL RECEPTIONIST.GDOTT Anesthesia Postop Eval I: Fluid Summary Crystalloid volume administer 500 06/11/25 10:19 MEDICAL RECEPTIONIST.GDOTT (ml) Colloids volume administered ( ml) Blood Product volume administered (ml) Total IV fluid infused 500 06/11/25 10:19 MEDICAL RECEPTIONIST.GDOTT Anesthesia Postop Eval I: Summary Notes Anesthesia Complication No 06/11/25 10:19 MEDICAL RECEPTIONIST.GDOTT Anesthesia Complication Comment: Post-operative progress note Anesthesia: Postop Eval II Evaluation Mental status: Awake and Calm Pain Level: 0 nausea: No Vomiting: No Complications Anesthesia Complication: No
--- NOTE | 2025-06-11 12:53 | PCM.POSTANE2 ---
Anesthesia Postop Eval I Sum Postop Eval Completion status Anesthesia document: Postop Eval 1 completed: Yes Anesthesia Postop Eval I Summary Anesthesia Postop Eval I Summary: Anesthesia Postop Eval I: Assessment Summary Airway patent Yes 06/11/25 10:19 SILK SCREEN OPERATOR.GDOTT Spontaneous unlabored Yes 06/11/25 10:19 SILK SCREEN OPERATOR.GDOTT respirations Mental status Awake,Calm 06/11/25 10:19 SILK SCREEN OPERATOR.GDOTT nausea No 06/11/25 10:19 SILK SCREEN OPERATOR.GDOTT Vomiting No 06/11/25 10:19 SILK SCREEN OPERATOR.GDOTT Anesthesia Postop Eval I: Fluid Summary Crystalloid volume administer 500 06/11/25 10:19 SILK SCREEN OPERATOR.GDOTT (ml) Colloids volume administered ( ml) Blood Product volume administered (ml) Total IV fluid infused 500 06/11/25 10:19 SILK SCREEN OPERATOR.GDOTT Anesthesia Postop Eval I: Summary Notes Anesthesia Complication No 06/11/25 10:19 SILK SCREEN OPERATOR.GDOTT Anesthesia Complication Comment: Post-operative progress note Anesthesia: Postop Eval II Evaluation Mental status: Awake and Calm Pain Level: 0 nausea: No Vomiting: No Complications Anesthesia Complication: No
== END 2025-06-11 11:39 | disposition home or self-care (01) ==
LOC: EN 08:46 → AC 08:48
PROVIDERS: PCP Nurse Practitioner Family; Referring Provider Nurse Practitioner Family; Visit Provider Internal Medicine Gastroenterology
PROC: 0DJ08ZZ Inspection of Upper Intestinal Tract, Via Natural or Artificial Opening Endoscopic (ICD-10-PCS; CPT 43235; principal; 2025-06-11 09:55)
DX: K44.9 Diaphragmatic hernia without obstruction or gangrene (principal); I11.0 Hypertensive heart disease with heart failure; I50.9 Heart failure, unspecified; I48.0 Paroxysmal atrial fibrillation; E11.9 Type 2 diabetes mellitus without complications; E78.5 Hyperlipidemia, unspecified; Z79.85 Long-term (current) use of injectable non-insulin antidiabetic drugs; D50.9 Iron deficiency anemia, unspecified; K22.70 Barrett's esophagus without dysplasia; Z79.01 Long term (current) use of anticoagulants; Z79.899 Other long term (current) drug therapy; K21.9 Gastro-esophageal reflux disease without esophagitis
CPT/HCPCS: 43239; 82962; 88305; J2405

== ENCOUNTER → 2025-07-07 | Outpatient (CLI) | payer MEDICARE, MEDICAID, SELFPAY ==
[2025-07-07 12:30] LABS: Hematocrit 38.9 % (40-54); Hemoglobin 12.1 g/dL (13.0-16.5); Immature Granulocytes Count 0.020 X10^3/uL (0.0-0.0); Mean Corp Hgb Conc 31.1 g/dL (32-36); Mean Corpuscular Volume 81.6 fL (80-94); Mean Platelet Vol. 10.4 fl (6.2-12.0); NRBC Flagged by Analyzer 0 % (0-5); Platelet Count 315 K/mm3 (150-450); RBC Distribution Width CV 14.7 % (11.6-14.6); RBC Distribution Width SD 44.1 fl (35.1-43.9); Red Blood Count 4.77 M/mm3 (4.6-6.2); White Blood Count 6.9 K/mm3 (4.4-11.0)
[2025-07-07 13:09] LABS: AST(SGOT) 20 U/L (<=37); Alanine Aminotransfer ALT/SGPT 16 U/L (<=46); Albumin, Serum 4.0 g/dL (3.4-4.8); Alkaline Phosphatase 93 U/L (40-129); Anion Gap 9 (5-15); BUN 17 mg/dL (4-19); BUN/Creat Ratio 16.7 RATIO (10-20); Calcium,Total 9.5 mg/dL (7.6-11.0); Carbon Dioxide 26.3 mmol/L (21.0-32.0); Chloride 102 mmol/L (98-108); Globulin 3.1 g/dL (2.2-4.2); Glucose 134 mg/dL (70-99); Potassium 4.4 mmol/L (3.3-5.1)
[2025-07-07 13:14] LABS: Microalbumin,Random Urine < 12.0 mg/L (<20 mg/L)
== END | disposition home or self-care (01) ==
LOC: VSLAB 09:42
PROVIDERS: PCP Nurse Practitioner Family; Visit Provider Nurse Practitioner Family
DX: E11.9 Type 2 diabetes mellitus without complications (principal)
CPT/HCPCS: 36415; 80053; 82043; 85025